=== PATIENT | female | born 1935 | race Caucasian/White ===

== ENCOUNTER → 2016-09-24 | Outpatient (CLI) | payer MEDICARE, BC ==
--- NOTE | 2016-09-24 17:52 | REP ---
PA and lateral chest: Comparisons 07/26/2015. There are no infiltrates, effusions or masses. There is a minor zone of discoid atelectasis inferiorly in the left lung. Surgical clips are again noted in the oral anteriorly in the left lung, unchanged. There are old healed left rib fractures. The lung serna otherwise clear. Cardiac size is upper normal, unchanged. The verenice and mediastinum are unremarkable. Impression: No acute cardiopulmonary findings. Signed by Umer Eason MD 09/24/2016 05:44 P
== END ==
LOC: M WUC 14:46
PROVIDERS: ATTEND Physician Assistant
DX: R05 Cough (principal)

== ENCOUNTER → 2016-10-30 | Outpatient (CLI) | payer MEDICARE, BC ==
--- NOTE | 2016-10-30 14:44 | REPMRS ---
Patient History The patient states she had a clinical breast exam in 06/18.Patient is postmenopausal and has history of cancer in the left breast at age 73. Family history of unknown cancer in mother at age 72 and unknown cancer in brother at age 67. Taking tamoxifen for 4 years. Digital Mammo Screening Bilat: October 30, 2016 - Exam #: [id number] Bilateral CC and MLO view(s) were taken. Technologist: Rachana Alexandre, Technologist Prior study comparison: October 15, 2015, bilateral digital mammo screening bilat performed at [facility]. October 14, 2014, bilateral digital mammo screening bilat performed at [facility]. October 13, 2013, bilateral digital mammo screening bilat performed at [facility]. FINDINGS: There are scattered fibroglandular densities. There has been no change in the appearance of the mammogram from the prior studies. There are surgical clips projecting in the left axilla as before. There is a mild amount of scattered fibroglandular density which is fairly symmetric. There is no interval development of dominant mass, architectural distortion, or clustered microcalcification suggestive of malignancy. ASSESSMENT: BI-RADS/ACR category 1 mammogram. Negative. Recommendation Routine screening mammogram in 1 year (for women over age 40). This mammogram was interpreted with the aid of an FDA-approved computer-aided dectection system. Electronically Signed By: Umer Hunt MD 10/30/16 3682
== END ==
LOC: M RAD 14:05
PROVIDERS: ATTEND Nurse Practitioner Adult Health
DX: Z12.31 Encounter for screening mammogram for malignant neoplasm of breast (principal); Z85.3 Personal history of malignant neoplasm of breast; Z78.0 Asymptomatic menopausal state

== ENCOUNTER → 2017-01-18 | Outpatient (REF) | payer MEDICARE, BC | LOC: M SFHCPLAZ 11:43 | PROVIDERS: ATTEND Nurse Practitioner Adult Health | DX: Z91.89 Other specified personal risk factors, not elsewhere classified (principal); Z85.3 Personal history of malignant neoplasm of breast; R35.0 Frequency of micturition | CPT/HCPCS: G0123; G0463 ==

== ENCOUNTER → 2017-02-21 | Outpatient (REF) | payer MEDICARE, BC ==
[2017-02-21 16:39] LABS: ALBUMIN 3.7 GM/DL (3.2-5.2); ALBUMIN/GLOBULIN RATIO 1.19 (1.00-1.93); BILIRUBIN,TOTAL 0.9 MG/DL (0.2-1.0); CALCIUM LEVEL 8.7 MG/DL (8.8-10.2); CREATININE FOR GFR 0.98 MG/DL (0.55-1.02); POTASSIUM SERUM 4.2 MEQ/L (3.5-5.1); TOTAL PROTEIN 6.8 GM/DL (6.4-8.2)
[2017-02-21 16:52] LABS: MEAN CORPUSCULAR HEMOGLOBIN 32.4 pg (27.0-33.0); MEAN CORPUSCULAR HGB CONC 32.6 g/dl (32.0-36.5); MEAN CORPUSCULAR VOLUME 99.4 fl (80.0-96.0); WHITE BLOOD COUNT 9.8 K/mm3 (4.0-10.0)
== END ==
LOC: M SFHCPLAZ 11:15
PROVIDERS: ATTEND Nurse Practitioner Adult Health
DX: E55.9 Vitamin D deficiency, unspecified (principal); J45.909 Unspecified asthma, uncomplicated; I11.0 Hypertensive heart disease with heart failure; I50.30 Unspecified diastolic (congestive) heart failure; I71.4 Abdominal aortic aneurysm, without rupture; K21.9 Gastro-esophageal reflux disease without esophagitis; R41.3 Other amnesia; R26.81 Unsteadiness on feet; M76.61 Achilles tendinitis, right leg; Z79.82 Long term (current) use of aspirin

== ENCOUNTER → 2017-05-23 | Outpatient (REF) | payer MEDICARE, BC ==
[2017-05-23 18:56] LABS: ALBUMIN 3.2 GM/DL (3.2-5.2); ALBUMIN/GLOBULIN RATIO 1.03 (1.00-1.93); ALKALINE PHOSPHATASE 49 U/L (45-117); ALT/SGPT 17 U/L (12-78); ANION GAP 9 MEQ/L (8-16); AST/SGOT 17 U/L (15-37); BILIRUBIN,TOTAL 0.6 MG/DL (0.2-1.0); BLOOD UREA NITROGEN 13 MG/DL (7-18); CALCIUM LEVEL 8.9 MG/DL (8.8-10.2); CARBON DIOXIDE LEVEL 30 MEQ/L (21-32); CHLORIDE LEVEL 107 MEQ/L (98-107); CREATININE FOR GFR 0.88 MG/DL (0.55-1.02); GLOMERULAR FILTRATION RATE > 60.0 (>32); GLUCOSE, FASTING 79 MG/DL (83-110); SODIUM LEVEL 146 MEQ/L (136-145); TOTAL PROTEIN 6.3 GM/DL (6.4-8.2)
[2017-05-23 19:45] LABS: MEAN CORPUSCULAR HEMOGLOBIN 32.8 pg (27.0-33.0); MEAN CORPUSCULAR HGB CONC 33.3 g/dl (32.0-36.5); MEAN CORPUSCULAR VOLUME 98.5 fl (80.0-96.0); RED CELL DISTRIBUTION WIDTH 12.8 % (11.5-14.5); WHITE BLOOD COUNT 8.4 K/mm3 (4.0-10.0)
== END ==
LOC: M SFHCPLAZ 11:22
PROVIDERS: ATTEND Nurse Practitioner Adult Health
DX: I50.30 Unspecified diastolic (congestive) heart failure (principal); E55.9 Vitamin D deficiency, unspecified
CPT/HCPCS: 36415; 80053; 82306; 85027; 90662; G0008; G0463

== ENCOUNTER → 2017-05-24 | Outpatient (REF) | payer MEDICARE, BC ==
[2017-05-24 15:11] LABS: FOLATE 18.5 NG/ML
== END ==
LOC: M LAB REF 13:31
PROVIDERS: ATTEND Internal Medicine Medical Oncology
DX: C50.919 Malignant neoplasm of unspecified site of unspecified female breast (principal)

== ENCOUNTER → 2017-05-30 | Outpatient (CLI) | payer MEDICARE, BC ==
--- NOTE | 2017-05-30 14:31 | REP ---
WHOLE BODY BONE SCAN: Following the intravenous administration of 22 millicuries technetium 99m MDP, the patient's whole body was imaged in the anterior and posterior projections with additional oblique images of the thoracic and pelvic regions performed and lateral views of the calvarium. Comparison is made with a prior study of 06/29/2015. There is again scattered arthritic uptake in portions of the spine, in the shoulders, hips, knees and feet. Mild increased uptake in the sternum is stable. There do appear to be new foci of increased uptake in consecutive left upper ribs, which are linearly aligned, specifically in the posterior left 4th through 6th ribs with two other aligned foci in the left 7th and 8th ribs. These are most consistent with rib fractures. There is no compelling scintigraphic evidence of osseous metastases. IMPRESSION: No compelling scintigraphic evidence of osseous metastases. Signed by Umer Verma MD 05/30/2017 05:08 P
== END ==
LOC: M RAD 09:22
PROVIDERS: ATTEND Internal Medicine Medical Oncology
DX: C50.919 Malignant neoplasm of unspecified site of unspecified female breast (principal); M54.5 Low back pain
CPT/HCPCS: 78306; A9503

== ENCOUNTER → 2017-10-31 | Outpatient (CLI) | payer MEDICARE, BC | LOC: M RAD 10:22 | DX: Z12.31 Encounter for screening mammogram for malignant neoplasm of breast (principal); Z78.0 Asymptomatic menopausal state; Z85.3 Personal history of malignant neoplasm of breast; Z79.899 Other long term (current) drug therapy | CPT/HCPCS: 77067 ==

== ENCOUNTER 2017-11-01 11:26 | Outpatient (RCR) | payer MEDICARE, BC | END 2017-12-01 | LOC: M PT 11:26 | DX: Z51.89 Encounter for other specified aftercare (principal); M54.5 Low back pain; R26.81 Unsteadiness on feet; T14.8XXD Other injury of unspecified body region, subsequent encounter | CPT/HCPCS: 97110 ==

== ENCOUNTER → 2017-11-29 | Outpatient (REF) | payer MEDICARE, BC ==
[2017-11-29 13:40] LABS: HEMATOCRIT 42.8 % (36.0-47.0)
[2017-11-30 12:11] LABS: PRETREATED FOLATE FOR RBCFOL 10.6 NG/ML; RBC FOLATE 520.1 NG/ML (280-791)
== END ==
LOC: M LAB REF 13:31
DX: C50.919 Malignant neoplasm of unspecified site of unspecified female breast (principal)
CPT/HCPCS: 82747

== ENCOUNTER 2018-04-25 15:08 | Emergency (ER) | payer MEDICARE, BC ==
[2018-04-25] MEDS: LIDOCAINE 1% MDV 20ML VIAL IM (17:39)
== END 2018-04-25 19:25 | disposition home or self-care (01) ==
LOC: M ED 15:08
DX: S52.591A Other fractures of lower end of right radius, initial encounter for closed fracture (principal); M85.88 Other specified disorders of bone density and structure, other site; W01.0XXA Fall on same level from slipping, tripping and stumbling without subsequent striking against object, initial encounter; Y92.009 Unspecified place in unspecified non-institutional (private) residence as the place of occurrence of the external cause
CPT/HCPCS: 25505

== ENCOUNTER → 2018-04-25 | Outpatient (CLI) | payer MEDICARE, BC | LOC: M WUC 14:06 | DX: S52.591A Other fractures of lower end of right radius, initial encounter for closed fracture (principal); X58.XXXA Exposure to other specified factors, initial encounter; Y92.9 Unspecified place or not applicable; M85.88 Other specified disorders of bone density and structure, other site; M25.531 Pain in right wrist ==

== ENCOUNTER → 2018-05-20 | Outpatient (REF) | payer MEDICARE, BC ==
[2018-05-20 16:43] LABS: ALBUMIN 3.5 GM/DL (3.2-5.2); ALBUMIN/GLOBULIN RATIO 1.09 (1.00-1.93); ALKALINE PHOSPHATASE 65 U/L (45-117); ALT/SGPT 18 U/L (12-78); ANION GAP 10 MEQ/L (8-16); AST/SGOT 20 U/L (7-37); BILIRUBIN,TOTAL 0.6 MG/DL (0.2-1.0); BLOOD UREA NITROGEN 18 MG/DL (7-18); CALCIUM LEVEL 8.8 MG/DL (8.8-10.2); CARBON DIOXIDE LEVEL 29 MEQ/L (21-32); CHLORIDE LEVEL 106 MEQ/L (98-107); CHOLESTEROL LEVEL 209 MG/DL (<200); CHOLESTEROL RISK RATIO 2.322 (<5); CREATININE FOR GFR 0.96 MG/DL (0.55-1.30); GLOMERULAR FILTRATION RATE 59.2 (>32); GLUCOSE, FASTING 84 MG/DL (70-100); HDL CHOLESTEROL 90 MG/DL (>40); LDL CHOLESTEROL 101 MG/DL (<100); NON-HDL-C 119 MG/DL; POTASSIUM SERUM 3.8 MEQ/L (3.5-5.1); SODIUM LEVEL 145 MEQ/L (136-145); THYROID STIMULATING HORMONE 0.426 uIU/ML (0.358-3.740); TOTAL PROTEIN 6.7 GM/DL (6.4-8.2); TRIGLYCERIDES LEVEL 90 MG/DL (<150)
== END ==
LOC: M SFHCPLAZ 14:03
DX: I10 Essential (primary) hypertension (principal); E55.9 Vitamin D deficiency, unspecified; Z85.3 Personal history of malignant neoplasm of breast
CPT/HCPCS: 84443

== ENCOUNTER 2018-10-07 18:44 | Inpatient (IN) | payer MEDICARE, BC ==
[~2018-10-07] VITALS: Ht 165.1 cm; Wt 68.0 kg
[~2018-10-07 18:44] MED LIST: ASPI1TAB PO; ATEN25TA PO; TAMO20TA8 PO
[2018-10-07] MEDS ORDERED: NS 1,000 ML IV ONE (20:15)
--- NOTE | 2018-10-07 20:20 | ECGEPIP ---
Stationary ECG Study [facility] - ED Test Date: 2018-10-07 Pat Name: RIZWAN BUENO Department: Room: - Gender: F [employer]: [place] : 1935 Requested By: MIC GILL Order Number: [id number] Reading MD: Althea Pineda Measurements Intervals [place] Rate: 73 P: 46 OK: 152 QRS: 44 QRSD: 83 T: 60 QT: 409 QTc: 453 Interpretive Statements SINUS RHYTHM NONSPECIFIC ST T WAVE CHANGES 07/26/[address] T WAVE CHANGES Electronically Signed On 10-07-2018 20:20:50 EST by Althea Pineda
[2018-10-07 20:30] LABS: HEMATOCRIT 36.8 % (36.0-47.0); MEAN CORPUSCULAR HEMOGLOBIN 32.3 pg (27.0-33.0); MEAN CORPUSCULAR HGB CONC 32.6 g/dl (32.0-36.5); MEAN CORPUSCULAR VOLUME 99.2 fl (80.0-96.0); PLATELET COUNT, AUTOMATED 233 10^3/uL (150-450); RED BLOOD COUNT 3.71 10^6/uL (4.00-5.40)
[2018-10-07 20:33] LABS: BLOOD UREA NITROGEN 29 MG/DL (7-18); CALCIUM LEVEL 8.3 MG/DL (8.8-10.2); CARBON DIOXIDE LEVEL 30 MEQ/L (21-32); CHLORIDE LEVEL 104 MEQ/L (98-107); CK-MB VALUE MASS < 1.0 NG/ML (<3.6); CPK CREATINE PHOSPHOKINASE 40 U/L (26-192); CREATININE FOR GFR 1.63 MG/DL (0.55-1.30); GLOMERULAR FILTRATION RATE 32.2 (>32); GLUCOSE, FASTING 211 MG/DL (70-100); POTASSIUM SERUM 3.7 MEQ/L (3.5-5.1); SODIUM LEVEL 141 MEQ/L (136-145); TROPONIN I < 0.02 NG/ML (< 0.10)
[2018-10-07 20:39] LABS: WHITE BLOOD COUNT 35.3 10^3/uL (4.0-10.0)
[2018-10-07 20:54] LABS: LYMPHOCYTES 7 % (16-52); NEUTROPHILS 89 % (35-75)
[2018-10-07 20:55] LABS: TOXIC VACUOLATION 1+
[2018-10-07 20:57] LABS: PLATELET ESTIMATE NORMAL (NORMAL)
[2018-10-07] MEDS: DONEPEZIL 5 MG TAB PO SCH (21:00)
[2018-10-07] MEDS: MEMANTINE 5MG TABLET (NAMENDA) PO SCH (21:00)
[2018-10-07] MEDS ORDERED: NS 500 ML IV ONE ×2 (21:45→23:45)
[2018-10-07 22:12] LABS: APPEARANCE, URINE TURBID (CLEAR); BACTERIA, URINE AUTO 3+ (NEGATIVE); BILIRUBIN, URINE AUTO NEGATIVE (NEGATIVE); BLOOD, URINE BLOOD 1+ (NEGATIVE); COLOR, URINE AMBER (YELLOW); GLUCOSE, URINE (UA) AUTO NEGATIVE (NEGATIVE); KETONE, URINE AUTO NEGATIVE (NEGATIVE); LEUKOCYTE ESTERASE, URINE AUTO 3+ (NEGATIVE); MUCUS, URINE SMALL (NEGATIVE); NITRITE, URINE AUTO NEGATIVE (NEGATIVE); PROTEIN, URINE AUTO 2+ mg/dL (NEGATIVE); RBC, URINE AUTO 26 /HPF (0-3); SPECIFIC GRAVITY URINE AUTO 1.015 (1.002-1.035); SQUAMOUS EPITHELIAL CELL UR AU 0 /HPF (0-6); UROBILINOGEN, URINE AUTO 0.2 mg/dL (0.0-2.0); WBC, URINE AUTO TNTC /HPF (0-3)
[2018-10-07] MEDS ORDERED: cefTRIAXone SOD 2 GM in D5W MINI-BAG PLUS 50 ML IV ONE (22:30)
[2018-10-07] MEDS ORDERED: XALA0.007 OU (22:51)
[2018-10-07] MEDS ORDERED: MEMA1TAB PO (22:51)
[2018-10-07] MEDS ORDERED: ATEN25TA PO (22:51)
[2018-10-07] MEDS ORDERED: KLOR20TA42 PO (22:51)
[2018-10-07] MEDS ORDERED: ASPI81TA24 PO (22:51)
[2018-10-07] MEDS ORDERED: ESCI10TA2 PO (22:51)
[2018-10-07] MEDS ORDERED: GABA-843 PO (22:51)
[2018-10-07] MEDS ORDERED: FURO20TA2 PO (22:51)
[2018-10-07] MEDS ORDERED: DONETAB6 PO (22:51)
[2018-10-07] MEDS ORDERED: DONE10TA90 PO (22:53)
[2018-10-08] VITALS (7 sets, daily range): BP systolic 88–124; BP diastolic 50–60
[2018-10-08] MEDS ORDERED: ONDANSETRON 4MG/2ML VIAL (J2405) IV PRN (01:00)
[2018-10-08] MEDS ORDERED: NS 1,000 ML IV SCH (01:00)
[2018-10-08] MEDS ORDERED: IPRATROPIUM 0.5MG/ALBUTEROL 2.5MG INH SOL UD 3ML (DUONEB)(J7620) NEB PRN (01:00)
[2018-10-08] MEDS ORDERED: ACETAMINOPHEN TAB 650MG DOSE (2X325MG) PO PRN (01:00)
--- NOTE | 2018-10-08 06:16 | HPE ---
DATE OF ADMISSION: 10/08/2018 CHIEF COMPLAINT: Dizziness, urinary frequency and hypotension. HISTORY OF PRESENT ILLNESS (HPI): The patient is an 83-year-old female with a significant past medical history of hypertension, dementia, mood disorder. She presents to the emergency room brought from [facility] where she was visiting friends. She also has a history of obstructive airway disease, possibly chronic pulmonary obstructive disease (COPD), asthma. She was brought in when she visiting friends when she complained of generalized weakness, dizziness, her blood pressure was note to be low. In the emergency room (ER) she was to have a white count of 35 with a lactate, she was mildly hypotensive which responded appropriately to fluids. She was also noted to have a positive urinalysis (UA). She denies any cough, chest pain, shortness of breath, abdominal pain, constipation or diarrhea. She does endorse urinary frequency. She is a poor historian and does have baseline dementia. PAST MEDICAL HISTORY: See HPI. PAST SURGICAL HISTORY: The patient had a hard time recalling but she said she had breast cancer status post lumpectomy and follows regularly with a plaster helper/oncologist. Other than this, she was unable to recall much more of her past surgical history. HOME MEDICATIONS: - aspirin - atenolol - Lexapro - Lasix - gabapentin - latanoprost - donepezil - memantine - potassium chloride SOCIAL HISTORY: Denies tobacco, alcohol or illicit drug use. FAMILY HISTORY: Noncontributory. REVIEW OF SYSTEMS: A 12-point review of system was completed all of which negative except those listed in the HPI. PHYSICAL EXAMINATION: ADMISSION VITAL SIGNS: Temperature 99, pulse 76, respirations 19, blood pressure 100/49, satting 98% on room air. GENERAL: She is a well nourished, elderly female, very pleasant and in no apparent distress. HEAD: Normocephalic atraumatic. Eyes: Extraocular movements are intact. Pupils equal, round, and reactive to light. NECK: Supple, no jugular venous pulse (JVP). LUNGS: Clear to auscultation, no crackles, wheezes, rales or rhonchi. CARDIOVASCULAR: Regular rate and rhythm, normal S1, S2. No murmurs, rubs, gallops. ABDOMEN: Soft, nontender, nondistended. Positive bowel sounds. No rebound or guarding. EXTREMITIES: No pitting edema or calf tenderness. SKIN: Intact, no rashes, lesions or breakdown. NEUROLOGICAL EXAM: She is awake, alert and oriented times two. No focal deficits are appreciated. LABS AND IMAGING COMPLETED IN THE EMERGENCY ROOM: White count of 35, hemoglobin 12, hematocrit 36, platelet count 233. Chemistries show BUN 29, creatinine 1.63. Baseline creatinine appears to be around 1., lactate of 3.2, troponins are negative. Chest x-ray shows no acute disease. No consolidations, no infiltrates. ASSESSMENT AND PLAN: 1. Sepsis secondary to urinary tract infection (UTI). Will continue fluid hydration. Will obtain urine culture, Ceftriaxone 1 gram daily. Will tailor antibiotics as per urine culture . 2. Dementia. Continue donepezil and memantine. 3. Hypertension. Hold Lasix, potassium chloride, and atenolol for now in the setting of borderline pressures. 4. Glaucoma. Continue latanoprost. 5. Breast cancer, status post lumpectomy. Stable. She follows with outside plaster helper/oncologist. 6. Mood disorder. Continue Lexapro and gabapentin. SUPPORTIVE: Deep venous thrombosis (DVT) prophylaxis. Heparin subcutaneous. Gastrointestinal (GI) prophylaxis: Not indicated. DIET: Cardiac.
[2018-10-08] MEDS: HEPARIN SOD (PORCINE) 5000 UNITS/ML VIAL SC SCH ×3 (06:26→21:23)
--- NOTE | 2018-10-08 08:32 | REP ---
Chest x-ray: Two views. History: Fever. Comparison study: September 24, 2016. Findings: EKG monitoring electrodes overlie the chest. Mild cardiac enlargement is seen. Lungs are hyperinflated but clear. There are surgical clips projecting over the left chest likely in the extrathoracic breast soft tissues. No infiltrate is seen. Pulmonary vasculature is not increased. The aorta is calcific and tortuous. There is a dextroconvex curvature in the upper thoracic spine unchanged. Old healed rib fractures are noted on the left. Impression: Hyperinflation. Mild cardiac enlargement. No acute disease. No acute infiltrate. Electronically Signed by Zachery Hunt MD 10/08/2018 08:24 A
[2018-10-08] MEDS: ESCITALOPRAM OXALATE 10 MG TAB (LEXAPRO) PO SCH (09:19)
[2018-10-08] MEDS: GABAPENTIN 300 MG CAP PO SCH ×2 (09:20→21:24)
[2018-10-08] MEDS: ASPIRIN 81 MG ENTERIC TAB PO SCH (09:20)
[2018-10-08 13:32] LABS: HEMATOCRIT 38.8 % (36.0-47.0); HEMOGLOBIN 12.5 g/dl (12.0-15.5); MEAN CORPUSCULAR HGB CONC 32.2 g/dl (32.0-36.5); MEAN CORPUSCULAR VOLUME 99.2 fl (80.0-96.0); PLATELET COUNT, AUTOMATED 202 10^3/uL (150-450); RED BLOOD COUNT 3.91 10^6/uL (4.00-5.40); WHITE BLOOD COUNT 19.5 10^3/uL (4.0-10.0)
[2018-10-08 13:54] LABS: CALCIUM LEVEL 7.9 MG/DL (8.8-10.2); CREATININE FOR GFR 1.1 MG/DL (0.55-1.30); GLOMERULAR FILTRATION RATE 50.6 (>32); POTASSIUM SERUM 3.6 MEQ/L (3.5-5.1)
[2018-10-08] MEDS: LATANOPROST 0.005% OPHTH SOLN 2.5 ML OU SCH (21:23)
[2018-10-08] MEDS: cefTRIAXone SOD 1 GM in D5W MINI-BAG PLUS 50 ML IV SCH (21:23)
[2018-10-08] MEDS: MEMANTINE 5MG TABLET (NAMENDA) PO SCH (21:24)
[2018-10-08] MEDS: DONEPEZIL 5 MG TAB PO SCH (21:24)
[2018-10-09] MEDS ORDERED: SODIUM CHLORIDE 0.9% 1000ML IV ONE (01:15)
[2018-10-09] MEDS ORDERED: NS 1,000 ML IV SCH (01:30)
[2018-10-09 04:00] VITALS: BP 97/50
[2018-10-09] MEDS: HEPARIN SOD (PORCINE) 5000 UNITS/ML VIAL SC SCH ×3 (05:55→21:20)
[2018-10-09 06:07] LABS: HEMATOCRIT 36.5 % (36.0-47.0); HEMOGLOBIN 11.4 g/dl (12.0-15.5); MEAN CORPUSCULAR HEMOGLOBIN 31.8 pg (27.0-33.0); MEAN CORPUSCULAR HGB CONC 31.2 g/dl (32.0-36.5); PLATELET COUNT, AUTOMATED 156 10^3/uL (150-450); RED BLOOD COUNT 3.58 10^6/uL (4.00-5.40); WHITE BLOOD COUNT 11.8 10^3/uL (4.0-10.0)
[2018-10-09 06:30] LABS: CALCIUM LEVEL 7.9 MG/DL (8.8-10.2); CREATININE FOR GFR 0.97 MG/DL (0.55-1.30); GLOMERULAR FILTRATION RATE 58.5 (>32); POTASSIUM SERUM 3.5 MEQ/L (3.5-5.1)
[2018-10-09 08:00] VITALS: BP 124/70
[2018-10-09] MEDS: ASPIRIN 81 MG ENTERIC TAB PO SCH (08:22)
[2018-10-09] MEDS: ESCITALOPRAM OXALATE 10 MG TAB (LEXAPRO) PO SCH (08:23)
[2018-10-09] MEDS: GABAPENTIN 300 MG CAP PO SCH ×2 (08:23→21:20)
[2018-10-09 12:00] VITALS: BP 123/66
[2018-10-09 16:00] VITALS: BP 143/93
[2018-10-09 20:00] VITALS: BP 130/78
[2018-10-09] MEDS: DONEPEZIL 5 MG TAB PO SCH (21:20)
[2018-10-09] MEDS: MEMANTINE 5MG TABLET (NAMENDA) PO SCH (21:20)
[2018-10-09] MEDS: LATANOPROST 0.005% OPHTH SOLN 2.5 ML OU SCH (21:21)
[2018-10-09] MEDS: cefTRIAXone SOD 1 GM in D5W MINI-BAG PLUS 50 ML IV SCH (21:21)
--- NOTE | 2018-10-09 21:54 | IPN ---
DATE: 10/09/2018 SUBJECTIVE: The patient tells me she is feeling better. She denies any abdominal tenderness, fevers, chills, shortness of breath. OBJECTIVE: VITAL SIGNS: Temperature 98.5, maximum temperature (T-max) 99.8, heart rate 70, respiratory rate 20, blood pressure 120/60, oxygen saturation 97% on room air. She does not appear to be in any acute distress. She does not remember the events of yesterday. Face is symmetric. Moist mucous membranes. No elevation of central venous pressure (CVP). CARDIOVASCULAR: S1, S2, regular. RESPIRATORY: Quite clear. ABDOMEN: Yesterday, she had some suprapubic tenderness which today she does not exhibit. There is no flank tenderness. EXTREMITIES: No clubbing, cyanosis, or edema. LABORATORY DATA: WBC 11.8, down from 35.3 at the time of admission, hemoglobin 11.4, platelet count 156. Chemistry panel: Sodium 146, potassium 3.5, chloride 112, bicarbonate 28, BUN 16, creatinine 0.9, lactic acid was 1.3 this morning. MICROBIOLOGY: Urine culture is pending. Blood cultures are thus negative. IMAGING: The patient had a chest x-ray at the time of her admission that revealed hyperinflation, mild cardiac enlargement. No acute disease. No acute infiltrate. ASSESSMENT AND PLAN: This is an 83-year-old female who presented with sepsis secondary to a urinary source. 1. Sepsis secondary to a urinary source. She presented quite ill with severe sepsis and hypotension. She did respond to IV fluids and antibiotics. We will followup her cultures and narrow antibiotic regimen. At this time, she is continued with ceftriaxone. She does appear in fact to be improving. Her lactic acidosis has resolved with leukocytosis downtrending. She is afebrile. She did have a grossly abnormal urinalysis (UA) at the time of her presentation. 2. Hypertension. Her home Lasix and potassium are on hold as well atenolol. Based on blood pressure, we may consider restarting atenolol. 3. Glaucoma. We will continue latanoprost. 4. History of breast cancer, status post lumpectomy. She follows up regularly with oncology. 5. Mood disorder. She is on gabapentin. 6. Deep vein thrombosis (DVT) prophylaxis. The patient is on heparin. DISPOSITION: I placed a physical therapy (PT) evaluation. We will downgrade her to the medical/surgical floor. She could potentially be discharged within the next 24-48 hours. KRUPA
[2018-10-10] VITALS: BP 124/86
[2018-10-10 04:00] VITALS: BP 125/77
[2018-10-10 05:38] LABS: HEMATOCRIT 37.4 % (36.0-47.0); HEMOGLOBIN 11.7 g/dl (12.0-15.5); MEAN CORPUSCULAR HEMOGLOBIN 31.6 pg (27.0-33.0); MEAN CORPUSCULAR HGB CONC 31.3 g/dl (32.0-36.5); MEAN CORPUSCULAR VOLUME 101.1 fl (80.0-96.0); PLATELET COUNT, AUTOMATED 153 10^3/uL (150-450); WHITE BLOOD COUNT 8.2 10^3/uL (4.0-10.0)
[2018-10-10 05:52] LABS: BLOOD UREA NITROGEN 13 MG/DL (7-18); CALCIUM LEVEL 7.6 MG/DL (8.8-10.2); CARBON DIOXIDE LEVEL 25 MEQ/L (21-32); CHLORIDE LEVEL 114 MEQ/L (98-107); CREATININE FOR GFR 0.94 MG/DL (0.55-1.30); GLOMERULAR FILTRATION RATE > 60.0 (>32); GLUCOSE, FASTING 80 MG/DL (70-100); POTASSIUM SERUM 3.9 MEQ/L (3.5-5.1); SODIUM LEVEL 144 MEQ/L (136-145)
[2018-10-10] MEDS: HEPARIN SOD (PORCINE) 5000 UNITS/ML VIAL SC SCH ×3 (06:02→21:21)
[2018-10-10 08:00] VITALS: BP 136/75
[2018-10-10] MEDS: ESCITALOPRAM OXALATE 10 MG TAB (LEXAPRO) PO SCH (08:37)
[2018-10-10] MEDS: GABAPENTIN 300 MG CAP PO SCH ×2 (08:37→21:21)
[2018-10-10] MEDS: ASPIRIN 81 MG ENTERIC TAB PO SCH (08:37)
--- NOTE | 2018-10-10 13:21 | IPNPDOC ---
Text Note Date of Service The patient was seen on 10/10/18. NOTE SUBJECTIVE: Patient was examined bedside. She had initiation of bathroom. She had no acute complaints. Overnight patient was afebrile. OBJECTIVE: VITAL SIGNS: See Below ENT: No JVD, suple neck CARDIOVASCULAR: S1, S2 normal no murmurs rubs or gallops RESPIRATORY: Clear to auscultate ABDOMEN: Soft, nontender, EXTREMITIES: No clubbing, cyanosis, or edema. LABORATORY DATA: See below MICROBIOLOGY: Urine culture is pending. Blood cultures are thus negative. Prior urine cultures was positive for Escherichia coli ASSESSMENT AND PLAN: This is an 83-year-old female who presented with sepsis secondary to a urinary source. 1. Sepsis secondary to a urinary source. -Ceftriaxone -Normalized white count, normal lactic acid -Pending urine culture, will adjust antibiotics as necessary -Blood cultures negative 2. Dementia -Continue home medication -Patient is not agitated, she does not appear confused, no reported behavioral issues 3. Hypertension. -Hold antihypertensive meds, including Lasix, potassium, and atenolol consider restarting once patient's blood pressure elevated 4. Glaucoma. We will continue latanoprost. 5. History of breast cancer, status post lumpectomy. She follows up regularly with oncology. 6. Mood disorder. -Continue gabapentin She is on gabapentin. 7. Deep vein thrombosis (DVT) prophylaxis. The patient is on heparin. VS,Fishbone, I+O VS, Fishbone, I+O Laboratory Tests 10/10/18 05:12 Red Blood Count 3.70 L, Mean Corpuscular Volume 101.1 H, Mean Corpuscular Hemoglobin 31.6, Mean Corpuscular Hemoglobin Concent 31.3 L, Red Cell Distribution Width 13.9, Calcium Level 7.6 L Vital Signs Date Time Temp Pulse Resp B/P (MAP) Pulse Ox O2 Delivery O2 Flow Rate FiO2 10/10/18 04:00 98.2 61 18 125/77 (93) 97 10/08/18 02:58 Room Air I&O- Last 24 Hours up to 6 AM 10/10/18 06:00 Intake Total 1800 ml Output Total 1350 ml Balance 450 ml GME ATTESTATION GME ATTESTATION My faculty preceptor for this patient encounter was physically present during the encounter and was fully available. All aspects of the patient interview, examination, medical decision making process, and medical care plan development were reviewed and approved by the faculty preceptor. The faculty preceptor is aware and concurs with the plan as stated in the body of this note and will attest to such by his/her cosignature. HAROON LOZANO DO Oct 10, 2018 08:13
[2018-10-10] MEDS: SLF 3 ML SYR IV SCH ×2 (13:39→21:22)
[2018-10-10] MEDS ORDERED: SLF 3 ML SYR IV PRN (13:45)
[2018-10-10 14:15] VITALS: BP 135/71
[2018-10-10 20:54] VITALS: BP 141/68
[2018-10-10] MEDS: cefTRIAXone SOD 1 GM in D5W MINI-BAG PLUS 50 ML IV SCH (21:21)
[2018-10-10] MEDS: LATANOPROST 0.005% OPHTH SOLN 2.5 ML OU SCH (21:21)
[2018-10-10] MEDS: MEMANTINE 5MG TABLET (NAMENDA) PO SCH (21:21)
[2018-10-10] MEDS: DONEPEZIL 5 MG TAB PO SCH (21:21)
[2018-10-11 04:05] VITALS: BP 125/71
[2018-10-11] MEDS: HEPARIN SOD (PORCINE) 5000 UNITS/ML VIAL SC SCH (05:59)
[2018-10-11] MEDS: SLF 3 ML SYR IV SCH (06:00)
[2018-10-11 06:58] LABS: HEMATOCRIT 37.7 % (36.0-47.0); MEAN CORPUSCULAR HEMOGLOBIN 31.6 pg (27.0-33.0); MEAN CORPUSCULAR HGB CONC 31.8 g/dl (32.0-36.5); MEAN CORPUSCULAR VOLUME 99.2 fl (80.0-96.0); PLATELET COUNT, AUTOMATED 175 10^3/uL (150-450); WHITE BLOOD COUNT 7.9 10^3/uL (4.0-10.0)
[2018-10-11 07:21] LABS: BLOOD UREA NITROGEN 16 MG/DL (7-18); CALCIUM LEVEL 8.2 MG/DL (8.8-10.2); CARBON DIOXIDE LEVEL 28 MEQ/L (21-32); CHLORIDE LEVEL 113 MEQ/L (98-107); CREATININE FOR GFR 0.78 MG/DL (0.55-1.30); GLOMERULAR FILTRATION RATE > 60.0 (>32); GLUCOSE, FASTING 79 MG/DL (70-100); SODIUM LEVEL 147 MEQ/L (136-145)
[2018-10-11 08:00] VITALS: BP 154/72
[2018-10-11] MEDS: ASPIRIN 81 MG ENTERIC TAB PO SCH (08:29)
[2018-10-11] MEDS: GABAPENTIN 300 MG CAP PO SCH (08:30)
[2018-10-11] MEDS: ESCITALOPRAM OXALATE 10 MG TAB (LEXAPRO) PO SCH (08:30)
[2018-10-11] MEDS ORDERED: BACT400T PO (09:17)
[2018-10-11] MEDS ORDERED: CEFD1CAP8 PO (09:45)
== END 2018-10-11 12:36 | disposition home or self-care (01) | DRG 872 ==
LOC: M ED 18:44 → M ED INP 10-08 00:51 → M PCU 10-08 11:50 → M MS4PR 10-10 14:11
PROVIDERS: ADMIT Internal Medicine; ATTEND Internal Medicine
DX: A41.9 Sepsis, unspecified organism (principal); N39.0 Urinary tract infection, site not specified; I10 Essential (primary) hypertension; F03.90 Unspecified dementia, unspecified severity, without behavioral disturbance, psychotic disturbance, mood disturbance, and anxiety; J44.9 Chronic obstructive pulmonary disease, unspecified; Z79.82 Long term (current) use of aspirin; Z79.899 Other long term (current) drug therapy; H40.9 Unspecified glaucoma; Z85.3 Personal history of malignant neoplasm of breast

== ENCOUNTER → 2018-12-19 | Outpatient (REF) | payer MEDICARE, BC ==
[~2018-12-19] MED LIST changes: -ASPI1TAB PO; +ASPI81TA24 PO; +ASPI81TA26 PO; +BACT400T PO; +CEFD1CAP8 PO; +DONE10TA90 PO; +DONETAB6 PO; +ESCI10TA2 PO; +FURO20TA2 PO; +GABA-843 PO; +KLOR20TA42 PO; +MEMA1TAB PO; +XALA0.007 OU
[2018-12-19 16:50] LABS: ALBUMIN 3.4 GM/DL (3.2-5.2); BILIRUBIN,TOTAL 0.3 MG/DL (0.2-1.0); CALCIUM LEVEL 8.8 MG/DL (8.8-10.2); CREATININE FOR GFR 1.05 MG/DL (0.55-1.30); GLOMERULAR FILTRATION RATE 53.4 (>32); POTASSIUM SERUM 4.1 MEQ/L (3.5-5.1); THYROID STIMULATING HORMONE 0.559 uIU/ML (0.358-3.740); TOTAL 25(OH) VITAMIN D 37.8 NG/ML (30.0-100.0); TOTAL PROTEIN 6.5 GM/DL (6.4-8.2)
== END ==
LOC: M SFHCPLAZ 14:02
PROVIDERS: ATTEND Nurse Practitioner Adult Health
DX: Z00.00 Encounter for general adult medical examination without abnormal findings (principal); E55.9 Vitamin D deficiency, unspecified; I10 Essential (primary) hypertension

== ENCOUNTER → 2018-12-27 | Outpatient (CLI) | payer MEDICARE, BC ==
--- NOTE | 2018-12-27 11:56 | REPMRS ---
Patient History The patient states she had a clinical breast exam in December 2018.Family history of unknown cancer at age 72 in mother, unknown cancer at age 67 in brother. Taking tamoxifen for 4 years. 2D only due to patient condition. Digital Mammo Screening Bilat: December 27, 2018 - Exam #: [id number] Bilateral CC and MLO view(s) were taken. Technologist: Rachana Alexandre, Technologist Prior study comparison: October 31, 2017[facility] October 30, 2016, [facility]. October 15, 2015, bilateral digital [facility] screening bil[facility]. FINDINGS: There are scattered fibroglandular densities. Stable post-treatment changes again noted on the left. There has been no change in the appearance of the mammogram from the prior studies. There is a mild amount of scattered fibroglandular density which is fairly symmetric. There is no interval development of dominant mass, architectural distortion, or clustered microcalcification suggestive of malignancy. Assessment: BI-RADS/ACR category 2 mammogram. Benign Findings. Recommendation Routine screening mammogram of both breasts in 1 year (for women over age 40). This mammogram was interpreted with the aid of an FDA-approved computer-aided dectection system. Electronically Signed By: Umer Hunt MD 12/27/18 [id number]
== END ==
LOC: M RAD 11:18
PROVIDERS: ATTEND Nurse Practitioner Family
DX: Z12.31 Encounter for screening mammogram for malignant neoplasm of breast (principal)

== ENCOUNTER → 2018-12-31 | Outpatient (RCR) | payer MEDICARE, BC | END | disposition home or self-care (01) | LOC: M PT 10:04 | PROVIDERS: ATTEND Nurse Practitioner Adult Health | DX: R26.81 Unsteadiness on feet (principal) ==

== ENCOUNTER 2019-01-23 10:19 | Outpatient (RCR) | payer MEDICARE, BC | END 2019-01-31 | LOC: M PT 10:19 | PROVIDERS: ATTEND Nurse Practitioner Adult Health | DX: R26.81 Unsteadiness on feet (principal) ==

== ENCOUNTER → 2019-01-30 | Outpatient (REF) | payer MEDICARE, BC ==
[2019-01-30 14:57] LABS: ALT/SGPT 17 U/L (12-78); BILIRUBIN,TOTAL 0.5 MG/DL (0.2-1.0); BLOOD UREA NITROGEN 21 MG/DL (7-18); CALCIUM LEVEL 8.3 MG/DL (8.8-10.2); CARBON DIOXIDE LEVEL 30 MEQ/L (21-32); CHLORIDE LEVEL 106 MEQ/L (98-107); CPK CREATINE PHOSPHOKINASE 66 U/L (26-192); CREATININE FOR GFR 0.94 MG/DL (0.55-1.30); GLOMERULAR FILTRATION RATE > 60.0 (>32); GLUCOSE, FASTING 81 MG/DL (70-100); MAGNESIUM LEVEL 2.1 MG/DL (1.8-2.4); MB/CK RELATIVE INDEX 2.73 (< OR =4); NT-PRO BNP 2314 PG/ML (<450); POTASSIUM SERUM 4.2 MEQ/L (3.5-5.1); SODIUM LEVEL 142 MEQ/L (136-145); TOTAL PROTEIN 6.8 GM/DL (6.4-8.2); TROPONIN I 0.04 NG/ML (< 0.10)
== END ==
LOC: M SFHCPLAZ 12:52
PROVIDERS: ATTEND Physician Assistant Medical
DX: R07.9 Chest pain, unspecified (principal); I50.30 Unspecified diastolic (congestive) heart failure
CPT/HCPCS: 80053; 82550; 82553; 83735; 83880; 84484; 93005; G0463

== ENCOUNTER → 2019-02-07 | Outpatient (CLI) | payer MEDICARE, BC ==
[~2019-02-07] MED LIST changes: +ISOVUE-370 76% 100ML VIAL (Q9967) As Ordered ONE
--- NOTE | 2019-02-07 09:38 | REP ---
CT Head without and with contrast HISTORY: Dizziness CONTRAST: Isovue 370 75 ml COMPARISON: None Areas of decreased attenuation are present in the periventricular white matter. This represents small-vessel ischemic disease. There is no intraparenchymal hemorrhage, acute infarct, mass or midline shift. There is no abnormal enhancement. The ventricular system and cortical sulci are dilated consistent with mild volume loss. There is no extra cerebral collection. The visualized sinuses are clear. Impression: 1. Small vessel ischemic disease. 2. Mild volume loss. Electronically Signed by Bradly Bello MD 02/07/2019 09:30 A
== END ==
LOC: M RAD 09:03
PROVIDERS: ATTEND Physician Assistant Medical
DX: I67.82 Cerebral ischemia (principal); G31.9 Degenerative disease of nervous system, unspecified
CPT/HCPCS: 70470; Q9967

== ENCOUNTER 2019-03-10 17:59 | Inpatient (IN) | payer MEDICARE, BC ==
[~2019-03-10] VITALS: Ht 165.1 cm; Wt 69.2 kg
[~2019-03-10 17:59] MED LIST changes: -ADV250INH INH; -ALEV220T22 PO; -MULTCAP PO; -PHARMACY COMMENT; -TORS20TA2 PO
[2019-03-10 19:16] LABS: VENOUS BASE EXCESS -5.1 (-2.0-2.0); VENOUS HCO3 21.8 MEQ/L (23.0-27.0); VENOUS O2 SATURATION 60.6 % (60.0-80.0); VENOUS PARTIAL PRESSURE CO2 48.9 mmHg (38.0-50.0); VENOUS PARTIAL PRESSURE O2 35.3 mmHg (30.0-50.0); VENOUS PH 7.267 UNITS (7.330-7.430); VENOUS STANDARD HCO3 19.6 MEQ/L; VENOUS TOTAL CO2 23.3 MEQ/L (24.0-28.0)
[2019-03-10 19:20] LABS: BASO % 0.2 % (0.0-1.0); EOS # 0.3 10^3/uL (0.0-0.50); EOS % 2.6 % (0.0-3.0); HEMATOCRIT 29.1 % (36.0-47.0); HEMOGLOBIN 9.1 g/dl (12.0-15.5); LYMPH # 4.2 10^3/uL (1.5-4.5); LYMPH % 33.4 % (24.0-44.0); MEAN CORPUSCULAR HEMOGLOBIN 30.2 pg (27.0-33.0); MEAN CORPUSCULAR HGB CONC 31.3 g/dl (32.0-36.5); MEAN CORPUSCULAR VOLUME 96.7 fl (80.0-96.0); MONO # 1.1 10^3/uL (0.0-0.8); NEUTROPHILS # 6.8 10^3/uL (1.8-7.7); NEUTROPHILS % 54.4 % (36.0-66.0); PLATELET COUNT, AUTOMATED 188 10^3/uL (150-450); RED BLOOD COUNT 3.01 10^6/uL (4.00-5.40); WHITE BLOOD COUNT 12.5 10^3/uL (4.0-10.0)
[2019-03-10 19:29] LABS: INR 1.24; PROTHROMBIN TIME 15.4 SECONDS (11.8-14.0)
[2019-03-10] MEDS ORDERED: TORS20TA2 PO (19:39)
[2019-03-10] MEDS ORDERED: MULTCAP PO (19:39)
[2019-03-10] MEDS ORDERED: ALEV220T22 PO (19:40)
[2019-03-10] MEDS ORDERED: ADV250INH INH (19:40)
[2019-03-10] MEDS ORDERED: PHARMACY COMMENT (19:41)
[2019-03-10 19:56] LABS: ALBUMIN 2.6 GM/DL (3.2-5.2); BILIRUBIN,DIRECT 0.1 MG/DL (0.0-0.2); BILIRUBIN,TOTAL 0.3 MG/DL (0.2-1.0); CALCIUM LEVEL 8.2 MG/DL (8.8-10.2); CK-MB VALUE MASS 2.5 NG/ML (<3.6); CREATININE FOR GFR 5.93 MG/DL (0.55-1.30); GLOMERULAR FILTRATION RATE 7.2 (>32); MB/CK RELATIVE INDEX 3.38 (< OR =4); POTASSIUM SERUM 6.3 MEQ/L (3.5-5.1); TOTAL PROTEIN 6.3 GM/DL (6.4-8.2); TROPONIN I 0.02 NG/ML (< 0.10)
[2019-03-10] MEDS ORDERED: SOD POLYSTYRENE SULFONATE SUSP 15 GM/60 ML UD PO ONE (20:00)
[2019-03-10] MEDS ORDERED: MAALOX 30 ML SUSP *UDC PO PRN (20:15)
[2019-03-10] MEDS ORDERED: MOM 30ML SUSPENSION UDC PO PRN (20:15)
[2019-03-10] MEDS: DOCUSATE SODIUM 100 MG CAP PO SCH (21:00)
[2019-03-10] MEDS: DONEPEZIL 5 MG TAB PO SCH (21:00)
[2019-03-10] MEDS ORDERED: ENOXAPARIN 30 MG/0.3 ML SYR (J1650) SC SCH (21:00)
[2019-03-10] MEDS: LATANOPROST 0.005% OPHTH SOLN 2.5 ML OU SCH (21:00)
[2019-03-10] MEDS: MEMANTINE 5MG TABLET (NAMENDA) PO SCH (21:00)
[2019-03-10] MEDS ORDERED: ASPIRIN 81 MG ENTERIC TAB PO SCH (21:00)
--- NOTE | 2019-03-10 21:24 | HPEPDOC ---
General Date of Admission 03/10/19 Date of Service: Mar 10, 2019 Primary Care Physician: LAURA COHN MD Other Providers Dr Isabel Attending Physician: SRIDHAR LYN DO Chief Complaint The patient is a 84-year-old female admitted with a reason for visit of renal failure Source: Patient, Family, Old records, Other (Cardiology - Dr Isabel) Exam Limitations: Mild cognitive slowing Timing/Duration: Week(s) Severity: Severe Associated Symptoms: Chest Pain, Cough, Loss of appetite, Malaise, Shortness of breath, Weakness, Other (confusion) History of Present Illness 84 yo female who was seen by a doctor (cardiology?) earlier today and had labs, echo done per patient/family. patient is confused at times and history obtained from patient and family (daughter, son). They state 2 weeks ago, PCP changed lasix to demedex to improve medication compliance (once a day dosing instead of BID dosing). They are aware of stre ngth/dose of medication. Since starting demedex, patient has experienced minimal urine output, oliguria, dizziness, increased memory loss/forgetfulness, and leg edema bilaterally. Today they saw cardiology , told to stop demedex and potassium, use [facility] hose for leg edema and had echo/labs done. The labs showed acute renal failure. Her baseline creatinine was 0.94 in January 2019 and today was greater than 6, therefore she was sent to ED. Labs repeated and K was 6.3 with Creat 5.93 - she was treated with kayexlate and is being admitted for further workup /evaluation and treatment of JAZMIN,hyperkalemia. Medication reviewed shows that patient is also on NSAIDS. Patient states she hit her left leg on plastic laundry basket recently. 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 Patient was not seen in cardiology office today. Called lab and todays labs ordered by Dr Rohit Cohn. Home Medications Scheduled Aspirin (Aspirin EC) 81 Mg Tab, 81 MG PO QPM, (Reported) Atenolol (Atenolol) 25 Mg Tab, 25 MG PO DAILY, (Reported) Donepezil HCl (Donepezil HCl) 10 Mg Tab, 10 MG PO QHS, (Reported) Escitalopram Oxalate (Escitalopram Oxalate) 10 Mg Tab, 10 MG PO DAILY, (Reported) Gabapentin (Gabapentin) 300 Mg Cap, 600 MG PO BID, (Reported) Latanoprost (Xalatan) 0.005 % Elva, 1 DROP OU QHS, (Reported) Memantine HCl (Memantine HCl) 5 Mg Tab, 5 MG PO QHS, (Reported) Multivitamin (Multivitamins) 1 Each Capsule, 1 CAP PO QPM, (Reported) Potassium Chloride (Klor-Con M20) 20 Meq Tabcr, 20 MEQ PO BID, (Reported) Salmeterol/Fluticasone (Advair 250-50 Diskus) 1 Each Blst.w.dev, 1 PUFF INH BID, (Reported) Torsemide (Torsemide) 20 Mg Tablet, 20 MG PO DAILY, (Reported) Scheduled PRN Naproxen Sodium (Aleve) 220 Mg Tablet, 220 MG PO DAILY PRN for PAIN, (Reported) Miscellaneous Medications [Pharmacy Comment] , (Reported) VERIFIED TORSEMIDE WITH PHARMACY Allergies Coded Allergies: No Known Allergies (Unverified , 04/25/18) Past Medical History Medical History CHF (echo 03/2019 pending) Kidney stone 50 years ago chronic back pain (on gabapentin) urine incontinence Breast cancer in remission (treated with lumpectomy and radiation therapy 2006) Trigeminal neuralgia (on gabapentin) Past surgical history: Lumpectomy Social history: lives alone, no tobacco, no EtOH, independent up until 2 weeks ago; Family history: son with kidney cancer, mother pancreatic cancer and DM, father old age A-FIB/CHADSVASC A-FIB History Current/History of A-Fib/PAF?: No Current PO Anticoag Therapy: No Review of Systems Other systems 10 systems reviewed and negative except as per HPI. Patient with intermittent confusion and difficulty obtaining ROS Physical Examination General Exam: Positive: Alert, Cooperative, No Acute Distress, Other (confused) Eye Exam: Positive: PERRLA, Conjunctiva & lids normal, EOMI ENT Exam: Positive: Atraumatic, Mucous membr. moist/pink, Pharynx Normal Neck Exam: Positive: Supple, JVD Chest Exam: Positive: Clear to auscultation, Normal air movement, Rales, Wheezing Heart Exam: Positive: Bradycardic, Regular Rhythm, Murmurs Telemetry: Positive: No significant arrhythmia, Bradycardia Abdomen Exam: Positive: Normal bowel sounds, Other (RUQ tenderness with fullness; NABS, not distended, no palpable fluid wave/ascites) Extremity Exam: Positive: Edema, Normal pulses, Swelling Skin Exam: Positive: Other skin issue (left pretibia with 3x4 skin tear (1-2 day old appearing), no cellulitis) Neuro Exam: Positive: Strength at 5/5 X4 ext, Normal Tone, Sensation Intact Psych Exam: Positive: Other (oriented to person, place, time but confused on history, events, people in room (not baseline per family)) Other physical findings EKG with sinus mirela, no peaked T waves Vital Signs Vital Signs Date Time Temp Pulse Resp B/P (MAP) Pulse Ox O2 Delivery O2 Flow Rate FiO2 03/10/19 18:30 20 03/10/19 18:30 Room Air 03/10/19 17:59 98.7 73 90 Laboratory Data Labs 24H Laboratory Tests 03/10/19 18:59 Red Blood Count 3.01 L, Mean Corpuscular Volume 96.7 H, Mean Corpuscular Hemoglobin 30.2, Mean Corpuscular Hemoglobin Concent 31.3 L, Red Cell Distribution Width 14.2, Neutrophils (%) (Auto) 54.4, Lymphocytes (%) (Auto) 33.4, Monocytes (%) (Auto) 9.0 H, Eosinophils (%) (Auto) 2.6, Basophils (%) (Auto) 0.2, Neutrophils # (Auto) 6.8, Lymphocytes # (Auto) 4.2, Monocytes # (Auto) 1.1 H, Eosinophils # (Auto) 0.3, Basophils # (Auto) 0.0 Item Value Date Time Calcium Level 8.2 MG/DL L 03/10/191858 Albumin 2.6 GM/DL L 03/10/191858 Troponin I 0.02 NG/ML 03/10/191858 Alkaline Phosphatase 72 U/L 03/10/191858 Alanine Aminotransferase (ALT/SGPT) 13 U/L 03/10/191858 Aspartate Amino Transf (AST/SGOT) 16 U/L 03/10/191858 Direct Bilirubin 0.1 MG/DL 03/10/191858 Total Bilirubin 0.3 MG/DL 03/10/191858 Chloride Level 114 MEQ/L H 03/10/19 6308 RAD Interpretation STUDY: CXR Rad Actions: Report Not Available, Films Reviewed, Discussed with the pt RAD Interpretation: Worse, Other Result Comments: (pleural effusion right, increased vascular congestion compared to 10/2018, ?infiltrate (await radiology report)) Assessment/Plan 1) acute renal failure with uremia/confusion- unclear etiology (ATN from NSAID, diuretic , obstructive, etc) Difficult to get accurate history Consult Dr Bradford (case discussed Stat renal US bower cath 2) metabolic encephalopathy due to renal failure/uremia 3) Hyperkalemia due to potassium use and Acute renal failure kayexalate given in ED. repeat K level in 4 hours ICU admission until potassium stable 4) CHF based on BNP and CXR, leg edema Oxygenating well and does not appear SOB. no orthopnea Await nephrology recommendations before starting IV diuresis given her renal failure Discussed case with cardiology - no need for consult at this time, troponin negative. Echo in 02/2019 with normal EF, dilated ascending aorta (4.5cm) and mild to moderate AI. Check serial troponin 5) Anemia - possible dilutional, unclear etiology - repeat Elke 6) HTN - on atenolol - restart med; prn hydralazine 7) trigeminal neuralgia with Low back pain - on gabapentin (not renal dosing). will decrease dose to 300mg /24 hours until renal function improve 8) RUQ pain - possible passive liver congestion - will consider CT Abdomen without constrast 9) left leg abrasion - saline cleanse, non adherent dressing CODE STATUS: FULL CODE DVT prophylaxis: renal dose enoxaprin Plan / VTE VTE Prophylaxis Ordered?: Yes SRIDHAR LYN DO Mar 10, 2019 19:12
[2019-03-10 21:30] VITALS: BP 200/82
[2019-03-10] MEDS ORDERED: METOPROLOL 5 MG/5 ML VIAL IV PRN (21:30)
--- NOTE | 2019-03-10 21:33 | REPVR ---
EXAM: US Retroperitoneal Limited, Kidneys EXAM DATE/TIME: 03/10/2019 8:54 PM CLINICAL HISTORY: 84 years old, female; Abnormal findings; Abnormal lab test; Abnormal kidney function lab tests; Additional info: Renal failure - requested stat by nephrology TECHNIQUE: Imaging protocol: Real-time ultrasound of the retroperitoneum with image documentation. Examination was focused on the kidneys. COMPARISON: RENAL US 01/13/2015 3:11 PM FINDINGS: Right kidney: The right kidney is normal in size, measuring 11.9 cm in length. No right renal stone, focal renal lesion or hydronephrosis is identified. There is increased echogenicity within the right renal parenchyma, consistent with medical renal disease. Left kidney: The left kidney is normal in size, measuring 11.9 cm in length. There is a 5 mm diameter nonobstructing stone in the left kidney lower pole. No focal renal lesion or hydronephrosis is identified. There is increased echogenicity within the left renal parenchyma, consistent with medical renal disease. Bladder: Limited evaluation of the urinary bladder demonstrates no focal wall abnormality. IMPRESSION: 1. Increased echogenicity within the right and left renal parenchyma, consistent with medical renal disease. 2. No hydronephrosis. 3. Left nephrolithiasis. Electronically signed by: Celestino Barnes On 03/10/2019 21:33:10 PM
[2019-03-10 22:00] VITALS: BP 168/72
[2019-03-10] MEDS ORDERED: hydrALAZINE INJ 20 MG/ML VIAL IV ONE (22:00)
[2019-03-10] MEDS ORDERED: FUROSEMIDE 100 MG/10 ML VIAL (J1940) IV ONE (22:00)
[2019-03-10] MEDS ORDERED: IPRATROPIUM 0.5MG/ALBUTEROL 2.5MG INH SOL UD 3ML (DUONEB)(J7620) NEB PRN (22:00)
[2019-03-10] MEDS: ADVAIR HFA 115/21MCG INHALER INH SCH (22:12)
[2019-03-10 22:24] VITALS: O2SAT 97
[2019-03-10 22:30] VITALS: BP 164/69
[2019-03-10 23:00] VITALS: BP 160/95
[2019-03-10 23:07] LABS: APPEARANCE, URINE CLOUDY (CLEAR); BACTERIA, URINE AUTO 1+ (NEGATIVE); BILIRUBIN, URINE AUTO NEGATIVE (NEGATIVE); BLOOD, URINE BLOOD 3+ (NEGATIVE); COLOR, URINE STRAW (YELLOW); GLUCOSE, URINE (UA) AUTO NEGATIVE (NEGATIVE); KETONE, URINE AUTO NEGATIVE (NEGATIVE); LEUKOCYTE ESTERASE, URINE AUTO NEGATIVE (NEGATIVE); MUCUS, URINE SMALL (NEGATIVE); NITRITE, URINE AUTO NEGATIVE (NEGATIVE); PROTEIN, URINE AUTO 1+ mg/dL (NEGATIVE); RBC, URINE AUTO TNTC /HPF (0-3); SPECIFIC GRAVITY URINE AUTO 1.006 (1.002-1.035); SQUAMOUS EPITHELIAL CELL UR AU 1 /HPF (0-6); UROBILINOGEN, URINE AUTO 0.2 mg/dL (0.0-2.0); WBC, URINE AUTO 10 /HPF (0-3)
[2019-03-10 23:35] LABS: CREATININE FOR GFR 5.98 MG/DL (0.55-1.30); GLOMERULAR FILTRATION RATE 7.2 (>32); POTASSIUM SERUM 6.2 MEQ/L (3.5-5.1)
--- NOTE | 2019-03-10 23:55 | ECGEPIP ---
[facility] - ED Test Date: 2019-03-10 Pat Name: RIZWAN BUENO Department: Room: - Gender: Female Rock C[employer]: kk : 1935 Requested By: BLAS DEL CID Order Number: [id number] Reading MD: Shimon Shanks Measurements Intervals [place] Rate: 64 P: 70 UT: 151 QRS: 54 QRSD: 81 T: 64 QT: 394 QTc: 407 Interpretive Statements SINUS RHYTHM NONSPECIFIC T-WAVE ABNORMALITY Wavy baseline Similar to tracing done 10-07-18 Electronically Signed on 03-10-2019 23:55:11 EDT by Shimon Shanks
[2019-03-11] VITALS (13 sets, daily range): BP systolic 97–177; BP diastolic 49–77
[2019-03-11 02:35] LABS: HEMOGLOBIN 8.9 g/dl (12.0-15.5); MEAN CORPUSCULAR HGB CONC 30.7 g/dl (32.0-36.5); MEAN CORPUSCULAR VOLUME 97.6 fl (80.0-96.0); PLATELET COUNT, AUTOMATED 184 10^3/uL (150-450); RED BLOOD COUNT 2.97 10^6/uL (4.00-5.40); WHITE BLOOD COUNT 14.3 10^3/uL (4.0-10.0)
[2019-03-11 03:12] LABS: ALBUMIN 2.5 GM/DL (3.2-5.2); BILIRUBIN,TOTAL 0.4 MG/DL (0.2-1.0); CALCIUM LEVEL 8.3 MG/DL (8.8-10.2); CREATININE FOR GFR 6.01 MG/DL (0.55-1.30); GLOMERULAR FILTRATION RATE 7.1 (>32); POTASSIUM SERUM 5.9 MEQ/L (3.5-5.1); TOTAL PROTEIN 6.6 GM/DL (6.4-8.2); TROPONIN I 0.04 NG/ML (< 0.10)
--- NOTE | 2019-03-11 07:26 | REP ---
CHEST, TWO VIEWS: Two views of the chest are performed and compared to a prior study of 10/07/2018. There is cardiomegaly. Diffuse interstitial and alveolar infiltrates are seen bilaterally. There is a mild to moderate right effusion. The findings suggest congestive heart failure and pulmonary edema. Electronically Signed by Umer Verma MD 03/12/2019 09:43 A
--- NOTE | 2019-03-11 07:35 | ECGEPIP ---
[facility] Test Date: 2019-03-11 Pat Name: RIZWAN BUENO Department: Room: [place] [address] Gender: Female [employer] Associate: SOLANGE : 1935 Requested By: SRIDHAR Mas Order Number: [id number] Reading MD: Cici Greer Measurements Intervals [place] Rate: 62 P: VT: 153 QRS: 52 QRSD: 83 T: 56 QT: 417 QTc: 424 Interpretive Statements SINUS RHYTHM WITH OCCASIONAL SUPRAVENTRICULAR PREMATURE COMPLEXES NEW NEW ANT T WAVE ABNORMALITY C/W 03/10/19 Electronically Signed on 03-11-2019 7:34:55 EDT by Cici Greer
[2019-03-11] MEDS: ADVAIR HFA 115/21MCG INHALER INH SCH ×2 (07:50→20:00)
[2019-03-11] MEDS ORDERED: FUROSEMIDE 100 MG/10 ML VIAL (J1940) IV ONE (08:00)
[2019-03-11] MEDS: ATENOLOL 25 MG TAB PO SCH (08:00)
[2019-03-11] MEDS: DOCUSATE SODIUM 100 MG CAP PO SCH ×2 (08:00→20:31)
[2019-03-11] MEDS: GABAPENTIN 100 MG CAP PO SCH ×3 (08:00→20:31)
[2019-03-11 08:10] LABS: COMPLEMENT C3 92 MG/DL (90-180); COMPLEMENT C4 22 MG/DL (10-40)
--- NOTE | 2019-03-11 09:30 | IPNPDOC ---
Date Seen The patient was seen on 03/11/19. Progress Note SUBJECTIVE: 84 Y female, history of Dementia and diastolic CHF admitted for acute renal failure and hyperkalemia doing well and feels much better no events overnight Reviews of systems no fever no chills no ERIC no chest pain (+pleural right rib cage tenderness) no abdominal pain no diarrhea PHYSICAL EXAMINATION: VITAL SIGNS: Please see below. GENERAL: AA, moderate demented, comfortable and sitting in the bed and eat her breakfast; daughter at bedside HEENT: Atraumatic CARDIOVASCULAR: S1S2 regular, no murmur RESPIRATORY: no acute distress, clear, small crackles no wheezing ABDOMINAL:soft BS positive, nontender EXTREMITIES: trace edema, +skin laceration wound in left [place] NEUROLOGICAL: non focal PSYCHOLOGICAL: demented without behavior disturbance LABORATORY DATA, IMAGING STUDIES, MICROBIOLOGY: Please see below. DVT prophylaxis ordered?: yes, change to heparin sc ASSESSMENT AND PLAN: 1) acute renal failure with uremia - unclear etiology (ATN from NSAID, diuretic , obstructive, etc) renal US did not show any obstruction Appreciated nephrology input will try to avoid any nephrotoxicity drugs will continue to monitor Her kidney function is not improving yet and she may need HD per nephrologi st 2) Hyperkalemia, coming down and will continue to monitor 3) CHF, acute on chronic, diastolic improving after IV 100 mg lasix; she is going to get more IV lasix per rn maternal child 4) Anemia - will monitor HH 5) HTN - BP stable 6) trigeminal neuralgia: on gabapentin 7) DVT prophylaxis, will change from Lovenox to Heparin due to JAZMIN VS, I&O, 24H, Fishbone Vital Signs/I&O Vital Signs Date Time Temp Pulse Resp B/P (MAP) Pulse Ox O2 Delivery O2 Flow Rate FiO2 03/11/19 08:00 2.0 03/11/19 08:00 57 124/70 03/11/19 07:55 97.6 18 98 03/10/19 22:24 Nasal Cannula I&O- Last 24 Hours up to 6 AM 03/11/19 06:00 Intake Total 50 ml Output Total 1000 ml Balance -950 ml Laboratory Data 24H LABS Laboratory Tests 2 03/10/19 18:59: Immature Granulocyte % (Auto) 0.4, White Blood Count 12.5H, Red Blood Count 3.01L, Hemoglobin 9.1L, Hematocrit 29.1L, Mean Corpuscular Volume 96.7H, Mean Corpuscular Hemoglobin 30.2, Mean Corpuscular Hemoglobin Concent 31.3L, Red Cell Distribution Width 14.2, Platelet Count 188, Neutrophils (%) (Auto) 54.4, Lymphocytes (%) (Auto) 33.4, Monocytes (%) (Auto) 9.0H, Eosinophils (%) (Auto) 2.6, Basophils (%) (Auto) 0.2, Neutrophils # (Auto) 6.8, Lymphocytes # (Auto) 4.2, Monocytes # (Auto) 1.1H, Eosinophils # (Auto) 0.3, Basophils # (Auto) 0.0, Nucleated Red Blood Cells % (auto) 0.0, Prothrombin Time 15.4H, Prothromb Time International Ratio 1.24, Blood Gas Bicarbonate Standard 19.6, Venous Blood pH 7.267L, Venous Blood Partial Pressure CO2 48.9, Venous Blood Partial Pressure O2 35.3, Venous Blood Total Carbon Dioxide 23.3L, Venous Blood HCO3 21.8L, Venous Blood Oxygen Saturation 60.6, Venous Blood Base Excess -5.1L, Anion Gap 8, Glomerular Filtration Rate 7.2L, Lactic Acid Level 1.1, Calcium Level 8.2L, Aspartate Amino Transf (AST/SGOT) 16, Alanine Aminotransferase (ALT/SGPT) 13, Alkaline Phosphatase 72, Total Bilirubin 0.3, Direct Bilirubin 0.1, Total Creatine Kinase 74, Creatine Kinase MB 2.5, Creatine Kinase MB Relative Index 3.38, Troponin I 0.02, EM-Ice-A-Type Natriuretic Peptide 58031C, Total Protein 6.3L, Albumin 2.6L, Albumin/Globulin Ratio 0.70L 03/10/19 22:43: Urine Appearance CLOUDYH, Urine Color STRAW, Urine pH 7.0, Urine Specific Grav ity 1.006, Urine Protein 1+H, Urine Glucose (UA) NEGATIVE, Urine Ketones NEGATIVE, Urine Urobilinogen 0.2, Urine Bilirubin NEGATIVE, Urine Leukocyte Esterase NEGATIVE, Urine Blood 3+H, Urine Nitrite NEGATIVE, Urine WBC (Auto) 10H, Urine RBC (Auto) TNTCH, Urine Hyaline Casts (Auto) 2, Urine Bacteria (Auto) 1+H, Urine Squamous Epithelial Cells 1, Urine Mucus (Auto) SMALL, Urine Sperm (Auto) 03/10/19 22:51: Anion Gap 10, Glomerular Filtration Rate 7.2L, Calcium Level 8.0L, Troponin I 0.03#, Blood Urea Nitrogen 87H, Creatinine 5.98H, Sodium Level 146H, Potassium Level 6.2*H, Chloride Level 116H, Carbon Dioxide Level 20L 03/11/19 02:30: Nucleated Red Blood Cells % (auto) 0.0, Anion Gap -3L, Glomerular Filtration Rate 7.1L, Calcium Level 8.3L, Aspartate Amino Transf (AST/SGOT) 16, Alanine Aminotransferase (ALT/SGPT) 13, Alkaline Phosphatase 61, Total Bilirubin 0.4, Troponin I 0.04#, Total Protein 6.6, Albumin 2.5L, Albumin/Globulin Ratio 0.61L, Blood Urea Nitrogen 83H, Creatinine 6.01H, Sodium Level 139, Potassium Level 5.9H, Chloride Level 121H, Carbon Dioxide Level 21 03/11/19 07:34: Complement C3 92, Complement C4 22 CBC/BMP Laboratory Tests 03/10/19 18:59 Red Blood Count 3.01 L, Mean Corpuscular Volume 96.7 H, Mean Corpuscular Hemoglobin 30.2, Mean Corpuscular Hemoglobin Concent 31.3 L, Red Cell Dis tribution Width 14.2, Neutrophils (%) (Auto) 54.4, Lymphocytes (%) (Auto) 33.4, Monocytes (%) (Auto) 9.0 H, Eosinophils (%) (Auto) 2.6, Basophils (%) (Auto) 0.2, Neutrophils # (Auto) 6.8, Lymphocytes # (Auto) 4.2, Monocytes # (Auto) 1.1 H, Eosinophils # (Auto) 0.3, Basophils # (Auto) 0.0 03/10/19 22:51 Calcium Level 8.0 L 03/11/19 02:30 Red Blood Count 2.97 L, Mean Corpuscular Volume 97.6 H, Mean Corpuscular Hemoglobin 30.0, Mean Corpuscular Hemoglobin Concent 30.7 L, Red Cell Distribution Width 14.2, Calcium Level 8.3 L, Aspartate Amino Transf (AST/SGOT) 16, Alanine Aminotransferase (ALT/SGPT) 13, Alkaline Phosphatase 61, Total Bilirubin 0.4, Total Protein 6.6, Albumin 2.5 L Microbiology [facility] 03/10/19 Blood Culture, Received Pending 03/10/19 Blood Culture, Received Pending KAYLEN LONDONO MD Mar 11, 2019 09:30
--- NOTE | 2019-03-11 11:14 | REP ---
Portable chest x-ray: Single view. History: CHF. Comparison study: March 10, 2019. Findings: EKG monitoring electrodes and oxygen delivery tubing are seen. Cardiomegaly is again observed. There is improved slight blunting of the right lateral pleural angle. Pulmonary vasculature is cephalized and there is some fissural thickening. There is an area of consolidation or opacification in the right perihilar region which appears somewhat more prominent. A superimposed infiltrate is suspected. The aorta is tortuous. Impression: Developing infiltrate suspected right lower lobe perihilar region. Slightly improved CHF pattern. Electronically Signed by Zachery Hunt MD 03/11/2019 04:52 P
--- NOTE | 2019-03-11 11:46 | IPN ---
DATE: 03/11/2019 Mrs. Benson is seen again this morning on her bedside. Her family is present in the room. The patient was diuresed with intravenous Lasix last night, she did respond with about 1 liter urine output. She is feeling much better today and has a big smile on her face. She did eat a good breakfast. She denies any nausea or vomiting, and her dyspnea has improved. Her kidney function, though did not improve. She has no fever or chills and has been hemodynamically stable. PHYSICAL EXAMINATION: Temperature 97.6 degrees Fahrenheit, heart rate 60 per minute and respiratory rate 18 per minute. Blood pressure 124/70 mmHg and oxygen saturation 98% on 2 liters oxygen. Head is atraumatic. There is no oral thrush or ulcers. Ears, nose and throat are unremarkable. Neck is supple and jugular venous distention (JVD) is only mildly elevated. Heart sounds are regular and without a pericardial friction rub. Lungs have diminished breath sounds at bases and few basilar rales. Abdomen is soft and nontender and bowel sounds are normal. Extremities have no cyanosis or clubbing. Left leg ulcer is covered with dressing. Neurologically, she is awake and at her baseline mentation. LABORATORIES: Today's labs show sodium level 139, potassium 5.9, chloride 121, CO2 21, BUN 83 and creatinine 6.01. Glucose 110 and calcium 8.3. Total protein 6.6 and albumin 2.5. WBC count is 14.3, hemoglobin 8.9 and hematocrit 29.0. PROBLEMS: 1. Acute renal failure. Kidney function does not show any significant changes overnight. She did diurese with output 1 liter urine output. I have discussed with the patient and her family again about potential need for dialysis. If her kidney function is not any better by tomorrow, then we will consider to dialyze her. I am going to request Dr. Nolan for a Perma-Cath placement. 2. Hyperkalemia related to acute renal failure. Slightly improved potassium level since last evening. We will give her another dose of Lasix 100 mg today and see how she responds. Electrolytes will be checked again tomorrow morning. 3. Congestive heart failure. Volume status has improved and she is feeling much better. We are going to try to keep diuresing her with intravenous Lasix and try to get a negative fluid balance of at least one more liter today. She is not responding very well due to acute renal failure and is likely to require dialysis in the next 24 hours unless her kidney function improves. 4. Anemia. At this point, anemia is stable and does not need any urgent intervention. The patient's family had several questions, which were answered to their satisfaction. I explained the procedures of dialysis and kidney biopsy in great length.
--- NOTE | 2019-03-11 12:02 | CR ---
DATE OF CONSULTATION: 03/10/2019 REQUESTING PROVIDER: Dana Rayo DO REASON FOR CONSULTATION: Acute renal failure, hyperkalemia and shortness of breath in this lady who was admitted to intensive care unit. HISTORY OF PRESENT ILLNESS: Mrs. Benson is an 84-year-old female with known history of hypertension, depression, congestive heart failure and chronic back pain. Patient had developed leg edema and shortness of breath about 2 weeks ago and diuretic was adjusted by her primary physician; however, her condition did not improve. On the day of admission she had worsening shortness of breath due to which she was brought to the emergency room and was found to be in congestive heart failure. Her potassium level was 6.3 and creatinine was 5.9. A nephrology consultation was requested and the patient is seen in the intensive care unit. PAST MEDICAL AND SURGICAL HISTORY: Significant for: 1. History of hypertension. 2. History of congestive heart failure. 3. History of kidney stones about 50 years ago. 4. Chronic back pain. 6. History of breast cancer in remission following lumpectomy and radiation therapy in 2006. 7. Trigeminal neuralgia. PAST SURGICAL HISTORY: Significant for: 1. Lumpectomy of breasts. MEDICATIONS: Her home medications included: - aspirin 81 mg daily - atenolol 25 mg daily - donepezil 10 mg at bedtime - escitalopram 10 mg daily - gabapentin 300 mg b.i.d. - multivitamin one tablet daily - potassium chloride 20 mEq b.i.d. - torsemide 20 mg daily - Advair Diskus 1 puff b.i.d. - latanoprost eye drops 0.005% 1 drop in both eyes at bedtime - memantine 5 mg at bedtime. ALLERGIES: She has no known drug allergies. PERSONAL AND SOCIAL HISTORY: The patient lives alone and her family is very involved in her care. She denies any smoking or alcohol use. FAMILY HISTORY: Noncontributory and unremarkable. REVIEW OF SYSTEMS: The patient had no fever or chills. Ears, nose and throat are unremarkable. Cardiovascular system is significant for congestive heart failure and increased leg edema. She has been short of breath for a few days. Respiratory system is negative for hemoptysis or pleuritic type of chest pain. Her chest x-ray did show pulmonary vascular congestion and possible right lower lobe infiltrate. Gastrointestinal (GI) system is significant for poor appetite, but no vomiting or diarrhea reported. Genitourinary () system is negative for dysuria or hematuria. Musculoskeletal system is significant for chronic back pain and lower extremity edema. She also has an ulcer on her left leg from recent trauma. Endocrine system is negative for diabetes or thyroid problems. Hematological system is negative for anticoagulation or easy bruising. Psychosocial system is significant for mild dementia and depression. Neurological system negative for seizures or stroke. PHYSICAL EXAMINATION: Elderly lady laying in the bed using oxygen via nasal cannula. Temperature is 96 degrees Fahrenheit, heart rate 70 per minute and respiratory rate 24 per minute. Blood pressure 174/82 mmHg and oxygen saturation 91%. Head is atraumatic. There is no oral thrush or ulcers. Neck is supple and jugular venous distention (JVD) is about 8 cm above sternal angle. Nose and throat are unremarkable. Heart exam reveals regular S1 and S2. Lungs have bilateral rhonchi and mild wheezing. Abdomen soft and nontender. Bowel sounds are normal. Extremities have no cyanosis or clubbing. Her left leg has an ulcer which looks a few days old but without any signs of infection or bleeding. She does have some peripheral edema. Neurologically she is awake and able to answer questions. LABORATORY DATA: Her admission labs show WBC count 12.5, hemoglobin 9.1 and hematocrit 29.1. Platelets 188. Sodium 144, potassium 6.3, CO2 22, BUN 83 and creatinine 5.9. BNP level 22,716, total protein 6.3 and albumin 2.6. Urinalysis showed 1+ protein and 3+ blood with 10 WBCs and too numerous to count RBCs. This was a catheterized specimen. Chest x-ray reviewed independently showed right lower lobe infiltrate and pulmonary vascular congestion. Renal ultrasound was done in the emergency room which showed a 5 mm nonobstructing stone in the left kidney but no hydronephrosis. Right kidney 11.9 cm and left kidney also 11.9 cm in size. PROBLEMS: 1. Acute renal failure possibly superimposed on chronic kidney disease. Etiology is uncertain. The patient has advanced renal failure at this point. She is volume overloaded and probably kidney dysfunction has been the cause of her volume overload and "congestive heart failure." It remains to be seen what is the cause of her renal failure. She certainly not dehydrated and does not have any evidence of obstruction. She does have mild proteinuria and some hematuria with a catheterized specimen. We will order ANCA, anti double-stranded DNA, complements and anti glomerular basement membrane antibodies. I have discussed with the patient and her family about the potential need for dialysis if her kidney function does not improve over next 24-48 hours. 2. Hyperkalemia. This is related to acute renal failure and she has already received one dose of Kayexalate. Will try to diurese her and see if that will help with her hyperkalemia. Electrolytes will be repeated. 3. Congestive heart failure. The patient is volume overloaded. Most likely related to acute renal failure. We are going to give her Lasix 100 mg intravenously and see how she responds. Further diuretic will be ordered as needed. 4. Anemia. Most likely this is also chronic and could be related to renal failure. At present there is no emergent indication for a transfusion; however, will need to monitor her closely. Thank you for involving me in the care of Mrs. Benson. I will follow her along with you.
[2019-03-11] MEDS ORDERED: LIDOCAINE 2% MDV 20 ML VIAL As Ordered ONE (14:28)
[2019-03-11] MEDS ORDERED: HEPARIN 1,000 UNITS/ML 10ML VIAL (FOR RADIOLOGY& DIALYSIS ONLY) As Ordered ONE (14:28)
[2019-03-11] MEDS ORDERED: BUPIVACAINE HCL 0.5% 10 ML VIAL As Ordered ONE (14:29)
--- NOTE | 2019-03-11 17:14 | REP ---
Bilateral upper extremity arterial and venous Doppler assessment: History: End-stage renal disease. Vein mapping study. Findings: An intravenous cannula is seen in the left cephalic vein at the antecubital fossa. The proximal right subclavian vein is not visualized due to a dressing. There is no evidence of venous thrombosis. Right upper extremity vein diameter chart: Right upper humerus basilic 2.5 millimeters, cephalic 2.2 mm Lower humerus basilic 1.6 mm, cephalic 1.7 mm Upper forearm basilic 1.8 mm, cephalic 1.9 mm Lower forearm basilic 1.2 mm, cephalic 1.2 mm Median cubital 2.1 mm Left upper extremity vein diameter chart: Upper humerus basilic 1.9 mm, cephalic 3.2 mm Lower humerus basilic 1.9 mm, cephalic 3.3 mm and a Upper forearm basilic 1.7 mm, cephalic 1.8 mm Lower forearm basilic 1.6 mm, cephalic 2.4 mm in Median cubital 1.3 mm Right upper extremity arterial Doppler velocity and diameter chart: Axillary artery 50.8 cm/S, 5.4 mm Brachial artery 91 cm/S, 3.2 mm Radial artery 68 cm/S 1.3 mm Ulnar artery 32 cm/S 1.9 mm Left upper extremity arterial Doppler velocity and diameter chart: Axillary artery 54 cm/S 5.2 mm Brachial artery 75 cm/S, 3.4 mm Radial artery 37 cm/S, 1.2 mm Ulnar artery 32 cm/S, 1.4 mm Electronically Signed by Zachery Hunt MD 03/11/2019 05:05 P
--- NOTE | 2019-03-11 17:49 | REP ---
RIGHT UPPER QUADRANT SONOGRAPHY: History: Right upper quadrant tenderness. Sonographic findings: Scanning through the right upper quadrant of the abdomen demonstrates a normal sized thin-walled gallbladder without evidence of stone or polyp. Common bile duct is at the upper range of normal measuring 0.7 cm. There is an 8 mm hyperechoic nodule in the right lobe of the liver consistent with hemangioma. No other focal liver lesion is seen. Limited views of the pancreas show no abnormality. The body and tail of the pancreas are obscured by abdominal gas. There is no evidence of ascites. The right kidney measures 11.9 x 5.9 x 5.8 cm. There is an echogenic focus in the lower pole 6 mm in diameter with acoustic shadowing suggestive of an intrarenal calculus. A small amount of right pleural fluid is noted. Impression: 1. Small right pleural effusion. 2. 8 mm hyperechoic nodule in the liver consistent with hemangioma. 3. A 6 mm intrarenal calculus suspected lower pole right kidney. Electronically Signed by Zacheyr Hunt MD 03/11/2019 07:29 P
--- NOTE | 2019-03-11 17:50 | ROOPDOC ---
[facility] Report Of Operation Report of Operation DATE OF PROCEDURE: 03/11/2019 PREPROCEDURE DIAGNOSES: Congestive heart failure. End-stage renal disease requiring access for renal replacement therapy. POSTPROCEDURE DIAGNOSES: Congestive heart failure. End-stage renal disease requiring access for renal replacement therapy. PROCEDURE: Ultrasound guided right internal jugular vein cannulation. Fluoroscopic guided right internal jugular vein 19 cm tip to cuff tunneled central venous catheter insertion. ATTENDING SURGEON: DR. Teresa Nolan M.D. FRUIT CUTTER: Brianna Parra INDICATION:Patient is an 84-year-old female who has renal failure who requires access for renal replacement therapy. Patient has a history of chronic renal insufficiency and now has progressed to end-stage renal disease and presented initially with CHF and fluid overload. Patient also has a history of short-term memory loss and dementia and consent was obtained from her daughter Lindsey Wilson by telephone at [phone]. Patient will undergo ultrasound and fluoroscopic guided placement of a right internal jugular vein tunneled central venous catheter. The procedure was described and explained to the patient's daughter in detail including drawing of pictures demonstrating the procedure and anatomy. Risks, benefits and alternative treatment options were discussed with the patient. Alternative treatment options included but were not limited to no intervention. Benefits included but were not limited to access for hemodialysis until permanent access for renal replacement therapy is created. Risks included, but were not limited to infection, bleeding, pneumothorax, hemothorax, cannulation site deep venous thrombosis, possible need for open surgical intervention, allergic reaction or complication from prepping and draping materials, possible need for transfusion of blood products, anesthetic complications, cerebrovascular accident, myocardial infarction, pulmonary embolus, deep venous thrombosis, loss of limb, loss of life, poor satisfaction and poor outcome. Risks of not performing the procedure included but were not limited to inability to obtain renal replacement therapy via hemodialysis and . The patient's daughters questions were answered. The patient's daughter voices understanding of these risks, benefits and alternative treatment options. The patient's daughter voices acceptance of the risks associated with the procedure and agrees to proceed with an ultrasound and fluoroscopic guided right internal jugular vein tunneled central venous catheter insertion. There were no promises or guarantees made to the patient's daughter regarding the outcome or results of the procedure. ANESTHESIA: Local with 20 mL of 2% lidocaine mixed with 0.5% Marcaine. EBL: 15 ml. IVF: 45 ml. FLUORO TIME: 0.1 minutes. CONTRAST: None. COMPLICATIONS: None. DRAINS: None. SPECIMENS: None. IMPLANTS: Right internal jugular vein tunneled central venous catheter with use of a 19 cm tip to cuff [place] hemodialysis catheter. DESCRIPTION OF PROCEDURE: Patient was taken to the angiography suite, placed supine on the angiography room table and then prepped and draped in a standard surgical fashion. A timeout was conducted by myself and the team members in the room confirming the correct patient, procedure and laterality. Ultrasound guidance was used to cannulate the right internal jugular vein using a micropuncture needle after anesthetizing the overlying skin and subcutaneous tissue with 2% lidocaine mixed with 0.5% Marcaine. The cannulation of the right internal jugular vein was performed with real-time concurrent visualization of the entry of the micropuncture needle into the right internal jugular vein with a hardcopy image preserved. The ultrasound showed the right internal jugular vein to be widely patent, easily compressible and free of thrombus. The micropuncture wire was advanced through the micropuncture needle which was upsized to a micropuncture sheath. An Amplatz wire was advanced through the micropuncture sheath which was then used to sequentially dilate the right internal jugular vein under fluoroscopic guidance. An introducer sheath was then placed over the Amplatz wire and the wire was removed. The catheter was tunneled through a puncture wound in the right chest after anesthetizing the overlying skin and subcutaneous tissue with 2% lidocaine mixed with 0.5% Marcaine and brought out through a puncture wound at the right internal jugular vein entry site. The catheter was then advanced through the introducer sheath which had been positioned under fluoroscopic guidance. The catheter was positioned under fluoroscopic guidance with the tip in the superior vena cava right atrial junction. Both ports of the catheter were aspirated, noted to aspirate easily and then flushed with heparinized saline. The catheter was secured to the right anterior chest wall using #2-0 Prolene suture after a nesthetizing the overlying skin and subcutaneous tissue with 2% lidocaine mixed with 0.5% Marcaine. The puncture wound in the right neck was closed using #4-0 Monocryl in inverted interrupted fashion. Steri-Strips and dressings were applied. The patient tolerated the procedure well. All instrument, sponge and needle counts were correct at the end of the case. There were no complications. Dr. Nolan was present for and directed the entire case. Patient was transferred to the recovery area and subsequently to the ICU in stable condition. The tunneled central venous catheter is stable for use for hemodialysis access. RADIOLOGIC SUPERVISION AND INTERPRETATION: The initial ultrasound showed the right internal jugular vein to be easily compressible, widely patent and free of thrombus. Ultrasound was used to guide cannulation of the right internal jugular vein with real-time concurrent visualization of the entry of the needle into the right internal jugular vein with a hardcopy image preserved. Fluoroscopic kaley nce was then used to sequentially dilate the right internal jugular vein, place an introducer sheath and position the catheter with the tip in the superior vena cava/right atrial junction. Final fluoroscopic image showed the catheter to be in good position and good alignment with no pneumo- or hemothorax noted with the tip in the superior vena cava/right atrial junction. The tunneled central venous catheter is stable for use for hemodialysis access. PLAN: Patient will begin using the catheter for access for hemodialysis. Vein mapping will be performed for possible creation of arteriovenous access if the patient requires long-term hemodialysis access. Nehemiah Nolan MD Mar 11, 2019 17:50
[2019-03-11] MEDS: LATANOPROST 0.005% OPHTH SOLN 2.5 ML OU SCH (20:30)
[2019-03-11] MEDS: DONEPEZIL 5 MG TAB PO SCH (20:30)
[2019-03-11] MEDS: MEMANTINE 5MG TABLET (NAMENDA) PO SCH (20:31)
[2019-03-11] MEDS: HEPARIN SOD (PORCINE) 5000 UNITS/ML VIAL SQ SCH (20:31)
[2019-03-12] VITALS (10 sets, daily range): BP systolic 124–164; BP diastolic 56–79
[2019-03-12 04:56] LABS: HEMATOCRIT 25.3 % (36.0-47.0); HEMOGLOBIN 7.9 g/dl (12.0-15.5); MEAN CORPUSCULAR HEMOGLOBIN 29.8 pg (27.0-33.0); MEAN CORPUSCULAR HGB CONC 31.2 g/dl (32.0-36.5); MEAN CORPUSCULAR VOLUME 95.5 fl (80.0-96.0); PLATELET COUNT, AUTOMATED 177 10^3/uL (150-450); RED BLOOD COUNT 2.65 10^6/uL (4.00-5.40); WHITE BLOOD COUNT 11.1 10^3/uL (4.0-10.0)
[2019-03-12 05:09] LABS: CALCIUM LEVEL 7.4 MG/DL (8.8-10.2); CREATININE FOR GFR 6.28 MG/DL (0.55-1.30); GLOMERULAR FILTRATION RATE 6.8 (>32)
[2019-03-12] MEDS: ADVAIR HFA 115/21MCG INHALER INH SCH ×2 (07:38→20:27)
--- NOTE | 2019-03-12 08:36 | REP ---
Portable chest x-ray: Single view. History: CHF. Comparison study: March 11, 2019. Findings: Moderate cardiac enlargement is again noted. The thoracic aorta is tortuous as before. There is slight blunting of the pleural angles bilaterally indicating small bilateral effusions. There is some fissural thickening on the right. A right-sided tunnel catheter is seen in the expected location of the superior vena cava. EKG electrodes are noted. There are patchy bilateral perihilar opacities again seen. These are increased on the left and in the upper lobe region on the right compared to yesterday's radiograph. Impression: Increasing bilateral perihilar opacities. Cardiomegaly. Electronically Signed by Zachery Hunt MD 03/12/2019 09:30 A
[2019-03-12] MEDS: HEPARIN SOD (PORCINE) 5000 UNITS/ML VIAL SQ SCH ×2 (08:51→21:12)
[2019-03-12] MEDS: DOCUSATE SODIUM 100 MG CAP PO SCH ×2 (08:51→21:12)
[2019-03-12] MEDS: ATENOLOL 25 MG TAB PO SCH (08:52)
[2019-03-12] MEDS: GABAPENTIN 100 MG CAP PO SCH ×3 (08:52→21:12)
[2019-03-12 09:19] LABS: HEPATITIS B SURFACE ANTIBODY NEGATIVE (POSITIVE)
[2019-03-12 09:30] LABS: HEPATITIS B SURFACE ANTIGEN NEGATIVE (NEGATIVE)
[2019-03-12 09:58] LABS: HEPATITIS B CORE ANTIBODY IGM NEGATIVE (NEGATIVE); HEPATITIS C VIRUS ABY INDEX 0.1 INDEX (<0.8)
--- NOTE | 2019-03-12 10:26 | IPNPDOC ---
Date Seen The patient was seen on 03/12/19. Progress Note SUBJECTIVE: 84 Y female, history of Dementia and diastolic CHF admitted for acute renal failure and hyperkalemia doing well and feels much better no events overnight This AM, when I saw her, she was sitting in the bed and smiling her family is in the room Reviews of systems no fever no chills no ERIC no chest pain (+pleural right rib cage tenderness) no abdominal pain no diarrhea PHYSICAL EXAMINATION: VITAL SIGNS: Please see below. GENERAL: AA, moderate demented, comfortable HEENT: Atraumatic CARDIOVASCULAR: S1S2 regular, no murmur RESPIRATORY: no acute distress, clear, small crackles no wheezing ABDOMINAL:soft BS positive, nontender EXTREMITIES: trace edema, +skin laceration wound in left [place]ford NEUROLOGICAL: non focal PSYCHOLOGICAL: demented without behavior disturbance LABORATORY DATA, IMAGING STUDIES, MICROBIOLOGY: Please see below. DVT prophylaxis ordered?: yes, heparin sc ASSESSMENT AND PLAN: 1) acute renal failure with uremia - unclear etiology (ATN from NSAID, diuretic , obstructive, etc) renal US did not show any obstruction Appreciated nephrology input will try to avoid any nephrotoxicity drugs will continue to monitor Cr not improving; Permcatheter was placed yesterday and she will start HD per Android Software Engineer 2) Hyperkalemia, resolved 3) CHF, acute on chronic, diastolic on IV lasix 4) Anemia - HH trending down may transfuse if Hemoglobin down to <7 5) HTN - BP stable 6) trigeminal neuralgia: on gabapentin 7) DVT prophylaxis, Heparin 8), will transfer her to floor VS, I&O, 24H, [place] Vital Signs/I&O Vital Signs Date Time Temp Pulse Resp B/P (MAP) Pulse Ox O2 Delivery O2 Flow Rate FiO2 03/12/19 08:52 69 139/79 03/12/19 08:00 98.1 18 91 03/12/19 06:00 2.0 03/11/19 14:36 97 03/10/19 22:24 Nasal Cannula I&O- Last 24 Hours up to 6 AM 03/12/19 06:00 Intake Total 1170 ml Output Total 1450 ml Balance -280 ml Laboratory Data 24H LABS Laboratory Tests 2 03/11/19 10:50: 03/12/19 04:33: Nucleated Red Blood Cells % (auto) 0.0, Anion Gap 8, Glomerular Filtration Rate 6.8L, Blood Urea Nitrogen 89H, Creatinine 6.28H, Sodium Level 147#H, Potassium Level 5.0, Chloride Level 115H, Carbon Dioxide Level 24, Calcium Level 7.4L CBC/BMP Laboratory Tests 03/12/19 04:33 Red Blood Count 2.65 L, Mean Corpuscular Volume 95.5, Mean Corpuscular Hemoglo bin 29.8, Mean Corpuscular Hemoglobin Concent 31.2 L, Red Cell Distribution Width 14.4, Calcium Level 7.4 L Microbiology Microbiology 03/10/19 Blood Culture - Preliminary, Resulted No growth after 24 hours . All specim... 03/10/19 Blood Culture - Preliminary, Resulted No growth after 24 hours . All specim... KAYLEN LONDONO MD Mar 12, 2019 10:26
--- NOTE | 2019-03-12 12:05 | CR.PDOC ---
General Date of Consultation: Mar 12, [address] Nolan. HPI: 84year oldF with JAZMIN on CKD with possible need for HD. Vascular surgery consulted for Permcath placement. Denies any fevers, chills, weakness, fatigue, Headache, Chest Pain, Shortness of breath, cough, palpitations, abdominal pain, N/V/D or changes in bowel or bladder habits. PAST MEDICAL AND SURGICAL HISTORY: 1. History of hypertension. 2. History of congestive heart failure. 3. History of kidney stones about 50 years ago. 4. Chronic back pain. 6. History of breast cancer in remission following lumpectomy and radiation therapy in 2006. 7. Trigeminal neuralgia. PAST SURGICAL HISTORY: Significant for: 1. Lumpectomy of breasts. Social history: lives alone, no tobacco, no EtOH, independent up until 2 weeks ago; Family history: son with kidney cancer, mother pancreatic cancer and DM, father old age ROS: As noted in HPI, otherwise 11pt ROS of systems reviewed and unremarkable. PE: GEN: 84yoF, appears stated age. Alert and oriented x 3. Pleasant, interactive. HEENT: Normocephalic, atraumatic. Moist mucous membranes. CHEST: Regular rate and rhythm, +S1, +S2. Permcath Rt chest. LUNGS: Clear to auscultation bilaterally. No wheezes, rales, or rhonchi. Breathing appears symmetric and easy. ABD: Round, soft, non-tender, non-distended. +Bowel sounds throughout. SKIN: [place], dry, warm. No rashes. NEURO: Alert and oriented x 3. Cranial nerves III-XII are intact. No focal deficits appreciated. A&P: 1. JAZMIN on CKD. Nephrology managing. S/P Permcath placement Rt chest as per Dr Nolan. Vein mapping requested in preparation for AVF creation if needed. DVT prophylaxis. SQ Heparin. Thank you for your consultation. We will continue to follow along with you. Vital Signs/I&O Vital Signs Date Time Temp Pulse Resp B/P (MAP) Pulse Ox O2 Delivery O2 Flow Rate FiO2 03/12/19 08:52 69 139/79 03/12/19 08:00 98.1 18 91 03/12/19 06:00 2.0 03/11/19 14:36 97 03/10/19 22:24 Nasal Cannula I&O- Last 24 Hours up to 6 AM 03/12/19 06:00 Intake Total 1170 ml Output Total 1450 ml Balance -280 ml Laboratory Data Labs 24H Laboratory Tests 2 03/12/19 04:33: Nucleated Red Blood Cells % (auto) 0.0, Anion Gap 8, Glomerular Filtration Rate 6.8L, Blood Urea Nitrogen 89H, Creatinine 6.28H, Sodium Level 147#H, Potassium Level 5.0, Chloride Level 115H, Carbon Dioxide Level 24, Calcium Level 7.4L CBC/BMP Laboratory Tests 03/12/19 04:33 Red Blood Count 2.65 L, Mean Corpuscular Volume 95.5, Mean Corpuscular Hemoglobin 29.8, Mean Corpuscular Hemoglobin Concent 31.2 L, Red Cell Distribution Width 14.4, Calcium Level 7.4 L Microbiology Microbiology 03/10/19 Blood Culture - Preliminary, Resulted No growth after 24 hours . All specim... 03/10/19 Blood Culture - Preliminary, Resulted No growth after 24 hours . All specim... Allergies Coded Allergies: No Known Allergies (Unverified , 04/25/18) Home Medications Scheduled Aspirin (Aspirin EC) 81 Mg Tab, 81 MG PO QPM, (Reported) Atenolol (Atenolol) 25 Mg Tab, 25 MG PO DAILY, (Reported) Donepezil HCl (Donepezil HCl) 10 Mg Tab, 10 MG PO QHS, (Reported) Escitalopram Oxalate (Escitalopram Oxalate) 10 Mg Tab, 10 MG PO DAILY, (Reported) Gabapentin (Gabapentin) 300 Mg Cap, 600 MG PO BID, (Reported) Latanoprost (Xalatan) 0.005 % Elva, 1 DROP OU QHS, (Reported) Memantine HCl (Memantine HCl) 5 Mg Tab, 5 MG PO QHS, (Reported) Multivitamin (Multivitamins) 1 Each Capsule, 1 CAP PO QPM, (Reported) Potassium Chloride (Klor-Con M20) 20 Meq Tabcr, 20 MEQ PO BID, (Reported) Salmeterol/Fluticasone (Advair 250-50 Diskus) 1 Each Blst.w.dev, 1 PUFF INH BID, (Reported) Torsemide (Torsemide) 20 Mg Tablet, 20 MG PO DAILY, (Reported) Scheduled PRN Naproxen Sodium (Aleve) 220 Mg Tablet, 220 MG PO DAILY PRN for PAIN, (Reported) Miscellaneous Medications [Pharmacy Comment] , (Reported) VERIFIED TORSEMIDE WITH PHARMACY Amirah Larose Mar 12, 2019 12:05
[2019-03-12] MEDS ORDERED: HEPARIN 1,000 UNITS/ML 10ML VIAL (FOR RADIOLOGY& DIALYSIS ONLY) IV ONE (12:15)
[2019-03-12] MEDS ORDERED: HEPARIN 1,000 UNITS/ML 10ML VIAL (FOR RADIOLOGY& DIALYSIS ONLY) XX ONE (12:15)
--- NOTE | 2019-03-12 13:55 | IPN ---
DATE OF VISIT: 03/12/2019 Mrs. Benson is seen this morning on her bedside. Her family is present in the room. Patient is feeling better and reports that she slept well last night and ate well this morning. She denies any nausea, vomiting, fever or chills. She remains on 2 liters oxygen. She is sitting up with head elevated at about 80 degrees. She underwent a right internal jugular vein dialysis catheter placed yesterday in preparation for dialysis today. Unfortunately, her kidney function has not improved even though she did have good urine output yesterday with IV Lasix. On physical exam, temperature 98.1 degrees Fahrenheit, heart rate 68 per minute and respiratory rate 18 per minute. Blood pressure 138/79 mmHg and oxygen saturation between 91-97% on 2 liters oxygen. Intake and output records from yesterday showed total intake 1020 and output 1965 with negative fluid balance of 945 mL. Her head is atraumatic. Neck is supple and jugular venous distention (JVD) mildly elevated. Right internal jugular vein dialysis catheter is in place. Heart sounds are regular and lungs with diminished breath sounds at bases and bibasilar rales. Abdomen soft and nontender, and bowel sounds are normal. Extremities have no cyanosis or clubbing. Neurologically, she is at her baseline mentation. Today's labs show WBC count 11.1, hemoglobin 7.9 and hematocrit 25.3. Platelets 177. Sodium 147, potassium 5.0, chloride 115, CO2 24, BUN 89 and creatinine 6.28. Calcium level is 7.4. PROBLEMS: 1. Acute renal failure probably superimposed on chronic kidney disease. Patient has gradual worsening of kidney function. We will plan to dialyze her this afternoon. Patient has consented for dialysis and has already a Perma-Cath placed for it. We will try to remove about 1.5 liters of fluid with dialysis today. 2. Congestive heart failure. Her volume status has improved to a certain extent with IV Lasix and negative fluid balance. We will remove another 1.5 liters with dialysis today. 3. Hyperkalemia. Potassium level has corrected and will be corrected further with dialysis today. Electrolytes should be checked again tomorrow morning. 4. Anemia. Her anemia did get worse and patient will need 2 units of packed red blood cells (RBCs), which will be transfused during dialysis. Patient consented verbally and her daughter is going to sign the consent.
[2019-03-12] MEDS: LATANOPROST 0.005% OPHTH SOLN 2.5 ML OU SCH (21:12)
[2019-03-12] MEDS: MEMANTINE 5MG TABLET (NAMENDA) PO SCH (21:12)
[2019-03-12] MEDS: DONEPEZIL 5 MG TAB PO SCH (21:12)
[2019-03-13] VITALS: BP 138/60
[2019-03-13 04:00] VITALS: BP 133/81
[2019-03-13 05:03] LABS: HEMATOCRIT 32.9 % (36.0-47.0); MEAN CORPUSCULAR HEMOGLOBIN 30.3 pg (27.0-33.0); MEAN CORPUSCULAR HGB CONC 32.2 g/dl (32.0-36.5); PLATELET COUNT, AUTOMATED 193 10^3/uL (150-450)
[2019-03-13 05:12] LABS: HEMOGLOBIN 10.6 g/dl (12.0-15.5)
[2019-03-13 05:28] LABS: CALCIUM LEVEL 7.7 MG/DL (8.8-10.2); CREATININE FOR GFR 4.01 MG/DL (0.55-1.30); GLOMERULAR FILTRATION RATE 11.4 (>32); POTASSIUM SERUM 3.7 MEQ/L (3.5-5.1)
[2019-03-13] MEDS: ADVAIR HFA 115/21MCG INHALER INH SCH ×2 (07:46→20:18)
[2019-03-13 08:00] VITALS: BP 112/56
[2019-03-13] MEDS: DOCUSATE SODIUM 100 MG CAP PO SCH ×2 (08:25→20:47)
[2019-03-13] MEDS: GABAPENTIN 100 MG CAP PO SCH ×3 (08:27→20:47)
[2019-03-13] MEDS: HEPARIN SOD (PORCINE) 5000 UNITS/ML VIAL SQ SCH ×2 (08:28→20:47)
[2019-03-13] MEDS: ATENOLOL 25 MG TAB PO SCH (08:29)
--- NOTE | 2019-03-13 08:57 | REP ---
CHEST, PORTABLE: AP portable view of the chest was performed and compared to prior study of 03/12/2019. There is mild increase in right lung infiltrates with no significant change in the left lung infiltrates. The heart and mediastinum are unchanged. A right central venous catheter is again noted. There is mild blunting of the costophrenic angles unchanged. IMPRESSION: Mild increase in right lung infiltrates, otherwise no change. Electronically Signed by Umer Verma MD 03/14/2019 12:58 P
[2019-03-13 09:16] LABS: TOTAL PROTEIN 6.3 GM/DL (6.4-8.2)
--- NOTE | 2019-03-13 10:50 | IPNPDOC ---
Date Seen The patient was seen on 03/13/19. Progress Note SUBJECTIVE: 84 Y female, history of Dementia and diastolic CHF admitted for acute renal failure and hyperkalemia no events overnight Reviews of systems low grade fever at 100 no chills no ERIC no chest pain (+pleural right rib cage tenderness) no abdominal pain no diarrhea PHYSICAL EXAMINATION: VITAL SIGNS: Please see below. GENERAL: AA, moderate demented, comfortable HEENT: Atraumatic CARDIOVASCULAR: S1S2 regular, no murmur RESPIRATORY: small crackles but no wheezing ABDOMINAL:soft BS positive, nontender EXTREMITIES: trace edema, +skin laceration wound in left [place] NEUROLOGICAL: non focal PSYCHOLOGICAL: demented without behavior disturbance LABORATORY DATA, IMAGING STUDIES, MICROBIOLOGY: Please see below. chest x ray showed right lung infiltrate DVT prophylaxis ordered?: yes, heparin sc ASSESSMENT AND PLAN: 1) acute renal failure with uremia - unclear etiology (ATN from NSAID, diuretic , obstructive, etc) renal US did not show any obstruction Appreciated nephrology input will try to avoid any nephrotoxicity drugs HD started from 03/12 2) Sepsis and Pneumonia she has low grade fever at 100, hypoxia at 2L and WBC up to 16 chest x ray showed right lung infiltrated will do sputum cultures will start ceftriaxone and doxy 3) Hyperkalemia, resolved 4) CHF, acute on chronic, diastolic, compensated 5) Anemia - HH better 6) trigeminal neuralgia: on gabapentin 7) DVT prophylaxis, Heparin VS, I&O, 24H, Fishbone Vital Signs/I&O Vital Signs Date Time Temp Pulse Resp B/P (MAP) Pulse Ox O2 Delivery O2 Flow Rate FiO2 03/13/19 08:29 66 112/56 03/13/19 08:00 99.0 20 94 03/13/19 04:00 2.0 03/12/19 20:28 Nasal Cannula 03/11/19 14:36 97 I&O- Last 24 Hours up to 6 AM 03/13/19 06:00 Intake Total 840 ml Output Total 2275 ml Balance -1435 ml Laboratory Data 24H LABS Laboratory Tests 2 03/13/19 04:45: Nucleated Red Blood Cells % (auto) 0.0, Anion Gap 7L, Glomerular Filtration Rate 11.4L, Blood Urea Nitrogen 45H, Creatinine 4.01H, Sodium Level 141, Potassium Level 3.7#, Chloride Level 107, Carbon Dioxide Level 27, Calcium Level 7.7L 03/13/19 08:27: Total Protein (PEP) 6.3L CBC/BMP Laboratory Tests 03/13/19 04:45 Red Blood Count 3.50 L, Mean Corpuscular Volume 94.0, Mean Corpuscular Hemoglobin 30.3, Mean Corpuscular Hemoglobin Concent 32.2, Red Cell Distribution Width 14.5, Calcium Level 7.7 L Microbiology Microbiology 03/10/19 Blood Culture - Preliminary, Resulted No Growth after 48 hours. All Specime... 03/10/19 Blood Culture - Preliminary, Resulted No Growth after 48 hours. All Specime... KAYLEN LONDONO MD Mar 13, 2019 10:50
[2019-03-13] MEDS ORDERED: HEPARIN 1,000 UNITS/ML 10ML VIAL (FOR RADIOLOGY& DIALYSIS ONLY) XX ONE (14:30)
[2019-03-13] MEDS ORDERED: HEPARIN 1,000 UNITS/ML 10ML VIAL (FOR RADIOLOGY& DIALYSIS ONLY) IV ONE (14:30)
[2019-03-13] MEDS: cefTRIAXone SOD 1 GM in D5W MINI-BAG PLUS 50 ML IV SCH (17:00)
--- NOTE | 2019-03-13 17:41 | IPN ---
DATE: 03/13/2019 Mrs. Benson is seen this morning on her bedside. She is sitting in the chair at the time of my visit. She underwent first hemodialysis yesterday, which she tolerated very well. She feels that it was too long treatment; however, she did not have any problems during it. Her dyspnea has improved and she is not requiring oxygen anymore. She denies any fever or chills. She has no nausea or vomiting and reports good appetite. PHYSICAL EXAMINATION: Temperature 99.0 degrees Fahrenheit, heart rate 68 per minute and respiratory rate 20 per minute. Blood pressure 112/56 mmHg and oxygen saturation 94%. She is currently on room air. Ears, nose and throat are unremarkable. Head is atraumatic. She has no oral thrush or ulcers. Neck is supple and without jugular venous distention (JVD) or thyroid enlargement. Lungs sounds clear to auscultation bilaterally. Heart sounds are regular and there is no pericardial friction rub. Abdomen: Nontender and without a palpable organomegaly. Bowel sounds are normal. Extremities have no cyanosis or clubbing. Peripheral edema has improved. Neurologically, she seems to be without a focal deficit. Today's labs show a WBC count 16.0, hemoglobin 10.6 and hematocrit 32.9. Platelets 193. Sodium 141, potassium 3.7, CO2 27, BUN 45 and creatinine 4.01. Total protein is 6.3 and albumin was 2.5 yesterday. The rest of the chemistry is still pending. Her complements were normal, with C3 92 and C4 22. PROBLEMS: 1. Acute renal failure superimposed on chronic kidney disease. Patient has no recovery of kidney function. Her BUN and creatinine improved with dialysis yesterday. We plan to dialyze her again today. I have discussed with the patient and her family about potential need for a kidney biopsy and she is willing to proceed. We are going to schedule her for kidney biopsy tomorrow. This will be done under ultrasound guidance. 2. Congestive heart failure and hypervolemia. Volume status has improved with dialysis. She was diuresed prior to that. At present, she is oxygenating in high 90s on room air. We will continue to watch and try to remove only about 1/2 liter fluid with dialysis today. 3. Hypernatremia. Sodium level is corrected and other electrolytes are also stable at present. 4. Anemia. She did receive 2 units of packed red blood cells during dialysis yesterday and her anemia has improved. No further intervention is indicated at present.
[2019-03-13] MEDS: DOXYCYCLINE HYCLATE 100 MG TAB PO SCH ×2 (19:30→20:47)
[2019-03-13 20:00] VITALS: BP 126/77
[2019-03-13] MEDS: DONEPEZIL 5 MG TAB PO SCH (20:47)
[2019-03-13] MEDS: LATANOPROST 0.005% OPHTH SOLN 2.5 ML OU SCH (20:47)
[2019-03-13] MEDS: MEMANTINE 5MG TABLET (NAMENDA) PO SCH (20:47)
[2019-03-14] VITALS (7 sets, daily range): BP systolic 87–147; BP diastolic 57–72
[2019-03-14 05:12] LABS: HEMATOCRIT 29.3 % (36.0-47.0); HEMOGLOBIN 9.4 g/dl (12.0-15.5); MEAN CORPUSCULAR HEMOGLOBIN 29.7 pg (27.0-33.0); MEAN CORPUSCULAR HGB CONC 32.1 g/dl (32.0-36.5); MEAN CORPUSCULAR VOLUME 92.7 fl (80.0-96.0); PLATELET COUNT, AUTOMATED 174 10^3/uL (150-450); RED BLOOD COUNT 3.16 10^6/uL (4.00-5.40); WHITE BLOOD COUNT 15.4 10^3/uL (4.0-10.0)
[2019-03-14 05:32] LABS: CALCIUM LEVEL 7.7 MG/DL (8.8-10.2); CREATININE FOR GFR 3.55 MG/DL (0.55-1.30); GLOMERULAR FILTRATION RATE 13.1 (>32); POTASSIUM SERUM 3.7 MEQ/L (3.5-5.1)
[2019-03-14 05:37] LABS: EOSINOPHILS 1 % (0-5); LYMPHOCYTES 36 % (16-52); MONOCYTES 6 % (0-8); NEUTROPHILS 57 % (35-75); PLATELET ESTIMATE NORMAL (NORMAL)
[2019-03-14] MEDS: ADVAIR HFA 115/21MCG INHALER INH SCH ×2 (08:14→20:00)
[2019-03-14] MEDS: DOCUSATE SODIUM 100 MG CAP PO SCH ×2 (08:59→20:19)
[2019-03-14] MEDS: HEPARIN SOD (PORCINE) 5000 UNITS/ML VIAL SQ SCH ×2 (08:59→20:19)
[2019-03-14] MEDS: GABAPENTIN 100 MG CAP PO SCH ×3 (09:00→20:20)
[2019-03-14] MEDS: ATENOLOL 25 MG TAB PO SCH (09:00)
[2019-03-14] MEDS: DOXYCYCLINE HYCLATE 100 MG TAB PO SCH ×2 (09:00→20:20)
--- NOTE | 2019-03-14 09:28 | REP ---
PORTABLE CHEST X-RAY: Single view. HISTORY: CHF. FINDINGS: Cardiomegaly persists. A tunnel catheter is again seen via the right side. There are surgical clips along the left chest wall. The aorta is rather tortuous as before. Infiltrates are again noted in the perihilar regions bilaterally, right greater than left. There is increased size and density in the consolidation on the right. IMPRESSION: Progressive opacification bilateral infiltrates. Electronically Signed by Zachery Hunt MD 03/14/2019 12:27 P
[2019-03-14] MEDS ORDERED: LIDOCAINE 1% MDV 20ML VIAL As Ordered ONE (10:11)
[2019-03-14] MEDS: cefTRIAXone SOD 1 GM in D5W MINI-BAG PLUS 50 ML IV SCH (11:56)
--- NOTE | 2019-03-14 11:56 | IPNPDOC ---
Date Seen The patient was seen on 03/14/19. Progress Note SUBJECTIVE: 84 Y female, history of Dementia and diastolic CHF admitted for acute renal failure and hyperkalemia no events overnight Reviews of systems low grade fever no chills no ERIC no chest pain (+pleural right rib cage tenderness) no abdominal pain no diarrhea PHYSICAL EXAMINATION: VITAL SIGNS: Please see below. GENERAL: AA, moderate demented, comfortable HEENT: Atraumatic CARDIOVASCULAR: S1S2 regular, no murmur RESPIRATORY: small crackles but no wheezing ABDOMINAL:soft BS positive, nontender EXTREMITIES: trace edema, +skin laceration wound in left [place] NEUROLOGICAL: non focal PSYCHOLOGICAL: demented without behavior disturbance LABORATORY DATA, IMAGING STUDIES, MICROBIOLOGY: Please see below. chest x ray showed right lung infiltrate DVT prophylaxis ordered?: yes, heparin sc ASSESSMENT AND PLAN: 1) acute renal failure with uremia - unclear etiology renal US did not show any obstruction Appreciated nephrology input HD started from 03/12 and time 2 so far went for renal biopsy today 2) Sepsis and Pneumonia will continue ceftriaxone and doxy and follow cultures 3) Hyperkalemia, resolved 4) CHF, acute on chronic, diastolic, compensated 5) Anemia - HH stable 6) trigeminal neuralgia: on gabapentin 7) DVT prophylaxis, Heparin VS, I&O, 24H, Fishbone Vital Signs/I&O Vital Signs Date Time Temp Pulse Resp B/P (MAP) Pulse Ox O2 Delivery O2 Flow Rate FiO2 03/14/19 11:23 64 16 03/14/19 11:10 93 03/14/19 10:30 98.1 03/14/19 09:00 92/50 03/14/19 08:00 1.0 03/12/19 20:28 Nasal Cannula 03/11/19 14:36 97 I&O- Last 24 Hours up to 6 AM 03/14/19 06:00 Intake Total 120 ml Output Total 675 ml Balance -555 ml Laboratory Data 24H LABS Laboratory Tests 2 03/14/19 04:58: White Blood Count 15.4H, Red Blood Count 3.16L, Hemoglobin 9.4L, Hematocrit 29.3L, Mean Corpuscular Volume 92.7, Mean Corpuscular Hemoglobin 29.7, Mean Corpuscular Hemoglobin Concent 32.1, Red Cell Distribution Width 14.2, Platelet Count 174, Lymphocytes # (Auto) , Nucleated Red Blood Cells % (auto) 0.0, Neutrophils 57, Lymphocytes (Manual) 36, Monocytes (Manual) 6, Eosinophils (Manual) 1, Platelet Estimate NORMAL, Anion Gap 9, Glomerular Filtration Rate 13.1L, Blood Urea Nitrogen 32H, Creatinine 3.55H, Sodium Level 142, Potassium Level 3.7, Chloride Level 106, Carbon Dioxide Level 27, Calcium Level 7.7L CBC/BMP Laboratory Tests 03/14/19 04:58 Red Blood Count 3.16 L, Mean Corpuscular Volume 92.7, Mean Corpuscular Hemoglobin 29.7, Mean Corpuscular Hemoglobin Concent 32.1, Red Cell Distribution Width 14.2, Lymphocytes # (Auto) , Calcium Level 7.7 L Microbiology Microbiology 03/10/19 Blood Culture - Preliminary, Resulted No Growth after 72 hours. All specime... 03/10/19 Blood Culture - Preliminary, Resulted No Growth after 72 hours. All specime... 03/14/19 Gram Stain - Final, Resulted 03/14/19 Wound Culture, Resulted Pending KAYLEN LONDONO MD Mar 14, 2019 11:56
[2019-03-14] MEDS ORDERED: ONDANSETRON 4MG/2ML VIAL (J2405) As Ordered ONE (12:52)
[2019-03-14] MEDS ORDERED: ONDANSETRON 4MG/2ML VIAL (J2405) IV ONE (13:00)
[2019-03-14 14:10] LABS: URINE TOTAL PROTEIN 673.1 MG/DL (0-12)
[2019-03-14 14:14] LABS: TOTAL PROTEIN 24 HOUR URINE 3029.5 MG/24HR (50-150); URINE TOTAL PROTEIN 605.9 MG/DL (0-12)
--- NOTE | 2019-03-14 18:48 | IPN ---
DATE: 03/14/2019 Ms. Benson is seen this morning on her bedside. She is feeling about the same. She is using oxygen today via nasal cannula. Family reports that she is now being treated with antibiotic for possible pneumonia. The patient denies any nausea, vomiting, fever or chills. PHYSICAL EXAMINATION: Temperature 99.5 degrees Fahrenheit, heart rate 76 per minute and respiratory rate 18 per minute. Blood pressure 135/72 mmHg and oxygen saturation 91% on one liter oxygen. Her head is atraumatic. Neck is supple and without jugular venous distention (JVD) or thyroid enlargement. Dialysis catheter is present on right upper chest. She has no oral thrush or ulcers. Heart sounds are regular. Lungs with slightly diminished breath sounds at bases. Abdomen is soft and nontender and bowel sounds are normal. Extremities have no cyanosis or clubbing. Neurologically, she is awake and without a focal deficit. LABORATORY DATA: Today's laboratories show WBC count 15.4, hemoglobin 9.4 and hematocrit 29.3. Platelets 174. Sodium 142, potassium 3.7, CO2 27, BUN 32 and creatinine 3.55. Glucose 89 and calcium 7.7. PROBLEMS: 1. Acute renal failure. The patient was dialyzed yesterday and kidney function has not recovered. She is going to have kidney biopsy today to make a diagnosis of her renal failure. At present, there is no emergent need for dialysis today and we will go ahead and schedule her next dialysis for tomorrow. 2. Anemia. At present, her anemia is stable and does not need any urgent intervention. She was transfused on 03/12/2019 and since then has been doing well. 3. Pneumonia. The patient is being treated for right lower lobe pneumonia with ceftriaxone and is being managed by hospitalist service. She is also receiving doxycycline 100 mg twice a day by mouth. 4. Congestive heart failure. Volume status is very well-compensated and we will continue to manage it with dialysis.
[2019-03-14] MEDS: LATANOPROST 0.005% OPHTH SOLN 2.5 ML OU SCH (20:19)
[2019-03-14] MEDS: DONEPEZIL 5 MG TAB PO SCH (20:20)
[2019-03-14] MEDS: MEMANTINE 5MG TABLET (NAMENDA) PO SCH (20:20)
[2019-03-15] VITALS (7 sets, daily range): BP systolic 93–161; BP diastolic 49–71
[2019-03-15 00:07] LABS: FREE KAPPA LIGHT CHAINS SERUM 174.2 mg/L (3.3-19.4); FREE LAMBDA LIGHT CHAINS SERUM 128.9 mg/L (5.7-26.3); KAPPA/LAMBDA RATIO SERUM 1.35 (0.26-1.65)
[2019-03-15 00:07] LABS: ANCA-ATYPICAL <1:20 titer (Neg:<1:20); CYTOPLASMIC NEUTROP AB ANCA-C <1:20 titer (Neg:<1:20); HEPATITIS B CORE ANTIBODY IGG Negative (Negative)
[2019-03-15 00:07] LABS: ANTI DOUBLE STRAND-DNA AB 12 IU/mL (0-9); ANTI DS-DNA AB <1:10 titer (.); ANTINUCLEAR ANTIBODIES DIRECT Positive (Negative); COMPLEMENT TOTAL (CH50) > 60 U/mL (>41); RNP ANTIBODIES 0.7 AI (0.0-0.9); SJOGREN'S ANTI SS-A <0.2 AI (0.0-0.9); SJOGREN'S ANTI SS-B <0.2 AI (0.0-0.9); SMITH ANTIBODIES <0.2 AI (0.0-0.9)
[2019-03-15] MEDS: ADVAIR HFA 115/21MCG INHALER INH SCH ×2 (08:46→20:00)
--- NOTE | 2019-03-15 08:52 | REP ---
Chest x-ray: Semi-erect AP portable view. History: CHF. Comparison chest x-ray March 14, 2019. Findings: Extensive bilateral perihilar infiltrates persist. Cardiomegaly is observed. A tunnel catheter is observed in the superior vena cava. No significant change from yesterday's radiograph. Electronically Signed by Zachery Hunt MD 03/15/2019 08:43 A
[2019-03-15 08:57] LABS: HEMATOCRIT 27.2 % (36.0-47.0); HEMOGLOBIN 8.6 g/dl (12.0-15.5); MEAN CORPUSCULAR HEMOGLOBIN 31.4 pg (27.0-33.0); MEAN CORPUSCULAR HGB CONC 31.6 g/dl (32.0-36.5); MEAN CORPUSCULAR VOLUME 99.3 fl (80.0-96.0); PLATELET COUNT, AUTOMATED 186 10^3/uL (150-450); RED BLOOD COUNT 2.74 10^6/uL (4.00-5.40); WHITE BLOOD COUNT 17.3 10^3/uL (4.0-10.0)
[2019-03-15] MEDS: HEPARIN SOD (PORCINE) 5000 UNITS/ML VIAL SQ SCH (09:00)
[2019-03-15] MEDS: ATENOLOL 25 MG TAB PO SCH (09:00)
--- NOTE | 2019-03-15 10:06 | REP ---
Ultrasound guidance: History: Acute renal failure. Findings: Sonographic guidance is provided to Dr. Bradford who performed ultrasound-guided needle biopsy procedure of the left kidney. Electronically Signed by Zachery Hunt MD 03/15/2019 09:58 A
[2019-03-15] MEDS: GABAPENTIN 100 MG CAP PO SCH ×3 (10:11→21:50)
[2019-03-15] MEDS: DOCUSATE SODIUM 100 MG CAP PO SCH ×2 (10:12→21:50)
[2019-03-15] MEDS: DOXYCYCLINE HYCLATE 100 MG TAB PO SCH ×2 (10:12→21:50)
--- NOTE | 2019-03-15 10:22 | IPNPDOC ---
Date Seen The patient was seen on 03/15/19. Progress Note SUBJECTIVE: 84 Y female, history of Dementia and diastolic CHF admitted for acute renal failure and hyperkalemia now on HD since kidney function is not improving underwent for kidney biopsy c/w with some pain in the biopsy area now feels ok no events overnight Reviews of systems no fever no chills no ERIC no chest pain no abdominal pain no diarrhea +hematuria PHYSICAL EXAMINATION: VITAL SIGNS: Please see below. GENERAL: AA, moderate demented, comfortable HEENT: Atraumatic CARDIOVASCULAR: S1S2 regular, no murmur RESPIRATORY: small crackles but no wheezing ABDOMINAL:soft BS positive, nontender EXTREMITIES: trace edema, +skin laceration wound in left [place] NEUROLOGICAL: non focal PSYCHOLOGICAL: demented without behavior disturbance LABORATORY DATA, IMAGING STUDIES, MICROBIOLOGY: Please see below. chest x ray showed right lung infiltrate DVT prophylaxis ordered?: yes, heparin sc ASSESSMENT AND PLAN: 1) acute renal failure with uremia - unclear etiology Appreciated nephrology input HD started from 03/12 Kidney biopsy done 03/14, will follow Path report 2) Hematuria, likely related to kidney biopsy will monitor 3) Pneumonia, now afebrile, no positive culture so far will continue ceftriaxone and doxy and follow cultures 4) Hyperkalemia, resolved 5) CHF, acute on chronic, diastolic, compensated 6) Anemia - HH stable 7) trigeminal neuralgia: on gabapentin 8) DVT prophylaxis, will hold Heparin due to hematuria VS, I&O, 24H, Fishbone Vital Signs/I&O Vital Signs Date Time Temp Pulse Resp B/P (MAP) Pulse Ox O2 Delivery O2 Flow Rate FiO2 03/15/19 09:00 101/54 03/15/19 08:15 1.0 03/15/19 04:00 98.4 68 20 91 03/12/19 20:28 Nasal Cannula 03/11/19 14:36 97 I&O- Last 24 Hours up to 6 AM 03/15/19 06:00 Intake Total 370 ml Output Total 395 ml Balance -25 ml Laboratory Data 24H LABS Laboratory Tests 2 03/15/19 08:42: Nucleated Red Blood Cells % (auto) 0.0 CBC/BMP Laboratory Tests 03/15/19 08:42 Red Blood Count 2.74 L, Mean Corpuscular Volume 99.3 H, Mean Corpuscular Hemoglobin 31.4, Mean Corpuscular Hemoglobin Concent 31.6 L, Red Cell D istribution Width 14.4 Microbiology Microbiology 03/10/19 Blood Culture - Preliminary, Resulted No Growth after 72 hours. All specime... 03/10/19 Blood Culture - Preliminary, Resulted No Growth after 72 hours. All specime... 03/14/19 Gram Stain - Final, Resulted 03/14/19 Wound Culture, Resulted Pending KAYLEN LONDONO MD Mar 15, 2019 10:22
[2019-03-15] MEDS ORDERED: DARBEPOETIN 100 MCG/0.5 ML *DIALYSIS* SYRINGE (J0882) IV SCH (11:00)
[2019-03-15 11:21] LABS: ALBUMIN 2.1 GM/DL (3.2-5.2); CREATININE FOR GFR 5.23 MG/DL (0.55-1.30); GLOMERULAR FILTRATION RATE 8.4 (>32); POTASSIUM SERUM 3.5 MEQ/L (3.5-5.1)
[2019-03-15] MEDS: cefTRIAXone SOD 1 GM in D5W MINI-BAG PLUS 50 ML IV SCH (11:52)
[2019-03-15] MEDS ORDERED: HEPARIN 1,000 UNITS/ML 10ML VIAL (FOR RADIOLOGY& DIALYSIS ONLY) XX ONE (12:00)
[2019-03-15 12:48] LABS: PERCENT SATURATION 11.2 % (13.2-45.0)
--- NOTE | 2019-03-15 14:07 | RO ---
DATE OF PROCEDURE: 03/14/2019 PREPROCEDURE DIAGNOSIS: Acute renal failure of uncertain etiology. POSTPROCEDURE DIAGNOSIS: Acute renal failure of uncertain etiology. PROCEDURE: Left kidney biopsy. SURGEON: Irene Bradford MD BLOCK MACHINE OPERATOR: None. ANESTHESIA: 1% lidocaine, 10 mL used. DESCRIPTION: Informed consent obtained from the patient and her daughter signed the consent. The patient was brought to ultrasound room and put in prone position on the exam table. Left kidney was identified with ultrasound. Skin was cleaned and prepped in the usual sterile fashion. 1% lidocaine was used and a small skin incision made with the knife. Under direct ultrasound guidance, lidocaine was infiltrated all the way down to the renal capsule. After adequate local anesthesia, a trocar was introduced under direct ultrasound guidance up to the renal capsule. Kidney biopsy needle was then introduced through the trocar and four attempts were made for left kidney biopsy. Four small specimens were obtained and sent for pathology. The patient tolerated the procedure well and there were no complications. Postprocedure ultrasound did not show any significant perinephric hematoma. The patient was then sent back to the recovery room.
[2019-03-15] MEDS ORDERED: IRON SUCROSE 100MG 5ML VIAL (J1756 PER 1MG) IV SCH (17:30)
--- NOTE | 2019-03-15 18:13 | IPN ---
DATE: 03/15/2019 SUBJECTIVE: The patient is seen and examined this morning at the bedside. She had a Alexander catheter placed. She has some gross hematuria since her kidney biopsy yesterday. Her heparin is on hold. She reports initially she had some tenderness at the site of biopsy, but that this has subsided. She is scheduled for dialysis this afternoon. She denies any shortness of breath, chest pain, nausea, vomiting, or diarrhea. VITAL SIGNS: Temperature 97.6, pulse 71, respiratory rate 18, blood pressure 125/58, saturating 92-96% on 1 liter nasal cannula. Intake yesterday was not fully recorded. Weight in the bed scale today 68.4. GENERAL: The patient is seen lying in bed. Elderly female. Awake, alert, oriented times three and in no acute distress. Her extraocular muscles are intact. Her neck is supple. There is no jugular venous distension. There is a dialysis catheter present in the right chest wall with a dressing. HEART: Sounds are regular, S1, S2. There is no edema in the peripheries. LUNGS: Show symmetric air entry bilaterally. There is no crackle or rale. ABDOMEN: Soft and nontender. There are bowel sounds. EXTREMITIES: Negative for cyanosis or clubbing. NEUROLOGIC: She is awake, alert, and asks insightful questions. Oriented times three. LABORATORY DATA: Sodium 143, potassium 3.5, BUN 55, creatinine 5.2. Transferrin saturation 11%, iron 37. P-ANCA is positive in 1:160 titer. Chest x-ray March 15: Bilateral perihilar infiltrates, unchanged from prior. INPATIENT MEDICATIONS: Reviewed by myself. Heparin is on hold. She is started on Aranesp and Venofer. PROBLEMS: 1. Oliguric acute renal failure, presently hemodialysis dependent. Etiology of renal failure is unknown. Serologic studies are noted. There is an elevated P-ANCA titer. She had a kidney biopsy yesterday, and we should have a preliminary result by the middle of next week. We will continue her hemodialysis treatments. She is being dialyzed this afternoon with heparin-free dialysis with fluid removal of about half a liter. 2. Status post kidney biopsy, presently with gross hematuria. Her heparin subcutaneous was held. She initially had tenderness at the site of biopsy, but this has subsided. Continue with complete blood count (CBC) monitoring. Dialysis will be heparin free as well. 3. Anemia related to renal failure and also to iron deficiency. She is being started on Aranesp with dialysis treatments, and I have also ordered 10 doses of Venofer with dialysis. 4. History of diastolic congestive heart failure. Volume status is presently compensated, and we will continue to remove fluid as needed via hemodialysis. Goal fluid removal today was half a liter.
[2019-03-15] MEDS: MEMANTINE 5MG TABLET (NAMENDA) PO SCH (21:50)
[2019-03-15] MEDS: DONEPEZIL 5 MG TAB PO SCH (21:50)
[2019-03-16] MEDS: LATANOPROST 0.005% OPHTH SOLN 2.5 ML OU SCH ×2 (00:15→21:00)
[2019-03-16 06:00] VITALS: BP 126/60
[2019-03-16] MEDS: ADVAIR HFA 115/21MCG INHALER INH SCH ×2 (07:38→21:25)
[2019-03-16] MEDS: ACETAMINOPHEN TAB 650MG DOSE (2X325MG) PO PRN ×2 (07:47→17:41)
[2019-03-16 08:00] VITALS: BP 120/68
--- NOTE | 2019-03-16 08:23 | REP ---
Portable chest x-ray: Single view. History: CHF. Comparison study: March 15, 2019 and March 14, 2019. Findings: Fairly dense infiltrates are seen in the perihilar regions bilaterally. Opacification is increasing on the left sided infiltrates. The right lung consolidation is essentially unchanged. Enlarged heart is again seen. Central venous tunnel catheter is again noted in place. The aorta is tortuous and calcific. There are old rib fractures on the left. Impression: Progressive opacification in the left-sided infiltrates. Stable infiltrates on the right. Electronically Signed by Zachery Hunt MD 03/16/2019 08:14 A
[2019-03-16] MEDS: ATENOLOL 25 MG TAB PO SCH (09:03)
[2019-03-16] MEDS: DOXYCYCLINE HYCLATE 100 MG TAB PO SCH ×2 (09:03→21:00)
[2019-03-16] MEDS: GABAPENTIN 100 MG CAP PO SCH ×3 (09:03→20:59)
[2019-03-16] MEDS: DOCUSATE SODIUM 100 MG CAP PO SCH ×2 (09:03→20:59)
[2019-03-16 10:35] VITALS: BP 93/51
[2019-03-16] MEDS ORDERED: NS 500 ML IV ONE (10:45)
[2019-03-16 11:15] VITALS: BP 101/53
[2019-03-16 12:13] LABS: HEMATOCRIT 24.8 % (36.0-47.0); HEMOGLOBIN 7.7 g/dl (12.0-15.5); MEAN CORPUSCULAR HEMOGLOBIN 30.1 pg (27.0-33.0); MEAN CORPUSCULAR VOLUME 96.9 fl (80.0-96.0); PLATELET COUNT, AUTOMATED 188 10^3/uL (150-450); RED BLOOD COUNT 2.56 10^6/uL (4.00-5.40); WHITE BLOOD COUNT 18.9 10^3/uL (4.0-10.0)
[2019-03-16 12:29] LABS: CALCIUM LEVEL 8.4 MG/DL (8.8-10.2); CREATININE FOR GFR 4.45 MG/DL (0.55-1.30); GLOMERULAR FILTRATION RATE 10.1 (>32); POTASSIUM SERUM 3.9 MEQ/L (3.5-5.1)
[2019-03-16] MEDS: cefTRIAXone SOD 1 GM in D5W MINI-BAG PLUS 50 ML IV SCH (12:51)
--- NOTE | 2019-03-16 13:59 | IPNPDOC ---
Date Seen The patient was seen on 03/16/19. Progress Note SUBJECTIVE: 84 Y female, history of Dementia and diastolic CHF admitted for acute renal failure and hyperkalemia now on HD since kidney function is not improving underwent for kidney biopsy 03/14 no events overnight Reviews of systems no fever no chills no ERIC no chest pain no abdominal pain no diarrhea +hematuria PHYSICAL EXAMINATION: VITAL SIGNS: Please see below. GENERAL: AA, moderate demented, comfortable HEENT: Atraumatic CARDIOVASCULAR: S1S2 regular, no murmur RESPIRATORY: small crackles but no wheezing ABDOMINAL:soft BS positive, nontender EXTREMITIES: trace edema, +skin laceration wound in left [place] NEUROLOGICAL: non focal PSYCHOLOGICAL: demented without behavior disturbance LABORATORY DATA, IMAGING STUDIES, MICROBIOLOGY: Please see below. chest x ray showed right lung infiltrate DVT prophylaxis ordered?: yes, heparin sc ASSESSMENT AND PLAN: 1) acute renal failure with uremia - unclear etiology Appreciated nephrology input HD started from 03/12 Kidney biopsy done 03/14, will follow Path report 2) Hematuria, likely related to kidney biopsy will monitor 3) Pneumonia, now afebrile, no positive culture so far will continue ceftriaxone and doxy and follow cultures 4) Hyperkalemia, resolved 5) +pANCA/?vasculitis Dr Lincoln started her on IV steroid will consult Dr Unger 6) CHF, acute on chronic, diastolic, compensated 7) Anemia - HH down and will transfuse 8) trigeminal neuralgia: on gabapentin 9) DVT prophylaxis, Heparin on hold due to hematuria VS, I&O, 24H, Fishbone Vital Signs/I&O Vital Signs Date Time Temp Pulse Resp B/P (MAP) Pulse Ox O2 Delivery O2 Flow Rate FiO2 03/16/19 09:05 1.0 03/16/19 09:03 77 120/68 03/16/19 08:00 97.7 16 91 03/12/19 20:28 Nasal Cannula 03/11/19 14:36 97 I&O- Last 24 Hours up to 6 AM 03/16/19 06:00 Intake Total 710 ml Output Total 1100 ml Balance -390 ml Laboratory Data 24H LABS Laboratory Tests 2 03/16/19 11:31: Nucleated Red Blood Cells % (auto) 0.0, Anion Gap 9, Glomerular Filtration Rate 10.1L, Blood Urea Nitrogen 41H, Creatinine 4.45H, Sodium Level 141, Potassium Level 3.9, Chloride Level 106, Carbon Dioxide Level 26, Calcium Level 8.4L 03/16/19 13:05: CBC/BMP Laboratory Tests 03/16/19 11:31 Red Blood Count 2.56 L, Mean Corpuscular Volume 96.9 H, Mean Corpuscular Hemoglobin 30.1, Mean Corpuscular Hemoglobin Concent 31.0 L, Red Cell Distribution Width 14.6 H, Calcium Level 8.4 L Microbiology Microbiology 03/10/19 Blood Culture - Final, Complete NO GROWTH AFTER 5 DAYS 03/10/19 Blood Culture - Final, Complete NO GROWTH AFTER 5 DAYS 03/14/19 Gram Stain - Final, Resulted 03/14/19 Wound Culture - Preliminary, Resulted Staphylococcus Aureus Staphylococcus Sp Coag Neg KAYLEN LONDONO MD Mar 16, 2019 13:59
[2019-03-16 14:00] VITALS: BP 105/56
[2019-03-16] MEDS: PANTOPRAZOLE 40MG TAB (PROTONIX) PO SCH (14:30)
--- NOTE | 2019-03-16 15:51 | IPN ---
DATE: 03/16/2019 SUBJECTIVE: Patient is seen and examined this morning at the bedside. 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 Patient reports a bout of dizziness after she had been sitting out on the chair for some time. Otherwise denies any new complaints or issues. Hemoglobin is downtrending. She continues with gross hematuria and further packed red blood cells are ordered for transfusion. VITAL SIGNS: Temperature 97.7, pulse 77, respiratory rate 16, blood pressure 120/68, saturating 91% on 1 liter nasal cannula. Intake yesterday was 650. Urine output yesterday was 500. Dialysis yesterday removed 500, net negative 360. Weight in the bed scale today 68 kg. GENERAL: Patient is seen sitting in bed with family members present at the bedside. Elderly female awake, alert and oriented to person, place and situation and in no acute distress. Extraocular muscles are intact. The conjunctivae are pale. The neck is supple. There is no jugular venous distension. There is a dialysis catheter present in the right chest wall with dressing. Heart sounds are regular. S1, S2. There is no edema in the peripheries. She has a wound on the left leg that is covered with a dressing. Lungs show some symmetric air entry that is diminished at the bases. There is no tachypnea or accessory muscle use. The abdomen is soft and nontender. There are bowel sounds. GENITOURINARY: Shows Alexander catheter with gross hematuria. Extremities are negative for cyanosis, clubbing or edema. There is a wound on the left leg that has a dressing. NEUROLOGIC: She is awake, alert and cooperative with physical exam and answers questions appropriately. LABORATORY DATA: White count 18, hemoglobin 7.7, platelet 188. Sodium 141, potassium 3.9, BUN 41. p-ANCA 1:160 titer INPATIENT MEDICATIONS: Reviewed by myself. Solu-Medrol 500 mg intravenous (IV) daily times three doses is ordered. Remainder of the medications are unchanged from prior. PROBLEMS: 1. Oliguric acute renal failure, presently hemodialysis dependent. Renal biopsy was done on 03/14/2019. Serologic and immunologic studies are noted. There is elevated p-ANCA titer in this patient with pulmonary infiltrates, renal failure with subnephrotic range proteinuria and an active urine sediment. 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 I have discussed the same at length with the patient and her various family members. We are awaiting the biopsy results for confirmation. I have asked the hospitalist to have pulmonary evaluate the patient as well. We will start her on pulse steroids with Solu-Medrol 500 mg IV daily times three days. 2. Dialysis dependent. Please see above for further discussion regarding etiology of her renal failure. Next hemodialysis treatment will be on Sunday and we will continue with the heparin free dialysis at present. 3. Anemia related to renal failure and iron deficiency and also gross hematuria status post kidney biopsy. Heparin subcutaneous is on hold. She is receiving Aranesp with dialysis treatments. She is also receiving Venofer with her hemodialysis treatments and I have ordered 1 unit of packed red blood cell transfusion for today. 4. History of diastolic congestive heart failure volume status is presently compensated and we will continue to remove fluid as needed via hemodialysis. 5. Bilateral pulmonary infiltrates in this patient with renal failure. Subnephrotic range proteinuria, active urine sediment and elevated p-ANCA titer. Pulmonary infiltrates are likely a manifestation of underlying vasculitic syndrome and less likely to be pneumonia. I have asked that hospitalist service consult pulmonary to see the patient as well. She has, at present, minimal oxygen requirements.
[2019-03-16] MEDS: MEMANTINE 5MG TABLET (NAMENDA) PO SCH (20:59)
[2019-03-16] MEDS: DONEPEZIL 5 MG TAB PO SCH (21:00)
[2019-03-16 22:00] VITALS: BP 128/61
[2019-03-17] MEDS: ACETAMINOPHEN TAB 650MG DOSE (2X325MG) PO PRN (01:48)
[2019-03-17 06:00] VITALS: BP 126/86
[2019-03-17 06:47] VITALS: BP 112/73
[2019-03-17] MEDS: DOXYCYCLINE HYCLATE 100 MG TAB PO SCH ×2 (06:49→22:06)
[2019-03-17] MEDS: PANTOPRAZOLE 40MG TAB (PROTONIX) PO SCH (06:49)
[2019-03-17] MEDS: GABAPENTIN 100 MG CAP PO SCH ×3 (06:50→22:06)
[2019-03-17] MEDS: ATENOLOL 25 MG TAB PO SCH (06:50)
[2019-03-17] MEDS: DOCUSATE SODIUM 100 MG CAP PO SCH ×2 (06:51→22:05)
[2019-03-17] MEDS: methylPREDNISolone 500 MG, VIAL MATE ADAPTER 1 EACH in D5W 250 ML IV SCH (07:25)
[2019-03-17] MEDS: ADVAIR HFA 115/21MCG INHALER INH SCH ×2 (07:41→20:39)
--- NOTE | 2019-03-17 08:00 | REP ---
Portable chest, 07:02 a.m., single AP view with the patient semi upright: Comparison is 03/16/2019. The left lung infiltrates have improved. The infiltrates superiorly and inferiorly in the right lung are unchanged. There is slight effacement of the left costophrenic angle suggestive of a small left pleural effusion. This is unchanged. There is slight effacement right costophrenic angle suggestive of a small right pleural effusion, not definitely present previously. There is cardiomegaly, unchanged. The dual lumen right IJ central venous catheter tip is at the confluence of the superior vena cava and right atrium in satisfactory position, unchanged. Impression: The left lung infiltrates have improved. Small bilateral pleural effusions. No other interval change. Electronically Signed by Umer Eason MD 03/17/2019 07:52 A
--- NOTE | 2019-03-17 08:05 | REP ---
CT CHEST WITHOUT CONTRAST: HISTORY: Pneumonia. Comparison chest CT study July [address] FINDINGS: There is a right sided tunneled central venous catheter with its tip in the superior vena cava. Cardiac enlargement is observed. The ascending aorta is dilated measuring 4.2 cm in greatest diameter. There are scattered normal-sized mediastinal lymph nodes. There are small bilateral pleural effusions. There are patchy and extensive infiltrates and bilateral lower and upper lobes as well as in the right middle lobe. There are some air bubbles within a moderate to large left perinephric and posterior pararenal hematoma. The patient status post recent ultrasound-guided needle biopsy of the left kidney. Left kidney is displaced anteriorly by the hematoma. No other significant finding. IMPRESSION: 1. Extensive bilateral lung infiltrates consistent with pneumonia. 2. Small bilateral pleural effusions. 3. Cardiomegaly. 4. Fairly large left posterior perinephric and pararenal fat hematoma post biopsy. Electronically Signed by Zachery Hunt MD 03/17/2019 08:39 A
[2019-03-17] MEDS ORDERED: methylPREDNISolone INJ 125 MG/2 ML VIAL (J2930) IV SCH (09:00)
[2019-03-17 09:50] LABS: HEMATOCRIT 30.9 % (36.0-47.0); HEMOGLOBIN 9.6 g/dl (12.0-15.5); MEAN CORPUSCULAR HEMOGLOBIN 31.1 pg (27.0-33.0); MEAN CORPUSCULAR HGB CONC 31.1 g/dl (32.0-36.5); PLATELET COUNT, AUTOMATED 196 10^3/uL (150-450); RED BLOOD COUNT 3.09 10^6/uL (4.00-5.40); WHITE BLOOD COUNT 21.2 10^3/uL (4.0-10.0)
[2019-03-17 10:38] LABS: ALBUMIN 2.1 GM/DL (3.2-5.2); BILIRUBIN,TOTAL 0.8 MG/DL (0.2-1.0); CALCIUM LEVEL 7.8 MG/DL (8.8-10.2); CREATININE FOR GFR 5.88 MG/DL (0.55-1.30); GLOMERULAR FILTRATION RATE 7.3 (>32); POTASSIUM SERUM 3.7 MEQ/L (3.5-5.1); TOTAL PROTEIN 6.4 GM/DL (6.4-8.2)
--- NOTE | 2019-03-17 11:02 | IPN ---
DATE OF SERVICE: 03/17/2019 Araceli is seen while rounding for the hospitalists. She has had a complicated hospitalization. She has a history of dementia and diastolic congestive heart failure, acute renal failure, hyperkalemia, and is now on hemodialysis. Had a kidney biopsy 03/14/2019 that is pending. She has infiltrates that are either infectious or vasculitic. Dr. Unger has been consulted. She was started on some intravenous (IV) steroids by nephrology. PHYSICAL EXAMINATION: 112/73. Vital signs stable. Oxygen (O2) saturation 94% on room air. General appearance: Elderly, frail, resting in bed. No distress. Lungs: Scattered rhonchi. No wheezes. Heart: Regular rate and rhythm. Abdomen: Soft, nontender. Trace peripheral edema. Moves arms and legs with equal strength. LABORATORIES: White count is 21.2 (on steroids), hemoglobin 9, platelets 196. Electrolytes are all pending. p-ANCA is positive, a titer of 1:160. IMPRESSION: 1. Oliguric renal failure. Currently, hemodialysis-dependent. Renal biopsy pending. Appreciate nephrology's input. Has been started on high-dose Solu-Medrol 500 mg intravenous (IV) daily times 3 days. 2. Pulmonary infiltrates, infectious versus vasculitic. Pulmonary has been consulted per yesterday's note. 3. Diastolic congestive heart failure, fluid management per dialysis. 4. Anemia. Has been transfused and received Venofer.
--- NOTE | 2019-03-17 11:11 | CR ---
DATE OF CONSULTATION: 03/17/2019 REASON FOR CONSULTATION: Abnormal CT scan. HISTORY OF PRESENT ILLNESS: Ms. Benson is an 84-year-old female who is a somewhat difficult historian. Family is able to offer some information. She tells me that she has been told that she has some type of chronic obstructive pulmonary disease (COPD) and has been on Advair and nighttime oxygen for many years. She is a lifetime nonsmoker. She does not recall word the asthma being used, but according to the visits from the [facility], the term asthma is used frequently. No available pulmonary function testing. Apparently was fairly independent until recently when she became more short of breath. She was admitted with renal failure and heart failure with a pro BNP greater than 22,000. Chest x-ray showed increasing areas of diffuse, what was felt to be infiltrate or fluid. With her progressive renal failure, biopsy was done. This proved to be what was a vasculitis. CARLITOS, as well as a P-ANCA are both positive, I am asked now to evaluate her further. She has been dialyzed. She does feel better. She remains on 1 liter nasal cannula oxygen. She has not been very mobile. She has no sputum production. Most recent x-ray and CAT scan show diffuse infiltrates with bilateral pleural effusions. She has no hemoptysis. No recent fevers. Lifetime nonsmoker, as outlined above with no occupational environmental exposure. No known history of connective tissue disease previously. ALLERGIES: None listed. CURRENT MEDICATIONS: - steroids in the form of methylprednisolone - Protonix - iron - Aranesp - ceftriaxone - doxycycline - DuoNeb - Namenda - Aricept - Advair 115 - Xalatan drops - Neurontin - Tenormin PAST MEDICAL HISTORY: 1. History of asthma. 2. She is also known to have diastolic dysfunction with previous heart failure. 3. Previous nephrolithiasis. 4. Previous breast cancer. 5. Trigeminal neuralgia. SOCIAL HISTORY: She is a lifetime nonsmoker and lives independently at home. No alcohol. She is and does have close family nearby. FAMILY HISTORY: Significant for son with kidney cancer. Mother from pancreatic cancer and diabetes. REVIEW OF SYSTEMS: As per the history of present illness. CONSTITUTIONAL: Negative for any recent fevers or chills. HEENT: Unremarkable for double or blurred vision. PULMONARY: As per history of present illness. CARDIAC: Significant for congestive heart failure (CHF). ENDOCRINE: Unremarkable for diabetes. DERMATOLOGIC: Unremarkable for psoriasis. MUSCULOSKELETAL: Unremarkable for arthralgias or myalgias. PSYCHIATRIC: Unremarkable. GASTROINTESTINAL: Unremarkable for any recent nausea or vomiting. GENITOURINARY: Significant for her recent renal failure. PHYSICAL EXAMINATION: This is a pleasant, elderly female lying comfortably in bed. She has some difficulty recalling details. Blood pressure 112 systolic, heart rate generally in the 60s, respiratory rate 16 to 18 and unlabored. She is afebrile. HEENT: Otherwise normocephalic, atraumatic. Pupils do react. Trachea is midline. Mucous membranes are moist. Airway is class II. CHEST: Diminished breath sound intensity in both bases but no other focal adventitious breath sounds identified. No significant crackles or rubs. CARDIAC: Exam generally regular. Peripheral pulses palpable. No edema. ABDOMEN: Thin, soft, nontender. Normoactive bowel sounds. No convincing organomegaly or masses. EXTREMITIES: Without cyanosis or clubbing. NEUROLOGIC: She is awake, alert, and appropriate. PSYCHIATRIC: Normal mood and affect. Pulse oximetry 94% on 1 liter nasal cannula. LABORATORIES: White blood cell count 21.2, hemoglobin 9.6, platelet count 196,000. No differential available. Blood gas done in venous fashion shows pH of 7.267, pCO2 of 48.9. Sodium yesterday was 141, potassium 3.9, chloride 106, CO2 of 26, BUN 41, creatinine 4.45. Her free kappa and lambda light chains 174 and 128, respectively. CARLITOS is positive. Atypical ANCA and C-ANCA unremarkable with a P-ANCA elevated at 160. Hepatitis studies unremarkable. Chest x-ray and CT scan as outlined above. IMPRESSION: 1. Abnormal CT scan with areas of infiltrate versus edema, vasculitis cannot be ruled out. 2. Chronic hypoxemic respiratory failure, source unclear. 3. Asthma, by history. 4. Renal failure with evidence of vasculitis. RECOMMENDATIONS: At this point, I am in full agreement with trying to optimize her volume status as her pro BNP on admission was over 22,000. She may, especially in view of her bilateral pleural effusions, benefit from more aggressive fluid removal if she is able to tolerate it hemodynamically. I am in full agreement with the pulse dosed steroids. At this point, I see no role for lung biopsy. She is a DO NOT RESUSCITATE and I believe that is appropriate. She will be followed while she is here. Further recommendations will be made in the progress record as new information becomes available. I am in full agreement with her empiric antimicrobials.
[2019-03-17] MEDS: cefTRIAXone SOD 1 GM in D5W MINI-BAG PLUS 50 ML IV SCH (12:20)
[2019-03-17 14:00] VITALS: BP_SYST 102; BP_SYST 158; BP_DIAS 59; BP_DIAS 80
[2019-03-17 22:00] VITALS: BP 118/67
[2019-03-17] MEDS: DONEPEZIL 5 MG TAB PO SCH (22:05)
[2019-03-17] MEDS: LATANOPROST 0.005% OPHTH SOLN 2.5 ML OU SCH (22:06)
[2019-03-17] MEDS: MEMANTINE 5MG TABLET (NAMENDA) PO SCH (22:06)
[2019-03-18 06:00] VITALS: BP 118/71
--- NOTE | 2019-03-18 06:19 | IPN ---
DATE OF VISIT: 03/17/2019 SUBJECTIVE: The patient is seen, examined this morning at the bedside. She received 20 units of packed red blood cells yesterday with improvement in her hemoglobin and hematocrit. She continues to have gross hematuria per the Alexander catheter. CT of the chest incidentally picks up moderately large left posterior perinephric and perirenal hematoma. PHYSICAL EXAMINATION: VITAL SIGNS: Temperature 96.9, pulse 68, respiratory rate 14, blood pressure 115/80, saturating 94% on 1 liter nasal cannula. Intake yesterday was 1480, urine output yesterday was 1215, net positive 200 mL. Weight in the bed scale today is not recorded. GENERAL: The patient is seen lying in bed, awake, alert and comfortable in no acute distress elderly female. HEENT: Extraocular muscles are intact. Tongue is moist. NECK: Neck is supple. Jugular veins are mildly elevated. HEART: Heart sounds are regular S1-S2. There is trace edema in the legs. LUNGS: Lungs show somewhat coarse air movement bilaterally. No crackles or rales. ABDOMEN: Abdomen is soft and nontender. There are bowel sounds. GENITOURINARY: Alexander catheter with gross hematuria. NEUROLOGIC: She is oriented to person, place and situation. Cooperates with physical exam. No focal deficits. SKIN: Normal turgor and temperature. LABORATORY DATA: Sodium 141, potassium 3.7, BUN 57, creatinine 5.8, hemoglobin 9.6. IMAGING: Chest x-ray March 17, small bilateral pleural effusions and bilateral lung infiltrates. INPATIENT MEDICATIONS: - Solu-Medrol 500 mg IV daily times three doses The remainder medications are unchanged from prior. PROBLEMS: 1. Nonoliguric acute renal failure presently hemodialysis dependent. Renal biopsy pathology is pending. 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 Pulmonary input from Dr. Unger is appreciated. Her renal biopsy results for confirmation are pending. She has been started on pulse steroids and has received the first of three doses after which we will transition to prednisone 60 mg by mouth daily. 2. Dialysis dependence. Next dialysis treatment will be on Sunday and in view of her pleural effusions and mild hypervolemia we will increase fluid removal as tolerated by hemodynamics. In view of her gross hematuria and perinephric hematoma we will continue with heparin free dialysis. 3. Anemia related to renal failure, iron deficiency and also gross hematuria status post kidney biopsy. Heparin subcutaneus remains on hold. She is receiving Aranesp and iron infusions with hemodialysis. One unit of packed red blood cell was transfused yesterday. Hemoglobin has improved. Continue with daily CBC monitoring. 4. History of diastolic congestive heart failure. Continue with fluid removal on dialysis. Noted bilateral pleural effusion on recent CT chest. We will increase ultrafiltration as tolerated by hemodynamics. 5. Gastrointestinal (GI) prophylaxis. In view of IV steroids she has been started on proton pump inhibitor.
[2019-03-18] MEDS: DOCUSATE SODIUM 100 MG CAP PO SCH ×2 (06:35→20:58)
[2019-03-18] MEDS: methylPREDNISolone 500 MG, VIAL MATE ADAPTER 1 EACH in D5W 250 ML IV SCH (06:35)
[2019-03-18] MEDS: GABAPENTIN 100 MG CAP PO SCH ×3 (06:36→20:58)
[2019-03-18] MEDS: ATENOLOL 25 MG TAB PO SCH (06:37)
[2019-03-18 06:38] LABS: CALCIUM LEVEL 8.3 MG/DL (8.8-10.2); CREATININE FOR GFR 6.87 MG/DL (0.55-1.30); GLOMERULAR FILTRATION RATE 6.1 (>32); POTASSIUM SERUM 4.6 MEQ/L (3.5-5.1)
[2019-03-18] MEDS: DOXYCYCLINE HYCLATE 100 MG TAB PO SCH ×2 (06:38→20:58)
[2019-03-18] MEDS: PANTOPRAZOLE 40MG TAB (PROTONIX) PO SCH (06:38)
--- NOTE | 2019-03-18 07:41 | REP ---
Portable chest, 07:00 a.m., single AP view with the patient semi upright: Comparison is 2018. The bilateral infiltrates are unchanged. The small bilateral pleural effusions are unchanged. Cardiomegaly is unchanged. The right IJ dual lumen central venous catheter is unchanged. Impression: There is no interval change. Electronically Signed by Umer Eason MD 03/18/2019 07:32 A
[2019-03-18] MEDS: ADVAIR HFA 115/21MCG INHALER INH SCH ×2 (08:20→20:55)
[2019-03-18] MEDS ORDERED: HEPARIN 1,000 UNITS/ML 10ML VIAL (FOR RADIOLOGY& DIALYSIS ONLY) XX ONE (11:15)
[2019-03-18 11:33] LABS: ALBUMIN 2.92 GM/DL (3.29-5.55); ALBUMIN % 46.3 % (55.8-66.1); ALPHA-1-GLOBULIN % 9.4 % (2.9-4.9); ALPHA-1-GLOBULINS 0.59 GM/DL (0.17-0.41); ALPHA-2-GLOBULINS 0.91 GM/DL (0.42-0.99); ALPHA-2-GLOBULINS % 14.4 % (7.1-11.8); BETA-1-GLOBULINS 0.36 GM/DL (0.28-0.60); BETA-1-GLOBULINS % 5.7 % (4.7-7.2); BETA-2-GLOBULINS 0.44 GM/DL (0.19-0.55); GAMMA GLOBULIN % 17.2 % (11.1-18.8); GAMMA GLOBULINS 1.08 GM/DL (0.65-1.58)
[2019-03-18] MEDS: HEPARIN SOD (PORCINE) 5000 UNITS/ML VIAL SQ SCH (13:06)
[2019-03-18] MEDS: cefTRIAXone SOD 1 GM in D5W MINI-BAG PLUS 50 ML IV SCH (13:16)
--- NOTE | 2019-03-18 13:16 | IPN ---
DATE: 03/18/2019 SUBJECTIVE: The patient is seen, examined this morning in the hemodialysis unit receiving her treatment. She is tearful and tells me she is depressed. On further questioning, I learned that yesterday was her 1st wedding anniversary since the of her last year. The patient otherwise denies any new complaints. Her back pain has improved. Her Alexander catheter shows clear yellow urine. The family reports that there have not been any further episodes of confusion. Vital signs: Temperature 97.6, pulse 58, respiratory rate 18, blood pressure 118/71, saturating 94% on room air. Intake yesterday was 760, urine output yesterday was 450, weight on the bed scale today 69 kg. General: The patient is seen in the hemodialysis unit, elderly female, awake, alert, comfortable. Mild emotional distress. Daughters are present at the bedside. Extraocular muscles are intact. Tongue is moist. Neck is supple. Jugular veins are not elevated. The right-sided Perma-Cath is presently in use. Heart sounds are regular S1, S2. There is trace edema in the legs. The lungs show somewhat coarse air movement bilaterally. No crackle or rales. Abdomen is soft and nontender. There are bowel sounds. Genitourinary: Shows Alexander catheter, now the urine is clear. There is no longer hematuria. Neurologic: She is oriented to person, place and situation and asks insightful questions and cooperates with physical exam. Skin: There is a dressing on the left lower leg where she has a wound. Otherwise, there is normal turgor and temperature. Psychiatric: She appears sad and depressed today. LABORATORY DATA: Sodium 142, potassium 4.6, bicarbonate 24, BUN 89, creatinine 6.8, hemoglobin 9.6. Chest x-ray March 18 showed bilateral infiltrates and small pleural effusion. INPATIENT MEDICATIONS: The patient has received dose number two out of three of Solu-Medrol. Remainder medications are unchanged from prior. PROBLEMS: 1. Acute renal failure, hemodialysis dependent. Renal biopsy pathology is pending. Serologic / immunologic studies returned with positive CARLITOS and elevated P-ANCA titer in this patient with bilateral pulmonary infiltrates, renal failure, some nephrotic range proteinuria and an active urinary sediment. 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 She has been started on empiric pulse steroids, two out of three doses have been given. Her biopsy results for confirmation are pending. 2. Dialysis dependence. She is being dialyzed today, blood pressures are somewhat soft. We are trying to remove 1 to 1-1/2 liters as tolerated by her hemodynamics. She is a mildly hypervolemic with small bilateral pleural effusions. 3. Anemia related to renal failure, iron deficiency, gross hematuria, status post kidney biopsy. Her gross hematuria seems to have resolved. The urine in the Alexander catheter is now clear. Continue with heparin free dialysis and her heparin subcutaneous can be resumed tomorrow. Hemoglobin has improved with transfusion. She continues on Aranesp and iron infusions with hemodialysis. Continue with daily CBC monitoring. 4. Diastolic congestive heart failure, mildly hypervolemic. Increase fluid removal with dialysis as tolerated by hemodynamics. 5. Gastrointestinal prophylaxis. In view of IV steroids, she continues on the proton pump inhibitor.
--- NOTE | 2019-03-18 13:27 | IPN ---
DATE: 03/18/2019 Araceli is seen [facility] after receiving dialysis. She is feeling better, less short of breath. She was seen by Dr. Unger yesterday, appreciate his input. He is agreeing with the antibiotic therapy and steroid therapy. She does have pleural effusions. Her volume status is being managed by her dialysis. PHYSICAL EXAMINATION: Afebrile. Vital signs stable. 118/71, oxygen saturation 94% on 1 liter. General appearance: Frail, elderly, resting in bed. No jugular venous distention (JVD). Lungs decreased breath sounds both bases. Heart regular rhythm. Abdomen soft, nontender. Trace peripheral edema. LABS: White count is 21,000 (on steroids), hemoglobin 9.6, platelets 196. Electrolytes unremarkable. Potassium 4.6. IMPRESSION: 1. Oliguric renal failure. Etiology unknown, possibly vasculitic on high dose Solu-Medrol 500 mg IV daily for three days, getting dialysis. Renal biopsy results pending. 2. Pulmonary infiltrate, vasculitic versus infectious. Continue antibiotic therapy and steroids. 3. Diastolic heart failure. Fluid management per dialysis. 4. Anemia, being managed by nephrology.
[2019-03-18 14:00] VITALS: BP 124/56
[2019-03-18 14:10] VITALS: BP 124/56
[2019-03-18] MEDS: MEMANTINE 5MG TABLET (NAMENDA) PO SCH (20:58)
[2019-03-18] MEDS: DONEPEZIL 5 MG TAB PO SCH (20:58)
[2019-03-18] MEDS: LATANOPROST 0.005% OPHTH SOLN 2.5 ML OU SCH (20:59)
[2019-03-18 22:00] VITALS: BP 131/72
[2019-03-19 06:00] VITALS: BP 121/71
[2019-03-19 06:27] LABS: HEMATOCRIT 29.6 % (36.0-47.0); HEMOGLOBIN 9.6 g/dl (12.0-15.5); MEAN CORPUSCULAR HEMOGLOBIN 31.3 pg (27.0-33.0); MEAN CORPUSCULAR HGB CONC 32.4 g/dl (32.0-36.5); MEAN CORPUSCULAR VOLUME 96.4 fl (80.0-96.0); PLATELET COUNT, AUTOMATED 226 10^3/uL (150-450); RED BLOOD COUNT 3.07 10^6/uL (4.00-5.40)
[2019-03-19] MEDS: methylPREDNISolone 500 MG, VIAL MATE ADAPTER 1 EACH in D5W 250 ML IV SCH (06:31)
[2019-03-19 06:42] LABS: CREATININE FOR GFR 4.84 MG/DL (0.55-1.30); GLOMERULAR FILTRATION RATE 9.1 (>32); POTASSIUM SERUM 4.3 MEQ/L (3.5-5.1)
[2019-03-19 06:56] LABS: WHITE BLOOD COUNT 30.9 10^3/uL (4.0-10.0)
[2019-03-19] MEDS: ADVAIR HFA 115/21MCG INHALER INH SCH (07:20)
[2019-03-19] MEDS ORDERED: CEFUROXIME 500 MG TAB PO SCH (09:00)
[2019-03-19] MEDS: PANTOPRAZOLE 40MG TAB (PROTONIX) PO SCH (09:34)
[2019-03-19] MEDS: DOCUSATE SODIUM 100 MG CAP PO SCH (09:34)
[2019-03-19] MEDS: DOXYCYCLINE HYCLATE 100 MG TAB PO SCH (09:34)
[2019-03-19] MEDS: GABAPENTIN 100 MG CAP PO SCH ×2 (09:34→15:32)
[2019-03-19 09:35] VITALS: BP 121/71
[2019-03-19] MEDS: ATENOLOL 25 MG TAB PO SCH (09:35)
[2019-03-19 14:00] VITALS: BP 95/52
[2019-03-19] MEDS ORDERED: DOXY100T PO (14:03)
[2019-03-19] MEDS ORDERED: GABA-1171 PO ×2 (14:03→17:25)
[2019-03-19] MEDS ORDERED: CEFU50TA PO ×2 (14:03→17:25)
[2019-03-19] MEDS ORDERED: PANT40TA3 PO ×2 (14:03→17:30)
[2019-03-19] MEDS ORDERED: PRED20TA PO ×2 (14:03→17:30)
--- NOTE | 2019-03-19 14:27 | DSES ---
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 SECONDARY DIAGNOSES: 1. Pulmonary infiltrates, question of vasculitis versus infectious. 2. Diastolic congestive heart failure. 3. Anemia secondary to renal failure, iron deficiency, and gross hematuria as per kidney biopsy. 4. Hypertension. 5. Dementia/memory loss. 6. History of bronchospastic airway disease. HISTORY: Araceli Benson was admitted 03/10/2019 to the hospitalist service with altered mental status, found to be in renal failure and hyperkalemic. HOSPITAL COURSE: The patient was admitted to a medical bed. I assumed her care 2 days before discharge. It looks like she had a right internal jugular tunneled central venous catheter inserted by Dr. Nolan on 03/11/2019. Nephrology managed her dialysis. Dr. Unger saw her in consultation from pulmonary. Thought that she was volume overloaded, which was being managed by dialysis. Agreed with both steroid therapy for presumed vasculitis, as well as empiric antibiotic therapy. She underwent an ultrasound-guided renal biopsy of the left kidney 03/14/2019. Was sent to an outside pathologist. Results are pending. SIGNIFICANT LABORATORIES: Today, white count is 30.9 on steroids, hemoglobin 9.6, platelets 226. Sodium 142, potassium 4.3, BUN 63, creatinine 4.8, glucose 90. Urinalysis shows 3.029 grams of protein for 24 hours. [place] lambda light chain ratio was normal. p-ANCA antibody was mildly positive 1:160. Hepatitis B and C panels were negative. Arterial blood gas (ABG) 7.26/49/35. CURRENT MEDICATIONS: - atenolol 25 mg daily - Colace as needed - Neurontin 100 mg three times a day - doxycycline 100 mg twice a day - Protonix 40 mg daily - Advair 115/21 one inhalation twice a day - Aricept 10 mg daily - Namenda 5 mg daily - Ceftin 500 mg twice a day - Tylenol as needed - DuoNeb as needed - Aranesp per nephrology - Venofer per nephrology - prednisone 60 mg daily to start tomorrow Solu-Medrol looks like it was discontinued today. The patient is on a renal diet. Activity as tolerated.
[2019-03-19] MEDS ORDERED: DOXY100C PO (17:25)
[2019-03-19] MEDS ORDERED: ECOT81TA5 PO (17:25)
[2019-03-19] MEDS ORDERED: XALA0.007 OU (17:25)
[2019-03-19] MEDS ORDERED: DONE10TA90 PO (17:25)
[2019-03-19] MEDS ORDERED: ATEN25TA PO (17:25)
[2019-03-19] MEDS ORDERED: POTA1TAB14 PO (17:30)
[2019-03-19] MEDS ORDERED: ADV250INH INH (17:30)
[2019-03-19] MEDS ORDERED: MULTCAP PO (17:30)
[2019-03-19] MEDS ORDERED: MEMA1TAB PO (17:30)
[2019-03-20] MEDS ORDERED: predniSONE 20 MG TAB PO SCH (09:00)
[2019-03-20 12:28] LABS: UPEP INTERPRETATION NO M-SPIKE NOTED; URINE VOLUME 500 ML
== END 2019-03-19 15:41 | DRG 673 ==
LOC: M ED 17:59 → M ED INP 20:06 → M ICU 21:25 → M MSPAV 03-15 10:25
PROVIDERS: ADMIT Family Medicine; ATTEND Family Medicine
PROC: 02HV33Z Insertion of Infusion Device into Superior Vena Cava, Percutaneous Approach (ICD-10-PCS; 2019-03-11)
PROC: 0JH63XZ Insertion of Tunneled Vascular Access Device into Chest Subcutaneous Tissue and Fascia, Percutaneous Approach (ICD-10-PCS; principal; 2019-03-11 14:04)
PROC: 30233N1 Transfusion of Nonautologous Red Blood Cells into Peripheral Vein, Percutaneous Approach (ICD-10-PCS; 2019-03-12)
PROC: 0TB43ZX Excision of Left Kidney Pelvis, Percutaneous Approach, Diagnostic (ICD-10-PCS; 2019-03-14)
DX: N17.9 Acute kidney failure, unspecified (principal); J18.9 Pneumonia, unspecified organism; I50.33 Acute on chronic diastolic (congestive) heart failure; G93.41 Metabolic encephalopathy; I13.2 Hypertensive heart and chronic kidney disease with heart failure and with stage 5 chronic kidney disease, or end stage renal disease; E87.0 Hyperosmolality and hypernatremia; I87.2 Venous insufficiency (chronic) (peripheral); I77.89 Other specified disorders of arteries and arterioles; D63.1 Anemia in chronic kidney disease; R31.0 Gross hematuria; F03.90 Unspecified dementia, unspecified severity, without behavioral disturbance, psychotic disturbance, mood disturbance, and anxiety; E87.5 Hyperkalemia; Z79.899 Other long term (current) drug therapy; Z79.82 Long term (current) use of aspirin; M54.5 Low back pain; Z85.3 Personal history of malignant neoplasm of breast; G50.0 Trigeminal neuralgia; N18.6 End stage renal disease; Z99.2 Dependence on renal dialysis; Z79.52 Long term (current) use of systemic steroids; J45.909 Unspecified asthma, uncomplicated

== ENCOUNTER → 2019-03-10 | Outpatient (REF) | payer MEDICARE, BC ==
[~2019-03-10] MED LIST changes: +ADV250INH INH; +ALEV220T22 PO; -ISOVUE-370 76% 100ML VIAL (Q9967) As Ordered ONE; +MULTCAP PO; +PHARMACY COMMENT; +TORS20TA2 PO
[2019-03-10 17:21] LABS: ALBUMIN 2.7 GM/DL (3.2-5.2); BILIRUBIN,TOTAL 0.4 MG/DL (0.2-1.0); CALCIUM LEVEL 8.5 MG/DL (8.8-10.2); CREATININE FOR GFR 6.01 MG/DL (0.55-1.30); GLOMERULAR FILTRATION RATE 7.1 (>32); POTASSIUM SERUM 6.6 MEQ/L (3.5-5.1); TOTAL PROTEIN 6.6 GM/DL (6.4-8.2)
== END ==
LOC: M SFHCPLAZ 12:52
PROVIDERS: ATTEND Family Medicine
DX: I50.30 Unspecified diastolic (congestive) heart failure (principal); I87.2 Venous insufficiency (chronic) (peripheral)

== ENCOUNTER 2019-03-19 12:57 | Inpatient (IN) | payer MEDICARE, BC ==
[~2019-03-19] VITALS: Ht 165.1 cm; Wt 70.1 kg
[~2019-03-19 12:57] MED LIST changes: +ADV250INH INH; +ALEV220T22 PO; +MULTCAP PO; +PHARMACY COMMENT; +TORS20TA2 PO
[2019-03-19] MEDS ORDERED: CEFU50TA PO ×2 (14:03→17:25)
[2019-03-19] MEDS ORDERED: PRED20TA PO ×2 (14:03→17:30)
[2019-03-19] MEDS ORDERED: GABA-1171 PO ×2 (14:03→17:25)
[2019-03-19] MEDS ORDERED: DOXY100T PO (14:03)
[2019-03-19] MEDS ORDERED: PANT40TA3 PO ×2 (14:03→17:30)
--- NOTE | 2019-03-19 15:36 | HPEPDOC ---
Application Support Lead Note DATE OF ADMISSION: 03/19/19 SOURCE OF ADMISSION INFORMATION: patient and [facility] records CHIEF COMPLAINT: diastolic CHF exacerbation in setting of polyneuropathy HISTORY OF PRESENT ILLNESS: 84 year old female past medical history of CHF, kidney stones chronic low back pain, urinary incontinence, breast cancer in remission, trigeminal neuralgia presented to [facility] emergency department on March 10 2019 with altered mental status decreased urine output. She was found to have lower extremity edema and admission lab showed acute renal failure With a perfumer of 5.93 and a potassium of 6.3. She was given kayexalate and admitted for for further management. She was evaluated by Nephrology who ordered a renal ultrasound showing Increased echogenicity within the right and left renal parenchyma, consistent with medical renal disease. Chest x-ray was ordered showing,There is cardiomegaly. Diffuse interstitial and alveolar infiltrates are seen bilaterally. There is a mild to moderate right effusion. The findings suggest congestive heart failure and pulmonary edema. She was evaluated by pulmonology who recommended aggressive diuresis and empiric antibiotics for presumed pneumonia. /In addition she received blood transfusions for anemia. She had a permacath placed for dialysis and was followed closely by nephrology. She underwent a left kidney biopsy on March 14 2019 the pathology report pending. There was concern for vasculitis for which a p anca titer was drawn, her CARLITOS was positive, she had positive double stranded RNA antibodies, and she was started on empirical steroids. She was evaluated by therapy and found to have significant impairment in mobility and adl's, and deemed medically appropriate for discharge to ARU on 03-19-2019. REVIEW OF SYSTEMS: The following is a completed review of systems and has been reviewed. Review of systems otherwise unremarkable. PAIN: Patient self reports no pain EYES: No recent vision changes EARS, NOSE, & THROAT: No throat pain, or dysphagia, or rhinorrhea CARDIOVASCULAR: Denies chest pain or palpitations PULMONARY: Denies shortness of breath GASTROINTESTINAL: Denies constipation/diarrhea GENITOURINARY: oliguria MUSCULOSKELETAL: LE weakness NEUROLOGICAL:+dementia HEMATOLOGICAL: anemia SKIN: ecchymotic PSYCHIATRIC: Unremarkable All other review of systems found to be negative. PAST MEDICAL HISTORY: as per HPI PAST SURGICAL HISTORY: lumpectomy ALLERGIES: Please see below. MEDICATIONS: Please see below. FAMILY HISTORY: kidney cancer, mother of pancreatic cancer SOCIAL HISTORY: recently , denies ETOH, smoking, or illicit drug use DIET: renal with 1800cc fluid restriction PHYSICAL EXAMINATION: VITAL SIGNS: Please see below. GENERAL: Pleasant and cooperative. No acute distress. HEENT: PERRL. Extraocular movements intact. Clear conjunctiva CARDIOVASCULAR: Regular rate and rhythm. No murmurs, rubs, or gallops LUNGS: Clear to auscultation bilaterally. No wheezes. No rhonchi ABDOMEN: Soft, nontender, nondistended. Positive bowel sounds. Normal active bowel sounds NEUROLOGICAL: Alert and oriented to self and place, not time Cranial nerves II through XII grossly intact. Sensation grossly intact EXTREMITIES: 4+\5 strength bilateral upper extremities. 4\5 strength right lower extremity. 4/5 strength in left lower extremity. SKIN: no rash, +scattered ecchymosis LABORATORY DATA: Please see below. IMAGING: Imaging documentation personally reviewed by record FUNCTIONAL STATUS: Premorbid: Independent with all activities of daily life as well as mobility with RW On Admission: Ambulating 55 feet with minimal assist, contact are for functional transfers, Contact guard for bathing toileting, down by assist for dressing lower body GOALS: Modified independent household distances with RW, stairs, functional transfers, bathing, dressing, toileting, assess for DMEs, caregiver training, home eval, medical optimization ASSESSMENT:84-year-old F with past medical history of CHF, chronic low back pain with peripheral neuropathy who presents status post acute of chronic CHF exacerbation requiring dialysis. PLAN: 1. rehab: patient with gait impairment due to weakness in setting of low back pain and LE weakness most likely due to peripheral neuropathy due to renal disease and possible vasculitis -PT improve endurance and dynamic balance, wean from 02 -OT work up UE strengthening, energy conservation 2. Neuro: avoid delirogenic meds - dementia- continue memantine and donepezil 3. CArdio: diastolic CHF with recent exacerbation on dialysis- medicine consulted to assist in management, c/u ASA, atenolol- fluid restrict 1800cc 4. Resp: recent CXrs showing bilateral effusions, c/u course of Cefuroxime and Doxycylcine for pneumonia- supplemental 02, c/u breathing treatments and steroids 5. Renal: ESRD recently placed on dialysis- will consult renal, renal diet 6. Rheum: suggestion of vasculitis cause of kidney disease, renal biopsy results pending, continue prednisone 7. Heme: anemia, will transfuse if <8, venofer/aranesp per renal recs 8. GI ppx: protonix, will increase to BID and add sucralfate given she is on jorge roids, will order FOBT 9. DVT ppx: heparin and TEDs 10. Pain: tylenol prn and gabapentin 11. Dispo: TBD POST ADMISSION PHYSICIAN EVALUATION: Medical and functional status: Description of medical status, medical assessment: As above. Rehabilitation diagnosis and current and prior cold morbid medical conditions as above. Risk of complications and plans to mitigate them as above. Description of functional status current status is as above. Prior status as above. Status compared to preadmission: There are no clinically significant differences between the patient's current status and the information described on the preadmission screening document. Treatment plan anticipated: Treatment plan is as described above. Required disciplines including physical therapy, occupational therapy, others as noted above. Intensity of services: 3 hours a day, 6 days a week. Special considerations: There are no specific special or safety considerations that would likely preclude immediate implementation of an intensive rehabilitati on program or subsequently influence the plan of care. ATTESTATION: Considering all the information above, it is my best judgment that this patient requires intensive rehabilitation therapy as described above and an inpatient hospital environment due to the complexity of nursing, medical, and rehabilitation needs required by the patient. Furthermore, this patient can reasonably be expected to participate in an benefit from an inpatient rehabilitation stay with an interdisciplinary team approach to the delivery of rehabilitation care under the direction and supervision of rehabilitation physician. PROGNOSIS: good. ESTIMATED LENGTH OF STAY:12-14 days. PROJECTED DISCHARGE DESTINATION: Home with family support and any durable medical equipment required to increase functional safety and mobility TIME SPENT COUNSELING AND COORDINATING INITIAL CARE: Greater than 70 minutes. Vital Signs Vital Signs Date Time Temp Pulse Resp B/P (MAP) Pulse Ox O2 Delivery O2 Flow Rate FiO2 03/19/19 15:45 96.6 58 20 135/60 (85) 94 Home Medications Scheduled Aspirin (Ecotrin) 81 Mg Tablet.dr, 81 MG PO QPM, (Reported) Atenolol (Atenolol) 25 Mg Tablet, 25 MG PO DAILY, (Reported) Cefuroxime Axetil (Cefuroxime) 500 Mg Tablet, 500 MG PO BID, (Reported) X 7 DAYS Donepezil HCl (Donepezil HCl) 10 Mg Tablet, 10 MG PO QHS, (Reported) Doxycycline Hyclate (Doxycycline Hyclate) 100 Mg Capsule, 100 MG PO BID, (Reported) X 7 DAYS Gabapentin (Gabapentin) 100 Mg Capsule, 100 MG PO TID, (Reported) Latanoprost (Xalatan) 0.005% 2.5ML Drops, 1 DROP OU QHS, (Reported) Memantine HCl (Memantine HCl) 5 Mg Tablet, 5 MG PO QHS, (Reported) Multivitamin (Multivitamins) 1 Each Capsule, 1 CAP PO QPM, (Reported) Pantoprazole Sodium (Pantoprazole Sodium) 40 Mg Tablet.dr, 40 MG PO DAILY, (Rep orted) Potassium Chloride (Potassium Chloride) 20 Meq Tablet.er, 20 MEQ PO BID, (Reported) Prednisone (Prednisone) 20 Mg Tablet, 60 MG PO DAILY, (Reported) Salmeterol/Fluticasone (Advair 250-50 Diskus) 1 Each Blst.w.dev, 1 PUFF INH BID, (Reported) Allergies Coded Allergies: No Known Allergies (Unverified , 04/25/18) A-FIB/CHADSVASC A-FIB History Current/History of A-Fib/PAF?: No BRADLEY CORONA MD Mar 19, 2019 15:36
[2019-03-19 15:45] VITALS: BP 135/60
[2019-03-19] MEDS ORDERED: MOM 30ML SUSPENSION UDC PO PRN (15:45)
[2019-03-19] MEDS ORDERED: BISACODYL 10 MG SUPP PR PRN (15:45)
[2019-03-19] MEDS: GABAPENTIN 100 MG CAP PO SCH ×2 (16:30→20:17)
[2019-03-19] MEDS ORDERED: DOXY100C PO (17:25)
[2019-03-19] MEDS ORDERED: DONE10TA90 PO (17:25)
[2019-03-19] MEDS ORDERED: XALA0.007 OU (17:25)
[2019-03-19] MEDS ORDERED: ATEN25TA PO (17:25)
[2019-03-19] MEDS ORDERED: ECOT81TA5 PO (17:25)
[2019-03-19] MEDS ORDERED: MULTCAP PO (17:30)
[2019-03-19] MEDS ORDERED: ADV250INH INH (17:30)
[2019-03-19] MEDS ORDERED: MEMA1TAB PO (17:30)
[2019-03-19] MEDS ORDERED: POTA1TAB14 PO (17:30)
[2019-03-19] MEDS: SUCRALFATE 1 GM TAB PO SCH (17:56)
[2019-03-19 19:54] VITALS: BP 124/63
[2019-03-19] MEDS: LATANOPROST 0.005% OPHTH SOLN 2.5 ML OU SCH (20:16)
[2019-03-19] MEDS: PANTOPRAZOLE 40MG TAB (PROTONIX) PO SCH (20:17)
[2019-03-19] MEDS: DOXYCYCLINE HYCLATE 100 MG TAB PO SCH (20:17)
[2019-03-19] MEDS: CEFUROXIME 500 MG TAB PO SCH (20:17)
[2019-03-19] MEDS: HEPARIN SOD (PORCINE) 5000 UNITS/ML VIAL SC SCH (20:17)
[2019-03-19] MEDS: MEMANTINE 5MG TABLET (NAMENDA) PO SCH (20:17)
[2019-03-19] MEDS: DOCUSATE SODIUM 100 MG CAP PO SCH (20:18)
[2019-03-19] MEDS: SENNA 8.6 MG TAB (SENOKOT) PO SCH (20:19)
[2019-03-19] MEDS: DONEPEZIL 5 MG TAB PO SCH (20:19)
--- NOTE | 2019-03-19 20:52 | IPN ---
DATE: 03/19/2019 SUBJECTIVE: Araceli is a seen and examined this morning at the bedside. She is pending transfer to the acute rehabilitation unit. She was dialyzed yesterday without any issues. Her kidney biopsy pathology is still pending. Her hemoglobin has stabilized. She is still having some gross hematuria. She is in excellent spirits today and denies any new complaints. Vital signs: Temperature 97.8, pulse 63, respiratory rate 17, blood pressure 121/71, saturating 99% on 1 liter nasal cannula, although at the time I saw the patient she was on room air. Intake yesterday was 600, output yesterday was 1225 of which 1000 was dialysis removal and 225 with urine. Weight in the bed scale today is 69.2 kg. General: The patient is seen sitting upright in bed. Family members are present at the bedside. Elderly female awake, alert, oriented x3, comfortable, smiling. Extraocular muscles are intact. Tongue is moist. Neck is supple. Jugular veins were not elevated. Right-sided Perma-Cath has dressings clean, dry and intact. Heart sounds are regular S1-S2. There is trace edema in the left lower extremity. The lungs show symmetric air entry. No crackle or rales. Abdomen is soft and nontender. There are bowel sounds. Genitourinary: Shows Alexander catheter with gross hematuria. Neurologic: She is oriented x3 and cooperative with physical exam and conversational. Skin: There is a dressing on the left lower leg where she has a wound. Otherwise is normal turgor and temperature. Psychiatric: Appropriate mood and effect. LABORATORY DATA: White count 30.9, hemoglobin 9.6, platelet 226, sodium 142, potassium 4.3. INPATIENT MEDICATIONS. She completed three doses of Solu-Medrol and she is going to start prednisone 60 mg by mouth daily from tomorrow. Remainder medications are unchanged from prior. PROBLEMS: 1. 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 Renal biopsy pathology is pending. The patient has bilateral pulmonary infiltrates, renal failure, sub-nephrotic range proteinuria and inactive urine sediment. She received Solu-Medrol 500 mg IV daily x3 doses and she will transitioned to oral prednisone tomorrow. I expect biopsy results later today or tomorrow. 2. Dialysis dependence. The patient continues on three times weekly hemodialysis treatment and she will need case management to arrange outpatient hemodialysis chair for her as well. We continue to try to remove fluid as tolerated by her hemodynamics. She is mildly hypervolemic. 3. Anemia related to renal failure, iron deficiency gross hematuria. Her hemoglobin has stabilized. She continues on Aranesp and iron infusions with the hemodialysis and we will resume deep vein thrombosis (DVT) prophylaxis and continue with daily complete blood count (CBC) monitoring. 4. Diastolic congestive heart failure mildly decompensated. Increase fluid removal with dialysis as tolerated by hemodynamics. 5. Leukocytosis. It is likely secondary to the IV Solu-Medrol she received for the past 3 days. Tomorrow she will switch over to oral prednisone. We will continue gastrointestinal (GI) prophylaxis with proton pump inhibitor. 6. Hypertension. Blood pressures are acceptable. I am going to hold her atenolol on dialysis days so we are better able to remove fluid.
[2019-03-19] MEDS ORDERED: POTASSIUM CHLORIDE 10 MEQ SR TABLET PO SCH (21:00)
[2019-03-19] MEDS: ADVAIR HFA 230/21MCG INHALER INH SCH (21:00)
[2019-03-20 06:00] VITALS: BP 133/62
[2019-03-20 07:05] LABS: HEMATOCRIT 29.7 % (36.0-47.0); HEMOGLOBIN 9.4 g/dl (12.0-15.5); MEAN CORPUSCULAR HEMOGLOBIN 31.1 pg (27.0-33.0); MEAN CORPUSCULAR HGB CONC 31.6 g/dl (32.0-36.5); MEAN CORPUSCULAR VOLUME 98.3 fl (80.0-96.0); PLATELET COUNT, AUTOMATED 217 10^3/uL (150-450); RED BLOOD COUNT 3.02 10^6/uL (4.00-5.40)
[2019-03-20 07:19] LABS: WHITE BLOOD COUNT 26.5 10^3/uL (4.0-10.0)
[2019-03-20] MEDS: SUCRALFATE 1 GM TAB PO SCH ×3 (07:30→17:34)
[2019-03-20 07:57] LABS: ALBUMIN 2.2 GM/DL (3.2-5.2); ANISOCYTOSIS 1+; BILIRUBIN,TOTAL 0.6 MG/DL (0.2-1.0); CALCIUM LEVEL 7.6 MG/DL (8.8-10.2); CREATININE FOR GFR 6.11 MG/DL (0.55-1.30); LYMPHOCYTES 36 % (16-52); MONOCYTES 10 % (0-8); NEUTROPHILS 54 % (35-75); PLATELET ESTIMATE NORMAL (NORMAL); POTASSIUM SERUM 4.8 MEQ/L (3.5-5.1); SMUDGE CELLS 1+; TOTAL PROTEIN 5.8 GM/DL (6.4-8.2)
[2019-03-20] MEDS: ADVAIR HFA 230/21MCG INHALER INH SCH ×2 (08:13→19:52)
[2019-03-20] MEDS ORDERED: HEPARIN 1,000 UNITS/ML 10ML VIAL (FOR RADIOLOGY& DIALYSIS ONLY) XX ONE (09:00)
[2019-03-20] MEDS ORDERED: ATENOLOL 25 MG TAB PO SCH (09:00)
[2019-03-20] MEDS ORDERED: DARBEPOETIN 100 MCG/0.5 ML *DIALYSIS* SYRINGE (J0882) IV SCH (10:00)
[2019-03-20] MEDS ORDERED: IRON SUCROSE 100MG 5ML VIAL (J1756 PER 1MG) IV SCH (10:00)
[2019-03-20 10:34] LABS: PHOSPHORUS LEVEL 6.4 MG/DL (2.5-4.9)
[2019-03-20] MEDS: CALCIUM ACETATE 667 MG GELCAP PO SCH ×2 (12:30→17:34)
--- NOTE | 2019-03-20 12:41 | CR ---
DATE OF CONSULTATION: 03/20/2019 Araceli was transferred to the ARU. This is a consultation. She was hospitalized 03/10-03/19/2019 at [facility] acute care for oliguric renal failure secondary to presumed vasculitis or presumed ANCA associated vasculitis with probable lung and kidney involvement. She had a kidney biopsy, results are still pending. She had pulmonary infiltrates, probably vasculitic, possibly infectious, history of diastolic congestive heart failure (CHF), anemia secondary to renal failure, iron deficiency and gross hematuria from the kidney biopsy, hypertensive heart disease, dementia and history of bronchospastic airway disease. REVIEW OF SYSTEMS: She denies cough, chest pain, shortness of breath. MEDICATIONS: Medication list reviewed. PHYSICAL EXAMINATION: VITAL SIGNS: Stable. GENERAL APPEARANCE: She was seen in dialysis. She is alert and conversant, in on distress. Exam unchanged from previous. IMPRESSION: 1. Renal failure. She is receiving maintenance dialysis. 2. Vasculitis. Proceed with course of steroids. Currently on Ceftin and doxycycline for the infiltrates. 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 3. Dementia. Continue Aricept and Namenda. 4. Spastic airway disease. Continue Advair and short acting bronchodilator.
[2019-03-20] MEDS: ASPIRIN 81 MG CHEW TABLET PO SCH (13:17)
[2019-03-20] MEDS: MULTIVITAMINS/MINERALS THERAP 1 TAB PO SCH (13:17)
[2019-03-20] MEDS: DOCUSATE SODIUM 100 MG CAP PO SCH ×2 (13:17→21:32)
[2019-03-20] MEDS: PANTOPRAZOLE 40MG TAB (PROTONIX) PO SCH ×2 (13:18→21:32)
[2019-03-20] MEDS: predniSONE 20 MG TAB PO SCH (13:18)
[2019-03-20] MEDS: CEFUROXIME 500 MG TAB PO SCH ×2 (13:20→21:32)
[2019-03-20] MEDS: GABAPENTIN 100 MG CAP PO SCH ×3 (13:20→21:32)
[2019-03-20] MEDS: HEPARIN SOD (PORCINE) 5000 UNITS/ML VIAL SC SCH ×2 (13:20→21:33)
[2019-03-20] MEDS: DOXYCYCLINE HYCLATE 100 MG TAB PO SCH ×2 (13:20→21:32)
[2019-03-20 14:00] VITALS: BP 102/64
[2019-03-20 20:00] VITALS: BP 98/54
[2019-03-20] MEDS: DONEPEZIL 5 MG TAB PO SCH (21:32)
[2019-03-20] MEDS: MEMANTINE 5MG TABLET (NAMENDA) PO SCH (21:32)
[2019-03-20] MEDS: SENNA 8.6 MG TAB (SENOKOT) PO SCH (21:32)
[2019-03-20] MEDS: LATANOPROST 0.005% OPHTH SOLN 2.5 ML OU SCH (21:33)
[2019-03-21 05:59] VITALS: BP 141/63
[2019-03-21 07:29] LABS: HEMATOCRIT 31.7 % (36.0-47.0); MEAN CORPUSCULAR HEMOGLOBIN 30.1 pg (27.0-33.0); MEAN CORPUSCULAR HGB CONC 31.5 g/dl (32.0-36.5); MEAN CORPUSCULAR VOLUME 95.5 fl (80.0-96.0); PLATELET COUNT, AUTOMATED 204 10^3/uL (150-450); RED BLOOD COUNT 3.32 10^6/uL (4.00-5.40); WHITE BLOOD COUNT 29.8 10^3/uL (4.0-10.0)
[2019-03-21 07:50] LABS: CALCIUM LEVEL 7.6 MG/DL (8.8-10.2); CREATININE FOR GFR 4.26 MG/DL (0.55-1.30); GLOMERULAR FILTRATION RATE 10.6 (>32); POTASSIUM SERUM 4.7 MEQ/L (3.5-5.1)
[2019-03-21] MEDS: DOCUSATE SODIUM 100 MG CAP PO SCH ×2 (09:00→21:00)
[2019-03-21] MEDS: ADVAIR HFA 230/21MCG INHALER INH SCH ×2 (09:48→21:03)
[2019-03-21] MEDS: ASPIRIN 81 MG CHEW TABLET PO SCH (10:14)
[2019-03-21] MEDS: DOXYCYCLINE HYCLATE 100 MG TAB PO SCH ×2 (10:15→21:38)
[2019-03-21] MEDS: GABAPENTIN 100 MG CAP PO SCH ×3 (10:15→21:38)
[2019-03-21] MEDS: MULTIVITAMINS/MINERALS THERAP 1 TAB PO SCH (10:15)
[2019-03-21] MEDS: CALCIUM ACETATE 667 MG GELCAP PO SCH ×3 (10:15→17:50)
[2019-03-21] MEDS: predniSONE 20 MG TAB PO SCH (10:15)
[2019-03-21] MEDS: CEFUROXIME 500 MG TAB PO SCH ×2 (10:15→21:38)
[2019-03-21] MEDS: PANTOPRAZOLE 40MG TAB (PROTONIX) PO SCH ×2 (10:16→21:38)
[2019-03-21] MEDS: ESCITALOPRAM OXALATE 10 MG TAB (LEXAPRO) PO SCH (10:16)
[2019-03-21] MEDS: SUCRALFATE 1 GM TAB PO SCH ×3 (10:16→17:50)
[2019-03-21] MEDS: HEPARIN SOD (PORCINE) 5000 UNITS/ML VIAL SC SCH ×2 (10:17→21:37)
[2019-03-21 14:00] VITALS: BP 140/79
--- NOTE | 2019-03-21 14:43 | IPN ---
DATE OF SERVICE: 03/21/2019 SUBJECTIVE: Araceli is seen and examined this morning in the rehabilitation unit. She was in excellent spirits. Various family members are present at the bedside. I had discussed the biopsy report with the patient yesterday and again with her extended family today, and all questions were answered to the patient's and family's satisfaction today at the bedside. She was dialyzed yesterday with 1500 mL of fluid removed and she denied any new issues. No shortness of breath. No and dyspnea on exertion. Her urine Alexander catheter remains clear. PHYSICAL EXAM: Vital signs: Temperature 97.5, pulse 64, respiratory rate 18, blood pressure 141/63, saturating 94% on room air. Intake yesterday is not fully recorded. Dialysis yesterday removed 1500. Weight in the bed scale today is not recorded. General: The patient is seen sitting out of bed to the chair in the rehabilitation unit. Elderly female appears stated age, in good spirits, smiling. Various family present at the bedside. Awake, alert, oriented times three. Extraocular muscles are intact. Tongue is moist. Neck is supple. Jugular veins were not elevated. Right-sided PermaCath has dressings clean, dry and intact. Heart sounds are regular, S1, S2. There is no edema in the lower extremities. The lungs show symmetric air entry. No crackle or rales. Abdomen is soft and nontender. There are bowel sounds. Genitourinary: Shows Alexander catheter with clear urine. Neurologic: She is oriented times three and cooperative with physical exam, and interactive and conversational. Skin: There is a dressing on the left lower leg where she has a wound. Otherwise, normal turgor and temperature. Psychiatric: Appropriate mood and effect. LABS: White count 29, hemoglobin 10.0, platelet 204. Sodium 139, potassium 4.7, bicarbonate 28, BUN 64. INPATIENT MEDICATIONS: I discontinued her atenolol. She was started yesterday on PhosLo and citalopram. Remainder of medications are unchanged from prior. PROBLEMS: 1. 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 Renal biopsy was discussed yesterday with the patient and again with her family today at the bedside. She has quite an active disease process with 50% crescent. This is a rapidly progressive glomerulonephritis. The patient is status post pulse steroids and has been transitioned to oral prednisone. Monotherapy with steroids alone is unlikely to be effective. Procalcitonin level was added onto the blood work today and I plan to start the patient on Cellcept, and I have discussed the same with her and her family. Treatment options, alternatives, benefits and risks were explained at length and all questions were answered to the patient's and family's satisfaction. 2. Acute oliguric renal failure with dialysis dependent. Etiology as mentioned in #1. The patient continues on three times weekly hemodialysis treatments and she will need outpatient hemodialysis chair to be arranged. She is tolerating fluid removal fairly well and her electrolytes are acceptable. We will pursue fistula creation if there is no improvement in her renal function in the coming weeks. 3. Anemia related to renal failure, iron deficiency, status post gross hematuria related to kidney biopsy. Her hemoglobin has stabilized. She continues on Aranesp and iron infusions with hemodialysis. Continue with daily complete blood count (CBC) monitoring. 4. Diastolic congestive heart failure. Mildly decompensated but improved from prior. We were able to remove 1500 mL of fluid with dialysis yesterday. I am stopping her atenolol as she has had occasional soft blood pressure readings and I am also concerned about hypotension of hemodialysis. 5. Leukocytosis. It is likely secondary to the IV Solu-Medrol and she is now presently on oral prednisone. However, she does have a wound in the left lower extremity and does continue on empiric antimicrobials as well for her pulmonary infiltrates. I am adding on a procalcitonin levels to the labs today. I want to make sure there is no systemic infection prior to starting her on CellCept. 6. Hypertension. Blood pressures are acceptable. I am going to go ahead and stop her atenolol and we will continue to monitor.
--- NOTE | 2019-03-21 17:16 | CR ---
DATE OF CONSULTATION: REQUESTING PHYSICIAN: Dr. Jones REASON FOR CONSULTATION: Management of renal failure, on hemodialysis in this patient with glomerulonephritis. HISTORY OF PRESENT ILLNESS: Araceli Benson is an 84-year-old female with a past medical history of diastolic congestive heart failure, remote kidney stones, history of breast cancer, trigeminal neuralgia, chronic back pain, hypertension, neuropathy, and other comorbid conditions mentioned below. The patient was recently admitted to [facility] from March 10 to March 19 for oliguric renal failure. She was dialysis dependent, and renal biopsy revealed crescentic pauci-immune glomerulonephritis, and the patient is status post pulse steroids. Other conditions during that admission included pulmonary infiltrates, anemia. She was transferred over to the rehabilitation unit for therapy. The patient was seen and examined this morning in the hemodialysis unit receiving a maintenance treatment. I did discuss with her the results of her renal biopsy. There were no family members present during the time of my visit today. PAST MEDICAL HISTORY: As mentioned above. PAST SURGICAL HISTORY: 1. Kidney biopsy. 2. Perm-A-Cath placement. 3. Lumpectomy. ALLERGIES: No known drug allergies. HOME MEDICATIONS: Reviewed and include aspirin, atenolol, donepezil, gabapentin, memantine, multivitamin, Protonix, and Advair. FAMILY HISTORY: Mother is of pancreatic cancer. Rheumatoid arthritis runs in the family. SOCIAL HISTORY: She was last year. There is no reported alcohol, smoking, or drug use. REVIEW OF SYSTEMS: CONSTITUTIONAL: She denies fevers or chills. EYES: She denies visual changes or tearing. ENT: She denies rhinorrhea or tinnitus. CARDIAC: She has a history of diastolic congestive heart failure. She denies chest pain or palpitations. RESPIRATORY: She has pulmonary infiltrates, but she denies shortness of breath or cough. GASTROINTESTINAL: She denies nausea, vomiting, or diarrhea. GENITOURINARY: She has recently been oliguric. She denies dysuria. Positive for gross hematuria. ENDOCRINE: She denies a history of diabetes or thyroid issues. There is secondary hyperparathyroidism of renal origin. HEMATOLOGIC: She denies long-term anticoagulant use or lymph node swelling. MUSCULOSKELETAL: She denies any new myalgias or arthralgias. SKIN: She reports a wound on the left lower extremity. She denies any new pruritus or rashes. NEUROLOGIC: She denies seizure or syncope. Remainder review of systems is negative or as per history of present illness (HPI). VITAL SIGNS: Temperature 98.0, pulse 67, respiratory rate 18, blood pressure 102/64, saturating 96% on room air. Dialysis today removed 1500 mL. GENERAL: The patient is seen on hemodialysis receiving her treatment, awake, alert, comfortable, elderly female in no distress. Extraocular muscles are intact. Tongue is moist. Neck is supple. Jugular veins are not elevated. There is a tunneled Perm-A-Cath present in the right chest wall, which is presently in use. HEART: Sounds are regular, S1, S2. There is no significant edema in the lower extremities nor in the dependent area. LUNGS: Show symmetric air entry. No crackle or rales. ABDOMEN: Soft and nontender. There are bowel sounds. GENITOURINARY: Shows Alexander catheter with clear yellow urine. NEUROLOGIC: She is oriented to person, place, and situation and cooperative with physical exam. SKIN: There is a dressing on the left lower leg where she has a wound, otherwise normal turgor and temperature. PSYCHIATRIC: Appropriate mood and effect. LABORATORY DATA: Sodium 144, potassium 4.8, BUN 103, creatinine 6.1. Hemoglobin 9.4, white count 26.5. PTH 227. Phosphorus 6.4. INPATIENT MEDICATIONS: - Tylenol as needed - aspirin 81 mg by mouth daily - atenolol 25 mg by mouth on non-dialysis days - PhosLo 667 mg by mouth with meals - cefuroxime 500 mg by mouth twice a day - Aranesp 100 mcg intravenous (IV) with dialysis - docusate 100 mg by mouth twice a day - Aricept 10 mg by mouth at bedtime - doxycycline 100 mg by mouth twice a day - gabapentin 100 mg by mouth three times a day - heparin 5000 units subcutaneous every 12 hours - Venofer with dialysis - Namenda 5 mg by mouth at bedtime - multivitamin one tablet by mouth daily - Protonix 40 mg by mouth twice a day - prednisone 60 mg by mouth daily - Advair two puffs inhaled twice a day - sucralfate 1 gram by mouth with meals PROBLEMS: 1. Acute renal failure in this patient with pulmonary infiltrates, renal failure, subnephrotic-range proteinuria, an active urine sediment. Renal biopsy pathology showed crescentic pauci-immune glomerulonephritis (ANCA-associated vasculitis). She is status post pulse steroids and now on prednisone 60 mg by mouth daily. I plan to start her on CellCept as well. This is a form of rapidly progressive glomerulonephritis, and her renal prognosis is guarded. She will require arrangements for outpatient hemodialysis setup. 2. Dialysis dependence. She continues on three times weekly hemodialysis treatment. She was dialyzed today with 1500 mL of fluid removed. We will hold atenolol on dialysis days to allow for adequate fluid removal as tolerated by hemodynamics, as she is mildly hypervolemic. 3. Anemia related to renal failure, iron deficiency, gross hematuria. Her hemoglobin has stabilized. She continues on Aranesp and iron infusions with hemodialysis. Continue with daily complete blood count (CBC) monitoring. Her Alexander catheter can be removed at this point. 4. Diastolic congestive heart failure, mildly decompensated. Increase fluid removal with dialysis as tolerated by hemodynamics. There was 1500 mL of fluid removed today. 5. Leukocytosis. It is downtrending. It was likely related in part to the pulse steroids. She is now switched over to oral prednisone. 6. Blood pressures are acceptable. Hold atenolol on dialysis days. 7. Secondary hyperparathyroidism of renal origin. Parathyroid hormone (PTH) 220, phosphorus 6.4. We will start PhosLo with meals.
[2019-03-21 21:00] VITALS: BP 126/63
[2019-03-21] MEDS: SENNA 8.6 MG TAB (SENOKOT) PO SCH (21:00)
[2019-03-21] MEDS: LATANOPROST 0.005% OPHTH SOLN 2.5 ML OU SCH (21:37)
[2019-03-21] MEDS: DONEPEZIL 5 MG TAB PO SCH (21:38)
[2019-03-21] MEDS: MEMANTINE 5MG TABLET (NAMENDA) PO SCH (21:38)
[2019-03-22 06:00] VITALS: BP 152/74
[2019-03-22 07:15] LABS: HEMATOCRIT 29.5 % (36.0-47.0); HEMOGLOBIN 9.2 g/dl (12.0-15.5); MEAN CORPUSCULAR HEMOGLOBIN 30.1 pg (27.0-33.0); MEAN CORPUSCULAR HGB CONC 31.2 g/dl (32.0-36.5); MEAN CORPUSCULAR VOLUME 96.4 fl (80.0-96.0); PLATELET COUNT, AUTOMATED 223 10^3/uL (150-450); RED BLOOD COUNT 3.06 10^6/uL (4.00-5.40); WHITE BLOOD COUNT 29.2 10^3/uL (4.0-10.0)
[2019-03-22 07:37] LABS: CALCIUM LEVEL 7.4 MG/DL (8.8-10.2); CREATININE FOR GFR 5.53 MG/DL (0.55-1.30); GLOMERULAR FILTRATION RATE 7.8 (>32); POTASSIUM SERUM 4.8 MEQ/L (3.5-5.1)
[2019-03-22] MEDS: ESCITALOPRAM OXALATE 10 MG TAB (LEXAPRO) PO SCH (08:24)
[2019-03-22] MEDS: predniSONE 20 MG TAB PO SCH (08:24)
[2019-03-22] MEDS: DOCUSATE SODIUM 100 MG CAP PO SCH ×2 (08:24→20:17)
[2019-03-22] MEDS: PANTOPRAZOLE 40MG TAB (PROTONIX) PO SCH ×2 (08:25→20:17)
[2019-03-22] MEDS: HEPARIN SOD (PORCINE) 5000 UNITS/ML VIAL SC SCH ×2 (08:25→20:18)
[2019-03-22] MEDS: CALCIUM ACETATE 667 MG GELCAP PO SCH ×3 (08:25→18:38)
[2019-03-22] MEDS: SUCRALFATE 1 GM TAB PO SCH ×3 (08:25→16:19)
[2019-03-22] MEDS: MULTIVITAMINS/MINERALS THERAP 1 TAB PO SCH (08:25)
[2019-03-22] MEDS: DOXYCYCLINE HYCLATE 100 MG TAB PO SCH ×2 (08:27→20:17)
[2019-03-22] MEDS ORDERED: MYCOPHENOLATE MOFETIL 250 MG CAP (J7517) PO SCH (09:00)
[2019-03-22] MEDS: GABAPENTIN 100 MG CAP PO SCH ×3 (09:07→20:17)
[2019-03-22] MEDS: CEFUROXIME 500 MG TAB PO SCH ×2 (09:07→20:18)
[2019-03-22] MEDS: ASPIRIN 81 MG CHEW TABLET PO SCH (09:08)
[2019-03-22] MEDS: ADVAIR HFA 230/21MCG INHALER INH SCH ×2 (09:11→21:00)
[2019-03-22] MEDS ORDERED: HEPARIN 1,000 UNITS/ML 10ML VIAL (FOR RADIOLOGY& DIALYSIS ONLY) XX ONE (10:30)
--- NOTE | 2019-03-22 15:22 | IPN ---
DATE: 03/22/2019 SUBJECTIVE: The patient was seen and examined at the bedside this morning in the rehab unit. She is sitting in the sofa. She denies any active complaints. Today is patient's day of dialysis. The patient is currently receiving prednisone therapy. She is status post pulse steroids. There is no significant improvement in the renal function creatinine is still rising in between dialysis sessions. The patient denies any cough or shortness of breath and she is stable on room air. OBJECTIVE: VITAL SIGNS: Temperature is 95.7 degrees Fahrenheit, blood pressure 152/74, pulse 63, respiratory of 18, saturating 97% on room air. Intake and output: Urine output recorded from yesterday is 125 mL. There is no urine output recorded today. Weight in the bed scale is not available. PHYSICAL EXAMINATION: GENERAL: The patient is awake, alert, oriented times two, sitting up in the sofa, no apparent distress. HEAD AND NECK EXAM: Extraocular muscles intact. Pupils equally round and reactive to light. Mucous membranes are moist. NECK: Neck is supple. She has a right internal jugular (IJ) tunneled hemodialysis catheter. CARDIOVASCULAR: S1, S2 regular rate. No edema of the bilateral lower extremities. RESPIRATORY: Mildly decreased breath sounds at the bases, otherwise no active rales or rhonchi. ABDOMEN: Soft. Positive bowel sounds. Nontender. MUSCULOSKELETAL: No clubbing or cyanosis. Pulses are 2+. CENTRAL NERVOUS SYSTEM (SHOVE UP): No focal deficit. Power is 5/5 in all extremities. LAB REVIEW: CBC showed WBC of 29.2, hemoglobin 9.2, platelets of 123. BMP showed sodium 140, potassium 4.8, chloride 105, bicarb 26, BUN 90, creatinine is 5.5, calcium 7.4. CURRENT INPATIENT MEDICATIONS: The patient's medications were all reviewed by me. She is on Ceftin 500 mg by mouth twice a day. She is also on doxycycline. I have started the patient on CellCept 500 mg by mouth twice a day starting from [facility]. She is currently on prednisone 60 mg by mouth daily. No other change in the medications today as compared with yesterday. ASSESSMENT/PLAN: 1. Acute oliguric renal failure: It is secondary to microscopic polyangiitis. The patient is status post pulse steroids. She is still dialysis dependent. She will be dialyzed today and I will try to remove about 1.5 mL of fluid as tolerated by her blood pressure. No significant improvement in renal function. 2. Acute crescentic pauci-immune ANCA-associated glomerulonephritis: The patient clinically has microscopic polyangiitis. she is status post pulse steroids. She is currently on prednisone 60 mg daily and generally the treatment of such a disease which is organ-threatening is rituximab or cyclophosphamide along with steroids. However, given this patient's age of 84 years with baseline dementia and renal failure requiring dialysis, I would avoid aggressive immunosuppression in this patient because of risk of infection and sepsis. I am going to give her the gentle immunotherapy with CellCept 500 mg by mouth twice a day. They have case reports off treatment of microscopic polyangiitis with CellCept and prednisone. The starting dose is 500 twice a day. However, if the patient tolerates, I would increase the dose to 1 gram twice a day. The patient is clinically stable at room air and there is no evidence of hemoptysis. 3. Anemia secondary to end-stage renal disease: The patient is getting IV Venofer with dialysis. The patient is already receiving Mircera 100 mcg IV with dialysis. 4. Leukocytosis: The patient has moderate persistent leukocytosis. She is otherwise afebrile. All the cultures are negative. Leukocytosis is likely secondary to pulse steroids. She is on oral antibiotics as well. 5. Secondary hyperparathyroidism: PTH level is 227. I am going to start the patient on calcitriol 0.25 mcg by mouth three times a week. 6. 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 MTDD
[2019-03-22 16:05] VITALS: BP 117/53
[2019-03-22] MEDS: MYCOPHENOLATE MOFETIL 250 MG CAP (J7517) PO SCH ×2 (16:16→20:18)
[2019-03-22 20:00] VITALS: BP 115/63
[2019-03-22] MEDS: DONEPEZIL 5 MG TAB PO SCH (20:17)
[2019-03-22] MEDS: MEMANTINE 5MG TABLET (NAMENDA) PO SCH (20:17)
[2019-03-22] MEDS: LATANOPROST 0.005% OPHTH SOLN 2.5 ML OU SCH (20:18)
[2019-03-22] MEDS: SENNA 8.6 MG TAB (SENOKOT) PO SCH (20:18)
[2019-03-23 06:00] VITALS: BP 126/60
[2019-03-23 07:01] LABS: HEMATOCRIT 30.3 % (36.0-47.0); HEMOGLOBIN 9.6 g/dl (12.0-15.5); MEAN CORPUSCULAR HEMOGLOBIN 30.9 pg (27.0-33.0); MEAN CORPUSCULAR HGB CONC 31.7 g/dl (32.0-36.5); MEAN CORPUSCULAR VOLUME 97.4 fl (80.0-96.0); PLATELET COUNT, AUTOMATED 216 10^3/uL (150-450); RED BLOOD COUNT 3.11 10^6/uL (4.00-5.40); WHITE BLOOD COUNT 26.7 10^3/uL (4.0-10.0)
[2019-03-23] MEDS: DOXYCYCLINE HYCLATE 100 MG TAB PO SCH ×2 (07:55→20:20)
[2019-03-23] MEDS: PANTOPRAZOLE 40MG TAB (PROTONIX) PO SCH ×2 (07:55→20:20)
[2019-03-23] MEDS: MYCOPHENOLATE MOFETIL 250 MG CAP (J7517) PO SCH ×2 (07:55→20:20)
[2019-03-23] MEDS: CALCIUM ACETATE 667 MG GELCAP PO SCH ×3 (07:55→17:07)
[2019-03-23] MEDS: ESCITALOPRAM OXALATE 10 MG TAB (LEXAPRO) PO SCH (07:56)
[2019-03-23] MEDS: MULTIVITAMINS/MINERALS THERAP 1 TAB PO SCH (07:56)
[2019-03-23] MEDS: DOCUSATE SODIUM 100 MG CAP PO SCH ×2 (07:56→20:20)
[2019-03-23] MEDS: ASPIRIN 81 MG CHEW TABLET PO SCH (07:56)
[2019-03-23] MEDS: predniSONE 20 MG TAB PO SCH (07:56)
[2019-03-23] MEDS: HEPARIN SOD (PORCINE) 5000 UNITS/ML VIAL SC SCH ×2 (07:56→20:21)
[2019-03-23] MEDS: SUCRALFATE 1 GM TAB PO SCH ×3 (07:56→17:07)
[2019-03-23] MEDS: GABAPENTIN 100 MG CAP PO SCH ×3 (07:56→20:20)
[2019-03-23] MEDS: CEFUROXIME 500 MG TAB PO SCH ×2 (08:01→20:20)
[2019-03-23 08:05] LABS: CALCIUM LEVEL 7.7 MG/DL (8.8-10.2); CREATININE FOR GFR 4.16 MG/DL (0.55-1.30); GLOMERULAR FILTRATION RATE 10.9 (>32); POTASSIUM SERUM 4.3 MEQ/L (3.5-5.1)
[2019-03-23] MEDS: ADVAIR HFA 230/21MCG INHALER INH SCH ×2 (09:00→21:00)
[2019-03-23] MEDS ORDERED: MYCOPHENOLATE MOFETIL 250 MG CAP (J7517) PO SCH (09:00)
[2019-03-23 14:00] VITALS: BP 111/66
[2019-03-23 20:00] VITALS: BP 121/55
[2019-03-23] MEDS: MEMANTINE 5MG TABLET (NAMENDA) PO SCH (20:20)
[2019-03-23] MEDS: DONEPEZIL 5 MG TAB PO SCH (20:20)
[2019-03-23] MEDS: LATANOPROST 0.005% OPHTH SOLN 2.5 ML OU SCH (20:21)
[2019-03-23] MEDS: SENNA 8.6 MG TAB (SENOKOT) PO SCH (20:21)
[2019-03-24 06:00] VITALS: BP 138/63
[2019-03-24 06:50] LABS: HEMATOCRIT 28.5 % (36.0-47.0); HEMOGLOBIN 9.2 g/dl (12.0-15.5); MEAN CORPUSCULAR HEMOGLOBIN 31.1 pg (27.0-33.0); MEAN CORPUSCULAR HGB CONC 32.3 g/dl (32.0-36.5); MEAN CORPUSCULAR VOLUME 96.3 fl (80.0-96.0); PLATELET COUNT, AUTOMATED 239 10^3/uL (150-450); RED BLOOD COUNT 2.96 10^6/uL (4.00-5.40); WHITE BLOOD COUNT 27.4 10^3/uL (4.0-10.0)
[2019-03-24 07:10] LABS: CALCIUM LEVEL 7.5 MG/DL (8.8-10.2); CREATININE FOR GFR 5.78 MG/DL (0.55-1.30); GLOMERULAR FILTRATION RATE 7.4 (>32); POTASSIUM SERUM 4.4 MEQ/L (3.5-5.1)
[2019-03-24] MEDS: ESCITALOPRAM OXALATE 10 MG TAB (LEXAPRO) PO SCH (08:07)
[2019-03-24] MEDS: PANTOPRAZOLE 40MG TAB (PROTONIX) PO SCH ×2 (08:07→21:38)
[2019-03-24] MEDS: predniSONE 20 MG TAB PO SCH (08:07)
[2019-03-24] MEDS: ASPIRIN 81 MG CHEW TABLET PO SCH (08:07)
[2019-03-24] MEDS: CALCIUM ACETATE 667 MG GELCAP PO SCH ×3 (08:07→17:25)
[2019-03-24] MEDS: DOCUSATE SODIUM 100 MG CAP PO SCH ×2 (08:07→21:38)
[2019-03-24] MEDS: SUCRALFATE 1 GM TAB PO SCH ×3 (08:07→16:43)
[2019-03-24] MEDS: GABAPENTIN 100 MG CAP PO SCH ×3 (08:07→21:38)
[2019-03-24] MEDS: MYCOPHENOLATE MOFETIL 250 MG CAP (J7517) PO SCH ×2 (08:07→21:44)
[2019-03-24] MEDS: MULTIVITAMINS/MINERALS THERAP 1 TAB PO SCH (08:07)
[2019-03-24] MEDS: DOXYCYCLINE HYCLATE 100 MG TAB PO SCH ×2 (08:07→21:38)
[2019-03-24] MEDS: CEFUROXIME 500 MG TAB PO SCH ×2 (08:07→21:38)
[2019-03-24] MEDS: CALCITRIOL 0.25 MCG CAP (S0169) PO SCH (08:07)
[2019-03-24] MEDS: HEPARIN SOD (PORCINE) 5000 UNITS/ML VIAL SC SCH ×2 (08:08→21:39)
[2019-03-24] MEDS: ADVAIR HFA 230/21MCG INHALER INH SCH ×2 (08:46→20:33)
[2019-03-24 14:00] VITALS: BP 123/59
[2019-03-24 20:00] VITALS: BP 131/63
--- NOTE | 2019-03-24 20:55 | IPN ---
DATE: 03/23/2019 SUBJECTIVE: The patient was seen and examined at the bedside today morning. She was sitting in the sofa. She reported that she felt dizzy today morning. She was also dialyzed yesterday, 1.5 liters of fluid was removed. As reported by nursing, when she was walking around her blood pressure was in the low 90s. The patient was also started on CellCept yesterday. Se continues to be on prednisone 60 mg by mouth daily. OBJECTIVE: VITAL SIGNS: Temperature is 98.3 degrees Fahrenheit, blood pressure 126/60, pulse is 66, respiratory rate of 18, saturating 96% on room air. INTAKE AND OUTPUT: Urine output is not recorded. Ultrafiltration with hemodialysis was 1.5 liters yesterday. Weight in the bed scale is 68.6 kg. PHYSICAL EXAMINATION: GENERAL: The patient is awake, alert, oriented times three, sitting up in the sofa, no apparent distress. HEAD AND NECK EXAM: Extraocular muscles intact. Pupils equally round and reactive to light. Mucous membranes are moist. Neck is supple. There is no JVD. She has a right IJ tunneled hemodialysis catheter. CARDIOVASCULAR: S1, S2, regular rate. No edema of the bilateral lower extremities. RESPIRATORY: Chest is clear to auscultation bilaterally. Bilateral equal air entry. No rales or rhonchi. ABDOMEN: Soft. Positive bowel sounds. Nontender. No organomegaly. MUSCULOSKELETAL: No clubbing or cyanosis. Pulses are 2+. MALT HOUSE SUPERVISOR: No focal deficit, power is 5/5 in all extremities. LABORATORY REVIEW: CBC showed a WBC 26.7, hemoglobin is 9.6, platelets are 216. BMP showed sodium 139, potassium 4.3, chloride 101, bicarbonate 27, BUN 51, creatinine 4.1, calcium 7.7. CURRENT INPATIENT MEDICATIONS: The patient's medications were all reviewed by me. She was started on CellCept 500 mg by mouth twice a day. She continues to be on doxycycline and I changed the stop date after 7 days. She continues to be on prednisone 60 mg by mouth daily. ASSESSMENT/PLAN: 1. Acute oliguric renal failure. The patient is dialysis dependent. She got last dialysis yesterday. Next dialysis will be done on Sunday. I will limit the fluid removal because the patient was feeling dizzy today after removal of 1.5 liters. 2. Acute crescentic Pauci-immune ANCA associated glomerulonephritis. The patient continues to be on prednisone 60 mg daily. She already received pulse steroids. She was started on CellCept 500 mg by mouth twice a day. if the patient tolerates this dose the dose will be increased to 1 gram by mouth twice a day. 3. Leukocytosis. The patient's cultures are negative. She is afebrile. She is on doxycycline. She will finish doxycycline after 7 days. 4. Anemia secondary to end-stage renal disease. The patient's hemoglobin is stable and improving. She is receiving Aranesp with dialysis. 5. Secondary hyperparathyroidism. Continue current dose of calcitriol 0.25 mcg three times a week. 6. Chronic kidney disease-mineral bone disease. Continue current dose of PhosLo one capsule three times a day. 7. Dizziness and lightheadedness. Most likely is associated with fluid removal yesterday. The patient has soft blood pressures. However, blood pressure at rest is okay. No need of IV fluids at this time. If dizziness persists then it might be associated with CellCept. There is no escalation in the CellCept dose. Continue 500 mg by mouth twice a day.
[2019-03-24] MEDS: DONEPEZIL 5 MG TAB PO SCH (21:38)
[2019-03-24] MEDS: SENNA 8.6 MG TAB (SENOKOT) PO SCH (21:38)
[2019-03-24] MEDS: MEMANTINE 5MG TABLET (NAMENDA) PO SCH (21:38)
[2019-03-24] MEDS: LATANOPROST 0.005% OPHTH SOLN 2.5 ML OU SCH (21:45)
[2019-03-25 06:00] VITALS: BP 138/67
[2019-03-25 06:24] LABS: HEMATOCRIT 28.9 % (36.0-47.0); HEMOGLOBIN 9.2 g/dl (12.0-15.5); MEAN CORPUSCULAR HGB CONC 31.8 g/dl (32.0-36.5); MEAN CORPUSCULAR VOLUME 97.3 fl (80.0-96.0); PLATELET COUNT, AUTOMATED 261 10^3/uL (150-450); RED BLOOD COUNT 2.97 10^6/uL (4.00-5.40); WHITE BLOOD COUNT 28.7 10^3/uL (4.0-10.0)
[2019-03-25 06:46] LABS: CREATININE FOR GFR 6.94 MG/DL (0.55-1.30); POTASSIUM SERUM 4.8 MEQ/L (3.5-5.1)
[2019-03-25] MEDS: ADVAIR HFA 230/21MCG INHALER INH SCH ×2 (06:59→20:41)
[2019-03-25] MEDS: PANTOPRAZOLE 40MG TAB (PROTONIX) PO SCH ×2 (09:53→20:20)
[2019-03-25] MEDS: HEPARIN SOD (PORCINE) 5000 UNITS/ML VIAL SC SCH ×2 (09:53→20:21)
[2019-03-25] MEDS: ASPIRIN 81 MG CHEW TABLET PO SCH (09:54)
[2019-03-25] MEDS: MULTIVITAMINS/MINERALS THERAP 1 TAB PO SCH (09:54)
[2019-03-25] MEDS: MYCOPHENOLATE MOFETIL 250 MG CAP (J7517) PO SCH ×2 (09:54→20:21)
[2019-03-25] MEDS: DOCUSATE SODIUM 100 MG CAP PO SCH ×2 (09:54→20:20)
[2019-03-25] MEDS: DOXYCYCLINE HYCLATE 100 MG TAB PO SCH ×2 (09:54→20:20)
[2019-03-25] MEDS: GABAPENTIN 100 MG CAP PO SCH ×3 (09:54→20:20)
[2019-03-25] MEDS: CEFUROXIME 500 MG TAB PO SCH ×2 (09:54→20:20)
[2019-03-25] MEDS: predniSONE 20 MG TAB PO SCH (09:54)
[2019-03-25] MEDS: ESCITALOPRAM OXALATE 10 MG TAB (LEXAPRO) PO SCH (09:54)
[2019-03-25] MEDS: CALCIUM ACETATE 667 MG GELCAP PO SCH ×3 (09:55→18:06)
[2019-03-25] MEDS ORDERED: HEPARIN 1,000 UNITS/ML 10ML VIAL (FOR RADIOLOGY& DIALYSIS ONLY) XX ONE (11:00)
--- NOTE | 2019-03-25 13:32 | IPNPDOC ---
Date Seen The patient was seen on 03/25/19. Progress Note SUBJECTIVE: Patient was seen and examined this morning. She currently has no complaints. She continues to work with physical therapy. She has been started on CellCept and appears to be tolerating the medication well. She is also continued on Prednisone 60mg daily. Patient is planned to receive dialysis today via her right chest wall catheter OBJECTIVE PHYSICAL EXAMINATION: VITAL SIGNS: Please see below. GENERAL: awake, alert, and oriented. In no acute distress. Currently working with physical therapy HEENT: Atraumatic normocephalic. Eyes are nonicteric. trachea is midline. CARDIOVASCULAR: notmal S1, S2. Regular rate and rhythm. No clicks, rubs, or murmurs. No edema in bilateral lower extremities RESPIRATORY: Clear vesicular lung sounds bilaterally. No wheezes, rhonci, or rales ABDOMINAL: Soft, nondistended. Nontender to palpation. Positive bowel sounds throughout EXTREMITIES: No edema. NEUROLOGICAL: No focal neurological deficits PSYCHOLOGICAL: Mood and affect appear appropriate LABORATORY DATA, IMAGING STUDIES, MICROBIOLOGY: Please see below. ASSESSMENT AND PLAN: PROBLEMS: 1. 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 She is currently dialysis dependent and is due for dialysis today. Decrease in fluid removal as the patient was complaining of dizziness after her previous dialysis treatment. She currently does not show any improvement in renal function. Patient will be continued on he modialysis 2. 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 She was started on 500mg of CellCept twice a day. Patient has tolerated the medication well. Plan is to increase to 1 gram twice a day. 3. Leukocytosis: Patient remains culture negative. She remains afebrile. She is currently on Doxycycline. Her leukocytosis is likely secondary to steroids 4. Anemia: Patient is anemic likely secondary from ESRD. Her hemoglobin remains stable. She is receiving Aranesp with dialysis will continue DISPOSITION: Patient is currently working with physical therapy. She will need outpatient arrangements for hemodialysis before discharge VS, I&O, 24H, Fishbone Vital Signs/I&O Vital Signs Date Time Temp Pulse Resp B/P (MAP) Pulse Ox O2 Delivery O2 Flow Rate FiO2 03/25/19 06:00 98.6 64 14 138/67 (90) 97 I&O- Last 24 Hours up to 6 AM 03/25/19 05:59 Intake Total 1320 ml Output Total 150 ml Balance 1170 ml Laboratory Data 24H LABS Laboratory Tests 2 03/25/19 06:07: Nucleated Red Blood Cells % (auto) 0.1H, Anion Gap 11, Glomerular Filtration Rate 6.0L, Blood Urea Nitrogen 119H, Creatinine 6.94H, Sodium Level 138, Potassium Level 4.8, Chloride Level 102, Carbon Dioxide Level 25, Calcium Level 8.0L CBC/BMP Laboratory Tests 03/25/19 06:07 Red Blood Count 2.97 L, Mean Corpuscular Volume 97.3 H, Mean Corpuscular Hemoglobin 31.0, Mean Corpuscular Hemoglobin Concent 31.8 L, Red Cell Distribution Width 17.5 H, Calcium Level 8.0 L GME ATTESTATION GME ATTESTATION My faculty preceptor for this patient encounter was physically present during the encounter and was fully available. All aspects of the patient interview, examination, medical decision making process, and medical care plan development were reviewed and approved by the faculty preceptor. The faculty preceptor is aware and concurs with the plan as stated in the body of this note and will attest to such by his/her cosignature. DENIZ DAUGHERTY DO Mar 25, 2019 13:32
--- NOTE | 2019-03-25 16:41 | IPN ---
DATE: 03/24/2019 SUBJECTIVE: The patient was seen and examined at the rehabilitation unit today morning. She was getting the physical therapy when I saw her. She is awake and alert. She reports her dizziness is better. She denies any problems with the CellCept. She continues to be on prednisone. The patient continues to be oliguric, and there is no significant renal improvement. OBJECTIVE: Vital signs: Temperature is 97.2 degrees Fahrenheit, blood pressure 131/63, pulse is 63, respiratory of 18, saturating 96% on room air. Intake and output: Urine output recorded is 150 mL. Weight in the bed scale was 68.6 mL yesterday. PHYSICAL EXAMINATION: GENERAL: The patient is awake, alert, oriented times three in no apparent distress. HEAD AND NECK: Extraocular muscles intact. Pupils equally round and reactive to light. Mucous membranes are moist. Neck is supple. She has a right internal jugular (IJ) tunneled hemodialysis catheter. CARDIOVASCULAR: S1, S2, regular rate. No edema of the bilateral lower extremities. RESPIRATORY: Chest is clear to auscultation bilaterally. Bilateral equal air entry. No rales or rhonchi. ABDOMEN: Soft. Positive bowel sounds. Nontender. MUSCULOSKELETAL: No clubbing or cyanosis. Pulses are 2+. CENTRAL NERVOUS SYSTEM: No focal deficit. Power is 5/5 in all extremities. LABORATORY REVIEW: CBC showed a WBC 27.4, hemoglobin 9.2, platelets of 239. BMP showed sodium 138, potassium 4.4, chloride 101, bicarbonate 28, BUN 82, creatinine is 5.7, calcium 7.5. CURRENT INPATIENT MEDICATIONS: The patient's medications were all reviewed by me. There is no change in the medications today as compared with yesterday. ASSESSMENT AND PLAN: 1. Acute oliguric renal failure. 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 She is dialysis dependent. Next hemodialysis session will be done tomorrow morning. 2. 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 The patient is tolerating CellCept 500 mg by mouth twice a day. Continue prednisone 60 mg by mouth daily. I would slowly increase the dose of CellCept once she starts tolerating it. 3. Anemia secondary to end-stage renal disease. Continue current dose of Mircera. Hemoglobin level is stable. She is also getting Venofer. 4. Long-term use of steroids. The patient is going to be on high dose of steroids. She is currently on Protonix. She is on calcium-based phosphorus binders. 5. Secondary hyperparathyroidism. Continue current dose of calcitriol 0.25 mcg Sunday, Sunday, Sunday.
--- NOTE | 2019-03-25 17:29 | IPNPDOC ---
PM&R Progress Note DATE OF SERVICE: Mar 21, 2019 Supply Chain Coordinator Progress Note Subjective: Patient and family concerned that she is fatigued after dialysis and wondering about the vasculitic work-up results. Her daughter is noticing that since the discontinuation of her Lexapro her mother is sadder and would like it restarted. REVIEW OF SYSTEMS: The following is a completed review of systems and has been reviewed. Review of systems otherwise unremarkable. PAIN: Patient self reports no pain EYES: No recent vision changes EARS, NOSE, & THROAT: No throat pain, or dysphagia, or rhinorrhea CARDIOVASCULAR: Denies chest pain or palpitations PULMONARY: Denies shortness of breath GASTROINTESTINAL: Denies constipation/diarrhea GENITOURINARY: oliguria MUSCULOSKELETAL: LE weakness NEUROLOGICAL:+dementia HEMATOLOGICAL: anemia SKIN: ecchymotic PSYCHIATRIC: Unremarkable All other review of systems found to be negative. PHYSICAL EXAMINATION: VITAL SIGNS: Please see below. GENERAL: Pleasant and cooperative. No acute distress. HEENT: PERRL. Extraocular movements intact. Clear conjunctiva CARDIOVASCULAR: Regular rate and rhythm. No murmurs, rubs, or gallops LUNGS: Clear to auscultation bilaterally. No wheezes. No rhonchi ABDOMEN: Soft, nontender, nondistended. Positive bowel sounds. Normal active bowel sounds NEUROLOGICAL: Alert and oriented to self and place, not time Cranial nerves II through XII grossly intact. Sensation grossly intact EXTREMITIES: 4+\5 strength bilateral upper extremities. 4\5 strength right lower extremity. 4/5 strength in left lower extremity. 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 PLAN: 1. rehab: patient with gait impairment due to weakness in setting of low back pain and LE weakness most likely due to peripheral neuropathy due to renal disease and possible vasculitis -PT improve endurance and dynamic balance, wean from 02 -OT work up UE strengthening, energy conservation 2. Neuro: avoid delirogenic meds - dementia- continue memantine and donepezil -will add back Lexapro for depression vs pseudodepression- will check EKG to make sure QTc interval is not increasing 3. CArdio: diastolic CHF with recent exacerbation on dialysis- medicine consulted to assist in management, c/u ASA, atenolol- fluid restrict 1800cc 4. Resp: recent CXrs showing bilateral effusions, c/u course of Cefuroxime and Doxycylcine for pneumonia- supplemental 02, c/u breathing treatments and steroids 5. Renal: ESRD recently placed on dialysis- will consult renal, renal diet 6. Rheum: suggestion of vasculitis cause of kidney disease, renal biopsy results pending, continue prednisone, recs per Renal 7. Heme: anemia, will transfuse if <8, venofer/aranesp per renal recs- 8. GI ppx: protonix, will increase to BID and add sucralfate given she is on steroids, FOBT ordered 9. DVT ppx: heparin and TEDs 10. Pain: tylenol prn and gabapentin 11. Dispo: TBD Allergies Coded Allergies: No Known Allergies (Unverified , 04/25/18) Vital Signs Vital Signs Date Time Temp Pulse Resp B/P (MAP) Pulse Ox O2 Delivery O2 Flow Rate FiO2 03/25/19 06:00 98.6 64 14 138/67 (90) 97 Laboratory Data CBC/BMP Laboratory Tests 03/25/19 06:07 Red Blood Count 2.97 L, Mean Corpuscular Volume 97.3 H, Mean Corpuscular Hemoglobin 31.0, Mean Corpuscular Hemoglobin Concent 31.8 L, Red Cell Distribution Width 17.5 H, Calcium Level 8.0 L Labs 24H Laboratory Tests 2 03/25/19 06:07: Nucleated Red Blood Cells % (auto) 0.1H, Anion Gap 11, Glomerular Filtration Rate 6.0L, Blood Urea Nitrogen 119H, Creatinine 6.94H, Sodium Level 138, Potassium Level 4.8, Chloride Level 102, Carbon Dioxide Level 25, Calcium Level 8.0L Current Medications Current Medications Current Medications Acetaminophen (Tylenol Tab) 650 mg Q4HP PRN PO fever/MILD PAIN (PS 1-4); Start 03/19/19 at 15:45 Aspirin (Aspirin Chewable) 81 mg DAILY PO Last administered on 03/25/19at 09:54; Start 03/20/19 at 09:00 Atenolol (Tenormin) 25 mg DAILY PO Last administered on 03/20/19at 13:20; Start 03/20/19 at 09:00; Stop 03/21/19 at 10:03; Status DC Bisacodyl (Dulcolax Suppository) 10 mg DAILYPRN PRN [place] CONSTIPATION; Start 03/19/19 at 15:45 Calcitriol (Rocaltrol) 0.25 mcg MoWeFr@0900 PO Last administered on 03/24/19 08:07; Start 03/24/19 at 09:00 Calcium Acetate (Phoslo) 667 mg WM PO Last administered on 03/25/19 12:18; Start 03/20/19 at 12:30 Cefuroxime Axetil (Ceftin) 500 mg BID PO Last administered on 03/25/19 09:54; Start 03/19/19 at 21:00 Darbepoetin Jaylen (Aranesp (Dialysis Use)) 100 mcg HD IV ; Start 03/20/19 at 10:00 Docusate Sodium (Colace) 100 mg BID PO Last administered on 03/25/19 09:54; Start 03/19/19 at 21:00 Donepezil HCl (AriCEPT) 10 mg QHS PO Last administered on 03/24/19at 21:38; Start 03/19/19 at 21:00 Doxycycline Hyclate (Vibramycin) 100 mg BID PO Last administered on 03/25/19 09:54; Start 03/19/19 at 21:00; Stop 03/26/19 at 20:59 Escitalopram Oxalate (Lexapro) 10 mg DAILY PO Last administered on 03/25/19 09:54; Start 03/21/19 at 09:00 Gabapentin (Neurontin) 100 mg TID PO Last administered on 03/25/19 09:54; Start 03/19/19 at 16:00 Heparin Sodium (Porcine) (Heparin) 5,000 units Q12H SC Last administered on 03/25/19 09:53; Start 03/19/19 at 21:00 Home Med (Med Rec Complete!) ASDIRECTED XX ; Start 03/19/19 at 17:30; Stop 03/19/19 at 17:32; Status DC Iron (Venofer) 100 mg HD IV ; Start 03/20/19 at 10:00 Latanoprost (Xalatan 0.005% Op Soln) 1 drop QHS OU Last administered on 03/24/19 21:45; Start 03/19/19 at 21:00 Magnesium Hydroxide (Milk Of Magnesia) 30 ml DAILYPRN PRN PO CONSTIPATION; Start 03/19/19 at 15:45 Memantine (Namenda) 5 mg QHS PO Last administered on 03/24/19 21:38; Start 03/19/19 at 21:00 Multivitamins (Theragram-M) 1 tab DAILY PO Last administered on 03/25/19 09:54; Start 03/20/19 at 09:00 Mycophenolate Mofetil (Cellcept) 500 mg BID PO ; Start 03/22/19 at 09:00; Stop 03/22/19 at 09:00; Status DC Mycophenolate Mofetil (Cellcept) 500 mg BID PO Last administered on 03/25/19 09:54; Start 03/22/19 at 09:00 Mycophenolate Mofetil (Cellcept) 500 mg BID PO ; Start 03/23/19 at 09:00; Stop 03/23/19 at 09:00; Status DC Pantoprazole Sodium (Protonix) 40 mg BID PO Last administered on 03/25/19 09:53; Start 03/19/19 at 21:00 Potassium Chloride (Micro-K Extencaps) 20 meq BID PO Last administered on 03/19/19 20:17; Start 03/19/19 at 21:00; Stop 03/20/19 at 10:02; Status DC Prednisone (Deltasone) 60 mg DAILY PO Last administered on 03/25/19 09:54; Start 03/20/19 at 09:00 Salmeterol Xinafoate/ Fluticasone (Advair Hfa 230/ 21) 2 puff BID INH Last administered on 03/25/19 06:59; Start 03/19/19 at 21:00 Senna (Senokot) 1 tab QHS PO Last administered on 03/24/19 21:38; Start 03/19/19 at 21:00 Sucralfate (Carafate) 1 gm AC PO Last administered on 03/24/19 16:43; Start 03/19/19 at 17:30; Stop 03/24/19 at 20:44; Status DC BRADLEY CORONA MD Mar 25, 2019 17:29
--- NOTE | 2019-03-25 17:29 | IPNPDOC ---
PM&R Progress Note DATE OF SERVICE: Mar 25, 2019 Developer Analyst Progress Note Subjective: Patient seen yesterday in her room stating she felt well after dialysis and did not feel dizzy. She asked t be assisted to the bathroom. REVIEW OF SYSTEMS: The following is a completed review of systems and has been reviewed. Review of systems otherwise unremarkable. PAIN: Patient self reports no pain EYES: No recent vision changes EARS, NOSE, & THROAT: No throat pain, or dysphagia, or rhinorrhea CARDIOVASCULAR: Denies chest pain or palpitations PULMONARY: Denies shortness of breath GASTROINTESTINAL: Denies constipation/diarrhea GENITOURINARY: oliguria MUSCULOSKELETAL: LE weakness NEUROLOGICAL:+dementia HEMATOLOGICAL: anemia SKIN: ecchymotic PSYCHIATRIC: Unremarkable All other review of systems found to be negative. PHYSICAL EXAMINATION: VITAL SIGNS: Please see below. GENERAL: Pleasant and cooperative. No acute distress. HEENT: PERRL. Extraocular movements intact. Clear conjunctiva CARDIOVASCULAR: Regular rate and rhythm. No murmurs, rubs, or gallops LUNGS: Clear to auscultation bilaterally. No wheezes. No rhonchi ABDOMEN: Soft, nontender, nondistended. Positive bowel sounds. Normal active bowel sounds NEUROLOGICAL: Alert and oriented to self and place, not time Cranial nerves II through XII grossly intact. Sensation grossly intact EXTREMITIES: 4+\5 strength bilateral upper extremities. 4\5 strength right lower extremity. 4/5 strength in left lower extremity. 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 PLAN: 1. 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 Neuro: avoid delirogenic meds - dementia- continue memantine and donepezil -c/u Lexapro for depression vs pseudodepression- will check EKG to make sure QTc interval is not increasing 3. CArdio: diastolic CHF with recent exacerbation on dialysis- medicine consulted to assist in management, c/u ASA, beta-ronnie held due to dizziness and intermittent orthostatics- fluid restrict 1800cc 4. Resp: recent CXrs showing bilateral effusions, s/p course of Cefuroxime and Doxycylcine for pneumonia- supplemental 02, c/u breathing treatments and steroids 5. 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 Heme: anemia of chronic disease, will transfuse if <8, venofer per renal recs- 8. GI ppx: protonix, will increase to BID and add sucralfate given she is on steroids, FOBT ordered 9. DVT ppx: heparin and TEDs 10. Pain: tylenol prn and gabapentin 11. Dispo: TBD Allergies Coded Allergies: No Known Allergies (Unverified , 04/25/18) Vital Signs Vital Signs Date Time Temp Pulse Resp B/P (MAP) Pulse Ox O2 Delivery O2 Flow Rate FiO2 03/25/19 06:00 98.6 64 14 138/67 (90) 97 Laboratory Data CBC/BMP Laboratory Tests 03/25/19 06:07 Red Blood Count 2.97 L, Mean Corpuscular Volume 97.3 H, Mean Corpuscular Hemoglobin 31.0, Mean Corpuscular Hemoglobin Concent 31.8 L, Red Cell Distribution Width 17.5 H, Calcium Level 8.0 L Labs 24H Laboratory Tests 2 03/25/19 06:07: Nucleated Red Blood Cells % (auto) 0.1H, Anion Gap 11, Glomerular Filtration Rate 6.0L, Blood Urea Nitrogen 119H, Creatinine 6.94H, Sodium Level 138, Potassium Level 4.8, Chloride Level 102, Carbon Dioxide Level 25, Calcium Level 8.0L Current Medications Current Medications Current Medications Acetaminophen (Tylenol Tab) 650 mg Q4HP PRN PO fever/MILD PAIN (PS 1-4); Start 03/19/19 at 15:45 Aspirin (Aspirin Chewable) 81 mg DAILY PO Last administered on 03/25/19at 09:54; Start 03/20/19 at 09:00 Atenolol (Tenormin) 25 mg DAILY PO Last administered on 03/20/19at 13:20; Start 03/20/19 at 09:00; Stop 03/21/19 at 10:03; Status DC Bisacodyl (Dulcolax Suppository) 10 mg DAILYPRN PRN [place] CONSTIPATION; Start 03/19/19 at 15:45 Calcitriol (Rocaltrol) 0.25 mcg MoWeFr@0900 PO Last administered on 03/24/19 08:07; Start 03/24/19 at 09:00 Calcium Acetate (Phoslo) 667 mg WM PO Last administered on 03/25/19 12:18; Start 03/20/19 at 12:30 Cefuroxime Axetil (Ceftin) 500 mg BID PO Last administered on 03/25/19 09:54; Start 03/19/19 at 21:00 Darbepoetin Jaylen (Aranesp (Dialysis Use)) 100 mcg HD IV ; Start 03/20/19 at 10:00 Docusate Sodium (Colace) 100 mg BID PO Last administered on 03/25/19 09:54; Start 03/19/19 at 21:00 Donepezil HCl (AriCEPT) 10 mg QHS PO Last administered on 03/24/19at 21:38; Start 03/19/19 at 21:00 Doxycycline Hyclate (Vibramycin) 100 mg BID PO Last administered on 03/25/19 09:54; Start 03/19/19 at 21:00; Stop 03/26/19 at 20:59 Escitalopram Oxalate (Lexapro) 10 mg DAILY PO Last administered on 03/25/19 09:54; Start 03/21/19 at 09:00 Gabapentin (Neurontin) 100 mg TID PO Last administered on 03/25/19 09:54; Start 03/19/19 at 16:00 Heparin Sodium (Porcine) (Heparin) 5,000 units Q12H SC Last administered on 03/25/19 09:53; Start 03/19/19 at 21:00 Home Med (Med Rec Complete!) ASDIRECTED XX ; Start 03/19/19 at 17:30; Stop 03/19/19 at 17:32; Status DC Iron (Venofer) 100 mg HD IV ; Start 03/20/19 at 10:00 Latanoprost (Xalatan 0.005% Op Soln) 1 drop QHS OU Last administered on 03/24/19 21:45; Start 03/19/19 at 21:00 Magnesium Hydroxide (Milk Of Magnesia) 30 ml DAILYPRN PRN PO CONSTIPATION; Start 03/19/19 at 15:45 Memantine (Namenda) 5 mg QHS PO Last administered on 03/24/19 21:38; Start 03/19/19 at 21:00 Multivitamins (Theragram-M) 1 tab DAILY PO Last administered on 03/25/19 09:54; Start 03/20/19 at 09:00 Mycophenolate Mofetil (Cellcept) 500 mg BID PO ; Start 03/22/19 at 09:00; Stop 03/22/19 at 09:00; Status DC Mycophenolate Mofetil (Cellcept) 500 mg BID PO Last administered on 03/25/19 09:54; Start 03/22/19 at 09:00 Mycophenolate Mofetil (Cellcept) 500 mg BID PO ; Start 03/23/19 at 09:00; Stop 03/23/19 at 09:00; Status DC Pantoprazole Sodium (Protonix) 40 mg BID PO Last administered on 03/25/19 09:53; Start 03/19/19 at 21:00 Potassium Chloride (Micro-K Extencaps) 20 meq BID PO Last administered on 03/19/19 20:17; Start 03/19/19 at 21:00; Stop 03/20/19 at 10:02; Status DC Prednisone (Deltasone) 60 mg DAILY PO Last administered on 03/25/19 09:54; Start 03/20/19 at 09:00 Salmeterol Xinafoate/ Fluticasone (Advair Hfa 230/ 21) 2 puff BID INH Last administered on 03/25/19 06:59; Start 03/19/19 at 21:00 Senna (Senokot) 1 tab QHS PO Last administered on 03/24/19 21:38; Start 03/19/19 at 21:00 Sucralfate (Carafate) 1 gm AC PO Last administered on 03/24/19 16:43; Start 03/19/19 at 17:30; Stop 03/24/19 at 20:44; Status DC BRADLEY CORONA MD Mar 25, 2019 17:29
[2019-03-25 19:52] VITALS: BP 115/59
[2019-03-25] MEDS: SENNA 8.6 MG TAB (SENOKOT) PO SCH (20:20)
[2019-03-25] MEDS: MEMANTINE 5MG TABLET (NAMENDA) PO SCH (20:20)
[2019-03-25] MEDS: DONEPEZIL 5 MG TAB PO SCH (20:21)
[2019-03-25] MEDS: LATANOPROST 0.005% OPHTH SOLN 2.5 ML OU SCH (21:23)
[2019-03-26 05:49] VITALS: BP 161/76
[2019-03-26 06:44] LABS: HEMATOCRIT 28.8 % (36.0-47.0); HEMOGLOBIN 9.2 g/dl (12.0-15.5); MEAN CORPUSCULAR HEMOGLOBIN 30.8 pg (27.0-33.0); MEAN CORPUSCULAR HGB CONC 31.9 g/dl (32.0-36.5); MEAN CORPUSCULAR VOLUME 96.3 fl (80.0-96.0); PLATELET COUNT, AUTOMATED 188 10^3/uL (150-450); RED BLOOD COUNT 2.99 10^6/uL (4.00-5.40); WHITE BLOOD COUNT 25.3 10^3/uL (4.0-10.0)
[2019-03-26 07:08] LABS: CREATININE FOR GFR 4.05 MG/DL (0.55-1.30); GLOMERULAR FILTRATION RATE 11.2 (>32); POTASSIUM SERUM 3.9 MEQ/L (3.5-5.1)
[2019-03-26] MEDS: ADVAIR HFA 230/21MCG INHALER INH SCH ×2 (07:43→21:00)
[2019-03-26] MEDS: HEPARIN SOD (PORCINE) 5000 UNITS/ML VIAL SC SCH ×2 (07:48→20:39)
[2019-03-26] MEDS: CALCIUM ACETATE 667 MG GELCAP PO SCH ×3 (07:48→17:35)
[2019-03-26] MEDS: predniSONE 20 MG TAB PO SCH (07:48)
[2019-03-26] MEDS: DOCUSATE SODIUM 100 MG CAP PO SCH ×2 (07:48→20:40)
[2019-03-26] MEDS: MYCOPHENOLATE MOFETIL 250 MG CAP (J7517) PO SCH ×2 (07:48→20:39)
[2019-03-26] MEDS: CALCITRIOL 0.25 MCG CAP (S0169) PO SCH (07:49)
[2019-03-26] MEDS: DOXYCYCLINE HYCLATE 100 MG TAB PO SCH (07:49)
[2019-03-26] MEDS: ESCITALOPRAM OXALATE 10 MG TAB (LEXAPRO) PO SCH (07:49)
[2019-03-26] MEDS: MULTIVITAMINS/MINERALS THERAP 1 TAB PO SCH (07:49)
[2019-03-26] MEDS: GABAPENTIN 100 MG CAP PO SCH ×3 (07:49→20:39)
[2019-03-26] MEDS: PANTOPRAZOLE 40MG TAB (PROTONIX) PO SCH ×2 (07:49→20:39)
[2019-03-26] MEDS: ASPIRIN 81 MG CHEW TABLET PO SCH (07:49)
[2019-03-26] MEDS ORDERED: MYCOPHENOLATE MOFETIL 250 MG CAP (J7517) PO SCH (09:00)
--- NOTE | 2019-03-26 09:05 | IPN ---
DATE OF PROCEDURE: 03/24/2019 She is an 84-year-old female who is a patient on the acute rehabilitation unit. She has a history of polyneuropathy, renal failure and is receiving maintenance dialysis. She has dementia and continues on Aricept and Namenda. She is being treated for vasculitis, continues on prednisone. She was started on Cellcept by nephrology. She has anemia secondary to end-stage renal disease. She was sitting in the chair, feeling well. She had been slightly lightheaded earlier but was feeling better. Blood pressure 123/59, pulse 66, respiration 16, temperature 97.5. Patient was alert, oriented to person and place. Pupils equal and reactive to light. Pharynx, tongue, and gums pink and moist. Tongue is midline. Neck is supple. Chest clear to auscultation. Heart is regular. Abdomen benign. Bowel sounds positive. /Rectal: Not done. Extremities: No cyanosis, clubbing or edema. Peripheral pulses equal and palpable bilaterally. Skin is warm and dry. IMPRESSION/PLAN: 1. Rehabilitation physical therapy (PT), occupational therapy (OT). 2. Acute oliguric renal failure: Continue dialysis and treatment per nephrology. 3. Acute crescentic pauci-immune Anti-neutrophil cytoplasmic antibodies associated glomerulonephritis. She continues on prednisone and Cellcept. 4. Leukocytosis: Cultures negative. 5. Anemia secondary to end-stage renal disease: She received Aranesp with dialysis. 6. Secondary hyperparathyroidism: She continues on calcitriol. 7. 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 She continues on PhosLo. 8. Dizziness and lightheadedness improved this afternoon.
--- NOTE | 2019-03-26 10:05 | IPNPDOC ---
PM&R Progress Note DATE OF SERVICE: Mar 26, 2019 Head Of Sales Progress Note Subjective: Patient seen in her room stating this morning she was dizzy upon waking and had difficulty participating in therapy, but by the afternoon felt well enough to walk. REVIEW OF SYSTEMS: The following is a completed review of systems and has been reviewed. Review of systems otherwise unremarkable. PAIN: Patient self reports no pain EYES: No recent vision changes EARS, NOSE, & THROAT: No throat pain, or dysphagia, or rhinorrhea CARDIOVASCULAR: Denies chest pain or palpitations PULMONARY: Denies shortness of breath GASTROINTESTINAL: Denies constipation/diarrhea GENITOURINARY: oliguria MUSCULOSKELETAL: LE weakness NEUROLOGICAL:+dementia HEMATOLOGICAL: anemia SKIN: ecchymotic PSYCHIATRIC: Unremarkable All other review of systems found to be negative. PHYSICAL EXAMINATION: VITAL SIGNS: Please see below. GENERAL: Pleasant and cooperative. No acute distress. HEENT: PERRL. Extraocular movements intact. Clear conjunctiva CARDIOVASCULAR: Regular rate and rhythm. No murmurs, rubs, or gallops LUNGS: Clear to auscultation bilaterally. No wheezes. No rhonchi ABDOMEN: Soft, nontender, nondistended. Positive bowel sounds. Normal active bowel sounds NEUROLOGICAL: Alert and oriented to self and place, not time Cranial nerves II through XII grossly intact. Sensation grossly intact EXTREMITIES: 4+\5 strength bilateral upper extremities. 4\5 strength right lower extremity. 4/5 strength in left lower extremity. 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 PLAN: 1. 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 Neuro: avoid delirogenic meds - dementia- continue memantine and donepezil -c/u Lexapro for depression vs pseudo-depression- EKG today showing QTc 430, slightly increased from earlier EKG 3. CArdio: diastolic CHF with recent exacerbation on dialysis- medicine consulted to assist in management, c/u ASA, beta-ronnie held due to dizziness and intermittent orthostatics- fluid restrict 1800cc 4. Resp: recent CXrs showing bilateral effusions, s/p course of Cefuroxime and Doxycylcine for pneumonia- supplemental 02, c/u breathing treatments and steroids 5. 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 Heme: anemia of chronic disease, will transfuse if <8, venofer per renal recs- 8. GI ppx: protonix, will increase to BID and add sucralfate given she is on steroids, FOBT negative 9. DVT ppx: heparin and TEDs 10. Pain: tylenol prn and gabapentin 11. Dispo: 04/01/19 to home with family supervision Allergies Coded Allergies: No Known Allergies (Unverified , 04/25/18) Vital Signs Vital Signs Date Time Temp Pulse Resp B/P (MAP) Pulse Ox O2 Delivery O2 Flow Rate FiO2 03/26/19 05:49 97.3 66 18 161/76 (104) 96 Laboratory Data CBC/BMP Laboratory Tests 03/26/19 06:17 Red Blood Count 2.99 L, Mean Corpuscular Volume 96.3 H, Mean Corpuscular Hemoglobin 30.8, Mean Corpuscular Hemoglobin Concent 31.9 L, Red Cell Distribut ion Width 18.1 H, Calcium Level 8.0 L Labs 24H Laboratory Tests 2 03/26/19 06:17: Nucleated Red Blood Cells % (auto) 0.1H, Anion Gap 8, Glomerular Filtration Rate 11.2L, Blood Urea Nitrogen 55#H, Creatinine 4.05H, Sodium Level 138, Potassium Level 3.9, Chloride Level 101, Carbon Dioxide Level 29, Calcium Level 8.0L Current Medications Current Medications Current Medications Acetaminophen (Tylenol Tab) 650 mg Q4HP PRN PO fever/MILD PAIN (PS 1-4); Start 03/19/19 at 15:45 Aspirin (Aspirin Chewable) 81 mg DAILY PO Last administered on 03/26/19at 07:49; Start 03/20/19 at 09:00 Atenolol (Tenormin) 25 mg DAILY PO Last administered on 03/20/19at 13:20; Start 03/20/19 at 09:00; Stop 03/21/19 at 10:03; Status DC Bisacodyl (Dulcolax Suppository) 10 mg DAILYPRN PRN [place] CONSTIPATION; Start 03/19/19 at 15:45 Calcitriol (Rocaltrol) 0.25 mcg MoWeFr@0900 PO Last administered on 03/26/19 07:49; Start 03/24/19 at 09:00 Calcium Acetate (Phoslo) 667 mg WM PO Last administered on 03/26/19at 07:48; Start 03/20/19 at 12:30 Cefuroxime Axetil (Ceftin) 500 mg BID PO Last administered on 03/25/19at 20:20; Start 03/19/19 at 21:00; Stop 03/25/19 at 21:05; Status DC Darbepoetin Jaylen (Aranesp (Dialysis Use)) 100 mcg HD IV ; Start 03/20/19 at 10:00 Docusate Sodium (Colace) 100 mg BID PO Last administered on 03/26/19at 07:48; Start 03/19/19 at 21:00 Donepezil HCl (AriCEPT) 10 mg QHS PO Last administered on 03/25/19at 20:21; Start 03/19/19 at 21:00 Doxycycline Hyclate (Vibramycin) 100 mg BID PO Last administered on 03/26/19 07:49; Start 03/19/19 at 21:00; Stop 03/26/19 at 20:59 Escitalopram Oxalate (Lexapro) 10 mg DAILY PO Last administered on 03/26/19 07:49; Start 03/21/19 at 09:00 Gabapentin (Neurontin) 100 mg TID PO Last administered on 03/26/19 07:49; Start 03/19/19 at 16:00 Heparin Sodium (Porcine) (Heparin) 5,000 units Q12H SC Last administered on 03/26/19 07:48; Start 03/19/19 at 21:00 Home Med (Med Rec Complete!) ASDIRECTED XX ; Start 03/19/19 at 17:30; Stop 03/19/19 at 17:32; Status DC Iron (Venofer) 100 mg HD IV ; Start 03/20/19 at 10:00 Latanoprost (Xalatan 0.005% Op Soln) 1 drop QHS OU Last administered on 03/25/19at 21:23; Start 03/19/19 at 21:00 Magnesium Hydroxide (Milk Of Magnesia) 30 ml DAILYPRN PRN PO CONSTIPATION; Start 03/19/19 at 15:45 Memantine (Namenda) 5 mg QHS PO Last administered on 03/25/19at 20:20; Start 03/19/19 at 21:00 Miscellaneous (Unresolved Clarification Entry) SEE LABEL COMMENTS DAILY XX ; Start 03/25/19 at 09:00; Status UNV Multivitamins (Theragram-M) 1 tab DAILY PO Last administered on 03/26/19at 07:49; Start 03/20/19 at 09:00 Mycophenolate Mofetil (Cellcept) 500 mg BID PO ; Start 03/22/19 at 09:00; Stop 03/22/19 at 09:00; Status DC Mycophenolate Mofetil (Cellcept) 500 mg BID PO Last administered on 03/26/19at 07:48; Start 03/22/19 at 09:00; Stop 03/26/19 at 09:16; Status DC Mycophenolate Mofetil (Cellcept) 500 mg BID PO ; Start 03/23/19 at 09:00; Stop 03/23/19 at 09:00; Status DC Mycophenolate Mofetil (Cellcept) 750 mg BID PO ; Start 03/26/19 at 09:00; Stop 03/26/19 at 09:35; Status DC Mycophenolate Mofetil (Cellcept) 750 mg BID PO ; Start 03/26/19 at 21:00 Pantoprazole Sodium (Protonix) 40 mg BID PO Last administered on 03/26/19at 07:49; Start 03/19/19 at 21:00 Potassium Chloride (Micro-K Extencaps) 20 meq BID PO Last administered on 03/19/19at 20:17; Start 03/19/19 at 21:00; Stop 03/20/19 at 10:02; Status DC Prednisone (Deltasone) 60 mg DAILY PO Last administered on 03/26/19at 07:48; Start 03/20/19 at 09:00 Salmeterol Xinafoate/ Fluticasone (Advair Hfa 230/ 21) 2 puff BID INH Last administered on 03/26/19at 07:43; Start 03/19/19 at 21:00 Senna (Senokot) 1 tab QHS PO Last administered on 03/25/19at 20:20; Start 03/19/19 at 21:00 Sucralfate (Carafate) 1 gm AC PO Last administered on 03/24/19at 16:43; Start 03/19/19 at 17:30; Stop 03/24/19 at 20:44; Status DC BRADLEY CORONA MD Mar 26, 2019 10:05
--- NOTE | 2019-03-26 11:18 | IPNPDOC ---
Date Seen The patient was seen on 03/26/19. Progress Note SUBJECTIVE: Patient was seen and examined this morning at bedside. There have been no adverse events reported overnight. She currently has no new complaints. Patient is receiving CellCept and her dose was recently increased. She has denied any adverse medication side effects. OBJECTIVE PHYSICAL EXAMINATION: VITAL SIGNS: Please see below. GENERAL: Awake, alert, and oriented. In no acute distress. Lying comfortably in bed. She is pleasant and conversive HEENT: Atraumatic normocephalic. Eyes are nonicteric. trachea is midline. CARDIOVASCULAR: normal S1, S2. Regular rate and rhythm. No clicks, rubs, or murmurs. No edema in bilateral lower extremities. Tunneled right chest wall hemodialysis catheter in place. RESPIRATORY: Clear vesicular lung sounds bilaterally. No wheezes, rhonci, or rales ABDOMINAL: Soft, nondistended. Nontender to palpation. Positive bowel sounds throughout EXTREMITIES: No edema. NEUROLOGICAL: No focal neurological deficits LABORATORY DATA, IMAGING STUDIES, MICROBIOLOGY: Please see below. ASSESSMENT AND PLAN: 1. 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 She is currently dialysis dependent. She follows a Sunday, , Sunday schedule. She has received dialysis yesterday and tolerated well. She currently does not show any improvement in renal function. 2. 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 If she is able to tolerate this medication, plan would be to increase CellCept to 1g BID. She is still receiving 60 mg Prednisone. We will begin to taper her off of Prednisone over the next 2 weeks. 3. Leukocytosis: Patient remains culture negative. She remains afebrile. Her leukocytosis is likely secondary to steroids. She is on Day 7 of Doxycycline. Her last dose of Doxycycline will be this evening 4. Anemia: Patient is anemic likely secondary from ESRD. Her hemoglobin remains stable. She is receiving Aranesp with dialysis will continue DISPOSITION: Patient is currently working with physical therapy. She will need outpatient arrangements for hemodialysis before discharge VS, I&O, 24H, Fishbone Vital Signs/I&O Vital Signs Date Time Temp Pulse Resp B/P (MAP) Pulse Ox O2 Delivery O2 Flow Rate FiO2 7/24/19 05:49 97.3 66 18 161/76 (104) 96 I&O- Last 24 Hours up to 6 AM 03/26/19 06:00 Intake Total 1100 ml Output Total 1500 ml Balance -400 ml Laboratory Data 24H LABS Laboratory Tests 2 03/26/19 06:17: Nucleated Red Blood Cells % (auto) 0.1H, Anion Gap 8, Glomerular Filtration Rate 11.2L, Blood Urea Nitrogen 55#H, Creatinine 4.05H, Sodium Level 138, Potassium Level 3.9, Chloride Level 101, Carbon Dioxide Level 29, Calcium Level 8.0L CBC/BMP Laboratory Tests 03/26/19 06:17 Red Blood Count 2.99 L, Mean Corpuscular Volume 96.3 H, Mean Corpuscular Hemoglobin 30.8, Mean Corpuscular Hemoglobin Concent 31.9 L, Red Cell Distribution Width 18.1 H, Calcium Level 8.0 L GME ATTESTATION GME ATTESTATION My faculty preceptor for this patient encounter was physically present during the encounter and was fully available. All aspects of the patient interview, examination, medical decision making process, and medical care plan development were reviewed and approved by the faculty preceptor. The faculty preceptor is aware and concurs with the plan as stated in the body of this note and will attest to such by his/her cosignature. DENIZ DAUGHERTY DO Mar 26, 2019 11:18
[2019-03-26 14:00] VITALS: BP 119/57
--- NOTE | 2019-03-26 15:13 | IPNPDOC ---
PM&R Progress Note DATE OF SERVICE: Mar 26, 2019 [employer] Attendant Progress Note DATE OF ADMISSION: Mar 19, 2019 at 15:45 INPATIENT REHABILITATION ADMISSION DAY: # SUBJECTIVE: Patient is a -year-old with . ALLERGIES: See Below MEDICATIONS: Reviewed, see below. OBJECTIVE: VITAL SIGNS: Please see below. PHYSICAL EXAMINATION: GENERAL: [Cachectic, well developed, sitting up in bed, no acute distress]. HEENT: [Normocephalic, atraumatic]. [No facial droop]. [Poor dentition, missing teeth. PERRL, EOMI]. CARDIOVASCULAR: [S1, S2, irregular rate]. [No lower limb edema or calf tenderness]. LUNGS: [Decreased breath sounds, coarse throughout]. ABDOMEN: [Soft, nontender, nondistended. Normoactive bowel sounds throughout]. MUSCULOSKELETAL: MMT: /5 strength proximally bilateral shoulder abduction, forward flexion and bilateral hip flexion. /5 strength bilateral elbow flexion, knee flexion, /5 bilateral elbow extension and knee extension. /5 advice nurse, dorsiflexion, plantar flexion. NEUROLOGICAL: [Alert and oriented times three]. [Answers all question appropriately]. SKIN: . LABORATORY DATA: Reviewed. Please see below. MICROBIOLOGY: Please see below. IMAGING: ASSESSMENT AND PLAN: 1. . 2. . 3. . TIME SPENT: Chart Review, examination and documentation minutes. Allergies Coded Allergies: No Known Allergies (Unverified , 04/25/18) Vital Signs Vital Signs Date Time Temp Pulse Resp B/P (MAP) Pulse Ox O2 Delivery O2 Flow Rate FiO2 03/26/19 14:00 97.2 68 17 119/57 (77) 97 Laboratory Data CBC/BMP Laboratory Tests 03/26/19 06:17 Red Blood Count 2.99 L, Mean Corpuscular Volume 96.3 H, Mean Corpuscular Hemoglobin 30.8, Mean Corpuscular Hemoglobin Concent 31.9 L, Red Cell Distribution Width 18.1 H, Calcium Level 8.0 L Labs 24H Laboratory Tests 2 03/26/19 06:17: Nucleated Red Blood Cells % (auto) 0.1H, Anion Gap 8, Glomerular Filtration Rate 11.2L, Blood Urea Nitrogen 55#H, Creatinine 4.05H, Sodium Level 138, Potassium Level 3.9, Chloride Level 101, Carbon Dioxide Level 29, Calcium Level 8.0L Microbiology Microbiology 03/26/19 Stool Occult Blood (ZEUS) - Final, Complete Current Medications Current Medications Current Medications Acetaminophen (Tylenol Tab) 650 mg Q4HP PRN PO fever/MILD PAIN (PS 1-4); Start 03/19/19 at 15:45 Aspirin (Aspirin Chewable) 81 mg DAILY PO Last administered on 03/26/19 07:49; Start 03/20/19 at 09:00 Atenolol (Tenormin) 25 mg DAILY PO Last administered on 03/20/19at 13:20; Start 03/20/19 at 09:00; Stop 03/21/19 at 10:03; Status DC Bisacodyl (Dulcolax Suppository) 10 mg DAILYPRN PRN [place] CONSTIPATION; Start 03/19/19 at 15:45 Calcitriol (Rocaltrol) 0.25 mcg MoWeFr@0900 PO Last administered on 03/26/19 07:49; Start 03/24/19 at 09:00 Calcium Acetate (Phoslo) 667 mg WM PO Last administered on 03/26/19at 12:55; Start 03/20/19 at 12:30 Cefuroxime Axetil (Ceftin) 500 mg BID PO Last administered on 03/25/19 20:20; Start 03/19/19 at 21:00; Stop 03/25/19 at 21:05; Status DC Darbepoetin Jaylen (Aranesp (Dialysis Use)) 100 mcg HD IV ; Start 03/20/19 at 10:00 Docusate Sodium (Colace) 100 mg BID PO Last administered on 03/26/19 07:48; Start 03/19/19 at 21:00 Donepezil HCl (AriCEPT) 10 mg QHS PO Last administered on 03/25/19 20:21; Start 03/19/19 at 21:00 Doxycycline Hyclate (Vibramycin) 100 mg BID PO Last administered on 03/26/19 07:49; Start 03/19/19 at 21:00; Stop 03/26/19 at 20:59 Escitalopram Oxalate (Lexapro) 10 mg DAILY PO Last administered on 03/26/19 07:49; Start 03/21/19 at 09:00 Gabapentin (Neurontin) 100 mg TID PO Last administered on 7/24/19at 07:49; Start 03/19/19 at 16:00 Heparin Sodium (Porcine) (Heparin) 5,000 units Q12H SC Last administered on 03/26/19at 07:48; Start 03/19/19 at 21:00 Home Med (Med Rec Complete!) ASDIRECTED XX ; Start 03/19/19 at 17:30; Stop 03/19/19 at 17:32; Status DC Iron (Venofer) 100 mg HD IV ; Start 03/20/19 at 10:00 Latanoprost (Xalatan 0.005% Op Soln) 1 drop QHS OU Last administered on 03/25/19at 21:23; Start 03/19/19 at 21:00 Magnesium Hydroxide (Milk Of Magnesia) 30 ml DAILYPRN PRN PO CONSTIPATION; Start 03/19/19 at 15:45 Memantine (Namenda) 5 mg QHS PO Last administered on 03/25/19at 20:20; Start 03/19/19 at 21:00 Miscellaneous (Unresolved Clarification Entry) SEE LABEL COMMENTS DAILY XX ; Start 03/25/19 at 09:00; Status UNV Multivitamins (Theragram-M) 1 tab DAILY PO Last administered on 03/26/19at 07:49; Start 03/20/19 at 09:00 Mycophenolate Mofetil (Cellcept) 500 mg BID PO ; Start 03/22/19 at 09:00; Stop 03/22/19 at 09:00; Status DC Mycophenolate Mofetil (Cellcept) 500 mg BID PO Last administered on 03/26/19at 07:48; Start 03/22/19 at 09:00; Stop 03/26/19 at 09:16; Status DC Mycophenolate Mofetil (Cellcept) 500 mg BID PO ; Start 03/23/19 at 09:00; Stop 03/23/19 at 09:00; Status DC Mycophenolate Mofetil (Cellcept) 750 mg BID PO ; Start 03/26/19 at 09:00; Stop 03/26/19 at 09:35; Status DC Mycophenolate Mofetil (Cellcept) 750 mg BID PO ; Start 03/26/19 at 21:00 Pantoprazole Sodium (Protonix) 40 mg BID PO Last administered on 03/26/19at 07:49; Start 03/19/19 at 21:00 Potassium Chloride (Micro-K Extencaps) 20 meq BID PO Last administered on 03/19/19 20:17; Start 03/19/19 at 21:00; Stop 03/20/19 at 10:02; Status DC Prednisone (Deltasone) 60 mg DAILY PO Last administered on 03/26/19 07:48; Start 03/20/19 at 09:00 Salmeterol Xinafoate/ Fluticasone (Advair Hfa 230/ 21) 2 puff BID INH Last administered on 03/26/19 07:43; Start 03/19/19 at 21:00 Senna (Senokot) 1 tab QHS PO Last administered on 03/25/19 20:20; Start 03/19 at 21:00 Sucralfate (Carafate) 1 gm AC PO Last administered on 03/24/19at 16:43; Start 03/19/19 at 17:30; Stop 03/24/19 at 20:44; Status DC BRADLEY CORONA MD Mar 26, 2019 15:13
--- NOTE | 2019-03-26 15:36 | NUR ---
Pt w/ mild cognitive impairment w/ deficits noted in working memory, short term memory, and visuospatial skills. Recommend cognitive tx targeting these skills and to review new concepts learned in PT/OT for functional carryover and safe return to home environment. Addendum: 03/26/19 at 1537 by GREG KUMAR [facility] SP Amended: Links added.
--- NOTE | 2019-03-26 17:04 | ECGEPIP ---
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
[2019-03-26 20:00] VITALS: BP 120/58
[2019-03-26] MEDS: DONEPEZIL 5 MG TAB PO SCH (20:38)
[2019-03-26] MEDS: MEMANTINE 5MG TABLET (NAMENDA) PO SCH (20:38)
[2019-03-26] MEDS: LATANOPROST 0.005% OPHTH SOLN 2.5 ML OU SCH (20:40)
[2019-03-26] MEDS: SENNA 8.6 MG TAB (SENOKOT) PO SCH (20:40)
[2019-03-27 06:00] VITALS: BP 147/67
[2019-03-27] MEDS: HEPARIN SOD (PORCINE) 5000 UNITS/ML VIAL SC SCH ×2 (06:07→20:42)
[2019-03-27] MEDS: MYCOPHENOLATE MOFETIL 250 MG CAP (J7517) PO SCH ×2 (06:07→20:43)
[2019-03-27] MEDS: PANTOPRAZOLE 40MG TAB (PROTONIX) PO SCH ×2 (06:08→20:42)
[2019-03-27] MEDS: ESCITALOPRAM OXALATE 10 MG TAB (LEXAPRO) PO SCH (06:08)
[2019-03-27] MEDS: predniSONE 20 MG TAB PO SCH (06:09)
[2019-03-27 06:28] LABS: HEMATOCRIT 30.1 % (36.0-47.0); HEMOGLOBIN 9.5 g/dl (12.0-15.5); MEAN CORPUSCULAR HGB CONC 31.6 g/dl (32.0-36.5); MEAN CORPUSCULAR VOLUME 98.4 fl (80.0-96.0); PLATELET COUNT, AUTOMATED 197 10^3/uL (150-450); RED BLOOD COUNT 3.06 10^6/uL (4.00-5.40); WHITE BLOOD COUNT 24.2 10^3/uL (4.0-10.0)
[2019-03-27 06:53] LABS: CALCIUM LEVEL 8.2 MG/DL (8.8-10.2); CREATININE FOR GFR 5.3 MG/DL (0.55-1.30); GLOMERULAR FILTRATION RATE 8.2 (>32); POTASSIUM SERUM 4.3 MEQ/L (3.5-5.1)
[2019-03-27] MEDS: ADVAIR HFA 230/21MCG INHALER INH SCH (07:46)
[2019-03-27] MEDS: MULTIVITAMINS/MINERALS THERAP 1 TAB PO SCH (07:53)
[2019-03-27] MEDS: ASPIRIN 81 MG CHEW TABLET PO SCH (07:54)
[2019-03-27] MEDS: DOCUSATE SODIUM 100 MG CAP PO SCH ×2 (07:54→20:42)
[2019-03-27] MEDS: GABAPENTIN 100 MG CAP PO SCH ×3 (07:54→20:42)
[2019-03-27] MEDS: CALCIUM ACETATE 667 MG GELCAP PO SCH ×3 (07:54→17:42)
[2019-03-27] MEDS ORDERED: HEPARIN 1,000 UNITS/ML 10ML VIAL (FOR RADIOLOGY& DIALYSIS ONLY) XX ONE (11:00)
[2019-03-27] MEDS: ACETAMINOPHEN TAB 650MG DOSE (2X325MG) PO PRN ×2 (15:19→20:43)
--- NOTE | 2019-03-27 16:30 | IPNPDOC ---
PM&R Progress Note DATE OF SERVICE: Mar 27, 2019 [employer] Progress Note Subjective: Patient seen in bed stating regina did not feel dizzy today and that she was trying to eat as much as she could before dialysis to keep her energy up. REVIEW OF SYSTEMS: The following is a completed review of systems and has been reviewed. Review of systems otherwise unremarkable. PAIN: Patient self reports no pain EYES: No recent vision changes EARS, NOSE, & THROAT: No throat pain, or dysphagia, or rhinorrhea CARDIOVASCULAR: Denies chest pain or palpitations PULMONARY: Denies shortness of breath GASTROINTESTINAL: Denies constipation/diarrhea GENITOURINARY: oliguria MUSCULOSKELETAL: LE weakness NEUROLOGICAL:+dementia HEMATOLOGICAL: anemia SKIN: ecchymotic PSYCHIATRIC: Unremarkable All other review of systems found to be negative. PHYSICAL EXAMINATION: VITAL SIGNS: Please see below. GENERAL: Pleasant and cooperative. No acute distress. HEENT: PERRL. Extraocular movements intact. Clear conjunctiva CARDIOVASCULAR: Regular rate and rhythm. No murmurs, rubs, or gallops LUNGS: Clear to auscultation bilaterally. No wheezes. No rhonchi ABDOMEN: Soft, nontender, nondistended. Positive bowel sounds. Normal active bowel sounds NEUROLOGICAL: Alert and oriented to self and place, not time Cranial nerves II through XII grossly intact. Sensation grossly intact EXTREMITIES: 4+\5 strength bilateral upper extremities. 4\5 strength right lower extremity. 4/5 strength in left lower extremity. 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 PLAN: 1. 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 Neuro: avoid delirogenic meds - dementia- continue memantine and donepezil -c/u Lexapro for depression vs pseudo-depression- EKG 03/26/19 showing QTc 430, slightly increased from earlier EKG 3. CArdio: diastolic CHF with recent exacerbation on dialysis- medicine consulted to assist in management, c/u ASA, beta-ronnie held due to dizziness and intermittent orthostatics- fluid restrict 1800cc 4. Resp: recent CXrs showing bilateral effusions, s/p course of Cefuroxime and Doxycycline for pneumonia- supplemental 02, c/u breathing treatments and steroids 5. 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 Heme: anemia of chronic disease, will transfuse if <8, venofer per renal recs- 8. GI ppx: protonix, will increase to BID and add sucralfate given she is on steroids, FOBT negative 9. DVT ppx: heparin and TEDs 10. Pain: tylenol prn and gabapentin 11. Dispo: 04/01/19 to home will need 26/03 supervision Allergies Coded Allergies: No Known Allergies (Unverified , 04/25/18) Vital Signs Vital Signs Date Time Temp Pulse Resp B/P (MAP) Pulse Ox O2 Delivery O2 Flow Rate FiO2 03/27/19 06:00 97.5 64 18 147/67 (93) 98 Laboratory Data CBC/BMP Laboratory Tests 03/27/19 06:02 Red Blood Count 3.06 L, Mean Corpuscular Volume 98.4 H, Mean Corpuscular Hemoglobin 31.0, Mean Corpuscular Hemoglobin Concent 31.6 L, Red Cell Distribution Width 18.5 H, Calcium Level 8.2 L Labs 24H Laboratory Tests 2 03/27/19 06:02: Nucleated Red Blood Cells % (auto) 0.1H, Anion Gap 9, Glomerular Filtration Rate 8.2L, Blood Urea Nitrogen 83#H, Creatinine 5.30H, Sodium Level 139, Potassium Level 4.3, Chloride Level 103, Carbon Dioxide Level 27, Calcium Level 8.2L Microbiology Microbiology 03/26/19 Stool Occult Blood (ZEUS) - Final, Complete Current Medications Current Medications Current Medications Medications (Trade) Dose Ordered Sig/Letty Route PRN Reason Start Time Stop Time Status Last Admin Dose Admin Acetaminophen (Tylenol Tab) 650 mg Q4HP PRN PO fever/MILD PAIN (PS 1-4) 03/19/19 15:45 03/27/19 15:19 Aspirin (Aspirin Chewable) 81 mg DAILY PO 03/20/19 09:00 03/27/19 07:54 Atenolol (Tenormin) 25 mg DAILY PO 03/20/19 09:00 03/21/19 10:03 DC 03/20/19 13:20 Bisacodyl (Dulcolax Suppository) 10 mg DAILYPRN PRN OR CONSTIPATION 03/19/19 15:45 Calcitriol (Rocaltrol) 0.25 mcg MoWeFr@0900 PO 03/24/19 09:00 03/26/19 07:49 Calcium Acetate (Phoslo) 667 mg WM PO 03/20/19 12:30 03/27/19 12:00 Cefuroxime Axetil (Ceftin) 500 mg BID PO 03/19/19 21:00 03/25/19 21:05 DC 03/25/19 20:20 Darbepoetin Jaylen (Aranesp (Dialysis Use)) 100 mcg HD IV 03/20/19 10:00 Docusate Sodium (Colace) 100 mg BID PO 03/19/19 21:00 03/26/19 07:48 Donepezil HCl (AriCEPT) 10 mg QHS PO 03/19/19 21:00 03/26/19 20:38 Doxycycline Hyclate (Vibramycin) 100 mg BID PO 03/19/19 21:00 03/26/19 20:59 DC 03/26/19 07:49 Escitalopram Oxalate (Lexapro) 10 mg DAILY PO 03/21/19 09:00 03/27/19 06:08 Gabapentin (Neurontin) 100 mg TID PO 03/19/19 16:00 03/27/19 15:19 Heparin Sodium (Porcine) (Heparin) 5,000 units Q12H SC 03/19/19 21:00 03/27/19 06:07 Home Med (Med Rec Complete!) ASDIRECTED XX 03/19/19 17:30 03/19/19 17:32 DC Iron (Venofer) 100 mg HD IV 03/20/19 10:00 Latanoprost (Xalatan 0.005% Op Soln) 1 drop QHS OU 03/19/19 21:00 03/26/19 20:40 Magnesium Hydroxide (Milk Of Magnesia) 30 ml DAILYPRN PRN PO CONSTIPATION 03/19/19 15:45 Memantine (Namenda) 5 mg QHS PO 03/19/19 21:00 03/26/19 20:38 Miscellaneous (Unresolved Clarification Entry) SEE LABEL COMMENTS DAILY XX 03/25/19 09:00 UNV Multivitamins (Theragram-M) 1 tab DAILY PO 03/20/19 09:00 03/27/19 07:53 Mycophenolate Mofetil (Cellcept) 500 mg BID PO 03/22/19 09:00 03/22/19 09:00 DC Mycophenolate Mofetil (Cellcept) 500 mg BID PO 03/22/19 09:00 03/26/19 09:16 DC 03/26/19 07:48 Mycophenolate Mofetil (Cellcept) 500 mg BID PO 03/23/19 09:00 03/23/19 09:00 DC Mycophenolate Mofetil (Cellcept) 750 mg BID PO 03/26/19 09:00 03/26/19 09:35 DC Mycophenolate Mofetil (Cellcept) 750 mg BID PO 03/26/19 21:00 03/27/19 06:07 Pantoprazole Sodium (Protonix) 40 mg BID PO 03/19/19 21:00 03/27/19 06:08 Potassium Chloride (Micro-K Extencaps) 20 meq BID PO 03/19/19 21:00 03/20/19 10:02 DC 03/19/19 20:17 Prednisone (Deltasone) 60 mg DAILY PO 03/20/19 09:00 03/27/19 06:09 Salmeterol Xinafoate/ Fluticasone (Advair Hfa 230/ 21) 2 puff BID INH 03/19/19 21:00 03/27/19 07:46 Senna (Senokot) 1 tab QHS PO 03/19/19 21:00 03/25/19 20:20 Sucralfate (Carafate) 1 gm AC PO 03/19/19 17:30 03/24/19 20:44 DC 03/24/19 16:43 BRADLEY CORONA MD Mar 27, 2019 16:30
--- NOTE | 2019-03-27 16:57 | IPN ---
DATE: 03/27/2019 SUBJECTIVE: Patient was seen and examined this morning at bedside. There have been no adverse events reported overnight. Patient currently has no new complaints. She was started on CellCept. Dose is increased to 750 mg twice a day yesterday. She is tolerating this well. She is denying any adverse medication side effects. OBJECTIVE: VITAL SIGNS: Temperature 97.1, pulse 57, respiratory rate 18, blood pressure 120/58, pulse oximetry 97% on room air. GENERAL: Patient is awake, alert and oriented. She is not in acute distress. She is sitting comfortably in the chair in her room. She is pleasant and conversant. HEENT: Atraumatic, normocephalic. Eyes are nonicteric. Trachea is midline. CARDIOVASCULAR: Normal S1, S2. Regular rate and rhythm. No clicks, rubs or murmurs. She has a tunneled right chest wall hemodialysis catheter currently in place. RESPIRATORY: Clear vesicular lung sounds bilaterally. No wheezes, rhonchi or rales. ABDOMINAL: Soft, nondistended. Nontender to palpation. Positive bowel sounds throughout. EXTREMITIES: No edema in bilateral lower extremities. 2+ posterior tibial pulses. NEUROLOGICAL: No focal neurologic deficits noted. LABORATORY: Hematology: White blood cells 24.2, hemoglobin 9.5, hematocrit 30.1, platelet count 197. Chemistries: Sodium 139, potassium 4.3, chloride 103, carbon dioxide 27, BUN 83, creatinine 5.3, GFR 8.2, fasting glucose 74, calcium 8.2. ASSESSMENT AND PLAN: 1. Acute oliguric renal failure. 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 She remains dialysis dependent. She has not shown any renal improvement. She follows a Sunday, , Sunday schedule. The patient plans to receive dialysis today. Previously, she has had fluid removed and became dizzy. Will plan to remove between 500 mL to 1 liter during dialysis. 2. Acute crescentic pauci-immune ANCA-associated glomerulonephritis. Patient was started on CellCept. Her dose is increased to 750 mg twice a day. She has tolerated this medication well. Plan is to increase CellCept to 1 gram twice a day. She will continue to be tapered off her prednisone over the next two weeks. 3. Leukocytosis. Patient currently remains culture negative. She remains afebrile. She is still on steroids. She is currently not on doxycycline anymore. 4. Anemia. Patient is likely anemia secondary to end-stage renal disease. Her hemoglobin does remain stable. She is receiving Aranesp with dialysis. DISPOSITION: Patient continues to work with physical therapy. As stated before, she will need outpatient arrangements for hemodialysis before discharge. MTDD
[2019-03-27 20:00] VITALS: BP 102/57
[2019-03-27] MEDS: DONEPEZIL 5 MG TAB PO SCH (20:42)
[2019-03-27] MEDS: MEMANTINE 5MG TABLET (NAMENDA) PO SCH (20:42)
[2019-03-27] MEDS: SENNA 8.6 MG TAB (SENOKOT) PO SCH (20:42)
[2019-03-27] MEDS: LATANOPROST 0.005% OPHTH SOLN 2.5 ML OU SCH (20:45)
[2019-03-28 06:00] VITALS: BP 128/60
[2019-03-28 06:47] LABS: HEMATOCRIT 28.6 % (36.0-47.0); HEMOGLOBIN 9.1 g/dl (12.0-15.5); MEAN CORPUSCULAR HEMOGLOBIN 31.4 pg (27.0-33.0); MEAN CORPUSCULAR HGB CONC 31.8 g/dl (32.0-36.5); MEAN CORPUSCULAR VOLUME 98.6 fl (80.0-96.0); PLATELET COUNT, AUTOMATED 157 10^3/uL (150-450); WHITE BLOOD COUNT 23.1 10^3/uL (4.0-10.0)
[2019-03-28] MEDS: ADVAIR HFA 230/21MCG INHALER INH SCH ×2 (07:04→18:22)
[2019-03-28 07:15] LABS: CALCIUM LEVEL 8.1 MG/DL (8.8-10.2); CREATININE FOR GFR 3.72 MG/DL (0.55-1.30); GLOMERULAR FILTRATION RATE 12.4 (>32); POTASSIUM SERUM 3.9 MEQ/L (3.5-5.1)
--- NOTE | 2019-03-28 10:35 | IPNPDOC ---
PM&R Progress Note DATE OF SERVICE: Mar 28, 2019 [employer] Inspector Progress Note Subjective: Patient seen in room with daughter bedside stating she agrees she thinks she will need supervision at home for a while and daughter said this oculd be arran ged between all of the children. REVIEW OF SYSTEMS: The following is a completed review of systems and has been reviewed. Review of systems otherwise unremarkable. PAIN: Patient self reports no pain EYES: No recent vision changes EARS, NOSE, & THROAT: No throat pain, or dysphagia, or rhinorrhea CARDIOVASCULAR: Denies chest pain or palpitations PULMONARY: Denies shortness of breath GASTROINTESTINAL: Denies constipation/diarrhea GENITOURINARY: oliguria MUSCULOSKELETAL: LE weakness NEUROLOGICAL:+dementia HEMATOLOGICAL: anemia SKIN: ecchymotic PSYCHIATRIC: Unremarkable All other review of systems found to be negative. PHYSICAL EXAMINATION: VITAL SIGNS: Please see below. GENERAL: Pleasant and cooperative. No acute distress. HEENT: PERRL. Extraocular movements intact. Clear conjunctiva CARDIOVASCULAR: Regular rate and rhythm. No murmurs, rubs, or gallops LUNGS: Clear to auscultation bilaterally. No wheezes. No rhonchi ABDOMEN: Soft, nontender, nondistended. Positive bowel sounds. Normal active bowel sounds NEUROLOGICAL: Alert and oriented to self and place, not time Cranial nerves II through XII grossly intact. Sensation grossly intact EXTREMITIES: 4+\5 strength bilateral upper extremities. 4\5 strength right lower extremity. 4/5 strength in left lower extremity. 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 PLAN: 1. 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 Neuro: avoid delirogenic meds - dementia- continue memantine and donepezil -c/u Lexapro for depression vs pseudo-depression- EKG 03/26/19 showing QTc 430, slightly increased from earlier EKG 3. CArdio: diastolic CHF with recent exacerbation on dialysis- medicine consulted to assist in management, c/u ASA, beta-ronnie held due to dizziness and intermittent orthostatics- fluid restrict 1800cc 4. Resp: recent CXrs showing bilateral effusions, s/p course of Cefuroxime and Doxycycline for pneumonia- supplemental 02, c/u breathing treatments and steroids 5. 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 Heme: anemia of chronic disease, will transfuse if <8, venofer per renal recs- 8. GI ppx: protonix, will increase to BID and add sucralfate given she is on steroids, FOBT negative 9. DVT ppx: heparin and TEDs 10. Pain: tylenol prn and gabapentin 11. Dispo: 04/02/19 to home will need 26/03 supervision Allergies Coded Allergies: No Known Allergies (Unverified , 04/25/18) Vital Signs Vital Signs Date Time Temp Pulse Resp B/P (MAP) Pulse Ox O2 Delivery O2 Flow Rate FiO2 03/28/19 06:00 99.1 75 16 128/60 (82) 98 Laboratory Data CBC/BMP Laboratory Tests 03/28/19 06:31 Red Blood Count 2.90 L, Mean Corpuscular Volume 98.6 H, Mean Corpuscular Hemoglobin 31.4, Mean Corpuscular Hemoglobin Concent 31.8 L, Red Cell Distribution Width 19.0 H, Calcium Level 8.1 L Labs 24H Laboratory Tests 2 03/28/19 06:31: Nucleated Red Blood Cells % (auto) 0.0, Anion Gap 8, Glomerular Filtration Rate 12.4L, Blood Urea Nitrogen 46H, Creatinine 3.72H, Sodium Level 140, Potassium Level 3.9, Chloride Level 104, Carbon Dioxide Level 28, Calcium Level 8.1L Microbiology Microbiology 03/26/19 Stool Occult Blood (ZEUS) - Final, Complete Current Medications Current Medications Current Medications Medications (Trade) Dose Ordered Sig/Letty Route PRN Reason Start Time Stop Time Status Last Admin Dose Admin Acetaminophen (Tylenol Tab) 650 mg Q4HP PRN PO fever/MILD PAIN (PS 1-4) 03/19/19 15:45 03/27/19 20:43 Aspirin (Aspirin Chewable) 81 mg DAILY PO 03/20/19 09:00 03/27/19 07:54 Atenolol (Tenormin) 25 mg DAILY PO 03/20/19 09:00 03/21/19 10:03 DC 03/20/19 13:20 Bisacodyl (Dulcolax Suppository) 10 mg DAILYPRN PRN ND CONSTIPATION 03/19/19 15:45 Calcitriol (Rocaltrol) 0.25 mcg MoWeFr@0900 PO 03/24/19 09:00 03/26/19 07:49 Calcium Acetate (Phoslo) 667 mg WM PO 03/20/19 12:30 03/27/19 17:42 Cefuroxime Axetil (Ceftin) 500 mg BID PO 03/19/19 21:00 03/25/19 21:05 DC 03/25/19 20:20 Darbepoetin Jaylen (Aranesp (Dialysis Use)) 100 mcg HD IV 03/20/19 10:00 Docusate Sodium (Colace) 100 mg BID PO 03/19/19 21:00 03/27/19 20:42 Donepezil HCl (AriCEPT) 10 mg QHS PO 03/19/19 21:00 03/27/19 20:42 Doxycycline Hyclate (Vibramycin) 100 mg BID PO 03/19/19 21:00 03/26/19 20:59 DC 03/26/19 07:49 Escitalopram Oxalate (Lexapro) 10 mg DAILY PO 03/21/19 09:00 03/27/19 06:08 Gabapentin (Neurontin) 100 mg TID PO 03/19/19 16:00 03/27/19 20:42 Heparin Sodium (Porcine) (Heparin) 5,000 units Q12H SC 03/19/19 21:00 03/27/19 20:42 Home Med (Med Rec Complete!) ASDIRECTED XX 03/19/19 17:30 03/19/19 17:32 DC Iron (Venofer) 100 mg HD IV 03/20/19 10:00 Latanoprost (Xalatan 0.005% Op Soln) 1 drop QHS OU 03/19/19 21:00 03/27/19 20:45 Magnesium Hydroxide (Milk Of Magnesia) 30 ml DAILYPRN PRN PO CONSTIPATION 03/19/19 15:45 Memantine (Namenda) 5 mg QHS PO 03/19/19 21:00 03/27/19 20:42 Miscellaneous (Unresolved Clarification Entry) SEE LABEL COMMENTS DAILY XX 03/25/19 09:00 UNV Multivitamins (Theragram-M) 1 tab DAILY PO 03/20/19 09:00 03/27/19 07:53 Mycophenolate Mofetil (Cellcept) 500 mg BID PO 03/22/19 09:00 03/22/19 09:00 DC Mycophenolate Mofetil (Cellcept) 500 mg BID PO 03/22/19 09:00 03/26/19 09:16 DC 03/26/19 07:48 Mycophenolate Mofetil (Cellcept) 500 mg BID PO 03/23/19 09:00 03/23/19 09:00 DC Mycophenolate Mofetil (Cellcept) 750 mg BID PO 03/26/19 09:00 03/26/19 09:35 DC Mycophenolate Mofetil (Cellcept) 750 mg BID PO 03/26/19 21:00 03/27/19 20:43 Pantoprazole Sodium (Protonix) 40 mg BID PO 03/19/19 21:00 03/27/19 20:42 Potassium Chloride (Micro-K Extencaps) 20 meq BID PO 03/19/19 21:00 03/20/19 10:02 DC 03/19/19 20:17 Prednisone (Deltasone) 60 mg DAILY PO 03/20/19 09:00 03/27/19 06:09 Salmeterol Xinafoate/ Fluticasone (Advair Hfa 230/ 21) 2 puff BID INH 03/19/19 21:00 03/28/19 07:04 Senna (Senokot) 1 tab QHS PO 03/19/19 21:00 03/27/19 20:42 Sucralfate (Carafate) 1 gm AC PO 03/19/19 17:30 03/24/19 20:44 DC 03/24/19 16:43 BRADLEY CORONA MD Mar 28, 2019 10:35
[2019-03-28] MEDS: predniSONE 20 MG TAB PO SCH (11:05)
[2019-03-28] MEDS: GABAPENTIN 100 MG CAP PO SCH ×3 (11:05→20:16)
[2019-03-28] MEDS: PANTOPRAZOLE 40MG TAB (PROTONIX) PO SCH ×2 (11:05→20:16)
[2019-03-28] MEDS: DOCUSATE SODIUM 100 MG CAP PO SCH ×2 (11:06→20:15)
[2019-03-28] MEDS: MYCOPHENOLATE MOFETIL 250 MG CAP (J7517) PO SCH ×2 (11:06→20:15)
[2019-03-28] MEDS: CALCITRIOL 0.25 MCG CAP (S0169) PO SCH (11:06)
[2019-03-28] MEDS: CALCIUM ACETATE 667 MG GELCAP PO SCH ×3 (11:06→17:33)
[2019-03-28] MEDS: ASPIRIN 81 MG CHEW TABLET PO SCH (11:06)
[2019-03-28] MEDS: HEPARIN SOD (PORCINE) 5000 UNITS/ML VIAL SC SCH ×2 (11:07→20:16)
[2019-03-28] MEDS: ACETAMINOPHEN TAB 650MG DOSE (2X325MG) PO PRN (11:07)
[2019-03-28] MEDS: ESCITALOPRAM OXALATE 10 MG TAB (LEXAPRO) PO SCH (11:07)
[2019-03-28] MEDS: MULTIVITAMINS/MINERALS THERAP 1 TAB PO SCH (11:07)
[2019-03-28 14:00] VITALS: BP 110/74
--- NOTE | 2019-03-28 17:56 | IPN ---
DATE: 03/28/2019 SUBJECTIVE: Patient was seen and examined this morning at bedside. There have been no adverse events reported overnight. She currently has no complaints. She is continued on Cellcept 750 mg twice a day. She reports that she is tolerating the medication well. The patient continues to work with physical therapy. There is an anticipated discharge date for April 01. Patient will need outpatient arrangements for hemodialysis upon discharge. OBJECTIVE: VITAL SIGNS: Temperature 97.9, pulse 74, respiratory rate 17, blood pressure 102/57, pulse oximetry 95% on room air. GENERAL: Patient is awake, alert, and oriented. She does not appear in any acute distress. She is sitting comfortably in her chair. She is pleasant. HEENT: Atraumatic, normocephalic. Her eyes are not icteric. Trachea is midline. CARDIOVASCULAR: Normal S1, S2, regular rate and rhythm. No clicks, rubs, or murmurs. She has a tunneled right chest wall hemodialysis catheter in place. RESPIRATORY: Clear vesicular lung sounds bilaterally. No wheezing, rhonchi, or rales. ABDOMEN: Soft, nondistended, nontender to palpation throughout. Positive bowel sounds in all four quadrants. EXTREMITIES: No edema in bilateral lower extremities. Posterior tibial pulses 2+. NEUROLOGIC: No focal neurologic deficits noted. LABORATORY DATA: Hematology: White blood cells 23.1, hemoglobin 9.1, hematocrit 28.6, platelets 157. Chemistries: Sodium 140, potassium 3.9, chloride 104, carbon dioxide 28, BUN 46, creatinine 3.72, fasting glucose 78. Calcium 8.1. ASSESSMENT AND PLAN: 1. Acute oliguric renal failure: Patient has acute oliguric renal failure secondary to her antineutrophil cytoplasmic antibodies associated vasculitis. She currently remains dialysis dependent and has not shown any renal improvement. She currently follows a Sunday, , Sunday dialysis schedule. She received dialysis yesterday through her tunneled right chest wall hemodialysis catheter. She is currently pending discharge on April 01. Patient will need outpatient hemodialysis scheduled before discharge. 2. 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 Patient was previously started on Cellcept. Her dose was increased to 750 mg twice a day. She has continued to tolerate this medication well. Plan is to increase Cellcept to 1 gram twice a day, possibly starting over the weekend. She is on prednisone 60 mg. This will be tapered over the next 2 weeks. 3. Leukocytosis. Patient remains culture negative. She is afebrile. She is still on prednisone. This is going to be tapered. 4. Anemia. Patient has anemia likely secondary to end-stage renal disease secondary to ANCA-associated vasculitis. Her hemoglobin has remained stable. She does receive Aricept weekly with dialysis. DISPOSITION: Patient continues to work with physical therapy. There is an anticipated discharge date for April 01. Patient will need outpatient arrangement with hemodialysis center before discharge. My faculty preceptor for this patient encounter was physically present during the encounter and was fully available. All aspects of the patient interview, examination, medical decision making process, and medical care plan development were reviewed and approved by the faculty preceptor. The faculty preceptor is aware and concurs with the plan as stated in the body of this note and will attest to such by his/her co-signature. KRUPA
[2019-03-28] MEDS: DONEPEZIL 5 MG TAB PO SCH (20:15)
[2019-03-28] MEDS: LATANOPROST 0.005% OPHTH SOLN 2.5 ML OU SCH (20:16)
[2019-03-28] MEDS: SENNA 8.6 MG TAB (SENOKOT) PO SCH (20:16)
[2019-03-28] MEDS: MEMANTINE 5MG TABLET (NAMENDA) PO SCH (20:16)
[2019-03-28 22:00] VITALS: BP 110/60
[2019-03-29 06:00] VITALS: BP 122/64
[2019-03-29] MEDS: ASPIRIN 81 MG CHEW TABLET PO SCH (08:16)
[2019-03-29] MEDS: CALCIUM ACETATE 667 MG GELCAP PO SCH ×3 (08:16→18:50)
[2019-03-29] MEDS: MYCOPHENOLATE MOFETIL 250 MG CAP (J7517) PO SCH ×2 (08:16→20:45)
[2019-03-29] MEDS: MULTIVITAMINS/MINERALS THERAP 1 TAB PO SCH (08:17)
[2019-03-29] MEDS: ESCITALOPRAM OXALATE 10 MG TAB (LEXAPRO) PO SCH (08:17)
[2019-03-29] MEDS: PANTOPRAZOLE 40MG TAB (PROTONIX) PO SCH ×2 (08:17→20:45)
[2019-03-29] MEDS: GABAPENTIN 100 MG CAP PO SCH ×3 (08:17→20:45)
[2019-03-29] MEDS: predniSONE 20 MG TAB PO SCH (08:17)
[2019-03-29] MEDS: DOCUSATE SODIUM 100 MG CAP PO SCH ×2 (08:17→20:45)
[2019-03-29] MEDS: HEPARIN SOD (PORCINE) 5000 UNITS/ML VIAL SC SCH ×2 (08:18→20:45)
[2019-03-29] MEDS ORDERED: HEPARIN 1,000 UNITS/ML 10ML VIAL (FOR RADIOLOGY& DIALYSIS ONLY) XX ONE (11:30)
[2019-03-29 11:38] LABS: HEMATOCRIT 28.5 % (36.0-47.0); HEMOGLOBIN 9.1 g/dl (12.0-15.5); MEAN CORPUSCULAR HEMOGLOBIN 31.5 pg (27.0-33.0); MEAN CORPUSCULAR HGB CONC 31.9 g/dl (32.0-36.5); MEAN CORPUSCULAR VOLUME 98.6 fl (80.0-96.0); PLATELET COUNT, AUTOMATED 179 10^3/uL (150-450); RED BLOOD COUNT 2.89 10^6/uL (4.00-5.40); WHITE BLOOD COUNT 27.8 10^3/uL (4.0-10.0)
[2019-03-29] MEDS: ADVAIR HFA 230/21MCG INHALER INH SCH ×2 (11:45→19:57)
[2019-03-29 12:16] LABS: ALBUMIN 2.7 GM/DL (3.2-5.2); CALCIUM LEVEL 8.1 MG/DL (8.8-10.2); CREATININE FOR GFR 5.21 MG/DL (0.55-1.30); GLOMERULAR FILTRATION RATE 8.4 (>32); PHOSPHORUS LEVEL 4.1 MG/DL (2.5-4.9); POTASSIUM SERUM 4.4 MEQ/L (3.5-5.1)
--- NOTE | 2019-03-29 12:56 | IPN ---
DATE: 03/29/2019 Mrs. Benson is seen this morning on her bedside. In fact, she is walking in the hallway right now with the physical therapist. She has acute renal failure and her kidney biopsy was consistent with ANCA associated glomerulonephritis. She is currently on steroids and CellCept. She has been afebrile and is making progress with physical therapy. She did have pulmonary infiltrates which were felt to be associated with her ANCA vasculitis. On physical examination, temperature 98.4 degrees Fahrenheit, heart rate 66 per minute and respiratory rate 16 per minute. Blood pressure 122/64 mmHg and oxygen saturation 94% on room air. Head: Atraumatic. Neck: Supple and without jugular venous distention (JVD) or thyroid enlargement. Heart sounds regular and lungs clear to auscultation. Abdomen: Soft and nontender. Extremities: Without any cyanosis or clubbing. Neurologically she is awake, alert and at her baseline mentation. She is walking in the hallway. Today's labs show WBC count 23.1, hemoglobin 9.1 and hematocrit 28.6. Platelets 157. Sodium 140, potassium 3.9, CO2 28, BUN 46 and creatinine 3.72. Calcium level 8.1. These are her most recent labs from yesterday. She did not have any labs today so far. PROBLEMS: 1. Acute renal failure. The patient has ANCA associated vasculitis and acute glomerulonephritis. Her kidney function has not improved so far and she remains dialysis dependent. Will continue with prednisone 60 mg daily and CellCept 750 mg twice a day. It remains to be seen if her kidney function improves. 2. Anemia. At present, her anemia is stable and we will treat her with Aranesp once a week during dialysis. No urgent need for transfusion. 3. Hypertension. Blood pressure is very well controlled and no changes are being made today. 4. Generalized weakness and deconditioning. The patient is making progress with acute rehab. She is likely to be discharged next week. 5. Hyperparathyroidism. The patient is on calcitriol 0.25 mcg three times a week and calcium acetate 1 tablet with each meal.
[2019-03-29 14:20] VITALS: BP 152/71
[2019-03-29 20:00] VITALS: BP 133/63
[2019-03-29] MEDS: MEMANTINE 5MG TABLET (NAMENDA) PO SCH (20:45)
[2019-03-29] MEDS: DONEPEZIL 5 MG TAB PO SCH (20:45)
[2019-03-29] MEDS: LATANOPROST 0.005% OPHTH SOLN 2.5 ML OU SCH (20:45)
[2019-03-29] MEDS: SENNA 8.6 MG TAB (SENOKOT) PO SCH (20:46)
[2019-03-30 05:42] VITALS: BP 112/56
[2019-03-30] MEDS: ADVAIR HFA 230/21MCG INHALER INH SCH ×2 (07:28→19:49)
[2019-03-30] MEDS: HEPARIN SOD (PORCINE) 5000 UNITS/ML VIAL SC SCH ×2 (08:34→21:53)
[2019-03-30] MEDS: ESCITALOPRAM OXALATE 10 MG TAB (LEXAPRO) PO SCH (08:34)
[2019-03-30] MEDS: MULTIVITAMINS/MINERALS THERAP 1 TAB PO SCH (08:34)
[2019-03-30] MEDS: ASPIRIN 81 MG CHEW TABLET PO SCH (08:34)
[2019-03-30] MEDS: CALCIUM ACETATE 667 MG GELCAP PO SCH ×3 (08:34→17:24)
[2019-03-30] MEDS: GABAPENTIN 100 MG CAP PO SCH ×3 (08:34→21:52)
[2019-03-30] MEDS: PANTOPRAZOLE 40MG TAB (PROTONIX) PO SCH ×2 (08:35→21:53)
[2019-03-30] MEDS: MYCOPHENOLATE MOFETIL 250 MG CAP (J7517) PO SCH ×2 (08:35→21:52)
[2019-03-30] MEDS: predniSONE 20 MG TAB PO SCH (08:35)
[2019-03-30] MEDS: DOCUSATE SODIUM 100 MG CAP PO SCH ×2 (08:35→21:52)
[2019-03-30 14:00] VITALS: BP 114/57
[2019-03-30 20:00] VITALS: BP 105/53
[2019-03-30] MEDS: MEMANTINE 5MG TABLET (NAMENDA) PO SCH (21:52)
[2019-03-30] MEDS: LATANOPROST 0.005% OPHTH SOLN 2.5 ML OU SCH (21:53)
[2019-03-30] MEDS: DONEPEZIL 5 MG TAB PO SCH (21:53)
[2019-03-30] MEDS: SENNA 8.6 MG TAB (SENOKOT) PO SCH (21:53)
[2019-03-31 06:00] VITALS: BP 149/69
--- NOTE | 2019-03-31 07:51 | IPN ---
DATE: 03/29/2019 She is a patient on the acute rehabilitation unit. She has a history of acute renal failure with a kidney biopsy consistent with ANCA associated glomerulonephritis. Continues on steroids and Cellcept. She is doing well. She had dialysis today which she tolerated well. She has hypertension and blood pressure is stable. She is making progress on acute rehabilitation for her generalized weakness and deconditioning. She continues on calcitriol for hyperparathyroidism. She continues to be followed by nephrology. LABORATORY STUDIES: WBC is the same at 27.8, hemoglobin 9.1, hematocrit 28.5, platelets 179, electrolytes are normal, BUN 72, creatinine 5.21 this morning. OBJECTIVE: Vital signs are stable. Blood pressure 122/64, pulse 70, respirations 18, temperature 98. The patient is alert and oriented times three. Pupils equal and reactive to light. Extraocular movements intact. Cornea and sclera clear. Conjunctiva normal. No facial asymmetry. Pharynx, tongue and gums pink and moist. Tongue is midline. Neck is supple, without lymphadenopathy. No thyromegaly. No goiter. Chest clear to auscultation. Heart is regular. Abdomen benign. Bowel sounds positive. Genitourinary ()/Rectal: Not done. Extremities: No cyanosis, clubbing or edema. Peripheral pulses equal and palpable bilaterally. Skin is warm and dry. IMPRESSION: 1. Rehabilitation. Physical therapy (PT)/occupational therapy (OT) continues. 2. Acute renal failure. Continues dialysis. Treatment per nephrology. 3. Glomerulonephritis. Continues on prednisone and Cellcept. 4. Leukocytosis. Culture is negative. 5. Anemia. Secondary to end-stage renal disease, stable. 6. Secondary hyperparathyroidism. Continues on calcitriol. 7. Chronic kidney disease. Minimal bone disease. Continues on Phoslo. 8. Dizziness and lightheadedness. None today. Continue current medications and plan of care.
--- NOTE | 2019-03-31 07:53 | IPN ---
DATE: 03/30/2019 Mrs. Benson is seen this morning on her bedside. Her daughter is present in the room. The patient has been feeling well and denies any dyspnea, chest pain, nausea, vomiting. She had her dialysis yesterday. She has been walking without any difficulty. There is a plan for discharge in a couple of days. PHYSICAL EXAMINATION: Temperature 97.3 degrees Fahrenheit, heart rate 63 per minute and respiratory rate 18 per minute. Blood pressure 112/56 mmHg and oxygen saturation 96%. Head is atraumatic. Neck is supple and without jugular venous distention (JVD) or thyroid enlargement. Heart sounds are regular and lungs sound clear to auscultation. Abdomen is soft and nontender and bowel sounds are normal. Extremities have no cyanosis or clubbing. Neurologically, she has no focal deficit and is grossly intact. LABORATORY DATA: From yesterday showed a BUN of 72 and creatinine 5.21. Her white cell count was 27.8, hemoglobin 9.1 and hematocrit 28.5. PROBLEMS: 1. Acute renal failure superimposed on chronic kidney disease. The patient has ANCA associated acute renal failure without any recovery so far. She is dialysis dependent and was dialyzed yesterday. Tomorrow we will make arrangements for her outpatient dialysis as she is likely to be discharged on Sunday. At this point, her electrolytes are within normal range and volume status is well-compensated. 2. ANCA associated vasculitis. The patient remains on prednisone 60 mg daily and CellCept 750 mg twice a day. We will continue with the same and consider to taper her prednisone in next 1 week. 3. Anemia and leukocytosis. Her anemia is most likely related to acute renal failure and leukocytosis is probably associated with high-dose steroids. She has no signs of infection and we will continue to monitor her closely. 4. Hypertension. Blood pressure is well-controlled and no changes are being made today.
--- NOTE | 2019-03-31 07:54 | IPN ---
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 She is receiving dialysis. She has mild dementia and continues on Aricept and Namenda. She is being treated for vasculitis. She has anemia secondary to renal disease. She has an abrasion on her left alford area. Scant amount of drainage, will culture it. Continue Optifoam dressing. She has generalized weakness and deconditioning. She is participating with physical therapy. Vital signs stable. Blood pressure 114/57, pulse 79, respirations 18, temperature 98, oxygen saturation 98%. The patient is alert and oriented times three. Pharynx, tongue, and gums pink and moist. Tongue is midline. Neck is supple, without lymphadenopathy. No thyromegaly. No goiter. Carotids 2+ without bruits. Chest clear to auscultation, without wheeze or retraction. Heart is regular. Abdomen benign. Bowel sounds positive. /Rectal: Not done. Extremities: No cyanosis, clubbing or edema. Left alford abrasion. Scant drainage. No swelling. Peripheral pulses equal and palpable bilaterally. IMPRESSION AND PLAN: 1. Acute renal failure. 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 Treatment per nephrology. She continues on prednisone and CellCept. 2. Anemia: Currently stable. Being treated with Aranesp once a week during dialysis. 3. Hypertension: Stable. 4. Weakness and deconditioning: Continue rehabilitation. 5. Hyperparathyroidism: Continues on calcitriol. 6. Followup on wound culture from the left alford. Continue other medications without change.
--- NOTE | 2019-03-31 08:03 | IPNPDOC ---
Text Note Date of Service The patient was seen on 03/31/19. NOTE Subjective: Up to chair at bedside, working with speech therapist. denies discomfort Objective: GENERAL: NAD SKIN : Warm, dry dressing to left alford HEENT: Atraumatic, normocephalic, PERRL, moist mucous membrane CARDIOVASCULAR: Regular rate and rhythm, S1S2, no JVD, no edema, distal pulses + palpable RESP: CTAB, no accessory muscle use noted ABDOMEN: BS+ non distended non tender MS: no joint deformities NEURO: Alert and oriented x 3, CN2-12 grossly intact PSYCH: no anxiety or agitation, appropriate mood and affect. A/P Acute renal failure -2/2 Antineutrophil cytoplasmic antibodies -nephrology on board, started on HD (TTS) -continued on prednisone and CellCept. Anemia -due to renal failure -Aranesp weekly during dialysis. Hypertension -stable. Weakness and deconditioning -rehabilitation by primary team. Hyperparathyroidism -Continue calcitriol. Alford Wound - follow wound culture findings DVT prophylaxis -Heparin SQ. . VS,Fishbone, I+O VS, Fishbone, I+O Vital Signs Date Time Temp Pulse Resp B/P (MAP) Pulse Ox O2 Delivery O2 Flow Rate FiO2 03/31/19 06:00 97.8 62 18 149/69 (95) 98 I&O- Last 24 Hours up to 6 AM 03/31/19 05:59 Intake Total 920 ml Balance 920 ml ALLYSON [employer] Mar 31, 2019 08:03
[2019-03-31] MEDS: MYCOPHENOLATE MOFETIL 250 MG CAP (J7517) PO SCH ×2 (08:09→20:24)
[2019-03-31] MEDS: predniSONE 20 MG TAB PO SCH (08:09)
[2019-03-31] MEDS: CALCITRIOL 0.25 MCG CAP (S0169) PO SCH (08:09)
[2019-03-31] MEDS: ASPIRIN 81 MG CHEW TABLET PO SCH (08:09)
[2019-03-31] MEDS: ESCITALOPRAM OXALATE 10 MG TAB (LEXAPRO) PO SCH (08:09)
[2019-03-31] MEDS: GABAPENTIN 100 MG CAP PO SCH ×3 (08:09→20:25)
[2019-03-31] MEDS: CALCIUM ACETATE 667 MG GELCAP PO SCH ×3 (08:09→17:06)
[2019-03-31] MEDS: HEPARIN SOD (PORCINE) 5000 UNITS/ML VIAL SC SCH ×2 (08:09→20:24)
[2019-03-31] MEDS: DOCUSATE SODIUM 100 MG CAP PO SCH ×2 (08:09→20:25)
[2019-03-31] MEDS: PANTOPRAZOLE 40MG TAB (PROTONIX) PO SCH ×2 (08:09→20:25)
[2019-03-31] MEDS: MULTIVITAMINS/MINERALS THERAP 1 TAB PO SCH (08:09)
[2019-03-31] MEDS: ADVAIR HFA 230/21MCG INHALER INH SCH ×2 (08:31→19:52)
--- NOTE | 2019-03-31 10:14 | IPNPDOC ---
PM&R Progress Note DATE OF SERVICE: Mar 31, 2019 Acid Patroller Progress Note Subjective: Patient had home eval today and seen later in therapy walking comfortably. REVIEW OF SYSTEMS: The following is a completed review of systems and has been reviewed. Review of systems otherwise unremarkable. PAIN: Patient self reports no pain EYES: No recent vision changes EARS, NOSE, & THROAT: No throat pain, or dysphagia, or rhinorrhea CARDIOVASCULAR: Denies chest pain or palpitations PULMONARY: Denies shortness of breath GASTROINTESTINAL: Denies constipation/diarrhea GENITOURINARY: oliguria MUSCULOSKELETAL: LE weakness NEUROLOGICAL:+dementia HEMATOLOGICAL: anemia SKIN: ecchymotic PSYCHIATRIC: Unremarkable All other review of systems found to be negative. PHYSICAL EXAMINATION: VITAL SIGNS: Please see below. GENERAL: Pleasant and cooperative. No acute distress. HEENT: PERRL. Extraocular movements intact. Clear conjunctiva CARDIOVASCULAR: Regular rate and rhythm. No murmurs, rubs, or gallops LUNGS: Clear to auscultation bilaterally. No wheezes. No rhonchi ABDOMEN: Soft, nontender, nondistended. Positive bowel sounds. Normal active bowel sounds NEUROLOGICAL: Alert and oriented to self and place, not time Cranial nerves II through XII grossly intact. Sensation grossly intact EXTREMITIES: 4+\5 strength bilateral upper extremities. 4\5 strength right lower extremity. 4/5 strength in left lower extremity. 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 PLAN: 1. rehab: patient with gait impairment due to weakness in setting of low back pain and LE weakness most likely due to peripheral neuropathy due to renal disease and possible vasculitis, endurance improving- home eval scheduled for 03/31/19 -PT improve endurance and dynamic balance, wean from 02 -OT work up UE strengthening, energy conservation 2. Neuro: avoid delirogenic meds - dementia- continue memantine and donepezil -c/u Lexapro for depression vs pseudo-depression- EKG 03/26/19 showing QTc 430, slightly increased from earlier EKG 3. CArdio: diastolic CHF with recent exacerbation on dialysis- medicine consulted to assist in management, c/u ASA, beta-ronnie held due to dizziness and intermittent orthostatics- fluid restrict 1800cc 4. Resp: recent CXrs showing bilateral effusions, s/p course of Cefuroxime and Doxycycline for pneumonia- supplemental 02, c/u breathing treatments and steroids 5. 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 Heme: anemia of chronic disease, will transfuse if <8, venofer per renal recs- 8. GI ppx: protonix, will increase to BID and add sucralfate given she is on steroids, FOBT negative 9. DVT ppx: heparin and TEDs 10. Pain: tylenol prn and gabapentin 11. Dispo: 04/02/19 to home will need 26/03 supervision Allergies Coded Allergies: No Known Allergies (Unverified , 04/25/18) Vital Signs Vital Signs Date Time Temp Pulse Resp B/P (MAP) Pulse Ox O2 Delivery O2 Flow Rate FiO2 03/31/19 06:00 97.8 62 18 149/69 (95) 98 Microbiology Microbiology 03/26/19 Stool Occult Blood (ZEUS) - Final, Complete 03/31/19 Wound Culture, Received Pending Current Medications Current Medications Current Medications Medications (Trade) Dose Ordered Sig/Letty Route PRN Reason Start Time Stop Time Status Last Admin Dose Admin Acetaminophen (Tylenol Tab) 650 mg Q4HP PRN PO fever/MILD PAIN (PS 1-4) 03/19/19 15:45 03/28/19 11:07 Aspirin (Aspirin Chewable) 81 mg DAILY PO 03/20/19 09:00 03/31/19 08:09 Atenolol (Tenormin) 25 mg DAILY PO 03/20/19 09:00 03/21/19 10:03 DC 03/20/19 13:20 Bisacodyl (Dulcolax Suppository) 10 mg DAILYPRN PRN NC CONSTIPATION 03/19/19 15:45 Calcitriol (Rocaltrol) 0.25 mcg MoWeFr@0900 PO 03/24/19 09:00 03/31/19 08:09 Calcium Acetate (Phoslo) 667 mg WM PO 03/20/19 12:30 03/31/19 08:09 Cefuroxime Axetil (Ceftin) 500 mg BID PO 03/19/19 21:00 03/25/19 21:05 DC 03/25/19 20:20 Darbepoetin Jaylen (Aranesp (Dialysis Use)) 100 mcg HD IV 03/20/19 10:00 Docusate Sodium (Colace) 100 mg BID PO 03/19/19 21:00 03/31/19 08:09 Donepezil HCl (AriCEPT) 10 mg QHS PO 03/19/19 21:00 03/30/19 21:53 Doxycycline Hyclate (Vibramycin) 100 mg BID PO 03/19/19 21:00 03/26/19 20:59 DC 03/26/19 07:49 Escitalopram Oxalate (Lexapro) 10 mg DAILY PO 03/21/19 09:00 03/31/19 08:09 Gabapentin (Neurontin) 100 mg TID PO 03/19/19 16:00 03/31/19 08:09 Heparin Sodium (Porcine) (Heparin) 5,000 units Q12H SC 03/19/19 21:00 03/31/19 08:09 Home Med (Med Rec Complete!) ASDIRECTED XX 03/19/19 17:30 03/19/19 17:32 DC Iron (Venofer) 100 mg HD IV 03/20/19 10:00 Latanoprost (Xalatan 0.005% Op Soln) 1 drop QHS OU 03/19/19 21:00 03/30/19 21:53 Magnesium Hydroxide (Milk Of Magnesia) 30 ml DAILYPRN PRN PO CONSTIPATION 03/19/19 15:45 Memantine (Namenda) 5 mg QHS PO 03/19/19 21:00 03/30/19 21:52 Miscellaneous (Unresolved Clarification Entry) SEE LABEL COMMENTS DAILY XX 03/25/19 09:00 UNV Multivitamins (Theragram-M) 1 tab DAILY PO 03/20/19 09:00 03/31/19 08:09 Mycophenolate Mofetil (Cellcept) 500 mg BID PO 03/22/19 09:00 03/22/19 09:00 DC Mycophenolate Mofetil (Cellcept) 500 mg BID PO 03/22/19 09:00 03/26/19 09:16 DC 03/26/19 07:48 Mycophenolate Mofetil (Cellcept) 500 mg BID PO 03/23/19 09:00 03/23/19 09:00 DC Mycophenolate Mofetil (Cellcept) 750 mg BID PO 03/26/19 09:00 03/26/19 09:35 DC Mycophenolate Mofetil (Cellcept) 750 mg BID PO 03/26/19 21:00 03/31/19 08:09 Pantoprazole Sodium (Protonix) 40 mg BID PO 03/19/19 21:00 03/31/19 08:09 Potassium Chloride (Micro-K Extencaps) 20 meq BID PO 03/19/19 21:00 03/20/19 10:02 DC 03/19/19 20:17 Prednisone (Deltasone) 60 mg DAILY PO 03/20/19 09:00 03/31/19 08:09 Salmeterol Xinafoate/ Fluticasone (Advair Hfa 230/ 21) 2 puff BID INH 03/19/19 21:00 03/31/19 08:31 Senna (Senokot) 1 tab QHS PO 03/19/19 21:00 03/30/19 21:53 Sucralfate (Carafate) 1 gm AC PO 03/19/19 17:30 03/24/19 20:44 DC 03/24/19 16:43 BRADLEY CORONA MD Mar 31, 2019 10:14
[2019-03-31 14:00] VITALS: BP 135/70
--- NOTE | 2019-03-31 15:27 | IPN ---
DATE: 03/31/2019 Mrs. Benson is seen this morning on her bedside. Her daughter is present in the room. They are talking about her discharge and patient is very anxious about getting her meals and transportation to dialysis. She has been tolerating her dialysis treatment very well. She is scheduled for discharge from acute rehabilitation tomorrow. It is not certain at this point whether she will be discharged to home or she will go to subacute rehabilitation. In the meantime, patient remains on high-dose prednisone and CellCept for antineutrophil cytoplasmic antibodies (ANCA) associated vasculitis with acute renal failure. She has been tolerating her treatment well so far. PHYSICAL EXAMINATION: Temperature 97.8 degrees Fahrenheit, heart rate 62 per minute and respiratory rate 18 per minute. Blood pressure 149/69 mmHg and oxygen saturation 98% on room air. Head is atraumatic. Neck is supple and without jugular venous distention (JVD) or thyroid enlargement. Heart sounds regular. Lungs clear to auscultation. Abdomen soft and nontender and bowel sounds are normal. Extremities without any cyanosis or clubbing. Neurologically she is at her baseline mentation without a focal deficit. She did not have any new labs. PROBLEMS 1. End-stage renal disease. Patient seems to have advanced to end-stage renal disease and has no improvement in her kidney function so far. She remains dialysis dependent. She will continue with dialysis in outpatient clinic after discharge. If she gets discharged early tomorrow, then she can go to dialysis clinic in the afternoon or otherwise we can dialyze her here tomorrow and then discharge her in the afternoon. 2. Acute glomerulonephritis. Patient is currently on prednisone 60 mg daily and CellCept 750 mg twice a day, which she is tolerating well and we will continue with the same. No recovery of kidney function so far. She is not a suitable candidate for more aggressive immunosuppressive therapy. 3. Anemia. At present, her anemia is stable and she will continue to receive Aranesp or Mircera during dialysis. 4. Hypertension. Blood pressure has been very well controlled and no changes are being made today. 5. Deconditioning and weakness. The patient has been in acute rehabilitation and making good progress. She is likely to be discharged tomorrow. From a renal standpoint, she is cleared for discharge.
[2019-03-31 20:00] VITALS: BP 138/70
[2019-03-31] MEDS: DONEPEZIL 5 MG TAB PO SCH (20:24)
[2019-03-31] MEDS: LATANOPROST 0.005% OPHTH SOLN 2.5 ML OU SCH (20:25)
[2019-03-31] MEDS: MEMANTINE 5MG TABLET (NAMENDA) PO SCH (20:25)
[2019-03-31] MEDS: SENNA 8.6 MG TAB (SENOKOT) PO SCH (20:25)
[2019-04-01 06:00] VITALS: BP 151/73
[2019-04-01] MEDS: ASPIRIN 81 MG CHEW TABLET PO SCH (06:14)
[2019-04-01] MEDS: MYCOPHENOLATE MOFETIL 250 MG CAP (J7517) PO SCH ×2 (06:14→21:22)
[2019-04-01] MEDS: GABAPENTIN 100 MG CAP PO SCH ×3 (06:14→21:22)
[2019-04-01] MEDS: CALCIUM ACETATE 667 MG GELCAP PO SCH ×3 (06:15→17:19)
[2019-04-01] MEDS: MULTIVITAMINS/MINERALS THERAP 1 TAB PO SCH (06:15)
[2019-04-01] MEDS: ESCITALOPRAM OXALATE 10 MG TAB (LEXAPRO) PO SCH (06:15)
[2019-04-01] MEDS: DOCUSATE SODIUM 100 MG CAP PO SCH ×2 (06:15→21:23)
[2019-04-01] MEDS: predniSONE 20 MG TAB PO SCH (06:15)
[2019-04-01] MEDS: PANTOPRAZOLE 40MG TAB (PROTONIX) PO SCH ×2 (06:15→21:23)
[2019-04-01] MEDS: HEPARIN SOD (PORCINE) 5000 UNITS/ML VIAL SC SCH ×2 (09:34→21:23)
[2019-04-01 09:43] LABS: HEMATOCRIT 31.8 % (36.0-47.0); HEMOGLOBIN 9.8 g/dl (12.0-15.5); MEAN CORPUSCULAR HEMOGLOBIN 31.6 pg (27.0-33.0); MEAN CORPUSCULAR HGB CONC 30.8 g/dl (32.0-36.5); MEAN CORPUSCULAR VOLUME 102.6 fl (80.0-96.0); PLATELET COUNT, AUTOMATED 187 10^3/uL (150-450); WHITE BLOOD COUNT 28.2 10^3/uL (4.0-10.0)
[2019-04-01] MEDS ORDERED: CALC1CAP PO (09:57)
[2019-04-01] MEDS ORDERED: PANT40TA3 PO (09:57)
[2019-04-01] MEDS ORDERED: MEMA1TAB PO (09:57)
[2019-04-01] MEDS ORDERED: CELL250C PO (09:57)
[2019-04-01] MEDS ORDERED: ESCI10TA2 PO (09:57)
[2019-04-01] MEDS ORDERED: CALC1CAP31 PO (09:57)
[2019-04-01] MEDS ORDERED: ASPI81CH8 PO (09:57)
[2019-04-01] MEDS ORDERED: ARIC1TAB PO (09:57)
[2019-04-01] MEDS ORDERED: PRED20TA PO (09:57)
[2019-04-01] MEDS ORDERED: GABA-1171 PO (09:57)
[2019-04-01 10:04] LABS: ALBUMIN 2.8 GM/DL (3.2-5.2); CALCIUM LEVEL 8.4 MG/DL (8.8-10.2); CREATININE FOR GFR 6.15 MG/DL (0.55-1.30); GLOMERULAR FILTRATION RATE 6.9 (>32); PHOSPHORUS LEVEL 3.2 MG/DL (2.5-4.9); POTASSIUM SERUM 4.4 MEQ/L (3.5-5.1)
[2019-04-01] MEDS ORDERED: HEPARIN 1,000 UNITS/ML 10ML VIAL (FOR RADIOLOGY& DIALYSIS ONLY) XX ONE (11:00)
--- NOTE | 2019-04-01 11:17 | IPNPDOC ---
PM&R Progress Note DATE OF SERVICE: Apr 01, 2019 Director Channel Progress Note Subjective: Patient seen in room with her daughter preparing for her discharge tomorrow. She reports she still feels a little confused, but much better than she did on admission. She is eager to begin her new dialysis and therapy schedule at home. REVIEW OF SYSTEMS: The following is a completed review of systems and has been reviewed. Review of systems otherwise unremarkable. PAIN: Patient self reports no pain EYES: No recent vision changes EARS, NOSE, & THROAT: No throat pain, or dysphagia, or rhinorrhea CARDIOVASCULAR: Denies chest pain or palpitations PULMONARY: Denies shortness of breath GASTROINTESTINAL: Denies constipation/diarrhea GENITOURINARY: oliguria MUSCULOSKELETAL: LE weakness NEUROLOGICAL:+dementia HEMATOLOGICAL: anemia SKIN: ecchymotic PSYCHIATRIC: Unremarkable All other review of systems found to be negative. PHYSICAL EXAMINATION: VITAL SIGNS: Please see below. GENERAL: Pleasant and cooperative. No acute distress. HEENT: PERRL. Extraocular movements intact. Clear conjunctiva CARDIOVASCULAR: Regular rate and rhythm. No murmurs, rubs, or gallops LUNGS: Clear to auscultation bilaterally. No wheezes. No rhonchi ABDOMEN: Soft, nontender, nondistended. Positive bowel sounds. Normal active bowel sounds NEUROLOGICAL: Alert and oriented to self and place, not time Cranial nerves II through XII grossly intact. Sensation grossly intact EXTREMITIES: 4+\5 strength bilateral upper extremities. 4\5 strength right lower extremity. 4/5 strength in left lower extremity. 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 PLAN: 1. rehab: patient with gait impairment due to weakness in setting of low back pain and LE weakness most likely due to peripheral neuropathy due to renal disease and possible vasculitis, endurance improving- home eval scheduled for -PT improve endurance and dynamic balance, wean from 02 -OT work up UE strengthening, energy conservation 2. Neuro: avoid delirogenic meds - dementia- continue memantine and donepezil -c/u Lexapro for depression vs pseudo-depression- EKG 03/26/19 showing QTc 430, slightly increased from earlier EKG 3. CArdio: diastolic CHF with recent exacerbation on dialysis- medicine consulted to assist in management, c/u ASA, beta-ronnie held due to dizziness and intermittent orthostatics- fluid restrict 1800cc 4. Resp: recent CXrs showing bilateral effusions, s/p course of Cefuroxime and Doxycycline for pneumonia- supplemental 02, c/u breathing treatments and steroids 5. 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 Heme: anemia of chronic disease, will transfuse if <8, venofer per renal recs- 8. GI ppx: protonix, increased to BID and add sucralfate given she is on steroids, FOBT negative 9. DVT ppx: heparin and TEDs 10. Pain: tylenol prn and gabapentin 11. Dispo: 04/02/19 to home will need 26/03 supervision Allergies Coded Allergies: No Known Allergies (Unverified , 04/25/18) Vital Signs Vital Signs Date Time Temp Pulse Resp B/P (MAP) Pulse Ox O2 Delivery O2 Flow Rate FiO2 04/01/19 06:00 98.3 67 18 151/73 (99) 99 Laboratory Data CBC/BMP Laboratory Tests 04/01/19 09:29 Red Blood Count 3.10 L, Mean Corpuscular Volume 102.6 H, Mean Corpuscular Hemoglobin 31.6, Mean Corpuscular Hemoglobin Concent 30.8 L, Red Cell Distr ibution Width 20.9 H, Anion Gap 9 Labs 24H Laboratory Tests 2 04/01/19 09:29: Nucleated Red Blood Cells % (auto) 0.0, Blood Urea Nitrogen 84H, Creatinine 6.15 H, Sodium Level 141, Potassium Level 4.4, Chloride Level 106, Carbon Dioxide Level 26, Anion Gap 9, Glomerular Filtration Rate 6.9L, Calcium Level 8.4L, Phosphorus Level 3.2#, Albumin 2.8L Microbiology Microbiology 03/26/19 Stool Occult Blood (ZEUS) - Final, Complete 03/31/19 Wound Culture, Received Pending Current Medications Current Medications Current Medications Medications (Trade) Dose Ordered Sig/Letty Route PRN Reason Start Time Stop Time Status Last Admin Dose Admin Acetaminophen (Tylenol Tab) 650 mg Q4HP PRN PO fever/MILD PAIN (PS 1-4) 03/19/19 15:45 03/28/19 11:07 Aspirin (Aspirin Chewable) 81 mg DAILY PO 03/20/19 09:00 04/01/19 06:14 Atenolol (Tenormin) 25 mg DAILY PO 03/20/19 09:00 03/21/19 10:03 DC 03/20/19 13:20 Bisacodyl (Dulcolax Suppository) 10 mg DAILYPRN PRN ID CONSTIPATION 03/19/19 15:45 Calcitriol (Rocaltrol) 0.25 mcg MoWeFr@0900 PO 03/24/19 09:00 03/31/19 08:09 Calcium Acetate (Phoslo) 667 mg WM PO 03/20/19 12:30 04/01/19 06:15 Cefuroxime Axetil (Ceftin) 500 mg BID PO 03/19/19 21:00 03/25/19 21:05 DC 03/25/19 20:20 Darbepoetin Jaylen (Aranesp (Dialysis Use)) 100 mcg HD IV 03/20/19 10:00 Docusate Sodium (Colace) 100 mg BID PO 03/19/19 21:00 04/01/19 06:15 Donepezil HCl (AriCEPT) 10 mg QHS PO 03/19/19 21:00 03/31/19 20:24 Doxycycline Hyclate (Vibramycin) 100 mg BID PO 03/19/19 21:00 03/26/19 20:59 DC 03/26/19 07:49 Escitalopram Oxalate (Lexapro) 10 mg DAILY PO 03/21/19 09:00 04/01/19 06:15 Gabapentin (Neurontin) 100 mg TID PO 03/19/19 16:00 04/01/19 06:14 Heparin Sodium (Porcine) (Heparin) 5,000 units Q12H SC 03/19/19 21:00 04/01/19 09:34 Home Med (Med Rec Complete!) ASDIRECTED XX 03/19/19 17:30 03/19/19 17:32 DC Iron (Venofer) 100 mg HD IV 03/20/19 10:00 Latanoprost (Xalatan 0.005% Op Soln) 1 drop QHS OU 03/19/19 21:00 03/31/19 20:25 Magnesium Hydroxide (Milk Of Magnesia) 30 ml DAILYPRN PRN PO CONSTIPATION 03/19/19 15:45 Memantine (Namenda) 5 mg QHS PO 03/19/19 21:00 03/31/19 20:25 Miscellaneous (Unresolved Clarification Entry) SEE LABEL COMMENTS DAILY XX 03/25/19 09:00 UNV Multivitamins (Theragram-M) 1 tab DAILY PO 03/20/19 09:00 04/01/19 06:15 Mycophenolate Mofetil (Cellcept) 500 mg BID PO 03/22/19 09:00 03/22/19 09:00 DC Mycophenolate Mofetil (Cellcept) 500 mg BID PO 03/22/19 09:00 03/26/19 09:16 DC 03/26/19 07:48 Mycophenolate Mofetil (Cellcept) 500 mg BID PO 03/23/19 09:00 03/23/19 09:00 DC Mycophenolate Mofetil (Cellcept) 750 mg BID PO 03/26/19 09:00 03/26/19 09:35 DC Mycophenolate Mofetil (Cellcept) 750 mg BID PO 03/26/19 21:00 04/01/19 06:14 Pantoprazole Sodium (Protonix) 40 mg BID PO 03/19/19 21:00 04/01/19 06:15 Potassium Chloride (Micro-K Extencaps) 20 meq BID PO 03/19/19 21:00 03/20/19 10:02 DC 03/19/19 20:17 Prednisone (Deltasone) 60 mg DAILY PO 03/20/19 09:00 04/01/19 06:15 Salmeterol Xinafoate/ Fluticasone (Advair Hfa 230/ 21) 2 puff BID INH 03/19/19 21:00 03/31/19 19:52 Senna (Senokot) 1 tab QHS PO 03/19/19 21:00 03/31/19 20:25 Sucralfate (Carafate) 1 gm AC PO 03/19/19 17:30 03/24/19 20:44 DC 03/24/19 16:43 BRADLEY CORONA MD Apr 01, 2019 11:17
--- NOTE | 2019-04-01 13:42 | IPN ---
DATE: 04/01/2019 Mrs. Benson is seen this morning on her bedside. She is sitting in the chair and her daughter is present in the room. Discharge plans have been now adjusted and she is going to be discharged to home tomorrow. She is due for dialysis this afternoon. The patient denies any dyspnea, chest pain, nausea or vomiting. On physical examination, temperature 98.3 degrees Fahrenheit, heart rate 68 per minute and respiratory rate 18 per minute. Blood pressure 150/73 mmHg and oxygen saturation 99% on room air. Head is atraumatic. Neck is supple and without jugular venous distention (JVD) or thyroid enlargement. Heart sounds are regular and lungs clear to auscultation. Abdomen: Soft and benign and bowel sounds normal. Extremities: Without any cyanosis or clubbing. Neurologically she is at baseline mentation without a focal deficit. Today's labs show WBC count 28.2, hemoglobin 9.8 and hematocrit 31.8. Platelets 187. Sodium 141, potassium 4.4, CO2 26, BUN 84 and creatinine 6.15. Glucose 96 and calcium 8.4. PROBLEMS: 1. Acute renal failure. The patient remains dialysis dependent and will be dialyzed this afternoon. She will continue with dialysis as an outpatient unless her kidney function improves. I have explained to the patient and her daughter that at this point her kidney function has not recovered and she will continue dialysis three times a week. 2. ANCA associated acute glomerulonephritis. The patient is currently on prednisone 60 mg daily and CellCept 750 mg twice a day. I am going to cut down her prednisone to 50 mg and over the next few weeks we will taper her prednisone down. She will continue with CellCept twice a day for now and we will adjust the dose as needed. 3. Anemia. Her anemia is improving and we will continue to monitor closely. She will receive Aranesp and Venofer with dialysis. 4. Hypertension. Blood pressure is very well controlled and we are not changing any of her medications at this point. 5. Disposition. The patient is likely to be discharged tomorrow and will follow up as an outpatient.
[2019-04-01] MEDS: ADVAIR HFA 230/21MCG INHALER INH SCH ×2 (13:55→19:52)
--- NOTE | 2019-04-01 14:32 | IPNPDOC ---
Text Note Date of Service The patient was seen on 04/01/19. NOTE Subjective: Up to chair at bedside, working with speech therapist. denies disco mfort Objective: GENERAL: NAD SKIN : Warm, dry dressing to left alford HEENT: Atraumatic, normocephalic, PERRL, moist mucous membrane CARDIOVASCULAR: Regular rate and rhythm, S1S2, no JVD, no edema, distal pulses + palpable RESP: CTAB, no accessory muscle use noted ABDOMEN: BS+ non distended non tender MS: no joint deformities NEURO: Alert and oriented x 3, CN2-12 grossly intact PSYCH: no anxiety or agitation, appropriate mood and affect. 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 Hyperparathyroidism -Continue calcitriol. Alford Wound - follow wound culture findings DVT prophylaxis -Heparin SQ. VS,Fishbone, I+O VS, Fishbone, I+O Laboratory Tests 04/01/19 09:29 Red Blood Count 3.10 L, Mean Corpuscular Volume 102.6 H, Mean Corpuscular Hemoglobin 31.6, Mean Corpuscular Hemoglobin Concent 30.8 L, Red Cell Distribution Width 20.9 H, Anion Gap 9 Vital Signs Date Time Temp Pulse Resp B/P (MAP) Pulse Ox O2 Delivery O2 Flow Rate FiO2 04/01/19 06:00 98.3 67 18 151/73 (99) 99 I&O- Last 24 Hours up to 6 AM 04/01/19 05:59 Intake Total 1020 ml Balance 1020 ml ALLYSON STACYP Apr 01, 2019 14:32
[2019-04-01 17:18] VITALS: BP 176/81
[2019-04-01] MEDS: NIFEdipine 30 MG XL TAB PO SCH (17:20)
[2019-04-01 20:22] VITALS: BP 144/69
[2019-04-01] MEDS: MEMANTINE 5MG TABLET (NAMENDA) PO SCH (21:22)
[2019-04-01] MEDS: SENNA 8.6 MG TAB (SENOKOT) PO SCH (21:23)
[2019-04-01] MEDS: DONEPEZIL 5 MG TAB PO SCH (21:23)
[2019-04-01] MEDS: LATANOPROST 0.005% OPHTH SOLN 2.5 ML OU SCH (21:24)
[2019-04-01] MEDS: ACETAMINOPHEN TAB 650MG DOSE (2X325MG) PO PRN (21:24)
[2019-04-02 06:31] VITALS: BP 135/63
[2019-04-02] MEDS: ADVAIR HFA 230/21MCG INHALER INH SCH (07:49)
[2019-04-02 08:24] VITALS: BP 135/63
[2019-04-02] MEDS: ESCITALOPRAM OXALATE 10 MG TAB (LEXAPRO) PO SCH (08:24)
[2019-04-02] MEDS: PANTOPRAZOLE 40MG TAB (PROTONIX) PO SCH (08:24)
[2019-04-02] MEDS: CALCITRIOL 0.25 MCG CAP (S0169) PO SCH (08:24)
[2019-04-02] MEDS: GABAPENTIN 100 MG CAP PO SCH (08:24)
[2019-04-02] MEDS: NIFEdipine 30 MG XL TAB PO SCH (08:24)
[2019-04-02] MEDS: MULTIVITAMINS/MINERALS THERAP 1 TAB PO SCH (08:24)
[2019-04-02] MEDS: CALCIUM ACETATE 667 MG GELCAP PO SCH (08:25)
[2019-04-02] MEDS: DOCUSATE SODIUM 100 MG CAP PO SCH (08:25)
[2019-04-02] MEDS: HEPARIN SOD (PORCINE) 5000 UNITS/ML VIAL SC SCH (08:25)
[2019-04-02] MEDS: ASPIRIN 81 MG CHEW TABLET PO SCH (08:25)
[2019-04-02] MEDS: MYCOPHENOLATE MOFETIL 250 MG CAP (J7517) PO SCH (08:25)
[2019-04-02] MEDS ORDERED: predniSONE 50 MG TAB PO SCH (09:00)
== END 2019-04-02 11:25 | disposition home health service (06) | DRG 73 ==
LOC: M PM&R 15:45
PROVIDERS: ADMIT Physical Medicine & Rehabilitation; ATTEND Physical Medicine & Rehabilitation
PROC: 5A1D70Z Performance of Urinary Filtration, Intermittent, Less than 6 Hours Per Day (ICD-10-PCS; principal; 2019-03-22)
DX: G62.89 Other specified polyneuropathies (principal); N18.6 End stage renal disease; I50.32 Chronic diastolic (congestive) heart failure; I13.2 Hypertensive heart and chronic kidney disease with heart failure and with stage 5 chronic kidney disease, or end stage renal disease; N25.81 Secondary hyperparathyroidism of renal origin; M54.5 Low back pain; R42 Dizziness and giddiness; F03.90 Unspecified dementia, unspecified severity, without behavioral disturbance, psychotic disturbance, mood disturbance, and anxiety; N05.7 Unspecified nephritic syndrome with diffuse crescentic glomerulonephritis; D63.1 Anemia in chronic kidney disease; I77.6 Arteritis, unspecified; R53.1 Weakness; F32.9 Major depressive disorder, single episode, unspecified; R26.89 Other abnormalities of gait and mobility; G50.0 Trigeminal neuralgia; R31.0 Gross hematuria; Z99.2 Dependence on renal dialysis; Z85.3 Personal history of malignant neoplasm of breast; Z79.82 Long term (current) use of aspirin; Z79.52 Long term (current) use of systemic steroids; Z79.899 Other long term (current) drug therapy

== ENCOUNTER → 2019-04-12 | Outpatient (REF) | payer MEDICARE, BC ==
[~2019-04-12] MED LIST changes: +ARIC1TAB PO; +ASPI81CH8 PO; +CALC1CAP PO; +CALC1CAP31 PO; +CEFU50TA PO; +CELL250C PO; +DOXY100C PO; +DOXY100T PO; +ECOT81TA5 PO; +GABA-1171 PO; +PANT40TA3 PO; +POTA1TAB14 PO; +PRED20TA PO
== END ==
LOC: M LAB REF 09:41
PROVIDERS: ATTEND Nurse Practitioner Adult Health
DX: R19.7 Diarrhea, unspecified (principal)

== ENCOUNTER → 2019-04-16 | Outpatient (CLI) | payer MEDICARE, BC | LOC: M RAD 08:45 | PROVIDERS: ATTEND Internal Medicine Nephrology | DX: M31.7 Microscopic polyangiitis (principal); Z99.2 Dependence on renal dialysis; I50.32 Chronic diastolic (congestive) heart failure; Z53.9 Procedure and treatment not carried out, unspecified reason ==

== ENCOUNTER 2019-05-09 07:30 | Day surgery (SDC) | payer MEDICARE, BC ==
[~2019-05-09] VITALS: Ht 157.5 cm; Wt 66.2 kg
[~2019-05-09 07:30] MED LIST changes: -MEMA1TAB PO; +MEMA1TAB3 PO; +NS 1,000 ML IV ONE
[2019-05-09] MEDS ORDERED: fentaNYL 100 MCG/2 ML INJECTION (J3010) As Ordered ONE (08:11)
[2019-05-09] MEDS ORDERED: LIDOCAINE 2% INJ 100 MG/5 ML SDV (FOR ANES.) As Ordered ONE (08:11)
[2019-05-09] MEDS ORDERED: ONDANSETRON 4MG/2ML VIAL (J2405) As Ordered ONE (08:11)
[2019-05-09] MEDS ORDERED: propofoL 200 MG/20 ML VIAL As Ordered ONE (08:11)
[2019-05-09] MEDS ORDERED: HEPARIN SOD (PORCINE) 5000 UNITS/ML VIAL As Ordered ONE (10:25)
[2019-05-09] MEDS ORDERED: BUPIVACAINE HCL 0.5% 10 ML VIAL As Ordered ONE (10:26)
[2019-05-09] MEDS ORDERED: ISOVUE-300 61% 50ML VIAL (Q9967) As Ordered ONE (10:26)
[2019-05-09] MEDS ORDERED: LIDOCAINE 2% MDV 20 ML VIAL As Ordered ONE (10:26)
--- NOTE | 2019-05-09 11:30 | ROOPDOC ---
[facility] Report Of Operation Report of Operation DATE OF PROCEDURE: 05/09/2019 PREOPERATIVE DIAGNOSES: End-stage renal disease requiring access for renal replacement therapy via hemodialysis, right internal jugular vein tunneled ce ntral venous catheter POSTOPERATIVE DIAGNOSES: End-stage renal disease requiring access for renal replacement therapy via hemodialysis internal jugular vein tunneled central venous catheter PROCEDURE: Left brachiocephalic autogenous arteriovenous fistula creation. SURGEON: Dr. Christiano Nolan MD PROVIDER RELATIONS COORDINATOR: None INDICATION: Patient is a 84-year-old female who dialyzes through a right internal jugular vein tunneled central venous catheter requires long-term access for hemodialysis. Patient was evaluated and felt to be a good candidate for a left brachiocephalic autogenous arteriovenous fistula. The procedure was described and explained to the patient in detail including drawing of pictures demonstrating the procedure and the anatomy. Risks, benefits and alternative treatment options were discussed with the patient. Benefits included but were not limited to having a functioning arteriovenous fistula for hemodialysis access and removal of tunneled central venous catheter once the fistula is successfully being used. Alternative treatment options included but were not limited to no intervention with continued conservative management. Risks included but were not limited to infection, bleeding, failure of arteriovenous to maintain patency with thrombosis, failure of arteriovenous fistula to mature requiring secondary intervention, steal syndrome, anesthetic complication, bruising, scarring, nerve damage, possible need for transfusion of blood products,, possible need for further open surgical intervention, cer ebrovascular accident, myocardial infarction, pulmonary embolus , deep venous thrombosis, reaction or complication from the prepping and draping materials, numbness, tingling, swelling of the extremity, loss of limb, loss of life and poor outcome. Patient's questions were answered. Patient voices understanding of the risks, benefits and alternative treatment options. Patient voices acceptance of these risks, benefits and alternative treatment options and consents to proceed with arterial venous fistula formation. No promises were made to the patient or her family regarding the outcome and/or results of the procedure. ANESTHESIA: Local Mac. IVF: 200 mL ESTIMATED BLOOD LOSS: 25 mL. HEPARIN:None PROTAMINE:None COMPLICATIONS:None DRAINS:None SPECIMENS:None IMPLANTS:None FINDINGS: There was a thrill in the fistula at the completion of the anastomosis DESCRIPTION OF PROCEDURE: Patient was taken to operating room, placed supine on the operating room table, and the patient was prepped and draped in a standard surgical fashion. A time-out was then conducted by myself and the team members in the room confirming the correct patient, procedure and laterality. A tourniquet was then applied to the left upper arm to dilate the cephalic vein. An incision was then made at the antecubital fossa after the overlying tissue were anesthetized with 1% lidocaine mixed with half percent Marcaine. The cephalic vein and brachial artery were sharply dissected proximally and distally and encircled with vessel loops. The cephalic vein was then transected as far distal as possible with the remnant ligated with a 2-0 silk suture. The cephalic vein was then dilated using heparinized saline. The cephalic vein was brought to the brachial artery and anastomosed to the brachial artery in an end to side fashion using 6-0 Prolene suture after an arteriotomy was made in the brachial artery and elongated with tyler scissors. There was good flow noted in the fistula at the completion of the anastomosis using Doppler ultrasound. Hemostas is was obtained after which the incision was closed using 2-0 Vicryl to approximate the deeper layers and the skin was approximated using 3-0 Monocryl in a running subcuticular fashion. Steri-Strips and dressings were applied. The patient tolerated the procedure well. All instrument, sponge and needle counts were correct at the end of the case. There were no complications. Dr. Nolan was present for and directed the entire case. Patient was transferred to the recovery room awake, alert, extubated and in stable condition. The left hand was well perfused with 2+ radial and ulnar pulses palpable. There was a strongly palpable thrill in the arteriovenous fistula to completion of the creation. The results and description of the procedure were described to the patient and her daughter in the post recovery area with all their questions being answered. Nehemiah Nolan MD May 09, 2019 09:41
[2019-05-09 12:05] VITALS: BP 144/67
[2019-05-17] MEDS ORDERED: MEMA1TAB3 PO (18:36)
== END 2019-05-09 12:27 | disposition home or self-care (01) ==
LOC: M SDC 07:30
PROVIDERS: ATTEND Surgery Vascular Surgery
DX: N18.6 End stage renal disease (principal); I50.32 Chronic diastolic (congestive) heart failure; N25.81 Secondary hyperparathyroidism of renal origin; K21.9 Gastro-esophageal reflux disease without esophagitis; L97.129 Non-pressure chronic ulcer of left thigh with unspecified severity; M31.7 Microscopic polyangiitis; F41.9 Anxiety disorder, unspecified; F32.9 Major depressive disorder, single episode, unspecified; J45.909 Unspecified asthma, uncomplicated; Z79.899 Other long term (current) drug therapy; Z79.52 Long term (current) use of systemic steroids; Z79.82 Long term (current) use of aspirin; Z85.3 Personal history of malignant neoplasm of breast; Z92.3 Personal history of irradiation; Z99.2 Dependence on renal dialysis
CPT/HCPCS: 36415; 36821; 84132; J2405; J3010

== ENCOUNTER 2019-05-17 17:20 | Inpatient (IN) | payer MEDICARE, BC ==
[~2019-05-17] VITALS: Ht 165.1 cm; Wt 70.1 kg
[~2019-05-17 17:20] MED LIST changes: +MEMA1TAB PO; -MEMA1TAB3 PO; -NS 1,000 ML IV ONE
[2019-05-17] MEDS ORDERED: ADV250INH INH (17:45)
[2019-05-17 17:55] LABS: HEMATOCRIT 28.7 % (36.0-47.0); HEMOGLOBIN 8.9 g/dl (12.0-15.5); MEAN CORPUSCULAR HEMOGLOBIN 32.1 pg (27.0-33.0); MEAN CORPUSCULAR VOLUME 103.6 fl (80.0-96.0); PLATELET COUNT, AUTOMATED 191 10^3/uL (150-450); RED BLOOD COUNT 2.77 10^6/uL (4.00-5.40)
[2019-05-17 18:04] LABS: WHITE BLOOD COUNT 24.2 10^3/uL (4.0-10.0)
[2019-05-17] MEDS ORDERED: ceFAZolin SOD 1 GM in D5W MINI-BAG PLUS 50 ML IV ONE (18:15)
[2019-05-17] MEDS ORDERED: MEMA1TAB PO (18:36)
[2019-05-17] MEDS ORDERED: GABA-843 PO (18:36)
[2019-05-17] MEDS ORDERED: CELL250C PO (18:36)
[2019-05-17] MEDS ORDERED: ESCI10TA2 PO (18:36)
[2019-05-17] MEDS ORDERED: ASPI81CH33 PO (18:36)
[2019-05-17] MEDS ORDERED: CALC667T2 PO (18:36)
[2019-05-17] MEDS ORDERED: PANT40TA3 PO (18:36)
[2019-05-17 18:41] LABS: LYMPHOCYTES 23 % (16-44); METAMYELOCYTES 1 % (0-0); MONOCYTES 1 % (0-5); NEUTROPHILS 73 % (28-66); PLATELET ESTIMATE NORMAL (NORMAL)
[2019-05-17 18:42] LABS: ANISOCYTOSIS 1+; OVALOCYTES 1+; POIKILOCYTOSIS 1+
[2019-05-17 18:51] LABS: CALCIUM LEVEL 8.6 MG/DL (8.8-10.2); CREATININE FOR GFR 1.11 MG/DL (0.55-1.30); POTASSIUM SERUM 2.8 MEQ/L (3.5-5.1)
[2019-05-17] MEDS ORDERED: POTASSIUM CHLORIDE 10 MEQ SR TABLET PO ONE (19:00)
[2019-05-17] MEDS ORDERED: KCL 10MEQ/100ML SWI (KRUN) 10 MEQ in APPROPRIATE DILUENT 1 EA IV ONE (19:00)
[2019-05-17] MEDS: ADVAIR HFA 115/21MCG INHALER INH SCH (20:00)
[2019-05-17] MEDS ORDERED: VANCOMYCIN HCL 1,000 MG, VIAL MATE ADAPTER 1 EACH in D5W 250 ML IV SCH (21:30)
[2019-05-17] MEDS ORDERED: NS 1,000 ML IV SCH (21:30)
[2019-05-17] MEDS ORDERED: VANCOMYCIN HCL 1,000 MG, VIAL MATE ADAPTER 1 EACH in D5W 250 ML IV ONE (21:45)
--- NOTE | 2019-05-17 21:52 | HPEPDOC ---
General Date of Admission May 17, 2019 at 18:40 Date of Service: May 17, 2019 Primary Care Physician: Mckenzie Anne Attending Physician: ELVA SOTO DO Chief Complaint The patient is a 84-year-old female admitted with a reason for visit of Cellulitis Of Left Arm/ Esrd. Source: Patient, Family Exam Limitations: No limitations Timing/Duration: 24 hours Severity: Moderate Associated Symptoms: Denies Symptoms History of Present Illness Patient is 84 years old female with past medical history of CHF, end-stage renal diseases currently on dialysis Sunday, , Sunday, presented to the hospital with left arm cellulitis. Patient received initial fistula tunnelization on 05/09/19, done by Dr. Nolan. Today on wound care center nurse noticed that left antecubital area has pus and redness, which is increased for past few hours. In emergency room patient was found to have significant left antecubital, forearm cellulitis. She received IV Ancef. Also patient was found to have leukocytosis of 24.2, potassium 2.8, creatinine 1.1. Patient denied fever, chills, nausea, vomiting, increased shortness of breath, diarrhea or dysuria Home Medications Scheduled Aspirin (Aspirin) 81 Mg Tab.chew, 81 MG PO QHS, (Reported) Calcium Acetate (Calcium Acetate) 667 Mg Tablet, 667 MG PO BIDWM, (Reported) Donepezil HCl (Donepezil HCl) 10 Mg Tablet, 10 MG PO QHS, (Reported) Escitalopram Oxalate (Escitalopram Oxalate) 10 Mg Tablet, 10 MG PO DAILY, (Reported) Gabapentin (Gabapentin) 300 Mg Capsule, 300 MG PO BID, (Reported) Latanoprost (Xalatan) 0.005% 2.5ML Drops, 1 DROP OU QHS, (Reported) Memantine HCl (Memantine HCl) 5 Mg Tablet, 5 MG PO QHS, (Reported) Mycophenolate Mofetil (Cellcept) 250 Mg Capsule, 750 MG PO BID, (Reported) Pantoprazole Sodium (Pantoprazole Sodium) 40 Mg Tablet.dr, 40 MG PO BID, (Reported) Prednisone (Prednisone) 20 Mg Tablet, 20 MG PO BID, (Reported) Salmeterol/Fluticasone (Advair 250-50 Diskus) 1 Each Blst.w.dev, 1 PUFF INH BID, (Reported) Allergies Coded Allergies: No Known Allergies (Unverified , 05/17/19) Past Medical History Medical History PAST MEDICAL AND SURGICAL HISTORY: Significant for: 1. History of hypertension. 2. History of congestive heart failure. 3. History of kidney stones about 50 years ago. 4. Chronic back pain. 6. History of breast cancer in remission following lumpectomy and radiation therapy in 2006. 7. Trigeminal neuralgia. 8. End-stage renal diseases on dialysis Surgical History Lumpectomy of breasts. Family History Mother had pancreatic cancer, father from heart attack Social History * Smoker: Denies Alcohol: Denies Drugs: denies A-FIB/CHADSVASC A-FIB History Current/History of A-Fib/PAF?: No Current PO Anticoag Therapy: No Review of Systems Constitutional: Denies: Chills, Fever Eyes: Denies: Pain, Vision change ENT: Denies: Head Aches, Ear Pain Skin: Reports: Rash, Lesions (pain in the left antecubital area) Pulmonary: Denies: Dyspnea, Cough Cardiovascular: Denies: Chest Pain, Palpitations Gastrointestinal: Denies: Nausea, Vomiting Genitourinary: Denies: Dysuria, Frequency Hematologic: Denies: Bruising, Bleeding Excessively Endocrine: Denies: Polydipsia, Polyphagia Musculoskeletal: Denies: Neck Pain, Back Pain Neurological: Denies: Weakness, Numbness Psych: Reports: Mood Normal; Denies: Anxiety Physical Examination General Exam: Positive: Alert, Cooperative Eye Exam: Positive: PERRLA, Conjunctiva & lids normal ENT Exam: Positive: Atraumatic, Mucous membr. moist/pink Neck Exam: Positive: Supple; Negative: JVD Chest Exam: Positive: Clear to auscultation Heart Exam: Positive: Irregular Rhythm Telemetry: Positive: Atrial fibrillation Abdomen Exam: Positive: Normal bowel sounds Extremity Exam: Positive: Tenderness (left forearm, left antecubital area), Swelling (left forearm), Other (significant swelling, redness of left forearm and antecubital area); Negative: Clubbing Skin Exam: Positive: Breakdown (left antecubital area oozing pus) Neuro Exam: Positive: Normal Tone, Cranial Nerves 3-12 NL Psych Exam: Positive: Mental status NL Vital Signs Vital Signs Date Time Temp Pulse Resp B/P (MAP) Pulse Ox O2 Delivery O2 Flow Rate FiO2 9/14/19 18:18 83 136/60 (85) 97 05/17/19 17:38 97.7 22 Room Air Laboratory Data Labs 24H Laboratory Tests 2 05/17/19 17:39: White Blood Count 24.2H, Red Blood Count 2.77L, Hemoglobin 8.9L, Hematocrit 28.7L, Mean Corpuscular Volume 103.6H, Mean Corpuscular Hemoglobin 32.1, Mean Corpuscular Hemoglobin Concent 31.0L, Red Cell Distribution Width 16.3H, Platelet Count 191, Lymphocytes # (Auto) , Nucleated Red Blood Cells % (auto) 0.1H, Neutrophils 73H, Band Neutrophils 2, Lymphocytes (Manual) 23, Monocytes (Manual) 1, Metamyelocytes 1H, Platelet Estimate NORMAL, Poikilocytosis 1+, Anisocytosis 1+, Ovalocytes 1+, Anion Gap 7L, Glomerular Filtration Rate 50.0, Blood Urea Nitrogen 9, Creatinine 1.11, Sodium Level 145, Potassium Level 2.8*L, Chloride Level 107, Carbon Dioxide Level 31, Calcium Level 8.6L CBC/BMP Laboratory Tests 05/17/19 17:39 Red Blood Count 2.77 L, Mean Corpuscular Volume 103.6 H, Mean Corpuscular Hemoglobin 32.1, Mean Corpuscular Hemoglobin Concent 31.0 L, Red Cell Distribution Width 16.3 H, Lymphocytes # (Auto) , Calcium Level 8.6 L Microbiology Microbiology 05/17/19 Blood Culture, Received Pending 05/17/19 Blood Culture, Received Pending Assessment/Plan Patient is 84 years old female with past medical history of CHF, end-stage renal diseases currently on dialysis Sunday, , Sunday, presented to the hospital with left arm cellulitis. Patient received initial fistula tunnelization on 05/09/19, done by Dr. Nolan. Today on wound care center nurse noticed that left antecubital area has pus and redness, which is increased for past few hours. Problems (1) Cellulitis of arm, left Status: Acute Problem Text: Patient on dialysis and immunocompromised There is concern for Pseudomonas as well, I will start vancomycin IV and Zosyn IV MRSA screen Blood culture Lactic acid I will talk with Dr. Nolan who is a vascular surgeon (2) ESRD (end stage renal disease) on dialysis Problem Text: Continue dialysis Sunday, , Sunday (3) Atrial fibrillation Problem Text: On my physical exam patient has irregular irregularity of the cardiac rhythm. Patient has never been diagnosed with atrial fibrillation I will hold anticoagulation for now. Patient could have developed initial paroxysmal atrial fibrillation secondary to infection or due to electrolytes abnormalities. Potassium on admission was 2.8. Also patient might need surgical drainage of antecubital area tomorrow Telemetry (4) CHF (congestive heart failure) Status: Acute Problem Text: Not on the acute exacerbation Continue home cardioprotective medications (5) Hypokalemia Status: Acute Problem Text: Replaced Plan / VTE VTE Prophylaxis Ordered?: Yes ELVA SOTO DO May 17, 2019 21:52
[2019-05-17 22:50] VITALS: BP 154/74
[2019-05-18] MEDS: DONEPEZIL 5 MG TAB PO SCH ×2 (00:10→20:24)
[2019-05-18] MEDS: PANTOPRAZOLE 40MG TAB (PROTONIX) PO SCH ×3 (00:11→20:25)
[2019-05-18] MEDS: GABAPENTIN 300 MG CAP PO SCH ×3 (00:11→20:24)
[2019-05-18] MEDS: MYCOPHENOLATE MOFETIL 250 MG CAP (J7517) PO SCH ×3 (00:11→20:24)
[2019-05-18] MEDS: LATANOPROST 0.005% OPHTH SOLN 2.5 ML OU SCH ×2 (00:11→20:22)
[2019-05-18] MEDS ORDERED: VANCOMYCIN HCL 1,000 MG, VIAL MATE ADAPTER 1 EACH in D5W 250 ML IV SCH (00:30)
--- NOTE | 2019-05-18 00:34 | PHACANCOPD ---
PHARMACY VANCOMYCIN DOSING Pt Demographics Demographics Patient Age:84 , Weight:70.100 , Gender: female Adjusted Body Weight Date: 05/18/19, Adjusted Body Weight: Kg Events Past 24 Hours Events Past 24 Hours: YES: Dialysis Vancomycin Vancomycin Target Ranges: 15-20 mcg/ml Vancomycin Load Y/N: Yes Load Dose Date Time Vancomycin Load Dose: 1000mg Date: 05-18 Time: 0030 Vancomycin Dose Date: 05/18/19. Current Vancomycin Dose: [1000mg HD] Intermittent Dosing?: Yes Labs Labs Item Value Date Time White Blood Count 24.2 10^3/uL H 05/17/19 1739 Creatinine 1.11 MG/DL 05/17/19 1739 Blood Urea Nitrogen 9 MG/DL 05/17/19 1739 Glomerular Filtration Rate 50.0 05/17/19 1739 Vital Signs Label Value Date Time Patient Temperature 97.7 degrees F 05/17/19 1738 Temperature Source Oral 05/17/19 1738 Micro Microbiology 05/17/19 Blood Culture, Received Pending 05/17/19 Blood Culture, Received Pending Creatinine Clearance Date:05/18/19. Creatinine Clearance: [hemodialysis]. Pending Labs Random 05-18 in am Assessment and Plan Maintaining Current Dose?: Yes Reason for dose change: No Dose Change Pharmacist Note Pharmacist Note Date: 05/18/19. Pharmacist note:Will monitor patients levels and dose after dialysis. JAY BEDOYA PHARMACY May 18, 2019 00:34
--- NOTE | 2019-05-18 05:57 | ECGEPIP ---
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
[2019-05-18 06:00] VITALS: BP 150/74
[2019-05-18 07:12] LABS: HEMATOCRIT 27.8 % (36.0-47.0); HEMOGLOBIN 8.4 g/dl (12.0-15.5); MEAN CORPUSCULAR HEMOGLOBIN 32.3 pg (27.0-33.0); MEAN CORPUSCULAR HGB CONC 30.2 g/dl (32.0-36.5); MEAN CORPUSCULAR VOLUME 106.9 fl (80.0-96.0); PLATELET COUNT, AUTOMATED 160 10^3/uL (150-450); WHITE BLOOD COUNT 16.2 10^3/uL (4.0-10.0)
[2019-05-18 07:39] LABS: CALCIUM LEVEL 7.9 MG/DL (8.8-10.2); CREATININE FOR GFR 2.35 MG/DL (0.55-1.30); MAGNESIUM LEVEL 1.8 MG/DL (1.8-2.4); POTASSIUM SERUM 3.2 MEQ/L (3.5-5.1); VANCOMYCIN RANDOM 15.2 UG/ML
[2019-05-18] MEDS: ADVAIR HFA 115/21MCG INHALER INH SCH ×2 (08:14→20:41)
[2019-05-18] MEDS ORDERED: IPRATROPIUM 0.5MG/ALBUTEROL 2.5MG INH SOL UD 3ML (DUONEB)(J7620) NEB PRN (08:45)
[2019-05-18] MEDS: HEPARIN SOD (PORCINE) 5000 UNITS/ML VIAL SC SCH ×2 (08:46→20:26)
[2019-05-18] MEDS: predniSONE 20 MG TAB PO SCH ×2 (08:46→18:26)
[2019-05-18] MEDS: CALCIUM ACETATE 667 MG GELCAP PO SCH ×2 (08:46→18:26)
[2019-05-18] MEDS: ASPIRIN 81 MG CHEW TABLET PEG SCH (08:46)
[2019-05-18] MEDS: MEMANTINE 5MG TABLET (NAMENDA) PO SCH (08:46)
[2019-05-18] MEDS: ESCITALOPRAM OXALATE 10 MG TAB (LEXAPRO) PO SCH (08:46)
--- NOTE | 2019-05-18 10:36 | IPNPDOC ---
Subjective Date Seen The patient was seen on 05/18/19. Subjective Chief Complaint/HPI Complains of pain in the left forearm and anticubital fossa. There is pus coming ou of the inscion in the anticubital fossa. No fever or chills, no chest pain or sob , no abdominal pain , nausea or vomiting. Objective Physical Examination General Exam: Positive: Alert, Cooperative, No Acute Distress Eye Exam: Positive: PERRLA, Conjunctiva & lids normal ENT Exam: Positive: Atraumatic, Mucous membr. moist/pink Neck Exam: Positive: Supple; Negative: JVD Chest Exam: Positive: Normal air movement, Other (bilateral basal crackles.); Negative: Rhonchi, Wheezing Heart Exam: Positive: Tachycardic, Irregular Rhythm, Normal S1, Normal S2; Negative: Gallops, Rubs, Other Telemetry: Positive: Atrial fibrillation Abdomen Exam: Positive: Normal bowel sounds; Negative: Soft, Tenderness Extremity Exam: Positive: Edema (left leg, left forearem), Tenderness (left forearm, left antecubital area), Swelling (left forearm), Other (significant swelling, redness of left forearm and antecubital area); Negative: Clubbing Skin Exam: Positive: Breakdown (left antecubital area oozing pus), Other skin issue (left lower extremity with stasis ulcer) Neuro Exam: Positive: Normal Tone, Cranial Nerves 3-12 NL Psych Exam: Positive: Mental status NL Assessment /Plan Assessment Cellulitis of the left anticubital fossa possibly after the recent AVF creation continue Zosyn and Vancomycin. consulted vascular. ESRD on HD. 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 No Afib in earlier EKGS will give metoprolol anticoagulation not started as may need surgical exploration of the cellulitis and abscess area. CHF with preserved EF. Chronic diastolic CHF fluid management with HD Chronic Anemia. due to ESRD Aranesp and Venofer with dialysis. Hypertension. will give metoprolol. Nocturnal Hypoxemia on 2 litrs oxygen at night. 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 Chronic back pain. History of breast cancer in remission following lumpectomy and radiation therapy in 2006. Trigeminal neuralgia. On gabapentin Glaucoma continue home eyedrops. Chronic venous stasis with stasis dermatitis and stasis ulcer follows with wound clinic. Plan/VTE VTE Prophylaxis Ordered?: Yes VS, I&O, 24H, Fishbone Vital Signs/I&O Vital Signs Date Time Temp Pulse Resp B/P (MAP) Pulse Ox O2 Delivery O2 Flow Rate FiO2 05/18/19 06:00 99.5 93 19 150/74 (99) 96 05/17/19 17:38 Room Air I&O- Last 24 Hours up to 6 AM 05/18/19 06:00 Intake Total 900 ml Output Total 200 ml Balance 700 ml Laboratory Data 24H LABS Laboratory Tests 2 05/17/19 17:39: White Blood Count 24.2H, Red Blood Count 2.77L, Hemoglobin 8.9L, Hematocrit 28.7L, Mean Corpuscular Volume 103.6H, Mean Corpuscular Hemoglobin 32.1, Mean Corpuscular Hemoglobin Concent 31.0L, Red Cell Distribution Width 16.3H, Platelet Count 191, Lymphocytes # (Auto) , Nucleated Red Blood Cells % (auto) 0.1H, Neutrophils 73H, Band Neutrophils 2, Lymphocytes (Manual) 23, Monocytes (Manual) 1, Metamyelocytes 1H, Platelet Estimate NORMAL, Poikilocytosis 1+, Anisocytosis 1+, Ovalocytes 1+, Anion Gap 7L, Glomerular Filtration Rate 50.0, Blood Urea Nitrogen 9, Creatinine 1.11, Sodium Level 145, Potassium Level 2.8*L, Chloride Level 107, Carbon Dioxide Level 31, Calcium Level 8.6L 05/17/19 22:09: Lactic Acid Level 1.9 05/18/19 07:00: Nucleated Red Blood Cells % (auto) 0.0, Anion Gap 6L, Glomerular Filtration Rate 21.0L, Blood Urea Nitrogen 20#H, Creatinine 2.35#H, Sodium Level 144, Potassium Level 3.2L, Chloride Level 110H, Carbon Dioxide Level 28, Calcium Level 7.9L, Magnesium Level 1.8, Random Vancomycin Level 15.2 CBC/BMP Laboratory Tests 05/17/19 17:39 Red Blood Count 2.77 L, Mean Corpuscular Volume 103.6 H, Mean Corpuscular Hemoglobin 32.1, Mean Corpuscular Hemoglobin Concent 31.0 L, Red Cell Distribution Width 16.3 H, Lymphocytes # (Auto) , Calcium Level 8.6 L 05/18/19 07:00 Red Blood Count 2.60 L, Mean Corpuscular Volume 106.9 H, Mean Corpuscular Hemoglobin 32.3, Mean Corpuscular Hemoglobin Concent 30.2 L, Red Cell Distribution Width 16.8 H, Calcium Level 7.9 L Microbiology Microbiology 05/17/19 Blood Culture, Received Pending 05/17/19 Blood Culture, Received Pending MARY ALICE VAUGHN MD May 18, 2019 08:50
[2019-05-18] MEDS: METOPROLOL TART 12.5 MG PER 1/2 TAB PO SCH ×2 (12:22→20:23)
[2019-05-18 14:00] VITALS: BP 106/56
[2019-05-18] MEDS ORDERED: **VANCO AFTER HD** MISC XX SCH (16:00)
[2019-05-18 22:00] VITALS: BP 122/65
[2019-05-19] MEDS: PIPERACILLIN/TAZOBACTAM SOD 2.25 GM in D5W MINI-BAG PLUS 50 ML IV SCH ×2 (05:37→18:00)
[2019-05-19 06:00] VITALS: BP 138/68
[2019-05-19 07:03] LABS: HEMATOCRIT 23.2 % (36.0-47.0); HEMOGLOBIN 7.3 g/dl (12.0-15.5); MEAN CORPUSCULAR HEMOGLOBIN 33.2 pg (27.0-33.0); MEAN CORPUSCULAR HGB CONC 31.5 g/dl (32.0-36.5); MEAN CORPUSCULAR VOLUME 105.5 fl (80.0-96.0); PLATELET COUNT, AUTOMATED 167 10^3/uL (150-450); WHITE BLOOD COUNT 16.8 10^3/uL (4.0-10.0)
[2019-05-19 07:19] LABS: ANISOCYTOSIS 1+; LYMPHOCYTES 26 % (16-44); MONOCYTES 3 % (0-5); NEUTROPHILS 71 % (28-66); PLATELET ESTIMATE NORMAL (NORMAL); POIKILOCYTOSIS 1+; POLYCHROMASIA 1+
[2019-05-19 07:23] LABS: CALCIUM LEVEL 7.5 MG/DL (8.8-10.2); CREATININE FOR GFR 2.72 MG/DL (0.55-1.30); GLOMERULAR FILTRATION RATE 17.8 (>32); POTASSIUM SERUM 3.4 MEQ/L (3.5-5.1)
[2019-05-19] MEDS: predniSONE 20 MG TAB PO SCH ×2 (07:56→18:00)
[2019-05-19] MEDS: CALCIUM ACETATE 667 MG GELCAP PO SCH ×2 (07:56→18:00)
[2019-05-19] MEDS: GABAPENTIN 300 MG CAP PO SCH ×2 (07:56→20:36)
[2019-05-19] MEDS: HEPARIN SOD (PORCINE) 5000 UNITS/ML VIAL SC SCH ×2 (07:56→20:38)
[2019-05-19] MEDS: ESCITALOPRAM OXALATE 10 MG TAB (LEXAPRO) PO SCH (07:57)
[2019-05-19] MEDS: MYCOPHENOLATE MOFETIL 250 MG CAP (J7517) PO SCH ×2 (07:57→20:36)
[2019-05-19] MEDS: PANTOPRAZOLE 40MG TAB (PROTONIX) PO SCH ×2 (07:57→20:36)
[2019-05-19] MEDS: ASPIRIN 81 MG CHEW TABLET PEG SCH (07:57)
[2019-05-19] MEDS: MEMANTINE 5MG TABLET (NAMENDA) PO SCH (07:57)
[2019-05-19] MEDS: METOPROLOL TART 12.5 MG PER 1/2 TAB PO SCH ×2 (07:59→20:31)
[2019-05-19] MEDS: ADVAIR HFA 115/21MCG INHALER INH SCH ×2 (08:57→20:48)
[2019-05-19] MEDS ORDERED: DARBEPOETIN 100 MCG/0.5 ML *DIALYSIS* SYRINGE (J0882) IV SCH (11:30)
--- NOTE | 2019-05-19 12:14 | CR ---
DATE OF CONSULTATION: 05/19/2019 REQUESTING PHYSICIAN: Dr. Casi Cohn CONSULTING PHYSICIAN: Dr. Greenwood REASON FOR CONSULTATION: Management of end-stage renal disease on hemodialysis. CHIEF COMPLAINT: The patient presented on May 17, 2019 because of cellulitis and pus discharge from the left arm AV fistula site. HISTORY OF PRESENT ILLNESS: Araceli Benson is an 84-year-old female with past medical history of end-stage renal disease on hemodialysis every Sunday, , Sunday with history of Microscopic polyangiitis taking prednisone and CellCept as outpatient. She got her left upper arm AV fistula placed on May 09, 2019. While she was undergoing dialysis as outpatient on Sunday she was found to have a lot of redness, cellulitis and pus discharge from the AV fistula wound. The patient also had swelling of the left forearm and left hand. After dialysis the patient was sent to the emergency room for further evaluation. The patient was found to be septic with a leukocytosis of more than 24,000. She was started on IV antibiotics. She was admitted under the hospitalist service. Nephrology service was called today for further help in the management of end-stage renal disease and hemodialysis. I saw and evaluated the patient today morning at the bedside. The patient has baseline dementia, otherwise she was awake and alert and she was able to answer the questions and she reports that her left arm swelling and pain is significantly better since the day of the admission. 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 PAST SURGICAL HISTORY: Status post left upper arm AV fistula placement on May 09, 2019, history of kidney biopsy during a previous hospitalization, status post lumpectomy and radiation therapy for breast cancer in 2006. ALLERGIES: No known drug allergies. FAMILY HISTORY: No significant family history of end-stage renal disease requiring hemodialysis. Father had heart attack and mother had pancreatic cancer. SOCIAL HISTORY: The patient denies any smoking, illicit drug abuse or alcohol abuse. She has baseline dementia. REVIEW OF SYSTEMS: Constitutional: She denies any fevers and chills at this time. Eyes: She denies any blurry vision, double vision. ENT: She denies any dysphagia, odynophagia, or ear discharge. Cardiovascular: She denies any chest pain or palpitation. Respiratory: She denies any shortness of breath or cough at this time. GI: She denies any nausea, vomiting. Genitourinary: She denies any dysuria or hematuria. Musculoskeletal: She reports improving swelling and tenderness in the left arm AV fistula site. AIRLINE LOUNGE RECEPTIONIST: She denies any strokes or seizures. Hematology/Oncology: She denies any easy bleeding or bruising. Skin: She reports erythema and swelling of the left arm but it is improving now. Psych: The patient denies any anxiety. She does have a history of dementia. All other review of systems is negative. PHYSICAL EXAMINATION: General: The patient is awake, alert, oriented times one, sitting up in the bed in no apparent distress. Vital signs: Temperature is 97.3 degrees Fahrenheit, blood pressure 138/68, pulse is 18, respiratory of 19. Head and neck exam extraocular muscles intact. Pupils equally round and reactive to light. Mucous membranes are moist. Neck is supple. There is no jugular venous distention (JVD). Cardiovascular: S1, S2, regular rate. Trace edema of the bilateral lower extremities. Right IJ tunneled hemodialysis catheter was noted. Respiratory: Chest is clear to auscultation bilaterally. Bilateral equal air entry. No rales or rhonchi. Abdomen: Soft, positive bowel sounds, nontender, no organomegaly. Musculoskeletal: The patient has left upper arm AV fistula with thrill and bruit. There is erythema around the fistula site. There is swelling of the left forearm and left hand, I have seen her today for the first time but as reported per patient she reports that the swelling is getting better. AIRLINE LOUNGE RECEPTIONIST: The patient has baseline dementia otherwise she is awake and alert and she is pleasant and follows commands. Skin: No rashes or ulcerations apart from erythema and swelling at the AV fistula site. LAB REVIEW: WBC on arrival was 24.2, today is 16.8, hemoglobin is 7.3, platelets of 167. BMP today showed sodium 147, potassium 3.4, chloride 112, bicarb 28, BUN 34, creatinine is 2.7, calcium 7.5. Random vancomycin was 15.2 yesterday. Microbiology blood cultures 2 out of 2 from May 17, 2019 are positive for gram-negative rods. CURRENT INPATIENT MEDICATIONS: The patient's medications included Zosyn 2.5 grams IV every 12 hourly, vancomycin 1 gram was given yesterday. She is on DuoNeb as needed, aspirin 81 mg by mouth daily, PhosLo 667 mg by mouth twice a day with meals, Aricept 10 mg at bedtime, Lexapro 10 mg daily, gabapentin 300 mg by mouth twice a day, memantine 5 mg by mouth daily, Lopressor 12.5 mg by mouth twice a day, CellCept 750 mg by mouth twice a day, Protonix 40 mg by mouth twice a day, prednisone 20 mg by mouth twice a day, Advair one puff twice a day. 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 PLAN: 1. End-stage renal disease on hemodialysis. The patient's regular dialysis days are Sunday, , Sunday. She was dialyzed on Sunday. Next hemodialysis will be tomorrow morning as per regular schedule. 2. Cellulitis of the left arm and gram negative steve bacteremia. The patient is growing a gram-negative steve report in 2 out of 2 blood cultures. She is empirically being covered with IV Zosyn and IV vancomycin, further tapering down of the antibiotics will be done once the final culture sensitivity results are back. AV fistula site is infected. She is going to be evaluated by vascular surgery soon. The patient also has a right IJ tunneled hemodialysis catheter. I have ordered a 2-D echocardiogram done to rule out vegetation on the heart. 3. Anemia in end-stage renal disease. Hemoglobin is 7.3 which is low. I have ordered one unit of packed red blood cell (PRBC) transfusion to be given with dialysis tomorrow. 4. Hypernatremia, most likely secondary to IV fluid hydration, IV normal saline has been stopped. 5. Hypokalemia. The patient will be dialyzed with the 4 K bath which will help improve the potassium levels. 6. Microscopic polyangiitis. The patient is currently on oral CellCept and prednisone. Prednisone dose is being tapered down as outpatient. Currently she is on 20 mg by mouth twice a day dose. 7. Hypertension with end-stage renal disease. Continue current dose of metoprolol 12.5 mg by mouth twice a day. 8. Chronic kidney disease, mineral bone disease. Continue current dose of PhosLo one capsule twice a day with meals. 9. Dementia. Continue home dose of Aricept 10 mg at bedtime and Namenda 5 mg by mouth daily. 10. Chronic diastolic congestive heart failure. Volume status is optimal. Fluid removal is done during dialysis. Thank you for involving me in the care of this patient. I shall be happy to follow the patient along with you tomorrow morning. MTDD
[2019-05-19 14:00] VITALS: BP_SYST 120; BP_SYST 128; BP_DIAS 63; BP_DIAS 73
--- NOTE | 2019-05-19 14:14 | IPNPDOC ---
Subjective Date Seen The patient was seen on 05/19/19. Subjective Chief Complaint/HPI arm pain and swelling much better. Says now she is able to make a fist when yesterday she could not. No fever or chills, no chest pain or SOB Objective Physical Examination General Exam: Positive: Alert, Cooperative, No Acute Distress Eye Exam: Positive: PERRLA, Conjunctiva & lids normal ENT Exam: Positive: Atraumatic, Mucous membr. moist/pink Neck Exam: Positive: Supple; Negative: JVD Chest Exam: Positive: Normal air movement, Other (bilateral basal crackles.); Negative: Rhonchi, Wheezing Heart Exam: Positive: Tachycardic, Irregular Rhythm, Normal S1, Normal S2; Negative: Gallops, Rubs, Other Telemetry: Positive: Atrial fibrillation Abdomen Exam: Positive: Normal bowel sounds; Negative: Soft, Tenderness Extremity Exam: Positive: Edema (left leg, left forearem), Tenderness (left forearm, left antecubital area), Swelling (left forearm), Other (significant swelling, redness of left forearm and antecubital area); Negative: Clubbing Skin Exam: Positive: Breakdown (left antecubital area oozing pus), Other skin issue (left lower extremity with stasis ulcer) Neuro Exam: Positive: Normal Tone, Cranial Nerves 3-12 NL Psych Exam: Positive: Mental status NL Assessment /Plan Assessment Cellulitis of the left anticubital fossa possibly after the recent AVF creation continue Zosyn and Vancomycin. consulted vascular. Gram negative bacterimia will get echo continue current antibiotics. ESRD on HD. 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 No Afib in earlier EKGS will give metoprolol anticoagulation not started as may need surgical exploration of the cellulitis and abscess area. CHF with preserved EF. Chronic diastolic CHF fluid management with HD Acute on Chronic Anemia. due to ESRD and infection. Aranesp and Venofer with dialysis. PRBC if HH< 7.0 preferably during HD Hypertension. will give metoprolol. Nocturnal Hypoxemia on 2 litrs oxygen at night. 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 Chronic back pain. History of breast cancer in remission following lumpectomy and radiation therapy in 2006. Trigeminal neuralgia. On gabapentin Glaucoma continue home eyedrops. Chronic venous stasis with stasis dermatitis and stasis ulcer follows with wound clinic. Plan/VTE VTE Prophylaxis Ordered?: Yes VS, I&O, 24H, Fishbone Vital Signs/I&O Vital Signs Date Time Temp Pulse Resp B/P (MAP) Pulse Ox O2 Delivery O2 Flow Rate FiO2 05/19/19 07:59 89 132/81 05/19/19 06:00 97.3 18 99 05/17/19 17:38 Room Air I&O- Last 24 Hours up to 6 AM 05/19/19 06:00 Intake Total 1110 ml Output Total 100 ml Balance 1010 ml Laboratory Data 24H LABS Laboratory Tests 2 05/18/19 20:34: Methicillin-Resist S.aureus DNA PCR NOT DETECTED 05/19/19 06:49: Nucleated Red Blood Cells % (auto) 0.0, Neutrophils 71H, Lymphocytes (Manual) 26, Monocytes (Manual) 3, Platelet Estimate NORMAL, Polychromasia 1+, Poikilocytosis 1+, Anisocytosis 1+, Anion Gap 7L, Glomerular Filtration Rate 17.8L, Blood Urea Nitrogen 34#H, Creatinine 2.72H, Sodium Level 147H, Potassium Level 3.4L, Chloride Level 112H, Carbon Dioxide Level 28, Calcium Level 7.5L CBC/BMP Laboratory Tests 05/19/19 06:49 Red Blood Count 2.20 L, Mean Corpuscular Volume 105.5 H, Mean Corpuscular Hemoglobin 33.2 H, Mean Corpuscular Hemoglobin Concent 31.5 L, Red Cell Distribution Width 16.6 H, Calcium Level 7.5 L Microbiology Microbiology 05/17/19 Blood Culture - Preliminary, Resulted 05/17/19 Blood Culture - Preliminary, Resulted MARY ALICE VAUGHN MD May 19, 2019 14:14
--- NOTE | 2019-05-19 14:54 | IPNPDOC ---
Date Seen The patient was seen on 05/19/19. Progress Note Vascular Surgery. HPI: Patient is 84 yo F with past medical history of CHF, end-stage renal di angelita currently on dialysis Sunday, , Sunday, presented to the hospital 05/17/19 with left arm cellulitis. S/P Lt AV fistula creation on 05/09/[address] Nolan consulted on admission 05/17/19. This PM the pt states her left arm is feeling much better, strength is improved, pain redness and warmth are much less. Denies any fevers, chills, Headache, Chest Pain, Shortness of breath, cough, palpitations, abdominal pain, N/V/D or changes in bowel or bladder habits. PE: GEN: 84yoF No acute distress. Alert and oriented x 3. HEENT: Normocephalic, atraumatic. Moist mucous membranes. CHEST: Regular rate and rhythm, +S1, +S2 LUNGS: Clear to auscultation bilaterally. No wheezes, rales, or rhonchi. ABD: Round, soft, non-tender, non-distended. EXT: LUE with erythema which appears to be resolving, dec warmth with palpation, no TTP, small amount of purulent drainage is noted from antecubital surgical site. No lower extremity edema appreciated. NEURO: Alert and oriented x 3. No focal deficits appreciated. A&P: 1. LUE AVF creation 05/09/19 with LUE cellulitis. afebrile WBC 16.8. Gram neg bacteremia. WC pending IV Vanco/Zosyn as per Med svc. No additional surgical intervention as per Dr Nolan 05/19/19. Monitor. VS, I&O, [facility]/I[facility]O Vital Signs Date Time Temp Pulse Resp B/P (MAP) Pulse Ox O2 Delivery O2 Flow Rate FiO2 05/19/19 07:59 89 132/81 05/19/19 06:00 97.3 18 99 05/17/19 17:38 Room Air I&O- Last 24 Hours up to 6 AM 05/19/19 05:59 Intake Total 1710 ml Output Total 100 ml Balance 1610 ml Laboratory Data 24H LABS Laboratory Tests 2 05/18/19 20:34: Methicillin-Resist S.aureus DNA PCR NOT DETECTED 05/19/19 06:49: Nucleated Red Blood Cells % (auto) 0.0, Neutrophils 71H, Lymphocytes (Manual) 26, Monocytes (Manual) 3, Platelet Estimate NORMAL, Polychromasia 1+, Poikilocytosis 1+, Anisocytosis 1+, Anion Gap 7L, Glomerular Filtration Rate 17.8L, Blood Urea Nitrogen 34#H, Creatinine 2.72H, Sodium Level 147H, Potassium Level 3.4L, Chloride Level 112H, Carbon Dioxide Level 28, Calcium Level 7.5L CBC/BMP Laboratory Tests 05/19/19 06:49 Red Blood Count 2.20 L, Mean Corpuscular Volume 105.5 H, Mean Corpuscular Hemoglobin 33.2 H, Mean Corpuscular Hemoglobin Concent 31.5 L, Red Cell Distrib ution Width 16.6 H, Calcium Level 7.5 L Microbiology Microbiology 05/17/19 Blood Culture - Preliminary, Resulted 05/17/19 Blood Culture - Preliminary, Resulted Attending Note Attending Note VASCULAR SURGICAL ATTENDING NOTE: Dr. Teresa Nolan M.D. ASSESSMENT: Patient is an 84-year-old female who underwent creation of a left autogenous brachiocephalic arteriovenous fistula and developed cellulitis in the left upper extremity. Patient also has a small opening in the incision in the left antecubital fossa. Patient has significant improvement in her synovitis since being on IV antibiotics. PLAN: Continue IV antibiotics. Off the foam dressing to the left antecubital fossa daily. Patient to follow-up in the office as an outpatient after being discharged. Pinky Nicholson was the attending vascular surgeon for this patient encounter. The patient was seen, examined, interviewed and evaluated independently by Dr. Christiano Nolan M.D. was fully available during the consultation evaluation. All aspects of the patient interview, examination, medical decision making process, and medical care plan development were reviewed and approved by Dr. Christiano Nolan M.D. Dr. Christiano Nolan M.D. is aware and concurs with the plan as stated in the body of this note and will attest to such by his/her cosignature. Amirah Larose May 19, 2019 14:54 Nehemiah Nolan MD May 22, 2019 23:57
[2019-05-19] MEDS: DONEPEZIL 5 MG TAB PO SCH (20:36)
[2019-05-19] MEDS: LATANOPROST 0.005% OPHTH SOLN 2.5 ML OU SCH (20:38)
[2019-05-19 22:00] VITALS: BP 118/77
[2019-05-20] MEDS: PIPERACILLIN/TAZOBACTAM SOD 2.25 GM in D5W MINI-BAG PLUS 50 ML IV SCH ×2 (05:36→18:09)
[2019-05-20] MEDS: METOPROLOL TART 12.5 MG PER 1/2 TAB PO SCH ×2 (05:37→20:35)
[2019-05-20] MEDS: HEPARIN SOD (PORCINE) 5000 UNITS/ML VIAL SC SCH ×2 (05:39→20:36)
[2019-05-20] MEDS: ESCITALOPRAM OXALATE 10 MG TAB (LEXAPRO) PO SCH (05:39)
[2019-05-20] MEDS: ASPIRIN 81 MG CHEW TABLET PEG SCH (05:39)
[2019-05-20] MEDS: PANTOPRAZOLE 40MG TAB (PROTONIX) PO SCH ×2 (05:39→20:35)
[2019-05-20] MEDS: GABAPENTIN 300 MG CAP PO SCH ×2 (05:39→20:35)
[2019-05-20] MEDS: predniSONE 20 MG TAB PO SCH ×2 (05:39→18:09)
[2019-05-20] MEDS: CALCIUM ACETATE 667 MG GELCAP PO SCH ×2 (05:39→18:09)
[2019-05-20] MEDS: MEMANTINE 5MG TABLET (NAMENDA) PO SCH (05:40)
[2019-05-20] MEDS: MYCOPHENOLATE MOFETIL 250 MG CAP (J7517) PO SCH ×2 (05:40→20:36)
[2019-05-20 06:00] VITALS: BP 135/68
[2019-05-20 06:46] LABS: HEMATOCRIT 23.7 % (36.0-47.0); HEMOGLOBIN 7.4 g/dl (12.0-15.5); MEAN CORPUSCULAR HEMOGLOBIN 32.7 pg (27.0-33.0); MEAN CORPUSCULAR HGB CONC 31.2 g/dl (32.0-36.5); MEAN CORPUSCULAR VOLUME 104.9 fl (80.0-96.0); PLATELET COUNT, AUTOMATED 188 10^3/uL (150-450); RED BLOOD COUNT 2.26 10^6/uL (4.00-5.40); WHITE BLOOD COUNT 18.4 10^3/uL (4.0-10.0)
[2019-05-20 07:03] LABS: LYMPHOCYTES 20 % (16-44); NEUTROPHILS 80 % (28-66); PLATELET ESTIMATE NORMAL (NORMAL)
[2019-05-20 07:07] LABS: CALCIUM LEVEL 7.8 MG/DL (8.8-10.2); CREATININE FOR GFR 2.86 MG/DL (0.55-1.30); GLOMERULAR FILTRATION RATE 16.8 (>32); POTASSIUM SERUM 3.6 MEQ/L (3.5-5.1); VANCOMYCIN RANDOM 8.7 UG/ML
[2019-05-20] MEDS ORDERED: VANCOMYCIN HCL 1,000 MG, VIAL MATE ADAPTER 1 EACH in D5W 250 ML IV ONE (08:00)
[2019-05-20] MEDS: ADVAIR HFA 115/21MCG INHALER INH SCH ×2 (08:05→20:30)
--- NOTE | 2019-05-20 09:21 | PHACANCOPD ---
PHARMACY VANCOMYCIN DOSING Pt Demographics Demographics Patient Age:84 , Weight:70.100 , Gender: female Adjusted Body Weight Date: 05/18/19, Adjusted Body Weight: Kg Events Past 24 Hours Events Past 24 Hours: YES: Dialysis, Elevation in WBC Vancomycin Vancomycin Target Ranges: 15-20 mcg/ml Vancomycin Load Y/N: Yes Load Dose Date Time Vancomycin Load Dose: 1000mg Date: 05-18 Time: 0030 Vancomycin Dose Date: 05/18/19. Current Vancomycin Dose: [1000mg HD] Intermittent Dosing?: Yes Labs Labs Vital Signs Label Value Date Time Patient Temperature 98.2 degrees F 05/20/19 0600 Temperature Source Temporal 05/20/19 0600 Patient Temperature 97.9 degrees F 05/19/19 2200 Temperature Source Temporal 05/19/19 2200 Patient Temperature 96.9 degrees F 05/19/19 1400 Temperature Source Temporal 05/19/19 1400 Item Value Date Time White Blood Count 18.4 10^3/uL H 05/20/19 0542 White Blood Count 16.8 10^3/uL H 05/19/19 0649 White Blood Count 16.2 10^3/uL H 05/18/19 0700 Creatinine 2.86 MG/DL H 05/20/19 0542 Creatinine 2.72 MG/DL H 05/19/19 0649 Creatinine 2.35 MG/DL H # 05/18/19 0700 Random Vancomycin Level 8.7 UG/ML 05/20/19 0542 Random Vancomycin Level 15.2 UG/ML 05/18/19 0700 Methicillin-Resist S.aureus DNA PCR NOT DETECTED 05/18/192033 Micro Microbiology 05/17/19 Blood Culture - Final, Complete Pseudomonas Fluorescens 05/17/19 Blood Culture - Final, Complete Pseudomonas Fluorescens 05/19/19 Wound Culture, Received Pending Creatinine Clearance Date:05/18/19. Creatinine Clearance: [hemodialysis]. Pending Labs Random 05-18 in am Assessment and Plan Maintaining Current Dose?: Yes Reason for dose change: Trough too low Pharmacist Note Pharmacist Note 05/20/19: Random this AM resulted at 8.7mcg/ml. This is subtherapeutic. I have order a Stat Vanco 1G to be administered prior to dialysis. The patient will still receive Vanco 1G IV HD today. WBC have gone up today since yesterday. Infectious dx has been consulted. We will continue to monitor and adjust dose as needed. Date: 05/18/19. Pharmacist note:Will monitor patients levels and dose after dialysis. [facility] May 20, 2019 09:21
--- NOTE | 2019-05-20 13:04 | IPNPDOC ---
Subjective Date Seen The patient was seen on 05/20/19. Subjective Chief Complaint/HPI Patient comfortable in no distress. Offers no new complaints at the present time General: Denies: ROS Unobtainable, Chills, Night Sweats, Fatigue, Malaise, Normal Appetite, Other Symptoms Constitutional: Denies: Chills, Fever, Malaise, Night Sweats, Weakness, Fatigue, Weight Loss, Lethargy, Other Skin: Denies: Rash, Lesions, Jaundice, Bruising, Itching, Dry, Breakdown, Nail Changes, Other Pulmonary: Denies: Dyspnea, Cough, Pleuritic Chest Pain, Other Symptoms Cardiovascular: Denies: Chest Pain, Palpitations, Orthopnea, Paroxysmal Noc. Dyspnea, Edema, Lt Headedness, Other Symptoms Gastrointestinal: Denies: Nausea, Vomiting, Abdominal Pain, Diarrhea, Constipation, Melena, Hematochezia, Other Symptoms Musculoskeletal: Denies: Neck Pain, Back Pain, Shoulder Pain, Arm Pain, Hand Pain, Leg Pain, Foot Pain, Joint Pain, Muscle Pain, Spasms, Other Symptoms Neurological: Denies: Weakness, Numbness, Incoordination, Change in speech, Confusion, Seizures, Other Symptoms Objective Physical Examination ENT Exam: Positive: Atraumatic, Mucous membr. moist/pink Neck Exam: Positive: Supple Chest Exam: Positive: Normal air movement, Other (bilateral basal crackles.); Negative: Rhonchi, Wheezing Heart Exam: Positive: Tachycardic, Irregular Rhythm, Normal S1, Normal S2 Telemetry: Positive: Atrial fibrillation Abdomen Exam: Positive: Normal bowel sounds, Soft Extremity Exam: Positive: Edema (left leg, left forearem), Tenderness (left forearm, left antecubital area), Swelling (left forearm), Other (significant swelling, redness of left forearm and antecubital area) Skin Exam: Positive: Breakdown (left antecubital area oozing pus), Other skin issue (left lower extremity with stasis ulcer) Neuro Exam: Positive: Normal Tone, Cranial Nerves 3-12 NL Psych Exam: Positive: Mental status NL Assessment /Plan Problems (1) Cellulitis of arm, left Status: Acute Problem Text: Cellulitis of the left anticubital fossa possibly after the recent AVF creation continue Zosyn. OPAL Vanco Echo pending Dr. Nolan consulted Dr. wiley consulted for pseudomonas infection (2) ESRD (end stage renal disease) on dialysis Problem Text: ESRD on HD. 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 No Afib in earlier EKGS will give metoprolol anticoagulation not started as may need surgical exploration of the cellulitis and abscess area. (4) CHF (congestive heart failure) Status: Acute Problem Text: Not on the acute exacerbation Continue home cardioprotective medications Plan/VTE VTE Prophylaxis Ordered?: Yes VS, I&O, 24H, Fishbone Vital Signs/I&O Vital Signs Date Time Temp Pulse Resp B/P (MAP) Pulse Ox O2 Delivery O2 Flow Rate FiO2 05/20/19 06:00 98.2 82 16 135/68 (90) 97 05/17/19 17:38 Room Air I&O- Last 24 Hours up to 6 AM 05/20/19 06:00 Intake Total 900 ml Output Total 200 ml Balance 700 ml Laboratory Data 24H LABS Laboratory Tests 2 05/20/19 05:42: Nucleated Red Blood Cells % (auto) 0.0, Neutrophils 80H, Lymphocytes (Manual) 20, Platelet Estimate NORMAL, Red Blood Cell Morphology NORMAL, Anion Gap 9, Glomerular Filtration Rate 16.8L, Blood Urea Nitrogen 43H, Creatinine 2.86H, Sodium Level 146H, Potassium Level 3.6, Chloride Level 111H, Carbon Dioxide Level 26, Calcium Level 7.8L, Random Vancomycin Level 8.7 CBC/BMP Laboratory Tests 05/20/19 05:42 Red Blood Count 2.26 L, Mean Corpuscular Volume 104.9 H, Mean Corpuscular Hemoglobin 32.7, Mean Corpuscular Hemoglobin Concent 31.2 L, Red Cell Distribution Width 16.5 H, Calcium Level 7.8 L Microbiology Microbiology 05/17/19 Blood Culture - Final, Complete Pseudomonas Fluorescens 05/17/19 Blood Culture - Final, Complete Pseudomonas Fluorescens 05/19/19 Wound Culture, Received Pending JENNY CROCKER MD May 20, 2019 13:04
[2019-05-20] MEDS ORDERED: HEPARIN 1,000 UNITS/ML 10ML VIAL (FOR RADIOLOGY& DIALYSIS ONLY) IV ONE (14:00)
[2019-05-20] MEDS ORDERED: HEPARIN 1,000 UNITS/ML 10ML VIAL (FOR RADIOLOGY& DIALYSIS ONLY) XX ONE (14:00)
[2019-05-20 16:30] LABS: C REACTIVE PROTEIN QUANTITATIV 9.87 MG/DL (0.00-0.30)
--- NOTE | 2019-05-20 18:16 | IPN ---
DATE: 05/20/2019 SUBJECTIVE: The patient was seen and examined at the bedside today morning. The patient reports that her left arm swelling is significantly better. She is able to make a fist now. The erythema is all improved. She is afebrile. She is scheduled for dialysis today. Her hemoglobin level is low. She is also supposed to get a unit of packed red blood cells (PRBC) transfusion. OBJECTIVE: VITAL SIGNS: Temperature is 98.2 degrees Fahrenheit, blood pressure 135/68, pulse is 82, respiratory of 16, saturating 97% on room air. INTAKE AND OUTPUT: Urine output recorded is only 200 mL yesterday. Weight in the bed scale is not available. PHYSICAL EXAMINATION: GENERAL: The patient is awake, alert, oriented times one, sitting up in the bed, in no apparent distress. HEAD AND NECK: Extraocular muscles intact. Pupils equally round and reactive to light. Mucous membranes are moist. Neck is supple. There is no jugular venous distention (JVD). She has a right internal jugular (IJ) tunneled hemodialysis catheter. CARDIOVASCULAR: S1, S2, regular rate. Trace edema of the bilateral lower extremities. RESPIRATORY: Chest is clear to auscultation bilaterally. Bilateral equal air entry. No rales or rhonchi. ABDOMEN: Soft, positive bowel sounds, nontender. No organomegaly. MUSCULOSKELETAL: The patient has a left upper arm arteriovenous (AV) fistula with thrill and bruit. Erythema and swelling is significantly better. CENTRAL NERVOUS SYSTEM (TICKET BROKER): No focal deficit apart from baseline dementia. She moves extremities and follows commands. LABORATORY REVIEW: CBC showed a WBC of 18.4, hemoglobin 7.4, platelets are 188. BMP showed sodium 146, potassium 3.6, chloride 111, bicarbonate 26, BUN 43, creatinine is 2.8, calcium is 7.8. Random vancomycin level today was 8.7. MICROBIOLOGY: Blood cultures 2/2 are growing Pseudomonas fluorescens. Sensitivity results are not available. CURRENT INPATIENT MEDICATIONS: The patient continues to be on Zosyn and vancomycin. No other change in the medications today as compared with yesterday. ASSESSMENT AND PLAN: 1. End-stage renal disease. The patient is going to be dialyzed today according to her regular Sunday, , Sunday schedule. 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 So far, there are no signs of renal recovery. 2. Cellulitis of the left arm and Pseudomonas fluorescens bacteremia. The patient continues to be on vancomycin and Zosyn. Wound culture is still pending, so for now I would continue the two antibiotics. If the wound culture also grows the same organism then vancomycin will be stopped. 3. Anemia secondary to end-stage renal disease. The patient's hemoglobin is low. She is going to get one unit of packed red blood cells (PRBC) transfusion with dialysis today. 4. 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 Prednisone dose is slowly tapered down as outpatient. 5. Hypertension. Continue current dose of metoprolol 12.5 mg by mouth twice a day. MTDD
--- NOTE | 2019-05-20 19:48 | CR ---
DATE OF CONSULTATION: 05/20/2019 CONSULTING PHYSICIAN: Dr. Emmanuel Hernandez REASON FOR CONSULTATION: Pseudomonas bacteremia. HISTORY OF PRESENT ILLNESS: This is a pleasant 84-year-old female with a pertinent past medical history of granulomatosis with polyangiitis, on immunosuppressant, prednisone and Cellcept, end-stage renal disease with a recent arteriovenous (AV) fistula creation on 05/09/2019 on the right upper arm who presented to the emergency room (ER) on May 17 because of left arm and pustulant discharge from the left upper arm AV fistula site. Patient states that on the day of admission she had significant left arm pain, that she was unable to make a fist. She was told to have further evaluation by the wound care nurse, who noticed left antecubital pus and increased redness. She denies having any fevers, chills, night sweats, nausea, vomiting, diarrhea, constipation. At this current time she admits that the left arm pain has improved. No more purulent discharge, and she is able to make a fist. She recently started dialysis earlier this February. She is not the best historian, so not a full history can be obtained. PAST MEDICAL HISTORY: 1. History of granulomatosis with polyangiitis, causing renal failure and lung involvement, currently on Prednisone and Cellcept. 2. Hypertension with end-stage renal disease. 3. Dementia. 4. Chronic diastolic congestive heart failure. 5. Anemia in the setting of end-stage renal disease. 6. Nocturnal hypoxemia. 7. Asthma. 8. Acid reflux. 9. History of kidney stones 50 years prior. 10. Old compression fracture in L1. 11. Chronic back pain. 12. History of breast cancer, in remission following lumpectomy and radiation therapy in 2006. 13. History of trigeminal neuralgia. 14. Glaucoma. 15. Chronic venous stasis with stasis dermatitis and stasis ulcers on the left lower extremity. PAST SURGICAL HISTORY: 1. Recent AV fistula placement on 05/09/2019. 2. History of kidney biopsy during previous hospitalization. 3. Status post lumpectomy and radiation therapy for breast cancer in 2006. FAMILY HISTORY: Mother had pancreatic cancer. Father of heart attack. SOCIAL HISTORY: Denies illicit drug use, smoking, alcohol use. REVIEW OF SYSTEMS: Remaining 10-point review of systems negative. PHYSICAL EXAMINATION: VITAL SIGNS: Temperature 98.2, pulse 82, respiration rate 16, blood pressure 135/68 (90), pulse oximetry 97% on room air. GENERAL: This is a very pleasant 84-year-old female who does not appear in acute distress, lying comfortably in the bed, awake, alert, oriented times one. HEENT: Atraumatic, normocephalic with a horizontal nystagmus appreciated bilaterally. Pupils are equal, round, and reactive. Moist mucous membranes. NECK: Supple with no jugular venous distention (JVD). Right internal jugular (IJ) tunneled dialysis catheter on the chest wall, currently accessed. No discharge or tenderness at the site. CARDIOVASCULAR: S1, S2 sounds, regular rate. Trace edema in the bilateral lower extremities. Left lower extremity wrapped with bandage placed by wound care. RESPIRATIONS: Clear to auscultate bilaterally. No audible wheezing, rhonchi, or rales. ABDOMEN: Soft. Positive bowel sounds in all four quadrants. Nontender. Obese abdomen. MUSCULOSKELETAL: Right upper arm AV fistula with adequate thrill and bruit appreciated. There is slight erythema at the forearm and swelling. No pus can be appreciated in the antecubital area. Covered with an Optifoam. No tenderness on palpation. No induration appreciated. Wound measures roughly about 1 x 2 cm in size. NEUROLOGIC: No focal deficits can be noted. There is a horizontal nystagmus bilaterally in eyes. She does have a baseline dementia that she is currently on medication. Able to move extremities and follow commands with no problem. LABORATORIES: WBC 18.4, hemoglobin 7.4, hematocrit 23.7, platelets 188. Chemistry: Sodium 146, potassium 3.6, chloride 111, carbon dioxide 26, anion gap 9, BUN 43, creatinine 2.86, GFR 16.8, fasting glucose 98, calcium 7.8, CRP 9.87. Methicillin-resistant Staphylococcus aureus (MRSA) screen negative. Microbiology: Blood cultures times two positive for Pseudomonas fluorescens. Repeat blood culture today, 05/20/2019, pending. Wound culture from left antecubital joint pending. Blood bank: 1 unit transfused this morning. IMAGING: No new imaging. ASSESSMENT: This is an 84-year-old female with a pertinent past medical history of a recent left AV fistula creation on 05/09/2019 who presented to the emergency room (ER) for purulent discharge from the left antecubital joint. 1. Postoperative wound infection with Pseudomonas fluorescens bacteremia. Patient just had recent instrumentation for the left AV fistula creation in the last 30 days. We will discontinue the Zosyn, for she can be placed on cefepime that can be given after dialysis. While she is admitted, we will do 1 gram every 24 daily, and if tolerating well upon discharge, we can transition her to 2-2-2 grams after dialysis sessions. 2. History of granulomatosis with polyangiitis. Patient currently on Cellcept and prednisone. She is currently on a lower dose that has been tapered as outpatient. Will discuss with Dr Garza if cellcept dose can be decreased 3. History of chronic venous stasis with stasis dermatitis and ulcers of the left lower leg. Patient does see Dr. Dey as outpatient. Her last appointment was on May 16, and her next appointment for dressing change is on May 23. Would recommend having wound care consulted so she can have her wound changed on Sunday while she is admitted. PLAN: Discontinue Zosyn. Start cefepime 1 gram every evening while admitted. On discharge, will do 2-2-2 grams status post AV dialysis sessions. A repeat blood culture is currently pending and will be on antibiotics for 2-4 weeks pending clinical improvement. Wond culture is still pending and ATBX may need modification based on results My faculty preceptor for this patient encounter was physically present during the encounter and was fully available. All aspects of the patient interview, examination, medical decision making process, and medical care plan development were reviewed and approved by the faculty preceptor. The faculty preceptor is aware and concurs with the plan as stated in the body of this note and will attest to such by his/her co-signature. KRUPA
[2019-05-20] MEDS: LATANOPROST 0.005% OPHTH SOLN 2.5 ML OU SCH (20:36)
[2019-05-20] MEDS: DONEPEZIL 5 MG TAB PO SCH (20:36)
[2019-05-20 22:00] VITALS: BP 134/68
--- NOTE | 2019-05-20 22:00 | ECHO ---
DATE OF PROCEDURE: 05/19/2019 REFERRING PHYSICIAN: Hue Greenwood MD INDICATION: Sepsis. HEIGHT: 165 cm WEIGHT: 70 kg DIMENSIONS: IVS: 1.6 LV: 3.9 LVPW: 1.4 LA: 2.7 Aorta: 3.8 Ascending aorta: 4.4 Mitral E wave velocity: 64, A-wave: 73 E prime septal: 5.9 E prime lateral: 7.8 IVC: 1.7 FINDINGS The study is of acceptable technical quality. The patient is in sinus tachycardia. Left ventricle is normal size. Moderate left ventricular hypertrophy is noted. Estimated left ventricular ejection fraction (LVEF) is 65-70%. Right ventricle appears normal size and systolic function. Left atrium appears normal. Right atrium was poorly visualized but also appears normal. Aortic valve is sclerotic. It has three cusps and preserved mobility. Mitral valve exhibits mild degenerative abnormalities, but mobility of leaflets is preserved. Tricuspid valve appears normal. Pulmonic valve was not well seen, but on limited views it appears normal. There is pericardial fat pad and trace amount of pericardial effusion. Inferior vena cava is normal size. Aortic root is normal. Aortic arch was not well seen. Abdominal aorta appears normal. DOPPLER: Doppler interrogation of aortic valve reveals no significant stenosis (mean gradient was only 8 mmHg) and mild to moderate insufficiency. There is mild mitral insufficiency. Tricuspid valve is functionally competent. Pulmonic valve exhibits trace insufficiency. Mitral inflow pattern and tissue Doppler imaging of mitral annulus reveal grade 1 diastolic dysfunction. CONCLUSIONS 1. Study is of good technical quality. 2. Normal left ventricle (LV) size with moderate left ventricular hypertrophy, preserved LV systolic function and grade 1 diastolic dysfunction. 3. Degenerative abnormalities of aortic valve resulting in trivial stenosis and mild to moderate insufficiency. 4. Mild mitral insufficiency. 5. Normal central venous pressure. 6. Unable to estimate pulmonary artery pressure. 7. Dilated aortic root and ascending aorta (3.8 and 4.4 cm respectively). 8. No visualized vegetations. COMMENT Subacute bacterial endocarditis (SBE) prophylaxis is not recommended. If there is high clinical suspicion for bacterial endocarditis, then transesophageal echocardiogram will provide better resolution. Overall study most consistent with hypertensive heart disease.
[2019-05-21] MEDS: PIPERACILLIN/TAZOBACTAM SOD 2.25 GM in D5W MINI-BAG PLUS 50 ML IV SCH (05:19)
[2019-05-21 05:58] LABS: HEMATOCRIT 29.6 % (36.0-47.0); MEAN CORPUSCULAR HEMOGLOBIN 31.8 pg (27.0-33.0); MEAN CORPUSCULAR HGB CONC 31.8 g/dl (32.0-36.5); PLATELET COUNT, AUTOMATED 200 10^3/uL (150-450); RED BLOOD COUNT 2.96 10^6/uL (4.00-5.40); WHITE BLOOD COUNT 15.6 10^3/uL (4.0-10.0)
[2019-05-21 06:00] VITALS: BP 149/74
[2019-05-21 06:02] LABS: HEMOGLOBIN 9.4 g/dl (12.0-15.5)
[2019-05-21 06:18] LABS: CALCIUM LEVEL 8.3 MG/DL (8.8-10.2); CREATININE FOR GFR 1.85 MG/DL (0.55-1.30); GLOMERULAR FILTRATION RATE 27.7 (>32); POTASSIUM SERUM 3.8 MEQ/L (3.5-5.1)
[2019-05-21 06:26] LABS: LYMPHOCYTES 25 % (16-44); NEUTROPHILS 75 % (28-66)
[2019-05-21 06:27] LABS: ANISOCYTOSIS 1+; PLATELET ESTIMATE NORMAL (NORMAL)
[2019-05-21] MEDS: ADVAIR HFA 115/21MCG INHALER INH SCH ×2 (08:25→20:14)
[2019-05-21] MEDS ORDERED: BACTRIM 160MG/800MG DS TAB PO SCH (09:00)
[2019-05-21] MEDS: predniSONE 20 MG TAB PO SCH ×2 (09:00→10:41)
[2019-05-21] MEDS: MYCOPHENOLATE MOFETIL 250 MG CAP (J7517) PO SCH ×3 (09:00→21:37)
[2019-05-21] MEDS: PANTOPRAZOLE 40MG TAB (PROTONIX) PO SCH ×2 (10:41→21:36)
[2019-05-21] MEDS: ASPIRIN 81 MG CHEW TABLET PEG SCH (10:41)
[2019-05-21] MEDS: ESCITALOPRAM OXALATE 10 MG TAB (LEXAPRO) PO SCH (10:41)
[2019-05-21] MEDS: MEMANTINE 5MG TABLET (NAMENDA) PO SCH (10:42)
[2019-05-21] MEDS: METOPROLOL TART 12.5 MG PER 1/2 TAB PO SCH ×2 (10:45→21:37)
[2019-05-21] MEDS: CALCIUM ACETATE 667 MG GELCAP PO SCH ×2 (10:46→18:15)
[2019-05-21] MEDS: HEPARIN SOD (PORCINE) 5000 UNITS/ML VIAL SC SCH ×2 (10:47→21:36)
[2019-05-21] MEDS: GABAPENTIN 300 MG CAP PO SCH ×2 (10:50→21:36)
--- NOTE | 2019-05-21 11:58 | IPNPDOC ---
Subjective Date Seen The patient was seen on 05/21/19. Subjective Chief Complaint/HPI Patient is a out of bed, comfortable, afebrile, in no distress General: Denies: ROS Unobtainable, Chills, Night Sweats, Fatigue, Malaise, Normal Appetite, Other Symptoms Constitutional: Denies: Chills, Fever, Malaise, Night Sweats, Weakness, Fatigue, Weight Loss, Lethargy, Other Skin: Denies: Rash, Lesions, Jaundice, Bruising, Itching, Dry, Breakdown, Nail Changes, Other Pulmonary: Denies: Dyspnea, Cough, Pleuritic Chest Pain, Other Symptoms Cardiovascular: Denies: Chest Pain, Palpitations, Orthopnea, Paroxysmal Noc. Dyspnea, Edema, Lt Headedness, Other Symptoms Gastrointestinal: Denies: Nausea, Vomiting, Abdominal Pain, Diarrhea, Constipation, Melena, Hematochezia, Other Symptoms Musculoskeletal: Denies: Neck Pain, Back Pain, Shoulder Pain, Arm Pain, Hand Pain, Leg Pain, Foot Pain, Joint Pain, Muscle Pain, Spasms, Other Symptoms Neurological: Denies: Weakness, Numbness, Incoordination, Change in speech, Confusion, Seizures, Other Symptoms Objective Physical Examination ENT Exam: Positive: Atraumatic, Mucous membr. moist/pink Neck Exam: Positive: Supple Chest Exam: Positive: Normal air movement, Other (bilateral basal crackles.); Negative: Rhonchi, Wheezing Heart Exam: Positive: Tachycardic, Irregular Rhythm, Normal S1, Normal S2 Telemetry: Positive: Atrial fibrillation Abdomen Exam: Positive: Normal bowel sounds, Soft Extremity Exam: Positive: Edema (left leg, left forearem), Tenderness (left forearm, left antecubital area), Swelling (left forearm), Other (significant swelling, redness of left forearm and antecubital area) Skin Exam: Positive: Breakdown (left antecubital area oozing pus), Other skin issue (left lower extremity with stasis ulcer) Neuro Exam: Positive: Normal Tone, Cranial Nerves 3-12 NL Psych Exam: Positive: Mental status NL Assessment /Plan Problems (1) Cellulitis of arm, left Status: Acute Problem Text: Cellulitis of the left anticubital fossa possibly after the recent AVF creation ID consult appreciated Leonela JOSEPH'becca Patient is started on cefepime as per ID Continue present meds (2) ESRD (end stage renal disease) on dialysis Problem Text: ESRD on HD. 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 on Cellcept and prednisone Nephrology follow-up noted Continue hemodialysis as per nephrology (3) Atrial fibrillation Problem Text: Atrial fibrillation with RVR First noted this admission. No Afib in earlier EKGS will give metoprolol anticoagulation not started as may need surgical exploration of the cellulitis and abscess area. (4) CHF (congestive heart failure) Status: Acute Problem Text: Not on the acute exacerbation Continue home cardioprotective medications Plan/VTE VTE Prophylaxis Ordered?: Yes VS, I&O, 24H, Fishbone Vital Signs/I&O Vital Signs Date Time Temp Pulse Resp B/P (MAP) Pulse Ox O2 Delivery O2 Flow Rate FiO2 05/21/19 10:45 80 149/79 05/21/19 06:00 98.5 20 96 05/17/19 17:38 Room Air I&O- Last 24 Hours up to 6 AM 05/21/19 06:00 Intake Total 950 ml Output Total 1501 ml Balance -551 ml Laboratory Data 24H LABS Laboratory Tests 2 05/21/19 05:30: Nucleated Red Blood Cells % (auto) 0.2H, Neutrophils 75H, Lymphocytes (Manual) 25, Platelet Estimate NORMAL, Anisocytosis 1+, Anion Gap 7L, Glomerular Filtration Rate 27.7L, Blood Urea Nitrogen 26H, Creatinine 1.85H, Sodium Level 141, Potassium Level 3.8, Chloride Level 108H, Carbon Dioxide Level 26, Calcium Level 8.3L CBC/BMP Laboratory Tests 05/21/19 05:30 Red Blood Count 2.96 L, Mean Corpuscular Volume 100.0 H, Mean Corpuscular Hemoglobin 31.8, Mean Corpuscular Hemoglobin Concent 31.8 L, Red Cell Distribution Width 18.5 H, Calcium Level 8.3 L Microbiology Microbiology 05/20/19 Blood Culture, Received Pending 05/17/19 Blood Culture - Final, Complete Pseudomonas Fluorescens 05/17/19 Blood Culture - Final, Complete Pseudomonas Fluorescens 05/19/19 Wound Culture - Preliminary, Resulted Escherichia Coli Staphylococcus Aureus JENNY CROCKER MD May 21, 2019 11:58
[2019-05-21 14:00] VITALS: BP 122/60
[2019-05-21] MEDS ORDERED: VANCOMYCIN HCL 1,000 MG, VIAL MATE ADAPTER 1 EACH in D5W 250 ML IV SCH (14:00)
[2019-05-21] MEDS ORDERED: VANCOMYCIN HCL 1,000 MG, VIAL MATE ADAPTER 1 EACH in D5W 250 ML IV ONE (14:00)
[2019-05-21] MEDS: PERCOCET 5MG/325MG TAB PO PRN (14:21)
--- NOTE | 2019-05-21 18:18 | IPN ---
DATE: 05/21/2019 SUBJECTIVE: The patient was seen and examined at the bedside today morning. She is afebrile, hemodynamically stable. Her intravenous (IV) antibiotics were switched to IV cefepime by infectious disease. I had discussed the case with infectious disease as well. They recommended lowering the immunosuppression because of active bacteremia. OBJECTIVE: Vital signs: Temperature is 98.5 degrees Fahrenheit, blood pressure 149/79, pulse is 80, respiratory rate of 20, saturating 96% on room air. Intake and output: There is no urine output recorded. Ultrafiltration with hemodialysis was 1.5 liters. Weight in the bed scale is not available. PHYSICAL EXAMINATION: GENERAL: The patient is awake, alert, oriented times one, lying in bed in no apparent distress. HEAD AND NECK: Extraocular muscles intact. Pupils equally round and reactive to light. Mucous membranes are moist. Neck is supple. There is no jugular venous distention (JVD). CARDIOVASCULAR: S1, S2, regular rate. Right internal jugular (IJ) tunneled hemodialysis catheter. No edema of the bilateral lower extremities. RESPIRATORY: Chest is clear to auscultation bilaterally. Bilateral equal air entry. No rales or rhonchi. ABDOMEN: Soft. Positive bowel sounds. Nontender. No organomegaly. MUSCULOSKELETAL: Left upper arm AV fistula site swelling and tenderness is significantly better. CENTRAL NERVOUS SYSTEM: No focal deficit. She has baseline dementia. LABORATORY REVIEW: CBC showed WBC 15.6, hemoglobin is 9.4, platelets are 200. BMP showed sodium 141, potassium 3.8, chloride 108, bicarbonate 26, BUN 26, creatinine is 1.8. Microbiology: Wound culture is growing few Escherichia (E) coli and moderate amount of Staphylococcus aureus. CURRENT INPATIENT MEDICATIONS: The patient's medications were all reviewed by me. She is on cefepime 1 gram IV at bedtime. Vancomycin was initially stropped; however, I am going to restart the vancomycin. I will reduce her CellCept to 500 mg by mouth twice a day, and have also decreased her prednisone 20 mg by mouth daily ASSESSMENT AND PLAN: 1. End-stage renal disease. The patient was dialyzed yesterday according to her Sunday, , Sunday schedule. Next hemodialysis will be tomorrow. 2. Cellulitis of the left arm. The patient had Pseudomonas fluorescence bacteremia, and now she is growing a staphylococcus and E. coli from the wound culture. She is currently on cefepime. I am going to restart the vancomycin because of staphylococcus in the wound culture. 3. Anemia secondary to end-stage renal disease. The patient got packed red blood cells (PRBC) transfusion, and she is also getting Aranesp with dialysis. Continue to monitor for now. Rest of the anemia management will be done as outpatient. 4. h/o Pulmonary renal syndrome with Microscopic polyangiitis. The patient's CellCept and prednisone dose has been decreased because of active infection. I have also started the patient on Bactrim Sunday, Sunday, Sunday for infection prophylaxis. 5. Hypertension. Continue current dose of metoprolol 12.5 mg by mouth twice a day. MTDD
[2019-05-21] MEDS: DONEPEZIL 5 MG TAB PO SCH (21:37)
[2019-05-21] MEDS: LATANOPROST 0.005% OPHTH SOLN 2.5 ML OU SCH (21:38)
[2019-05-21 22:00] VITALS: BP 131/64
[2019-05-22] MEDS: HEPARIN SOD (PORCINE) 5000 UNITS/ML VIAL SC SCH ×2 (05:37→21:33)
[2019-05-22] MEDS: METOPROLOL TART 12.5 MG PER 1/2 TAB PO SCH ×2 (05:37→21:00)
[2019-05-22] MEDS: predniSONE 20 MG TAB PO SCH (05:37)
[2019-05-22] MEDS: MYCOPHENOLATE MOFETIL 250 MG CAP (J7517) PO SCH ×2 (05:38→21:34)
[2019-05-22] MEDS: PANTOPRAZOLE 40MG TAB (PROTONIX) PO SCH ×2 (05:38→21:33)
[2019-05-22] MEDS: ESCITALOPRAM OXALATE 10 MG TAB (LEXAPRO) PO SCH (05:38)
[2019-05-22] MEDS: CALCIUM ACETATE 667 MG GELCAP PO SCH ×2 (05:38→16:50)
[2019-05-22] MEDS: MEMANTINE 5MG TABLET (NAMENDA) PO SCH (05:38)
[2019-05-22] MEDS: GABAPENTIN 300 MG CAP PO SCH ×2 (05:38→21:33)
[2019-05-22] MEDS: ASPIRIN 81 MG CHEW TABLET PEG SCH (05:39)
[2019-05-22 06:00] VITALS: BP 131/66
[2019-05-22 06:37] LABS: HEMATOCRIT 28.4 % (36.0-47.0); HEMOGLOBIN 8.9 g/dl (12.0-15.5); MEAN CORPUSCULAR HGB CONC 31.3 g/dl (32.0-36.5); PLATELET COUNT, AUTOMATED 211 10^3/uL (150-450); RED BLOOD COUNT 2.87 10^6/uL (4.00-5.40); WHITE BLOOD COUNT 13.3 10^3/uL (4.0-10.0)
[2019-05-22 07:12] LABS: CALCIUM LEVEL 7.7 MG/DL (8.8-10.2); CREATININE FOR GFR 2.25 MG/DL (0.55-1.30); GLOMERULAR FILTRATION RATE 22.1 (>32); POTASSIUM SERUM 3.7 MEQ/L (3.5-5.1); VANCOMYCIN RANDOM 22.3 UG/ML
[2019-05-22 07:16] LABS: LYMPHOCYTES 33 % (16-44); METAMYELOCYTES 2 % (0-0); MONOCYTES 4 % (0-5); NEUTROPHILS 60 % (28-66); PLATELET ESTIMATE NORMAL (NORMAL)
[2019-05-22 07:17] LABS: ANISOCYTOSIS 1+
[2019-05-22] MEDS: ADVAIR HFA 115/21MCG INHALER INH SCH ×2 (08:43→20:40)
--- NOTE | 2019-05-22 11:25 | IPNPDOC ---
Subjective Date Seen The patient was seen on 05/22/19. Subjective Chief Complaint/HPI Patient is comfortable in no apparent distress. Offers no new complaints General: Denies: ROS Unobtainable, Chills, Night Sweats, Fatigue, Malaise, Normal Appetite, Other Symptoms Skin: Denies: Rash, Lesions, Jaundice, Bruising, Itching, Dry, Breakdown, Nail Changes, Other Pulmonary: Denies: Dyspnea, Cough, Pleuritic Chest Pain, Other Symptoms Cardiovascular: Denies: Chest Pain, Palpitations, Orthopnea, Paroxysmal Noc. Dyspnea, Edema, Lt Headedness, Other Symptoms Gastrointestinal: Denies: Nausea, Vomiting, Abdominal Pain, Diarrhea, Constipation, Melena, Hematochezia, Other Symptoms Endocrine: Denies: Polydipsia, Polyphagia, Polyuria, Heat Intolerance, Cold Intolerance, Other Endocrine Sx Musculoskeletal: Denies: Neck Pain, Back Pain, Shoulder Pain, Arm Pain, Hand Pain, Leg Pain, Foot Pain, Joint Pain, Muscle Pain, Spasms, Other Symptoms Neurological: Denies: Weakness, Numbness, Incoordination, Change in speech, Confusion, Seizures, Other Symptoms Objective Physical Examination ENT Exam: Positive: Atraumatic, Mucous membr. moist/pink Neck Exam: Positive: Supple Chest Exam: Positive: Normal air movement, Other (bilateral basal crackles.) Heart Exam: Positive: Tachycardic, Irregular Rhythm, Normal S1, Normal S2 Telemetry: Positive: Atrial fibrillation Abdomen Exam: Positive: Normal bowel sounds, Soft Extremity Exam: Positive: Edema (left leg, left forearem), Tenderness (left forearm, left antecubital area), Swelling (left forearm), Other (significant swelling, redness of left forearm and antecubital area) Skin Exam: Positive: Breakdown (left antecubital area oozing pus), Other skin issue (left lower extremity with stasis ulcer) Neuro Exam: Positive: Normal Tone, Cranial Nerves 3-12 NL Psych Exam: Positive: Mental status NL Assessment /Plan Problems (1) Cellulitis of arm, left Status: Acute Problem Text: Cellulitis of the left anticubital fossa possibly after the recent AVF creation ID consult appreciated Cinthia and Yuly JOSEPH'd previously Patient is started on cefepime as per ID Cinthia was admitted again by nephrology secondary to staph aureus Will await ID follow-up today for further recommendations as patient can be discharged and has a chair for outpatient hemodialysis and the antibiotics can be given during dialysis. (2) ESRD (end stage renal disease) on dialysis Problem Text: ESRD on HD. 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 on Cellcept and prednisone ,dose was decreased as per nephrology Nephrology follow-up noted Continue hemodialysis as per nephrology (3) Atrial fibrillation Problem Text: Atrial fibrillation with RVR First noted this admission. No Afib in earlier EKGS will give metoprolol anticoagulation not started as may need surgical exploration of the cellulitis and abscess area. (4) CHF (congestive heart failure) Status: Acute Problem Text: Not on the acute exacerbation Continue home cardioprotective medications Plan/VTE VTE Prophylaxis Ordered?: Yes VS, I&O, 24H, Fishbone Vital Signs/I&O Vital Signs Date Time Temp Pulse Resp B/P (MAP) Pulse Ox O2 Delivery O2 Flow Rate FiO2 05/22/19 06:00 96.9 71 18 131/66 (87) 97 05/17/19 17:38 Room Air I&O- Last 24 Hours up to 6 AM 05/22/19 06:00 Intake Total 1130 ml Output Total 0 ml Balance 1130 ml Laboratory Data 24H LABS Laboratory Tests 2 05/22/19 05:33: Immature Granulocyte % (Auto) , Nucleated Red Blood Cells % (auto) 0.4H, Neutrophils 60, Band Neutrophils 1, Lymphocytes (Manual) 33, Monocytes (Manual) 4, Metamyelocytes 2H, Platelet Estimate NORMAL, Anisocytosis 1+, Anion Gap 11, Glomerular Filtration Rate 22.1L, Blood Urea Nitrogen 43#H, Creatinine 2.25H, Sodium Level 143, Potassium Level 3.7, Chloride Level 108H, Carbon Dioxide Level 24, Calcium Level 7.7L, Random Vancomycin Level 22.3 CBC/BMP Laboratory Tests 05/22/19 05:33 Red Blood Count 2.87 L, Mean Corpuscular Volume 99.0 H, Mean Corpuscular Hemog lobin 31.0, Mean Corpuscular Hemoglobin Concent 31.3 L, Red Cell Distribution Width 17.9 H, Calcium Level 7.7 L Microbiology Microbiology 05/20/19 Blood Culture - Preliminary, Resulted No growth after 24 hours . All specim... 05/17/19 Blood Culture - Final, Complete Pseudomonas Fluorescens 05/17/19 Blood Culture - Final, Complete Pseudomonas Fluorescens 05/19/19 Wound Culture - Final, Complete Escherichia Coli Stenotrophomonas Maltophilia Staphylococcus Aureus JENNY CROCKER MD May 22, 2019 11:25
[2019-05-22] MEDS ORDERED: HEPARIN 1,000 UNITS/ML 10ML VIAL (FOR RADIOLOGY& DIALYSIS ONLY) IV ONE (12:00)
[2019-05-22] MEDS ORDERED: HEPARIN 1,000 UNITS/ML 10ML VIAL (FOR RADIOLOGY& DIALYSIS ONLY) XX ONE (12:00)
[2019-05-22 13:12] LABS: PERCENT SATURATION 40.2 % (13.2-45.0)
--- NOTE | 2019-05-22 13:14 | IPN ---
DATE: 05/22/2019 SUBJECTIVE: The patient was seen and examined this morning. The patient is afebrile. She is hemodynamically stable. She is now walking in the hallways with the physical therapy. The patient is pending evaluation by infectious disease. She already has a spot as outpatient on Sunday, and Sunday when she is discharged from the hospital. OBJECTIVE: Vital signs: Temperature is 96.9 degrees Fahrenheit, blood pressure 131/66, pulse is 71, respiratory of 18, saturating 97% on room air. Intake and output: There is no urine output recorded. Weight on the bed scale is not available. PHYSICAL EXAMINATION GENERAL: The patient is awake, alert, oriented times two, sitting up in the bed in no apparent distress. Head and neck exam: Extraocular muscles intact. Pupils equally round and reactive to light. Mucous membranes are moist. Neck is supple. There is no jugular venous distention (JVD). Cardiovascular: S1, S2. Regular rate. Trace edema of the bilateral lower extremities. Respiratory: Chest is clear to auscultation bilaterally. Bilateral equal air entry. No rales or rhonchi. Abdomen: Soft, obese, positive bowel sounds. Nontender. Musculoskeletal: Left upper arm AV fistula site swelling and erythema are significantly better. 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 Power is 5/5 in all extremities. LABORATORY REVIEW: CBC showed WBC 13.3, hemoglobin 8.9, platelets are 211. BMP showed sodium 143, potassium 3.7, chloride 108, bicarbonate 24, BUN 43, creatinine is 2.2. Random vancomycin level is 22.2 today. Microbiology: Wound cultures from the left arm is growing another organism, which is Stenotrophomonas maltophilia. CURRENT INPATIENT MEDICATIONS: The patient's medications were all reviewed by me. She is currently on IV vancomycin and IV cefepime. No other change in the medications today as compared with yesterday. ASSESSMENT/PLAN: 1. End-stage renal disease. The patient was dialyzed on Sunday. Today is her regular day of dialysis. She will be dialyzed in the afternoon. Ultrafiltration goal will be around 1.5 liters. 2. Cellulitis of the left arm. The patient is on IV cefepime, and she was started on IV vancomycin yesterday because of Staphylococcus in the wound culture. She is pending evaluation by infectious disease. 3. Anemia secondary to end-stage renal disease. The patient is getting Aranesp with dialysis. I am going to repeat her iron levels. 4. Microscopic Polyangiitis. Because of the infection, her immunosuppression has been tapered down, CellCept is 500 mg p.o. twice a day, prednisone is 20 mg daily and she is also on Bactrim prophylaxis now. 5. Hypertension. Continue metoprolol. Blood pressure levels are optimal. DISPOSITION: The patient is optimized from nephrology standpoint whenever she is cleared from infectious disease for discharge home and outpatient dialysis. ROSALINED
[2019-05-22] MEDS ORDERED: **VANCO AFTER HD** MISC XX SCH (16:00)
[2019-05-22] MEDS ORDERED: VANCOMYCIN HCL 1,000 MG, VIAL MATE ADAPTER 1 EACH in D5W 250 ML IV SCH (18:00)
--- NOTE | 2019-05-22 19:22 | IPN ---
DATE: 05/22/2019 Mrs. Benson seems to be doing well. She has no complaints. No fevers or chills. No nausea, vomiting or diarrhea. She is anxious to go home. She has remained afebrile since presentation. Temperature is 97.2, pulse 73, respirations 20, blood pressure 131/64, O2 sat 98% on room air. Heart: Normal S1-S2 regular with no murmurs appreciated. Lungs are clear. No wheezes, rales or rhonchi. Good air entry. Abdomen: Soft, nontender. No visceromegaly. Extremities: Left upper arm AV fistula site swollen with erythema especially involving the biceps with tenderness. There is an open ulceration measuring about 1.5 x 1 cm with tenderness and minimal purulence. Neurologic: Exam, motor strength is normal. Musculoskeletal: Left shoulder normal range of motion. LABORATORY DATA: White count 13.3, hemoglobin 8.9, hematocrit 28.4, platelets 211, 60% neutrophils, 33% of segmented neutrophils, 4% monocytes. Sodium 143, potassium 3.7, chloride 108, bicarb 24, BUN 43, creatinine 2.25, glucose 68, calcium 7.7, iron 98, TIBC 244, iron saturation 10.2, ferritin 1021, CRP 9.87 on 05/20. Blood cultures were positive for Pseudomonas fluorescens times two sets done 50 minutes apart left arm culture had E-coli sensitive to levofloxacin and Bactrim Stenotrophomonas sensitive to Bactrim and staph aureus MSSA repeat blood cultures done on 05/20 was negative. IMPRESSION: 1. AV fistula infection with postoperative wound infection with polymicrobial essence including MSSA Stenotrophomonas an E-coli. Patient currently on IV vancomycin and cefepime. 2. Pseudomonas fluorescens and bacteremia, most likely also from the AV fistula surgery. Patient on cefepime. Repeat blood cultures are negative. 3. Najma with pulmonary and lung involvement. On CellCept dose was decreased to 500 mg twice a day and prednisone 20 mg daily. The patient is on Bactrim for PCP prophylaxis. PLAN: 1. Continue with IV cefepime for 2 weeks from negative culture end of therapy would be June 03. Staph aureus could be treated with Bactrim and the dose could be increased to 1 tablet daily and which would also serve for PCP prophylaxis. Discontinue vancomycin. 2. I have called the lab to repeat cultures and identification on the Pseudomonas as it is unusual that we have two different pathogens from the blood cultures and arm cultures that should be coinciding at least to have the same pathogen to and therefore they will reculture then. Discontinue IV vancomycin. Increase Bactrim to 1 tablet daily.
[2019-05-22] MEDS ORDERED: CEFEPIME HCL 1 GM in D5W MINI-BAG PLUS 50 ML IV SCH (21:00)
[2019-05-22] MEDS: BACTRIM 160MG/800MG DS TAB PO SCH (21:32)
[2019-05-22] MEDS: LATANOPROST 0.005% OPHTH SOLN 2.5 ML OU SCH (21:34)
[2019-05-22] MEDS: DONEPEZIL 5 MG TAB PO SCH (21:34)
[2019-05-22 22:00] VITALS: BP 103/62
[2019-05-23 06:00] VITALS: BP 131/74
[2019-05-23 06:46] LABS: HEMATOCRIT 29.4 % (36.0-47.0); HEMOGLOBIN 9.2 g/dl (12.0-15.5); MEAN CORPUSCULAR HGB CONC 31.3 g/dl (32.0-36.5); PLATELET COUNT, AUTOMATED 229 10^3/uL (150-450); RED BLOOD COUNT 2.97 10^6/uL (4.00-5.40); WHITE BLOOD COUNT 11.8 10^3/uL (4.0-10.0)
[2019-05-23 07:11] LABS: CALCIUM LEVEL 8.2 MG/DL (8.8-10.2); GLOMERULAR FILTRATION RATE 25.3 (>32); POTASSIUM SERUM 3.5 MEQ/L (3.5-5.1)
[2019-05-23 07:13] LABS: ANISOCYTOSIS 1+; LYMPHOCYTES 36 % (16-44); METAMYELOCYTES 2 % (0-0); MONOCYTES 3 % (0-5); NEUTROPHILS 58 % (28-66)
[2019-05-23 07:14] LABS: HYPOCHROMASIA 1+; PLATELET ESTIMATE NORMAL (NORMAL); POLYCHROMASIA 1+
[2019-05-23] MEDS: CALCIUM ACETATE 667 MG GELCAP PO SCH (07:58)
[2019-05-23] MEDS: GABAPENTIN 300 MG CAP PO SCH (07:58)
[2019-05-23] MEDS: HEPARIN SOD (PORCINE) 5000 UNITS/ML VIAL SC SCH (07:58)
[2019-05-23] MEDS: MYCOPHENOLATE MOFETIL 250 MG CAP (J7517) PO SCH (07:58)
[2019-05-23 07:59] VITALS: BP 131/74
[2019-05-23] MEDS: PANTOPRAZOLE 40MG TAB (PROTONIX) PO SCH (07:59)
[2019-05-23] MEDS: predniSONE 20 MG TAB PO SCH (07:59)
[2019-05-23] MEDS: ESCITALOPRAM OXALATE 10 MG TAB (LEXAPRO) PO SCH (07:59)
[2019-05-23] MEDS: METOPROLOL TART 12.5 MG PER 1/2 TAB PO SCH (07:59)
[2019-05-23] MEDS: ASPIRIN 81 MG CHEW TABLET PEG SCH (07:59)
[2019-05-23] MEDS: MEMANTINE 5MG TABLET (NAMENDA) PO SCH (07:59)
[2019-05-23] MEDS: PERCOCET 5MG/325MG TAB PO PRN (08:00)
[2019-05-23] MEDS: BACTRIM 160MG/800MG DS TAB PO SCH (08:02)
[2019-05-23] MEDS: ADVAIR HFA 115/21MCG INHALER INH SCH (08:15)
[2019-05-23] MEDS ORDERED: SULF1TAB93 PO (10:06)
[2019-05-23] MEDS ORDERED: DARB100SYR IV (10:06)
[2019-05-23] MEDS ORDERED: PRED20TA PO (10:06)
[2019-05-23] MEDS ORDERED: CELL250C PO (10:06)
--- NOTE | 2019-05-23 11:54 | DS.PDOC ---
Discharge Summary General Date of Admission May 17, 2019 at 18:40 Date of Discharge 05/23/19 Attending Physician: JENNY CROCKER MD Discharge Summary PROCEDURES PERFORMED DURING STAY: None. ADMITTING DIAGNOSES: 1. Cellulitis of left arm. End-stage renal failure on dialysis. DISCHARGE DIAGNOSES: 1. Cellulitis of left arm. End-stage renal failure on dialysis. COMPLICATIONS/CHIEF COMPLAINT: Cellulitis Of Left Arm/ Esrd. HISTORY OF PRESENT ILLNESS: Patient is 84 years old female with past medical history of CHF, end-stage renal diseases currently on dialysis Sunday, , Sunday, presented to the hospital with left arm cellulitis. Patient received initial fistula tunnelization on 05/09/19, done by Dr. Nolan. Today on wound care center nurse noticed that left antecubital area has pus and redness, which is increased for past few hours. In emergency room patient was found to have significant left antecubital, forearm cellulitis. She received IV Ancef. Also patient was found to have leukocytosis of 24.2, potassium 2.8, creatinine 1.1. Patient denied fever, chills, nausea, vomiting, increased shortness of breath, diarrhea or dysuria. HOSPITAL COURSE: [ Cellulitis of the left anticubital fossa possibly after the recent AVF creation ID consult was called and patient was followed up by ID during his stay in the hospital Initially patient was started on IV vancomycin and Zosyn, which was later on DC'd it. Blood cultures were positive for pseudomonas Restarted on cefepime and will be continued as it an outpatient to PCU during hemodialysis Patient will be discharged home. Has a chair, as an outpatient and receive IV antibiotics during hemodialysis. ESRD on HD. 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 No Afib in earlier EKGS Continue metoprolol, anticoagulation to be started as an outpatient once the infection has resolved, there is no risk of bleeding via AVF and the anemia has improved. DISCHARGE MEDICATIONS: Please see below. ALLERGIES: Please see below. PHYSICAL EXAMINATION ON DISCHARGE: VITAL SIGNS: Please see below. GENERAL: Within normal limits HEENT: PERRLA NECK: Supple CARDIOVASCULAR EXAMINATION: S1, S2, regular RESPIRATORY EXAMINATION: Clear to A&P ABDOMINAL EXAMINATION: , Soft, nontender. Once all present EXTREMITIES: No clubbing, cyanosis, edema SKIN: Normal NEUROLOGICAL EXAMINATION: . No focal motor sensory deficit PSYCHIATRIC EXAMINATION: Normal LABORATORY DATA: Please see below. IMAGING: PROGNOSIS: [Good ACTIVITY: As tolerated. DIET: Renal diet DISCHARGE PLAN: Follow with nephrology as an outpatient DISPOSITION: 01 Home, Self-Care. DISCHARGE INSTRUCTIONS: 1. As per discharge instruction. ITEMS TO FOLLOWUP ON ON OUTPATIENT: 1. Follow with nephrology as an outpatient. DISCHARGE CONDITION: Stable. TIME SPENT ON DISCHARGE: 40 minutes. Vital Signs/I&Os Vital Signs Date Time Temp Pulse Resp B/P (MAP) Pulse Ox O2 Delivery O2 Flow Rate FiO2 05/23/19 08:30 20 05/23/19 07:59 88 131/74 05/23/19 06:00 98.7 97 05/17/19 17:38 Room Air I&O- Last 24 Hours up to 6 AM 05/23/19 06:00 Intake Total 1340 ml Output Total 1800 ml Balance -460 ml Laboratory Data Labs 24H Laboratory Tests 2 05/23/19 05:33: Immature Granulocyte % (Auto) , Nucleated Red Blood Cells % (auto) 1.3H, Neutrophils 58, Band Neutrophils 1, Lymphocytes (Manual) 36, Monocytes (Manual) 3, Metamyelocytes 2H, Platelet Estimate NORMAL, Polychromasia 1+, Hypochromasia 1+, Anisocytosis 1+, Anion Gap 9, Glomerular Filtration Rate 25.3L, Blood Urea Nitrogen 31H, Creatinine 2.00H, Sodium Level 141, Potassium Level 3.5, Chloride Level 104, Carbon Dioxide Level 28, Calcium Level 8.2L CBC/BMP Laboratory Tests 05/23/19 05:33 Red Blood Count 2.97 L, Mean Corpuscular Volume 99.0 H, Mean Corpuscular Hemoglobin 31.0, Mean Corpuscular Hemoglobin Concent 31.3 L, Red Cell Distribution Width 17.2 H, Calcium Level 8.2 L Microbiology Microbiology 05/20/19 Blood Culture - Preliminary, Resulted No Growth after 48 hours. All Specime... 05/17/19 Blood Culture - Final, Complete Pseudomonas Fluorescens 05/17/19 Blood Culture - Final, Complete Pseudomonas Fluorescens 05/19/19 Wound Culture - Final, Complete Escherichia Coli Stenotrophomonas Maltophilia Staphylococcus Aureus Discharge Medications Scheduled Aspirin (Aspirin) 81 Mg Tab.chew, 81 MG PO QHS, (Reported) Calcium Acetate (Calcium Acetate) 667 Mg Tablet, 667 MG PO BIDWM, (Reported) Darbepoetin (Aranesp) 100 Mcg/0.5 Ml Syringe, 200 MCG IV HD Donepezil HCl (Donepezil HCl) 10 Mg Tablet, 10 MG PO QHS, (Reported) Escitalopram Oxalate (Escitalopram Oxalate) 10 Mg Tablet, 10 MG PO DAILY, (Reported) Gabapentin (Gabapentin) 300 Mg Capsule, 300 MG PO BID, (Reported) Latanoprost (Xalatan) 0.005% 2.5ML Drops, 1 DROP OU QHS, (Reported) Memantine HCl (Memantine HCl) 5 Mg Tablet, 5 MG PO QHS, (Reported) Mycophenolate Mofetil (Cellcept) 250 Mg Capsule, 500 MG PO BID Pantoprazole Sodium (Pantoprazole Sodium) 40 Mg Tablet.dr, 40 MG PO BID, (Reported) Prednisone (Prednisone) 20 Mg Tablet, 20 MG PO DAILY Salmeterol/Fluticasone (Advair 250-50 Diskus) 1 Each Blst.w.dev, 1 PUFF INH BID, (Reported) Sulfamethoxazole/Trimethoprim (Sulfamethoxazole-Tmp Ds Tablet) 1 Each Tablet, 1 TAB PO DAILY Allergies Coded Allergies: No Known Allergies (Unverified , 05/17/19) JENNY CROCKER MD May 23, 2019 11:54
--- NOTE | 2019-05-24 09:17 | IPN ---
DATE OF SERVICE: 05/23/2019 SUBJECTIVE: The patient was seen and examined at the bedside today morning. She was dialyzed yesterday. She tolerated the hemodialysis procedure well. She got 1.5 liters of fluid removed. Leukocytosis is improving. She denies any fever. She was seen by infectious disease. I see that she has been started on oral Bactrim daily, and she continues to be on intravenous (IV) cefepime. The patient reports that she is getting ready to be discharged today. OBJECTIVE: Vital signs: Temperature is 98.7 degrees Fahrenheit, blood pressure 131/74, pulse is 88, respiratory rate of 18, saturating 97% on room air. Intake and output: Urine output is 300 mL. Ultrafiltration with hemodialysis was 1.5 liters. PHYSICAL EXAMINATION: General: The patient is awake, alert, oriented times one, sitting up in the bed in no apparent distress. Head and neck examination: Extraocular muscles intact. Pupils equally round and reactive to light. Mucous membranes are moist. Neck is supple. She has a right internal jugular (vein) (IJ) tunneled hemodialysis catheter. Cardiovascular: S1, S2, regular rate. Trace edema of the bilateral lower extremities. Respiratory: Chest is clear to auscultation bilaterally. Bilateral equal air entry. No rales or rhonchi. Abdomen: Soft, positive bowel sounds. Nontender. Musculoskeletal: Left upper arm AV fistula site swelling and her edema is all improved. Central nervous system (DEPARTMENTAL BUYER): No focal deficit apart from baseline dementia. LABORATORY REVIEW: Complete blood count (CBC) showed a WBC 11.8, hemoglobin 9.2, platelets are 229. Basic metabolic profile (BMP) showed sodium 141, potassium 3.5, chloride 104, bicarbonate 28, BUN 31, creatinine is 2. CURRENT INPATIENT MEDICATIONS: The patient's medications were all reviewed by me. She is on Bactrim one tablet by mouth daily, and she is on cefepime 1 grams IV daily. However, as outpatient, she will get 2 grams with each dialysis. ASSESSMENT AND PLAN: 1. End-stage renal disease. The patient was dialyzed yesterday. Her regular dialysis days are Sunday, , Sunday. She will be dialyzed tomorrow as outpatient. 2. Cellulitis of the left arm. The patient will get 2 grams IV cefepime with each dialysis. Last dose will be on 06/03/2019. She continues to be on Bactrim one tablet by mouth daily, which will help with Staphylococcus aureus infection and with primary PCP prophylaxis, as well. 3. Anemia secondary to end-stage renal disease. Iron levels are adequate. She continues to be on Aranesp. Rest of the anemia management will be done as outpatient. 4. Microscopic polyangiitis. 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 Her CellCept dose has been decreased to 500 mg by mouth twice a day, and she is on prednisone 20 mg by mouth daily. Rest of the steroid tapering will be done as outpatient. 5. Hypertension. Continue metoprolol. Blood pressure is optimal. DISPOSITION: The patient is okay to be discharged from nephrology standpoint. MTDD
== END 2019-05-23 11:35 | disposition home or self-care (01) | DRG 314 ==
LOC: EDBD 17:20 → M ED 17:20 → M ED INP 18:40 → M MSPAV 22:48
PROVIDERS: ADMIT Internal Medicine; ATTEND Internal Medicine
PROC: 30233N1 Transfusion of Nonautologous Red Blood Cells into Peripheral Vein, Percutaneous Approach (ICD-10-PCS; principal; 2019-05-20)
PROC: 5A1D70Z Performance of Urinary Filtration, Intermittent, Less than 6 Hours Per Day (ICD-10-PCS; 2019-05-20)
DX: T82.7XXA Infection and inflammatory reaction due to other cardiac and vascular devices, implants and grafts, initial encounter (principal); N18.6 End stage renal disease; L03.114 Cellulitis of left upper limb; M30.0 Polyarteritis nodosa; I13.2 Hypertensive heart and chronic kidney disease with heart failure and with stage 5 chronic kidney disease, or end stage renal disease; I50.32 Chronic diastolic (congestive) heart failure; E87.0 Hyperosmolality and hypernatremia; R78.81 Bacteremia; L92.8 Other granulomatous disorders of the skin and subcutaneous tissue; Z99.2 Dependence on renal dialysis; I48.91 Unspecified atrial fibrillation; Z79.82 Long term (current) use of aspirin; Z79.899 Other long term (current) drug therapy; Z85.3 Personal history of malignant neoplasm of breast; E87.6 Hypokalemia; D63.1 Anemia in chronic kidney disease; J45.909 Unspecified asthma, uncomplicated; F03.90 Unspecified dementia, unspecified severity, without behavioral disturbance, psychotic disturbance, mood disturbance, and anxiety; F32.9 Major depressive disorder, single episode, unspecified; F41.9 Anxiety disorder, unspecified; H40.9 Unspecified glaucoma; I87.2 Venous insufficiency (chronic) (peripheral); G50.0 Trigeminal neuralgia; Y83.1 Surgical operation with implant of artificial internal device as the cause of abnormal reaction of the patient, or of later complication, without mention of misadventure at the time of the procedure

== ENCOUNTER 2019-06-06 15:51 | Emergency (ER) | payer MEDICARE, BC ==
[~2019-06-06] VITALS: Ht 154.9 cm; Wt 66.6 kg
[~2019-06-06 15:51] MED LIST changes: +ASPI81CH33 PO; +CALC667T2 PO; +DARB100SYR IV; +SULF1TAB93 PO
[2019-06-06 16:45] LABS: VENOUS HCO3 27.7 MEQ/L (23.0-27.0); VENOUS O2 SATURATION 84.4 % (60.0-80.0); VENOUS PARTIAL PRESSURE CO2 48.1 mmHg (38.0-50.0); VENOUS PARTIAL PRESSURE O2 50.2 mmHg (30.0-50.0); VENOUS PH 7.378 UNITS (7.330-7.430); VENOUS TOTAL CO2 29.2 MEQ/L (24.0-28.0)
[2019-06-06 16:54] LABS: BASO % 0.5 % (0.0-1.0); EOS % 0.1 % (0.0-3.0); HEMATOCRIT 33.8 % (36.0-47.0); HEMOGLOBIN 9.9 g/dl (12.0-15.5); LYMPH # 3.3 10^3/uL (1.5-5.0); MEAN CORPUSCULAR HGB CONC 29.3 g/dl (32.0-36.5); MONO # 0.7 10^3/uL (0.0-0.8); MONO % 9.6 % (0.0-5.0); NEUTROPHILS # 3.2 10^3/uL (1.5-8.5); NEUTROPHILS % 42.5 % (36.0-66.0); PLATELET COUNT, AUTOMATED 232 10^3/uL (150-450); RED BLOOD COUNT 3.19 10^6/uL (4.00-5.40); WHITE BLOOD COUNT 7.5 10^3/uL (4.0-10.0)
[2019-06-06 17:04] LABS: INR 1.07; PROTHROMBIN TIME 13.6 SECONDS (11.8-14.0)
[2019-06-06 17:23] LABS: ALBUMIN 2.9 GM/DL (3.2-5.2); BILIRUBIN,DIRECT 0.1 MG/DL (0.0-0.2); BILIRUBIN,TOTAL 0.5 MG/DL (0.2-1.0); CALCIUM LEVEL 8.5 MG/DL (8.8-10.2); CK-MB VALUE MASS 1.5 NG/ML (<3.6); CREATININE FOR GFR 2.25 MG/DL (0.55-1.30); GLOMERULAR FILTRATION RATE 22.1 (>32); MB/CK RELATIVE INDEX 3.49 (< OR =4); POTASSIUM SERUM 4.2 MEQ/L (3.5-5.1); THYROID STIMULATING HORMONE 1.73 uIU/ML (0.358-3.740); TOTAL PROTEIN 5.9 GM/DL (6.4-8.2); TROPONIN I 0.06 NG/ML (< 0.10)
[2019-06-06 18:17] VITALS: BP 177/78
--- NOTE | 2019-06-06 19:31 | REP ---
HISTORY: Cough and dyspnea. COMPARISON: Multiple, the latest 03/18/2019. The patchy opacity seen in the lung serna bilaterally on the prior exam have nearly completely resolved with minimal residual seen in the left lower lobe. The double lumen central venous catheter tip is unchanged remaining in the superior vena cava. The cardiomediastinal silhouette is unchanged. There is cardiomegaly accentuated by technique. There is no change in the osseous structures. IMPRESSION: Significantly improved lung serna and other findings as described above. Electronically Signed by Zachariah Holder DO 06/09/2019 04:13 P
--- NOTE | 2019-06-08 08:01 | ECGEPIP ---
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
== END 2019-06-06 18:25 | disposition home or self-care (01) ==
LOC: M ED 15:51
DX: N17.9 Acute kidney failure, unspecified (principal); R60.0 Localized edema; I10 Essential (primary) hypertension; Z99.2 Dependence on renal dialysis; Z79.899 Other long term (current) drug therapy; Z79.82 Long term (current) use of aspirin

== ENCOUNTER → 2019-06-23 | Outpatient (CLI) | payer MEDICARE, BC ==
--- NOTE | 2019-06-23 10:02 | REP ---
CT lumbar spine: 06/23/2019. Indication: Low back pain. Comparison: 03/10/2019. Technique: Unenhanced axial images of the lumbar spine were obtained with coronal and sagittal reconstructions provided. Findings: Chronic appearing anterior T11 compression fracture is present without significant retropulsion of fracture fragments into the spinal canal. Chronic-appearing compression of the superior L1 is present without retropulsion of fracture fragments into the spinal canal. There is no acute fracture. Disc space narrowing is present throughout. Vacuum disc phenomenon are present at L3/L4 , L4/L5 and L5/S1. Left-sided pleural thickening is noted. Aortic atherosclerotic disease is noted. There are no areas of significant spinal canal / neural foraminal narrowing detected. Impression: No acute fracture. Chronic compression deformities as described. Electronically Signed by Kleber Rogers DO 06/23/2019 09:53 A
== END ==
LOC: M RAD 08:57
PROVIDERS: ATTEND Internal Medicine Nephrology
DX: M31.7 Microscopic polyangiitis (principal); Z99.2 Dependence on renal dialysis; M54.5 Low back pain; M48.56XA Collapsed vertebra, not elsewhere classified, lumbar region, initial encounter for fracture; I70.0 Atherosclerosis of aorta